=== PATIENT | male | born 1955 | race Caucasian/White ===

== ENCOUNTER → 2017-09-22 09:30 | Outpatient (CLI) | payer MEDICARE, SELFPAY ==
[2017-09-22 11:40] LABS: Cholesterol 152 mg/dL (200); High Density Lipoprotein 84 mg/dL; T4 Free Direct 0.85 ng/dL (0.76-1.46); Triglycerides 51 mg/dL; Very Low Density Lipoprotein 10 mg/dL (5-40)
== END ==
PROVIDERS: Family Provider Family Medicine; PCP Family Medicine; Visit Provider Family Medicine
DX: E01.0 Iodine-deficiency related diffuse (endemic) goiter (principal); Z72.0 Tobacco use
CPT/HCPCS: 36415; 80061; 84439

== ENCOUNTER → 2017-09-28 09:01 | Outpatient (CLI) | payer MEDICARE, SELFPAY ==
[2017-09-28 09:11] LABS: Bacteria 0 SEEN /hpf (None Seen); Mucous, Urine 0 SEEN /hpf (<or=2+); Red Blood Cells-Urine 0 SEEN /hpf (0-5)
[2017-09-28 10:07] LABS: Color, Urine Yellow (Yellow); Glucose, Dipstick Normal (Normal); Ketone-Dipstick 5 mg/dl (Negative); Leukocyte Esterase-Dipstick 500 /ul (Negative); Nitrite-Dipstick Negative (Negative); Occult Blood-Urine Negative /ul (Negative); Protein-Dipstick Negative (Negative); Specific Gravity, Urine 1.005 (1.002-1.030); Urine Bilirubin Dipstick Negative (Negative); Urine Clarity Clear (Clear); Urine Urobilinogen Normal (Normal)
[2017-09-28 10:14] LABS: Squamous Epithelial Cells - UA 0-5 SEEN /hpf (0-5); White Blood Cells 0-5 SEEN /hpf (0-5)
[2017-09-28 10:39] LABS: ALB/GLOB Ratio 0.9 RATIO (0.9-2.4); AST(SGOT) 22 U/L (15-37); Alanine Aminotransfer ALT/SGPT 21 U/L (16-61); Albumin, Serum 3.4 g/dL (3.2-5.0); Alkaline Phosphatase 59 U/L (45-117); Anion Gap 6 (5-15); BUN 6 mg/dL (7-18); Calcium,Total 8.6 mg/dL (8.5-10.1); Chloride 101 mmol/L (98-107); Creatinine, Serum 0.75 mg/dL (0.70-1.30); EST Glomerular Filtration Rate 113 mL/min (>60); Est Glom Filt Rate - Afr Amer 136 mL/min (>60); Globulin 3.7 g/dL (2.2-4.2); Glucose 92 mg/dL (74-106); Protein, Total 7.1 g/dL (6.4-8.2); Sodium Level 136 mmol/L (136-145); Thyroid Stim Hormone (TSH) 1.57 uIU/mL (0.358-3.74)
[2017-09-28 12:25] LABS: Absolute Lymphocyte Count 1.16 X10^3/ul (0.83-4.51); Absolute Neutrophil Count 3.3 X10^3/uL (2.0-7.7); Basophil# 0.02 X10^3/uL; Basophil% 0.4 % (0-1); Eosinophil# 0.05 X10^3/uL; Hematocrit 45.9 % (40-54); Hemoglobin 16.2 g/dl (13.0-16.5); Lymphocyte # 1.16 X10^3/ul (4.0); Lymphocyte % 22.4 % (19-41); Mean Corp Hgb Conc 35.3 g/gl (32-36); Mean Corpuscular Hgb 37.2 pg (27.0-32.0); Mean Corpuscular Volume 105.3 fL (80-94); Mean Platelet Vol. 9.9 fl (6.2-12.0); Monocyte# 0.58 X10^3/uL; Monocyte% 11.2 % (0-10); Neutrophil # 3.33 X10^3/uL (2.7-7.7); Neutrophil % 64.4 % (47-70); Platelet Count 249 K/mm3 (150-450); RBC Distribution Width CV 12.1 % (11.6-14.6); RBC Distribution Width SD 47.2 fl (35.1-43.9); Red Blood Count 4.36 M/mm3 (4.6-6.2); White Blood Count 5.2 K/mm3 (4.4-11.0)
[2017-09-28 12:30] LABS: POSITIVE COUNT NO; POSITIVE DIFFERENTIAL NO; POSITIVE MORPHOLOGY NO
[2017-09-29 10:18] LABS: Vitamin B12 208 pg/mL (211-911)
[2017-10-02 11:38] LABS: Anti-Thyroglobulin AB < 1.0 IU/mL (0.0-0.9); Thyroglobulin, Serum Qt. 26.5 ng/mL (1.4-29.2); Thyroid Peroxidase AB 17 IU/mL (0-34); Vitamin B1, Thiamine 112.2 nmol/L (66.5-200.0)
== END ==
PROVIDERS: Family Provider Family Medicine; PCP Family Medicine; Visit Provider Family Medicine
DX: I10 Essential (primary) hypertension (principal); Z72.0 Tobacco use; E01.0 Iodine-deficiency related diffuse (endemic) goiter; G62.9 Polyneuropathy, unspecified
CPT/HCPCS: 36415; 80053; 81001; 82607; 84425; 84432; 84443; 85025; 86376; 86800

== ENCOUNTER 2017-10-01 13:14 | Inpatient (IN) | payer MEDICARE, SELFPAY ==
[2017-10-01] VITALS (17 sets, daily range): BP systolic 112–174; BP diastolic 65–147; PULSE 75–114; RESP 15–21; TEMP 36.4–36.8; O2SAT 94–99; BMI 24.0; BMI 21.6
--- NOTE | 2017-10-01 13:30 | EKG12_ITS ---
Test Reason : NEURO SYM Blood Pressure : / mmHG Vent. Rate : 107 BPM Atrial Rate : 107 BPM P-R Int : 134 ms QRS Dur : 082 ms QT Int : 338 ms P-R-T Axes : 057 097 245 degrees QTc Int : 451 ms Sinus tachycardia Septal infarct , age undetermined ST & T wave abnormality, consider inferior ischemia ST & T wave abnormality, consider anterolateral ischemia Abnormal ECG Confirmed by VI AHN, BALDEMAR ([id number]), manuscript editor STEVEN MCCLURE ([id number]) on 10/04/2017 10:50:18 AM Referred By: Jesus Trujillo Confirmed By:BALDEMAR LEBRON MD
--- NOTE | 2017-10-01 13:30 | CT_ITS ---
STUDY: CT BRAIN WITHOUT CONTRAST REASON FOR EXAM: Male, 62 years old. Left facial droop and left leg weakness. RADIATION DOSAGE (If Supplied By Facility): CTDIvol = ( 44.99 ) mGy, DLP = ( 829.85 ) mGycm TECHNIQUE: Transaxial CT imaging of the brain was performed without administration of intravenous contrast material. Individualized dose optimization techniques were used for this CT. COMPARISON: 08 June 2015 FINDINGS: Normal soft tissue structures. Normal calvarium. There is mild cerebral atrophy with widening of the extra-axial spaces and ventricular dilatation. Normal white matter tracts of the cerebral hemispheres. There is a left subinsular ribbon hypodensity consistent with old lacunar infarct given appearance. Posterior odalys hypodensity consistent with old lacunar infarct is present similar to prior MRI. Normal cerebellum. There is no intracranial hemorrhage. There are no findings of an acute ischemic infarction. Normal visualized paranasal sinuses. CT/Brain/Head without Contrast IMPRESSION: Findings consistent with left basal ganglia/subinsular ribbon hypodensity consistent with old lacunar infarct with acute on chronic ischemia not completely excluded. No evidence of large territorial ischemia is present. Electronically Signed: Leo Friedman DO at 14:27 EDT , Service support ,
--- NOTE | 2017-10-01 13:40 | RAD_ITS ---
STUDY: X-RAY CHEST REASON FOR EXAM: Male, 62 years old. Shortness of breath. TECHNIQUE: Single AP portable view of the chest. COMPARISON: 12 April 2013 FINDINGS: The lungs are clear and expanded. There is no demonstrated pleural abnormality. Normal size heart. Normal mediastinum and meghna. Normal visualized pulmonary arteries. There is atherosclerotic calcification of the aortic arch with tortuosity. Normal visualized thoracic spine. Normal visualized ribs, clavicles, and shoulders. There is no demonstrated abnormality of the visualized soft tissue structures of the upper abdomen. RAD/Chest 1 View IMPRESSION: No evidence of acute cardiopulmonary process. Electronically Signed: Leo Friedman DO at 14:20 EDT , Service support ,
--- NOTE | 2017-10-01 13:47 | ED.VISSUMM ---
- ER Visit Summary Date of Service: 10/01/17 Chief Complaint: Stroke symptoms History of Present Illness: The patient is a 62 M presenting with stroke symptoms which started on Monday. He complains of slurred speech, left leg weakness and left leg numbness. He has had difficulty ambulating due to his left leg weakness. He drove to his friend's house today and they called EMS. He admits to 3 beers this morning. He states that he did not drink Monday or Monday. He has history of a previous stroke. Denies other complaints. Physical Examination: Vitals are stable. Patient is afebrile. Alert no acute distress. HEENT exam is unremarkable. Neck is supple. Lungs are clear and equal bilaterally. Heart is regular rate and rhythm. Abdomen is soft nontender nondistended. Extremities are unremarkable. Skin is warm and dry. NIH 5: Dysarthria, decreased sensation on left, left leg weakness, facial droop Remainder of exam is unremarkable. Emergency Department Course and Treatment: EKG is sinus rate of 107 with inferior and anterolateral T-wave inversions. The inferior T-wave inversion is new compared to previous. The anterolateral T-wave inversion is old. CBC, chemistries unremarkable. Troponin is negative. Alcohol level 60. Chest x-ray shows no acute process. CT head shows findings consistent with left basal ganglia/subinsular ribbon hypodensity consistent with old lacunar infarct with acute on chronic ischemia not completely excluded. No evidence of large territorial ischemia is present. Discussed with Dr. Lennon. He would like CTA head and neck. Urine tox was ordered. Discussed with the hospitalist for admission. Disposition: Admission Impression: CVA, alcohol intoxication This note was generated with [employer] dictation software. It may contain incorrect words, spelling, and punctuation that were not noted in review of the chart prior to signing ED Disposition - Plan for ED Patient: Chief Complaint: Neuro S/Sx Referrals: Jesus Trujillo MD [Primary Care Provider] -
[2017-10-01 13:51] LABS: Absolute Lymphocyte Count 1.21 X10^3/ul (0.83-4.51); Absolute Neutrophil Count 4.8 X10^3/uL (2.0-7.7); Basophil# 0.03 X10^3/uL; Basophil% 0.4 % (0-1); Eosinophil# 0.05 X10^3/uL; Eosinophils% 0.7 % (0-5); Hematocrit 44.5 % (40-54); Hemoglobin 16.2 g/dl (13.0-16.5); Lymphocyte # 1.21 X10^3/ul (4.0); Lymphocyte % 17.4 % (19-41); Mean Corp Hgb Conc 36.4 g/gl (32-36); Mean Corpuscular Hgb 37.5 pg (27.0-32.0); Mean Platelet Vol. 9.5 fl (6.2-12.0); Monocyte# 0.88 X10^3/uL; Monocyte% 12.6 % (0-10); Neutrophil # 4.76 X10^3/uL (2.7-7.7); Neutrophil % 68.5 % (47-70); POSITIVE COUNT NO; POSITIVE DIFFERENTIAL NO; POSITIVE MORPHOLOGY NO; Platelet Count 249 K/mm3 (150-450); RBC Distribution Width SD 44.6 fl (35.1-43.9); Red Blood Count 4.32 M/mm3 (4.6-6.2)
[2017-10-01 13:55] LABS: International Normalized Ratio 0.9; Prothrombin Time (Protime)PT. 12.3 SECONDS (11.7-14.9)
[2017-10-01 13:56] LABS: Partial Thromboplast Time 28.1 Seconds (24.1-36.2)
[2017-10-01 14:01] LABS: Anion Gap 13 (5-15); BUN 4 mg/dL (7-18); BUN/Creat Ratio 5.6 RATIO (10-20); Calcium,Total 8.9 mg/dL (8.5-10.1); Chloride 96 mmol/L (98-107); Creatinine, Serum 0.71 mg/dL (0.70-1.30); EST Glomerular Filtration Rate 120 mL/min (>60); Est Glom Filt Rate - Afr Amer 145 mL/min (>60); Estimated Creatinine Clearance 125.04 ml/min; Glucose 117 mg/dL (74-106); Potassium 3.7 mmol/L (3.5-5.1); Sodium Level 134 mmol/L (136-145)
--- NOTE | 2017-10-01 15:55 | CT_ITS ---
STUDY: CTA head and neck with IV contrast REASON FOR EXAM: Male, 62 years old. Left-sided facial droop and weakness. Slurred speech RADIATION DOSAGE (If Supplied By Facility): CTDIvol = ( 22.01 ) mGy, DLP = ( 800.89 ) mGycm. Individualized dose optimization techniques were used for this CT.? TECHNIQUE: CTA imaging of the head and neck was performed after intravenous administration of 100 cc of Isovue 370. Maximum intensity projection imaging was performed COMPARISON: None. FINDINGS: Atherosclerotic calcifications at the origin of the great vessels moderate narrowing of the proximal left subclavian artery. The bilateral common carotid arteries demonstrate atherosclerotic soft tissue plaque formation and calcifications with mild narrowing of the left common carotid artery. Atherosclerotic calcifications at the aortic bifurcation with mild narrowing no significant stenosis of the right cervical internal carotid artery. Vascular calcifications of the proximal right cervical internal carotid artery with mild narrowing. Remaining segments are patent. Origin of the vertebral arteries are patent. Mild atelectatic calcifications at the origin of the right vertebral artery. V2 and V3 segments of the vertebral arteries are patent. The V4 segments demonstrate atherosclerotic calcifications of the right vertebral artery with mild narrowing. Thyroid gland appears enlarged with small nodule in the isthmus. No apical pneumothorax. There are likely emphysematous changes in the lung apices. The parotid glands appear symmetric. Mild mucosal thickening of the ethmoid vessels Chronic small vessel disease. Scattered nonenlarged cervical lymph nodes CT/CTA Neck W/WO Contrast IMPRESSION: Atherosclerotic calcifications of the petrous, cavernous and supraclinoid segments of the internal carotid arteries noted. Bilateral middle and anterior cerebral arteries are patent. Atherosclerotic calcifications of the basilar artery. The basilar artery however is patent. The posterior cerebral arteries are patent. IMPRESSION: Mild atelectatic calcifications and soft tissue plaque formation of the common carotid arteries as well as the cervical internal carotid arteries without significant stenosis. Mild atherosclerotic disease of the right vertebral artery and the V4 segment as well as at the origin with mild narrowing. Electronically Signed: Nilson Regan, at 17:34 EDT Tel , Service support ,
--- NOTE | 2017-10-01 16:18 | PCM.HP.STD ---
Problem List (1) Acute CVA (cerebrovascular accident) Status: Acute Comment: Left facial droop, dysarthria, left sided weakness (2) ETOH abuse Status: Chronic (3) Hypertension Status: Chronic Qualifiers: Hypertension type: essential hypertension Qualified Code(s): I10 - Essential (primary) hypertension (4) Patient's noncompliance with other medical treatment and regimen Status: Chronic History of Present Illness Date of Admission: 10/01/17 Chief Complaint: Slurred speech, left-sided weakness The patient is a 62 year old M with past history hypertension, prior old lacunar CVA, EtOH use, smoker, who developed the onset of left sided weakness, slurred speech 24 hours prior to admission. He did not seek medical attention. He had 3 beers to drink this morning. He went to visit his friend who noted the deficits and called 911. ED evaluation: Blood pressure 164/147, improved 122/83 Heart rate 100, improved to 90 Respirations 16 98% room air CBC acceptable, hemoglobin 16.2, macrocytosis noted, coags normal, general chemistries acceptable, creatinine 0.7, BUN 4, random glucose 117, troponin negative, serum alcohol level 60 Chest x-ray reveals no abnormalities Noncontrast head CT reveals mild atrophy, old left lacunar infarct, old posterior odalys lacunar infarct, no bleed, no acute infarction ED course: Aspirin 325 mg p.o. ?1 Patient reports he feels his left lower extremity weakness is spontaneously improving compared to earlier Neurology consultation Dr. Lennon -CTA head and neck recommended The patient is seen and examined and is hemodynamically stable. He will be admitted to PCU. [] Past Medical History Past Medical History (Chronic Problems): Chronic Problems ETOH abuse (Chronic) Patient's noncompliance with other medical treatment and regimen (Chronic) Hypertension (Chronic) Chronic back pain (Chronic) Allergies Penicillins Adverse Reaction (Verified 06/08/15 14:04) Diarrhea Home Medications: Ambulatory Orders Medication Instructions Recorded Aspirin [Aspirin, Baby] 81 mg PO DAILY@0800 tab.chew 06/09/15 Atorvastatin Calcium [Lipitor] 80 mg PO UD #15 tablet 06/09/15 Lisinopril [Zestril] 20 mg PO DAILY #30 tablet 06/09/15 Nicotine [Nicoderm Cq] 21 mg TRANSDERM. DAILY #30 patch 06/09/15 Surgical History: herniorrhaphy, - - Back surgery-lumbar spine fusion, eye surgery secondary to retained metal in the eye Psychiatric History: No pertinent psych hx Smoking Status: Current every day smoker - *Family History Maternal History Items: Stroke Paternal History Items: Heart Disease VTE Information - Inpt Only VTE Present on Admission: No VTE Mechan Device Prophylaxis: SCD's VTE Pharm Prophylaxis ordered?: Yes Patient Problems: Active and Suspected Problems Acute CVA (cerebrovascular accident) (Acute) Left facial droop, dysarthria, left sided weakness Subjective: Patient denies chest pain, nausea vomiting diarrhea, palpitations. Patient feels his left lower extremity weakness is improving Objective: Unkempt gentleman, no acute distress, slurred speech - Physical Exam General: Alert, Oriented x3, Cooperative, - - Dysarthria with left facial droop HEENT: Atraumatic, PERRLA, EOMI Oral: Moist Mucosa Neck: No JVD, Negative Carotid Bruits Lungs: Clear to auscultation Cardiovascular: Regular rate, Regular Rhythm, Normal S1, Normal S2, No murmurs Abdomen: Bowel Sounds Present, Soft, Non Tender, Non-Distended Extremities: No edema Neurological: - - Dysarthria Left facial droop Tongue mild deviation left Weakness noted left upper greater than left lower extremity Left upgoing toe Mild hyperreflexia left knee Psych/Mental Status: Normal Affect, Appropriate Vital Signs Temp Pulse Resp BP Pulse Ox 97.7 F L 90 16 122/83 H 97 10/01/17 13:25 10/01/17 15:00 10/01/17 15:00 10/01/17 15:00 10/01/17 15:00 Oxygen Delivery Method Room Air Weight: 182 lb Body Mass Index (BMI) 24.0 Finger Stick Blood Glucose 129 Laboratory Tests Past 24 Hrs 10/01/17 10/01/17 10/01/17 13:20 13:20 13:20 WBC 7.0 RBC 4.32 L Hgb 16.2 Hct 44.5 MCV 103.0 H MCH 37.5 H MCHC 36.4 H RDW 12.0 RDW Differential 44.6 H Plt Count 249 MPV 9.5 Immature Gran % (Auto) 0.400 Neut % (Auto) 68.5 Lymph % (Auto) 17.4 L [place]he % (Auto) 12.6 H Eos % (Auto) 0.7 Baso % (Auto) 0.4 Absolute Neuts (auto) 4.8 Absolute Lymphs (auto) 1.21 Total Counted Not Reportable PT 12.3 INR 0.9 APTT 28.1 Sodium 134 L Potassium 3.7 Chloride 96 L Carbon Dioxide 25.0 Anion Gap 13 BUN 4 L Creatinine 0.71 Estim Creat Clear Calc 125.04 Est GFR (MDRD) Af Amer 145 Est GFR (MDRD) Non-Af 120 BUN/Creatinine Ratio 5.6 L Glucose 117 H Calcium 8.9 Troponin I < 0.015 Ethyl Alcohol 10/01/17 13:20 WBC RBC Hgb Hct MCV MCH MCHC RDW RDW Differential Plt Count MPV Immature Gran % (Auto) Neut % (Auto) Lymph % (Auto) [place]he % (Auto) Eos % (Auto) Baso % (Auto) Absolute Neuts (auto) Absolute Lymphs (auto) Total Counted PT INR APTT Sodium Potassium Chloride Carbon Dioxide Anion Gap BUN Creatinine Estim Creat Clear Calc Est GFR (MDRD) Af Amer Est GFR (MDRD) Non-Af BUN/Creatinine Ratio Glucose Calcium Troponin I Ethyl Alcohol 60.0 Assessment/Plan All Active Problems Acute CVA (cerebrovascular accident) (Acute) Arm paresthesia, right (Acute) Right leg paresthesias (Acute) 62-year-old gentleman with past medical history of hypertension, tobacco and EtOH abuse, history of old lacunar CVA, hyperlipidemia, hypertension, presents with stroke symptoms, onset greater than 24 hours ago. Patient reports symptoms stable/improving. He is hypertensive on arrival, with EKG revealing sinus tachycardia, poor R-wave progression, and T-wave inversions inferolaterally consistent with hypertensive heart disease/LVH pattern. Prior EKG 06/09/2015 revealed sinus rhythm, with T-wave inversions only in the lateral precordium. He has had no chest pain, dyspnea, orthopnea, PND, or pleuritic pain. Serum EtOH level is 60. 1. Acute CVA Multiple risk factors to include uncontrolled hypertension, hyperlipidemia, tobacco use, age 2. EtOH abuse 3. Uncontrolled hypertension/HTNive heart disease 4. Tobacco dependency 5. 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
[2017-10-01] MEDS: Aspirin 325 MG Tablet PO (17:07)
[2017-10-01] MEDS: 0.9% Normal Saline 1,000 ML 75 ML IV (19:01)
[2017-10-01] MEDS: Thiamine Hydrochloride 100 MG Tablet PO (19:01)
[2017-10-01 21:44] LABS: Magnesium 1.9 mg/dL (1.6-2.6)
[2017-10-01] MEDS: Atorvastatin Calcium 40 MG Tablet PO (22:50)
[2017-10-01] MEDS: Heparin Injection (Vial) 5,000 UNIT/ML VIAL 5000 UNIT SC (22:50)
[2017-10-01 23:01] LABS: Bedside Glucose 118 mg/dL (70-110)
[2017-10-02] VITALS (12 sets, daily range): BP systolic 142–154; BP diastolic 50–94; PULSE 75–110; RESP 15–18; TEMP 36.4–37.2; O2SAT 96–99; BMI 21.6
[2017-10-02] MEDS: 0.9% Normal Saline 1,000 ML 100 ML IV (04:12)
[2017-10-02 05:30] LABS: ALB/GLOB Ratio 0.9 RATIO (0.9-2.4); AST(SGOT) 22 U/L (15-37); Alanine Aminotransfer ALT/SGPT 22 U/L (16-61); Albumin, Serum 3.1 g/dL (3.2-5.0); Alkaline Phosphatase 53 U/L (45-117); Anion Gap 11 (5-15); BUN 6 mg/dL (7-18); BUN/Creat Ratio 7.5 RATIO (10-20); Calcium,Total 8.3 mg/dL (8.5-10.1); Chloride 101 mmol/L (98-107); Cholesterol 142 mg/dL (200); EST Glomerular Filtration Rate 106 mL/min (>60); Est Glom Filt Rate - Afr Amer 128 mL/min (>60); Estimated Creatinine Clearance 103.33 ml/min; Globulin 3.3 g/dL (2.2-4.2); Glucose 90 mg/dL (74-106); High Density Lipoprotein 59 mg/dL; Protein, Total 6.4 g/dL (6.4-8.2); Sodium Level 140 mmol/L (136-145); Triglycerides 48 mg/dL; Very Low Density Lipoprotein 10 mg/dL (5-40)
[2017-10-02] MEDS: Multivitamins,Ther W-Minerals Tablet 1 TABLET PO (07:48)
[2017-10-02] MEDS: Folic Acid 1 MG Tablet PO (07:48)
[2017-10-02] MEDS: Aspirin 81 MG TAB.CHEW PO (07:48)
[2017-10-02] MEDS: Thiamine Hydrochloride 100 MG Tablet PO ×2 (07:48→17:52)
--- NOTE | 2017-10-02 08:52 | PCM.PROGNOTE ---
Patient Problems: Active and Suspected Problems Acute CVA (cerebrovascular accident) (Acute) Left facial droop, dysarthria, left sided weakness Subjective: Chief complaint: Follow-up after admission for slurred speech/left-sided weakness , found to have acute right pontine infarct. Patient seen and examined. No acute events overnight. He mentioned that weakness in the left side is getting better, still having slurred speech. Denies any new symptoms. His vital signs are stable. - Physical Exam General: Alert, Oriented x3, Cooperative, No apparent distress HEENT: Atraumatic, PERRLA, EOMI, Normocephalic Oral: Moist Mucosa, No Gingival or Mucosal Lesions/ Ulcerations Neck: Supple, No JVD, Negative Carotid Bruits, Trachea Midline, Thyroid Normal Size and Texture Lungs: Clear to auscultation, No rhonchi, No wheeze, No rales, Diminished Cardiovascular: Regular rate, Regular Rhythm, Normal S1, Normal S2, PMI Normal Abdomen: Bowel Sounds Present, Soft, Non Tender, Non-Distended, No Hepato-splenomegaly Extremities: No clubbing, No cyanosis, No edema Skin: No rashes, No breakdown Lymphatic: No Cervical, Supraclavicular, or Inguinal Adenopathy Neurological: - - Minimal left facial droop. Positive left upper extremity drift, minimal weakness, minimal weakness on the left upper extremity. Psych/Mental Status: Normal Affect, Appropriate, Alert and oriented to time, place, person, mood and affect Vital Signs Temp Pulse Resp BP Pulse Ox 97.5 F L 75 15 154/92 H 98 10/02/17 06:21 10/02/17 06:59 10/02/17 06:21 10/02/17 06:21 10/02/17 06:21 Oxygen Delivery Method Room Air Weight: 164 lb 0.383 oz Body Mass Index (BMI) 21.6 Intake and Output for Last 24 Hours 09/30/17 10/01/17 10/02/17 23:59 23:59 23:59 Intake Total 596 / 596 656 / 656 Output Total 300 / 300 450 / 450 Balance 296 / 296 206 / 206 Laboratory Tests Past 24 Hrs 10/02/17 10/02/17 04:51 08:35 Sodium 140 Potassium 4.0 Chloride 101 Carbon Dioxide 28.0 Anion Gap 11 BUN 6 L Creatinine 0.80 Estim Creat Clear Calc 103.33 Est GFR (MDRD) Af Amer 128 Est GFR (MDRD) Non-Af 106 BUN/Creatinine Ratio 7.5 L Glucose 90 Calcium 8.3 L Total Bilirubin 0.50 AST 22 ALT 22 Alkaline Phosphatase 53 Total Protein 6.4 Albumin 3.1 L Globulin 3.3 Albumin/Globulin Ratio 0.9 Triglycerides 48 Cholesterol 142 LDL Cholesterol 73 VLDL Cholesterol 10 HDL Cholesterol 59 Urine Opiates Screen Pending Urine Methadone Screen Pending Ur Barbiturates Screen Pending Ur Phencyclidine Scrn Pending Ur Amphetamines Screen Pending U Methamphetamin-MDMA Pending U Benzodiazepines Scrn Pending Urine Cocaine Screen Pending U Cannabinoids Screen Pending Ur Drug Screen Comment POC Glucose 10/01/17 22:49 POC Glucose 118 H Clinical Impression(s) from Imaging Studies Clinical Impression(s) from Imaging Studies Brain CT 10/01/17 13:30 IMPRESSION: Findings consistent with left basal ganglia/subinsular ribbon hypodensity consistent with old lacunar infarct with acute on chronic ischemia not completely excluded. No evidence of large territorial ischemia is present. Electronically Signed: Leo Friedman DO at 14:27 EDT , Service support , Chest X-Ray 10/01/17 13:40 IMPRESSION: No evidence of acute cardiopulmonary process. Electronically Signed: Leo Friedman DO at 14:20 EDT , Service support , Neck CTA 10/01/17 15:55 IMPRESSION: Atherosclerotic calcifications of the petrous, cavernous and supraclinoid segments of the internal carotid arteries noted. Bilateral middle and anterior cerebral arteries are patent. Atherosclerotic calcifications of the basilar artery. The basilar artery however is patent. The posterior cerebral arteries are patent. IMPRESSION: Mild atelectatic calcifications and soft tissue plaque formation of the common carotid arteries as well as the cervical internal carotid arteries without significant stenosis. Mild atherosclerotic disease of the right vertebral artery and the V4 segment as well as at the origin with mild narrowing. Electronically Signed: Nilson Regan, at 17:34 EDT Tel , Service support , Head CTA 10/01/17 16:25 IMPRESSION: Atherosclerotic calcifications of the petrous, cavernous and supraclinoid segments of the internal carotid arteries noted. Bilateral middle and anterior cerebral arteries are patent. Atherosclerotic calcifications of the basilar artery. The basilar artery however is patent. The posterior cerebral arteries are patent. IMPRESSION: Mild atelectatic calcifications and soft tissue plaque formation of the common carotid arteries as well as the cervical internal carotid arteries without significant stenosis. Mild atherosclerotic disease of the right vertebral artery and the V4 segment as well as at the origin with mild narrowing. Electronically Signed: Nilson Shereen, at 17:34 EDT Tel , Service support , Brain MRI 10/02/17 09:00 IMPRESSION: Right pontine acute infarct. Chronic lacunar infarcts. Moderate chronic microvascular ischemic changes. N.B. : The above information has been verbally conveyed by Jose F De Leon MD to JIA BOLDENOB on 10/02/2017 11:20:48 (ET). Electronically Signed: Jose F De Leon MD at 11:22 EDT Tel , Service support , Medical Necessity - Tobacco Use Smoking Status: Current every day smoker Tobacco Use: Cigarettes Assessment/Plan All Active Problems Acute CVA (cerebrovascular accident) (Acute) This is a 62 years old male patient presented to the emergency room because of an left-sided weakness, found to have acute right pontine infarct. #1 acute right pontine infarct: With resultant left-sided facial droop and minimal left-sided hemiparesis. MRI brain revealed right pontine acute infarct. CTA of the head and neck revealed mild calcification and soft tissue plaque of the common carotids as well as cervical internal carotid arteries without significant stenosis. 2D echocardiogram done, awaiting the report. Patient is on aspirin, statins. Blood pressure stable, under control. Neurology recommended Plavix and possible placement to rehab. Plan to change aspirin to Plavix, PT OT evaluation and treatment. #2 hypertension: At this time, blood pressure is stable. He has been on lisinopril at home. Plan to allow permissive hypertension because of acute stroke. #3 hyperlipidemia: Continue statins. #4 alcohol abuse: He is on folic acid, thiamine and multivitamins as well as Ativan as needed, CIWA protocol. #5 DVT prophylaxis: Subcu heparin. This note was generated with [employer] dictation software. It may contain incorrect words, spelling, and punctuation that were not noted in checking the note before signing. Code Visit Inpatient E&M: 93732 Subs Hosp L2
[2017-10-02 08:59] LABS: Amphetamine Urine VISTA NEGATIVE (<1000 ng/mL); Barbiturate Urine VISTA NEGATIVE (< 200 ng/mL); Benzodiazepine Urine VISTA NEGATIVE (< 200 ng/mL); Cocaine Urine VISTA NEGATIVE (< 300 ng/mL); Ecstacy Urine VISTA NEGATIVE (< 500 ng/mL); Methadone Urine VISTA NEGATIVE (< 300 ng/mL); PCP Urine VISTA NEGATIVE (< 25 ng/mL); THC Urine VISTA NEGATIVE (< 50 ng/mL); Vista UDS pH Range 5
--- NOTE | 2017-10-02 09:00 | MRI_ITS ---
STUDY: MRI BRAIN WITHOUT CONTRAST REASON FOR EXAM: Male, 62 years old. cva -- left sided weakness, slurred speech, x 2 days,, hx prev stroke with rt sided weakness. TECHNIQUE: Standardized multiplanar fat and water weighted pulse sequences were obtained. COMPARISON: June 08, 2015 FINDINGS: There is moderate cerebral atrophy with widening of the extra-axial spaces and ventricular dilatation. There are multiple white matter hyperintensities, distributed throughout the deep white matter tracts of the cerebral hemispheres, consistent with moderate chronic white matter ischemic changes. Again noted are the bilateral basal ganglia and left thalamic chronic lacunar infarcts. There is no extra-axial fluid accumulation. Normal flow voids within the major intracranial circulation suggesting patency by spin echo criteria. Normal sella turcica, pituitary gland, infundibular stalk, optic chiasm and hypothalamus. Normal tectal plate and pineal gland. There is 1.2 cm right pontine restricted diffusion with drop in signal on ADC map, consistent with acute infarction. Again noted is a left pontine chronic infarct. Normal cerebellum. Normal basal cisterns. MRI/Brain without Contrast IMPRESSION: Right pontine acute infarct. Chronic lacunar infarcts. Moderate chronic microvascular ischemic changes. N.B. : The above information has been verbally conveyed by Jose F De Leon MD to JIA FAVIOLA on 10/02/2017 11:20:48 (ET). Electronically Signed: Jose F De Leon MD at 11:22 EDT Tel , Service support ,
--- NOTE | 2017-10-02 09:00 | ECHOD_ITS ---
Reason For Study: TIA/STROKE Procedure This was a 2D Doppler, Color Flow transthoracic echocardiogram. The exam was of fair technical quality due to diminished acoustic windows. The study was technically difficult. Exam performed portable in patient room. Left Ventricle Normal LV size. Left ventricular systolic function is normal. The estimated ejection fraction is 55 %. Transmitral doppler flow suggestive of impaired relaxation of left ventricle. No regional wall motion abnormalities noted. Right Ventricle Normal RV size. Normal systolic function. Atria Normal left atrium. Normal right atrium. No doppler evidence for ASD. Mitral Valve There is mild mitral annular calcification. Normal mitral valve. Tricuspid Valve Normal tricuspid valve. Aortic Valve Trisinus/trileaflet aortic valve. Mild focal aortic valve calcification. Pulmonic Valve The pulmonic valve is not well visualized. Great Vessels Normal sized aortic root. Pericardium/Pleural No pericardial effusion. MMode/2D Measurements & Calculations LVIDd: 5.1 cm IVSd: 0.98 cm LA dimension: 2.9 cm LVIDs: 4.0 cm LVPWd: 1.0 cm FS: 21.1 % LAV(MOD-sp4): 29.1 ml LA A4 area: 12.5 cm2 RA A4 area: 10.4 cm2 Time Measurements MV dec time: 0.20 sec Doppler Measurements & Calculations MV E max ike: 51.3 cm/sec Lat Peak E' Ike: 5.2 cm/sec Med Peak E' Ike: 5.4 cm/sec MV A max ike: 93.9 cm/sec E/E' lat: 9.8 E/E' med: 9.5 MV E/A: 0.55 MV V2 max: 90.4 cm/sec MV P1/2t max ike: 63.1 cm/sec Ao V2 max: 141.5 cm/sec MV max P.3 mmHg MV P1/2t: 55.9 msec Ao max P.0 mmHg MV V2 mean: 47.5 cm/sec MV dec slope: 331.0 cm/sec2 Ao V2 mean: 87.4 cm/sec MV mean P.1 mmHg MVA(P1/2t): 3.9 cm2 Ao mean P.6 mmHg MV V2 VTI: 19.1 cm Ao V2 VTI: 22.5 cm AI max ike: 457.3 cm/sec LV V1 max: 115.5 cm/sec PA V2 max: 64.7 cm/sec AI max P.6 mmHg LV V1 max P.3 mmHg AI dec slope: 287.3 cm/sec2 LV V1 mean P.4 mmHg AI P1/2t: 466.2 msec LV V1 mean: 71.1 cm/sec LV V1 VTI: 18.8 cm Interpretation Summary The study was technically difficult. Left ventricular systolic function is normal. The estimated ejection fraction is 55 %. There is mild mitral annular calcification. Mild focal aortic valve calcification. Transmitral doppler flow suggestive of impaired relaxation of left ventricle Ordering Physician: Andreea Urias Referring Physician: Jesus Trujillo Performed By: Armond Hyde RCS
[2017-10-02] MEDS: Heparin Injection (Vial) 5,000 UNIT/ML VIAL 5000 UNIT SC ×2 (09:27→22:47)
[2017-10-02] MEDS: 0.9% NaCl Peripheral Flush Adult/Peds IV (09:28)
--- NOTE | 2017-10-02 10:12 | PCM.CONS.GEN ---
Reason for Consult Date of Consultation: 10/02/17 Reason for Consultation: cva History of Present Illness: The patient is a 62 year old M admitted for left sided discoordination. denies other problems. history of tobacco use. takes asa daily. no snoring. lives alone. disabled due to back issues. 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 He did not seek medical attention. He had 3 beers to drink this morning. He went to visit his friend who noted the deficits and called 911. ED evaluation: Blood pressure 164/147, improved 122/83 Heart rate 100, improved to 90 Respirations 16 98% room air CBC acceptable, hemoglobin 16.2, macrocytosis noted, coags normal, general chemistries acceptable, creatinine 0.7, BUN 4, random glucose 117, troponin negative, serum alcohol level 60 Chest x-ray reveals no abnormalities Noncontrast head CT reveals mild atrophy, old left lacunar infarct, old posterior odalys lacunar infarct, no bleed, no acute infarction ED course: Aspirin 325 mg p.o. ?1 Patient reports he feels his left lower extremity weakness is spontaneously improving compared to earlier Neurology consultation Dr. Lennon -[facility] head and neck recommended The patient is seen and examined and is hemodynamically stable. He will be admitted to PCU. His Past Medical History Past Medical History (Chronic Problems): Chronic Problems ETOH abuse (Chronic) Patient's noncompliance with other medical treatment and regimen (Chronic) Hypertension (Chronic) Chronic back pain (Chronic) Allergies Penicillins Adverse Reaction (Verified 06/08/15 14:04) Diarrhea Home Medications: Ambulatory Orders Medication Instructions Recorded Aspirin [Aspirin, Baby] 81 mg PO DAILY@0800 tab.chew 06/09/15 Atorvastatin Calcium [Lipitor] 80 mg PO UD #15 tablet 06/09/15 Lisinopril [Zestril] 20 mg PO DAILY #30 tablet 06/09/15 Surgical History: herniorrhaphy, - - Back surgery-lumbar spine fusion, eye surgery secondary to retained metal in the eye Psychiatric History: No pertinent psych hx Smoking Status: Current every day smoker - *Family History Maternal History Items: Stroke Paternal History Items: Heart Disease Review of Systems Constitutional: Denies: Chills, Fever, Weight Change HEENT: Denies: Head Aches, Sinus Congestion, Sinus Drainage Cardiovascular: Denies: Chest Pain, Palpitations Respiratory: Denies: Cough, Shortness of breath at rest, Sputum production Gastrointestinal: Denies: Abdominal Pain, Nausea, Vomiting Genitourinary: Denies: Dysuria Musculoskeletal: Denies: Joint Pain, Joint Tenderness Skin: Denies: Rash, Wounds Neurological: Denies: Numbness, Tingling, Focal weakness Psychiatric: Denies: Anxiety, Depression, Homicidal Ideations, Suicidal Ideations Hematologic/ Lymphatic: Denies: Easy Bruising, Easy Bleeding Patient Problems: Active and Suspected Problems Acute CVA (cerebrovascular accident) (Acute) Left facial droop, dysarthria, left sided weakness - Physical Exam General: Alert, Oriented x3, Cooperative Neurological: Cranial nerves II-XII grossly intact, - - left discoord Vital Signs Temp Pulse Resp BP Pulse Ox 36.5 C L 84 16 150/94 H 96 10/02/17 09:30 10/02/17 09:30 10/02/17 09:30 10/02/17 09:30 10/02/17 09:30 Oxygen Delivery Method Room Air Weight: 74.4 kg Body Mass Index (BMI) 21.6 Intake and Output for Last 24 Hours 09/30/17 10/01/17 10/02/17 23:59 23:59 23:59 Intake Total 596 / 596 656 / 656 Output Total 300 / 300 450 / 450 Balance 296 / 296 206 / 206 Laboratory Tests Past 24 Hrs 10/02/17 10/02/17 04:51 08:35 Sodium 140 Potassium 4.0 Chloride 101 Carbon Dioxide 28.0 Anion Gap 11 BUN 6 L Creatinine 0.80 Estim Creat Clear Calc 103.33 Est GFR (MDRD) Af Amer 128 Est GFR (MDRD) Non-Af 106 BUN/Creatinine Ratio 7.5 L Glucose 90 Calcium 8.3 L Total Bilirubin 0.50 AST 22 ALT 22 Alkaline Phosphatase 53 Total Protein 6.4 Albumin 3.1 L Globulin 3.3 Albumin/Globulin Ratio 0.9 Triglycerides 48 Cholesterol 142 LDL Cholesterol 73 VLDL Cholesterol 10 HDL Cholesterol 59 Urine Opiates Screen NEGATIVE Urine Methadone Screen NEGATIVE Ur Barbiturates Screen NEGATIVE Ur Phencyclidine Scrn NEGATIVE Ur Amphetamines Screen NEGATIVE U Methamphetamin-MDMA NEGATIVE U Benzodiazepines Scrn NEGATIVE Urine Cocaine Screen NEGATIVE U Cannabinoids Screen NEGATIVE Ur Drug Screen Comment POC Glucose 10/01/17 22:49 POC Glucose 118 H MRI, MRA and CTA reviewed. There is an acute right pontine infarct. No significant stenosis. Assessment/Plan All Active Problems Acute CVA (cerebrovascular accident) (Acute) Arm paresthesia, right (Acute) Right leg paresthesias (Acute) acute right pontine infarct plavix statin bp control pt/ot/sp consider rehab
--- NOTE | 2017-10-02 10:35 | CASEMGMT ---
Face to Face with patient for initial transition planning/care coordination assessment. RN BLUE introduced self and role at [facility], pt voices understanding and consents to assessment at this time. Pt is sitting up in bed in no distress at this time. Pt is A/O x4 at this time and answers all questions appropriately at this time. Care providers, pharmacy, and demographics verified. See attached link. Pt voices no further concerns/needs at this time. Advised pt to ask for CM if any further questions/concerns/needs arise, voices understanding. Referral to [facility] for possible rehab, voices understanding and awaiting neuro consult notes. PLAN: FAUSTOD Hosea MONSIVAIS CM
[2017-10-02 10:44] LABS: Hemoglobin A1c 4.7 % (4.2-6.3)
--- NOTE | 2017-10-02 12:50 | CASEMGMT ---
Addendum entered by Shama Paige 10/02/17 16:20: Social Work Met with pt in room and pt states he would like to go to [facility]. Phone call to Natalie and confirmed she can take him tomorrow. DORCAS Joseph Original Note: Social Work Spoke with Natalie in [facility] and they are able to accept pt. Met with pt in room and introduced self and role of SW. Presented inpt rehab to pt and explained the program and benefits. Pt states three hours of therapy does not sound like very much a day and pt questioned home with outpt therapy. SW explained that 3 hours of therapy in the inpt rehab is the most therapy the pt will be able to receive and will help him to recover. Explained that outpt therapy would be 30min-1hour twice a week. Pt states he wants to think about. SW informed pt that SW will return later this afternoon for decision. Plan: possible inpt rehab, waiting on pt decision. DORCAS Joseph
[2017-10-02] MEDS: Atorvastatin Calcium 40 MG Tablet PO (22:47)
[2017-10-03 03:00] VITALS: PULSE 69
[2017-10-03 04:27] VITALS: BP 144/75; PULSE 79; RESP 18; TEMP 37; O2SAT 94
[2017-10-03 07:00] VITALS: PULSE 76
[2017-10-03] MEDS: Multivitamins,Ther W-Minerals Tablet 1 TABLET PO (07:58)
[2017-10-03] MEDS: Folic Acid 1 MG Tablet PO (07:58)
[2017-10-03] MEDS: Clopidogrel Bisulfate 75 MG Tablet PO (07:58)
[2017-10-03] MEDS: Thiamine Hydrochloride 100 MG Tablet PO (07:58)
[2017-10-03 10:05] VITALS: BP 165/96; PULSE 87; RESP 16; TEMP 37.1; O2SAT 94
--- NOTE | 2017-10-03 10:16 | DCINST_ITS ---
- Discharge Diagnoses Current Active Problems: Current Active and Chronic Problems Acute CVA (cerebrovascular accident) (Acute) Left facial droop, dysarthria, left sided weakness ETOH abuse (Chronic) You will use the following diet at home:: Cardiac Your food should be the consistency of: Regular Discharge Activity: Return to Normal Activity Weight Bearing Status: Weight bearing as tolerated Call your doctor if you observe: Fever of 101 or Higher, Shortness of breath, Dizziness, Fainting spells, Chest pain, Increased palpitations (irregular heartbeat), Uncontrolled pain Allergies/Adverse Reactions: Allergies Penicillins Adverse Reaction (Verified 06/08/15 14:04) Diarrhea Medications to take at Discharge Atorvastatin Calcium [Lipitor] 80 mg PO UD #15 tablet 06/09/15 Lisinopril [Zestril] 20 mg PO DAILY #30 tablet 06/09/15 Clopidogrel Bisulfate [Plavix] 75 mg PO DAILY #90 tab 10/03/17 Folic Acid 1 mg PO DAILY@0800 #30 tab 10/03/17 Thiamine Hydrochloride [Vitamin B1] 100 mg PO DAILY #30 tab 10/03/17 The following prescriptions were given: Clopidogrel Bisulfate [Plavix] 75 mg PO DAILY #90 tab Folic Acid 1 mg PO DAILY@0800 #30 tab Thiamine Hydrochloride [Vitamin B1] 100 mg PO DAILY #30 tab Primary Care Physician: Jesus Trujillo MD [Primary Care Provider] - Please follow up with your Primary Care Physician in: 2 weeks. Test Results: Test results from this visit will be discussed in further detail at your follow- up appointment, if applicable. Please Follow Up With: Juaquin Ortiz MD When: call his office.
[2017-10-03 12:13] VITALS: BP 139/78; PULSE 86; RESP 16; TEMP 37.1; O2SAT 96
--- NOTE | 2017-10-03 13:21 | PCM.DC.SUM ---
Discharge Date and Diagnosis Date of Admission: 10/01/17 Date of Discharge: 10/03/17 - Primary Discharge Diagnosis acute right pontine infarct with resultant minimal left-sided facial droop and left hemiparesis. - Secondary Discharge Diagnosis Chronic Problems ETOH abuse (Chronic) Patient's noncompliance with other medical treatment and regimen (Chronic) Hypertension (Chronic) Chronic back pain (Chronic) Hospital Course and Treatment Imaging Results: Clinical Impression(s) from Imaging Studies Brain CT 10/01/17 13:30 IMPRESSION: Findings consistent with left basal ganglia/subinsular ribbon hypodensity consistent with old lacunar infarct with acute on chronic ischemia not completely excluded. No evidence of large territorial ischemia is present. Electronically Signed: Leo Friedman DO at 14:27 EDT , Service support , Chest X-Ray 10/01/17 13:40 IMPRESSION: No evidence of acute cardiopulmonary process. Electronically Signed: Leo Friedman DO at 14:20 EDT , Service support , Neck CTA 10/01/17 15:55 IMPRESSION: Atherosclerotic calcifications of the petrous, cavernous and supraclinoid segments of the internal carotid arteries noted. Bilateral middle and anterior cerebral arteries are patent. Atherosclerotic calcifications of the basilar artery. The basilar artery however is patent. The posterior cerebral arteries are patent. IMPRESSION: Mild atelectatic calcifications and soft tissue plaque formation of the common carotid arteries as well as the cervical internal carotid arteries without significant stenosis. Mild atherosclerotic disease of the right vertebral artery and the V4 segment as well as at the origin with mild narrowing. Electronically Signed: Nilson Regan, at 17:34 EDT Tel , Service support , Head CTA 10/01/17 16:25 IMPRESSION: Atherosclerotic calcifications of the petrous, cavernous and supraclinoid segments of the internal carotid arteries noted. Bilateral middle and anterior cerebral arteries are patent. Atherosclerotic calcifications of the basilar artery. The basilar artery however is patent. The posterior cerebral arteries are patent. IMPRESSION: Mild atelectatic calcifications and soft tissue plaque formation of the common carotid arteries as well as the cervical internal carotid arteries without significant stenosis. Mild atherosclerotic disease of the right vertebral artery and the V4 segment as well as at the origin with mild narrowing. Electronically Signed: Nilson Regan, at 17:34 EDT Tel , Service support , Brain MRI 10/02/17 09:00 IMPRESSION: Right pontine acute infarct. Chronic lacunar infarcts. Moderate chronic microvascular ischemic changes. N.B. : The above information has been verbally conveyed by Jose F De Leon MD to JIA SALMERON on 10/02/2017 11:20:48 (ET). Electronically Signed: Jose F De Leon MD at 11:22 EDT Tel , Service support , Dr. Ortiz, neurology. Operations: None Procedures: 2-D Echocardiogram, EKG Summary of Care Provided: Patient seen and examined on the day of discharge and appeared to be stable to be discharged home. He denies any new complaints. Still having weakness in the left side of his body. Denied chest pain or shortness of breath. His vital signs are stable. - Physical Exam General: Alert, Oriented x3, Cooperative, No apparent distress HEENT: Atraumatic, PERRLA, EOMI, Normocephalic Oral: Moist Mucosa, No Gingival or Mucosal Lesions/ Ulcerations Neck: Supple, No JVD, Negative Carotid Bruits, Trachea Midline, Thyroid Normal Size and Texture Lungs: Clear to auscultation, No rhonchi, No wheeze, No rales, Diminished Cardiovascular: Regular rate, Regular Rhythm, Normal S1, Normal S2, PMI Normal Abdomen: Bowel Sounds Present, Soft, Non Tender, Non-Distended, No Hepato-splenomegaly Extremities: No clubbing, No cyanosis, No edema Skin: No rashes, No breakdown Lymphatic: No Cervical, Supraclavicular, or Inguinal Adenopathy Neurological: - - Minimal left facial droop. Positive left upper extremity drift, minimal weakness, minimal weakness on the left upper extremity. Psych/Mental Status: Normal Affect, Appropriate, Alert and oriented to time, place, person, mood and affect Vital Signs stable. Hospital course: The patient is a 62 year old M admitted because of left-sided body weakness and left facial droop and he was found to have acute right pontine infarct. Initial CT scan brain revealed findings consistent with left basal ganglia/subinsular hypodensity consistent with old lacunar infarct and acute ischemia not completely excluded. MRI brain performed and revealed acute right pontine infarct. CTA of the head and neck revealed mild calcification and soft tissue plaque of the common carotids as well as cervical internal carotid arteries without significant stenosis. EKG revealed normal sinus rhythm without evidence of acute ischemic changes or cardiac arrhythmias. 2D echocardiogram revealed ejection fraction 55%, no other significant findings. She is a history of stroke in the past and he has been on aspirin. During this admission, he was treated with Plavix and statins. His blood pressure was in the high range but not significantly high which is permissive hypertension for acute stroke. His routine blood work was unremarkable. His troponin was negative. Lipid profile revealed total cholesterol of 149, LDL of 73 and HDL of 59. Urine drug screen was negative. Blood alcohol level was 60. Patient had a history of alcohol abuse and during this hospital stay, he was treated with thiamine and folic acid supplement as well as Ativan as needed. There was no obvious evidence of acute alcohol withdrawal. Patient discharged to inpatient rehabilitation unit in a stable medical condition, discharged on Plavix and statins, continued on lisinopril, discharged on folic acid and thiamine supplement, recommended follow-up with PCP in 2 weeks and follow-up with neurology according to Dr. Ortiz. Discharge Activity: Return to Normal Activity Weight Bearing Status: Weight bearing as tolerated Call your doctor if you observe: Fever of 101 or Higher, Shortness of breath, Dizziness, Fainting spells, Chest pain, Increased palpitations (irregular heartbeat), Uncontrolled pain Home Medications: Medications to take at Discharge Atorvastatin Calcium [Lipitor] 80 mg PO UD #15 tablet 06/09/15 Lisinopril [Zestril] 20 mg PO DAILY #30 tablet 06/09/15 Clopidogrel Bisulfate [Plavix] 75 mg PO DAILY #90 tab 10/03/17 Folic Acid 1 mg PO DAILY@0800 #30 tab 10/03/17 Thiamine Hydrochloride [Vitamin B1] 100 mg PO DAILY #30 tab 10/03/17 Following Prescrptions Were Given to Patient: Clopidogrel Bisulfate [Plavix] 75 mg PO DAILY #90 tab Folic Acid 1 mg PO DAILY@0800 #30 tab Thiamine Hydrochloride [Vitamin B1] 100 mg PO DAILY #30 tab Primary Care Physician: Jesus Trujillo MD [Primary Care Provider] - Please follow up with your Primary Care Physician in: 2 weeks. Please Follow Up With: Juaquin Ortiz MD When: call his office. Please Follow Up With: Jesus Trujillo MD Disposition: Inpt Rehab Unit/Facility Minutes spent on discharge:: 32 Patient Condition:: Stable Medical Necessity - Tobacco Use Smoking Status: Current every day smoker Tobacco Use: Cigarettes Meaningful Use Info Meaningful Use Diagnoses (Choose all that apply): Ischemic CVA - CVA Therapy Assessed for PT,OT and/or ST?: Yes - Ischemic Stroke Antithrombotic order at d/c?: Yes Dx of Atrial fib/flutter?: No Anticoagulant at discharge?: No Reason anticoagulant not ordered: Treatment not Indicated Statins at discharge?: Yes Primary Dx Acute Ischemic CVA?: Yes IV tPA ordered during stay?: No Reason IV t-PA not ordered: Treatment not Indicated Code Visit Inpatient E&M: 70500 Disch Hosp
--- NOTE | 2017-10-03 13:26 | DS.PCM_ITS ---
Discharge Date and Diagnosis Date of Admission: 10/01/17 Date of Discharge: 10/03/17 - Primary Discharge Diagnosis acute right pontine infarct with resultant minimal left-sided facial droop and left hemiparesis. - Secondary Discharge Diagnosis Chronic Problems ETOH abuse (Chronic) Patient's noncompliance with other medical treatment and regimen (Chronic) Hypertension (Chronic) Chronic back pain (Chronic) Hospital Course and Treatment Imaging Results: Clinical Impression(s) from Imaging Studies Brain CT 10/01/17 13:30 IMPRESSION: Findings consistent with left basal ganglia/subinsular ribbon hypodensity consistent with old lacunar infarct with acute on chronic ischemia not completely excluded. No evidence of large territorial ischemia is present. Electronically Signed: Leo Friedman DO at 14:27 EDT , Service support , Chest X-Ray 10/01/17 13:40 IMPRESSION: No evidence of acute cardiopulmonary process. Electronically Signed: Leo Friedman DO at 14:20 EDT , Service support , Neck CTA 10/01/17 15:55 IMPRESSION: Atherosclerotic calcifications of the petrous, cavernous and supraclinoid segments of the internal carotid arteries noted. Bilateral middle and anterior cerebral arteries are patent. Atherosclerotic calcifications of the basilar artery. The basilar artery however is patent. The posterior cerebral arteries are patent. IMPRESSION: Mild atelectatic calcifications and soft tissue plaque formation of the common carotid arteries as well as the cervical internal carotid arteries without significant stenosis. Mild atherosclerotic disease of the right vertebral artery and the V4 segment as well as at the origin with mild narrowing. Electronically Signed: Nilson Regan, at 17:34 EDT Tel , Service support , Head CTA 10/01/17 16:25 IMPRESSION: Atherosclerotic calcifications of the petrous, cavernous and supraclinoid segments of the internal carotid arteries noted. Bilateral middle and anterior cerebral arteries are patent. Atherosclerotic calcifications of the basilar artery. The basilar artery however is patent. The posterior cerebral arteries are patent. IMPRESSION: Mild atelectatic calcifications and soft tissue plaque formation of the common carotid arteries as well as the cervical internal carotid arteries without significant stenosis. Mild atherosclerotic disease of the right vertebral artery and the V4 segment as well as at the origin with mild narrowing. Electronically Signed: Nilson Regan, at 17:34 EDT Tel , Service support , Brain MRI 10/02/17 09:00 IMPRESSION: Right pontine acute infarct. Chronic lacunar infarcts. Moderate chronic microvascular ischemic changes. N.B. : The above information has been verbally conveyed by Jose F De Leon MD to JIA SALMERON on 10/02/2017 11:20:48 (ET). Electronically Signed: Jose F De Leon MD at 11:22 EDT Tel , Service support , Dr. Ortiz, neurology. Operations: None Procedures: 2-D Echocardiogram, EKG Summary of Care Provided: Patient seen and examined on the day of discharge and appeared to be stable to be discharged home. He denies any new complaints. Still having weakness in the left side of his body. Denied chest pain or shortness of breath. His vital signs are stable. - Physical Exam General: Alert, Oriented x3, Cooperative, No apparent distress HEENT: Atraumatic, PERRLA, EOMI, Normocephalic Oral: Moist Mucosa, No Gingival or Mucosal Lesions/ Ulcerations Neck: Supple, No JVD, Negative Carotid Bruits, Trachea Midline, Thyroid Normal Size and Texture Lungs: Clear to auscultation, No rhonchi, No wheeze, No rales, Diminished Cardiovascular: Regular rate, Regular Rhythm, Normal S1, Normal S2, PMI Normal Abdomen: Bowel Sounds Present, Soft, Non Tender, Non-Distended, No Hepato- splenomegaly Extremities: No clubbing, No cyanosis, No edema Skin: No rashes, No breakdown Lymphatic: No Cervical, Supraclavicular, or Inguinal Adenopathy Neurological: - - Minimal left facial droop. Positive left upper extremity drift, minimal weakness, minimal weakness on the left upper extremity. Psych/Mental Status: Normal Affect, Appropriate, Alert and oriented to time, place, person, mood and affect Vital Signs stable. Hospital course: The patient is a 62 year old M admitted because of left-sided body weakness and left facial droop and he was found to have acute right pontine infarct. Initial CT scan brain revealed findings consistent with left basal ganglia/ subinsular hypodensity consistent with old lacunar infarct and acute ischemia not completely excluded. MRI brain performed and revealed acute right pontine infarct. CTA of the head and neck revealed mild calcification and soft tissue plaque of the common carotids as well as cervical internal carotid arteries without significant stenosis. EKG revealed normal sinus rhythm without evidence of acute ischemic changes or cardiac arrhythmias. 2D echocardiogram revealed ejection fraction 55%, no other significant findings. She is a history of stroke in the past and he has been on aspirin. During this admission , he was treated with Plavix and statins. His blood pressure was in the high range but not significantly high which is permissive hypertension for acute stroke. His routine blood work was unremarkable. His troponin was negative. Lipid profile revealed total cholesterol of 149, LDL of 73 and HDL of 59. Urine drug screen was negative. Blood alcohol level was 60. Patient had a history of alcohol abuse and during this hospital stay, he was treated with thiamine and folic acid supplement as well as Ativan as needed. There was no obvious evidence of acute alcohol withdrawal. Patient discharged to inpatient rehabilitation unit in a stable medical condition, discharged on Plavix and statins, continued on lisinopril, discharged on folic acid and thiamine supplement, recommended follow-up with PCP in 2 weeks and follow-up with neurology according to Dr. Ortiz. Discharge Activity: Return to Normal Activity Weight Bearing Status: Weight bearing as tolerated Call your doctor if you observe: Fever of 101 or Higher, Shortness of breath, Dizziness, Fainting spells, Chest pain, Increased palpitations (irregular heartbeat), Uncontrolled pain Home Medications: Medications to take at Discharge Atorvastatin Calcium [Lipitor] 80 mg PO UD #15 tablet 06/09/15 Lisinopril [Zestril] 20 mg PO DAILY #30 tablet 06/09/15 Clopidogrel Bisulfate [Plavix] 75 mg PO DAILY #90 tab 10/03/17 Folic Acid 1 mg PO DAILY@0800 #30 tab 10/03/17 Thiamine Hydrochloride [Vitamin B1] 100 mg PO DAILY #30 tab 10/03/17 Following Prescrptions Were Given to Patient: Clopidogrel Bisulfate [Plavix] 75 mg PO DAILY #90 tab Folic Acid 1 mg PO DAILY@0800 #30 tab Thiamine Hydrochloride [Vitamin B1] 100 mg PO DAILY #30 tab Primary Care Physician: Jesus Trujillo MD [Primary Care Provider] - Please follow up with your Primary Care Physician in: 2 weeks. Please Follow Up With: Juaquin Ortiz MD When: call his office. Please Follow Up With: Jesus Trujillo MD Disposition: Inpt Rehab Unit/Facility Minutes spent on discharge:: 32 Patient Condition:: Stable Medical Necessity - Tobacco Use Smoking Status: Current every day smoker Tobacco Use: Cigarettes Meaningful Use Info Meaningful Use Diagnoses (Choose all that apply): Ischemic CVA - CVA Therapy Assessed for PT,OT and/or ST?: Yes - Ischemic Stroke Antithrombotic order at d/c?: Yes Dx of Atrial fib/flutter?: No Anticoagulant at discharge?: No Reason anticoagulant not ordered: Treatment not Indicated Statins at discharge?: Yes Primary Dx Acute Ischemic CVA?: Yes IV tPA ordered during stay?: No Reason IV t-PA not ordered: Treatment not Indicated Code Visit Inpatient E&M: 98096 Disch Hosp
== END 2017-10-03 12:46 | DRG 65 ==
LOC: ED 16:51 → PCU 17:02
PROVIDERS: Family Medicine; Admitting Provider Internal Medicine; Emergency Provider Emergency Medicine; Family Provider Family Medicine; PCP Family Medicine; Visit Provider Hospitalist
DX: I63.9 Cerebral infarction, unspecified (principal); G81.94 Hemiplegia, unspecified affecting left nondominant side; R29.810 Facial weakness; Z91.19 Patient's noncompliance with other medical treatment and regimen; R47.1 Dysarthria and anarthria; F17.210 Nicotine dependence, cigarettes, uncomplicated; E78.5 Hyperlipidemia, unspecified; F10.10 Alcohol abuse, uncomplicated; Y90.3 Blood alcohol level of 60-79 mg/100 ml; R29.705 NIHSS score 5; I11.9 Hypertensive heart disease without heart failure
CPT/HCPCS: 36415; 70450; 70496; 70498; 70551; 71045; 80048; 80053; 80061; 80307; 80320; 81001; 82607; 82962; 83036; 83735; 84425; 84432; 84443; 84484; 85025; 85610; 85730; 86376; 86800; 92523; 93005; 93306; 97110; 97162; 97165; 97530; 97802; 99284; J7030; Q9967; A4216; G0480

== ENCOUNTER 2017-10-03 13:15 | Inpatient (IN) | payer MEDICARE, SELFPAY ==
[2017-10-03 13:55] VITALS: BP 146/65; PULSE 83; RESP 17; TEMP 36.5; O2SAT 96; BMI 21.6
--- NOTE | 2017-10-03 16:25 | CHAPLAIN ---
Type of Pastoral Visit _x__ Initial Visit ___ Follow-up Visit ___ On-call Visit ___ General Patient Visit ___ Spiritual Assessment ___ Family Conference ___ Bereavement ___ Rapid Response ___ Code Blue ___ Other (describe below) Pastoral Care Referral From _x__ Patient ___ Family _x__ Nurse ___ Physician ___ Stained Glass Joiner ___ Manager Hiv ___ Other (describe below) Sacrament/Intervention _x__ Active listening ___ Anointing ___ Uatsdin ___ Bereavement ___ Communion ___ Sara exploration ___ ___ Life review _x__ Prayer ___ Reconciliation ___ Sacrament of Sick ___ Supportive presence ___ Wedding ___ Other (describe below) Pastoral Comments mostly this was a get acquainted visit as patient is newly admitted
--- NOTE | 2017-10-03 19:06 | NURSING ---
Aware of being an fall risk and must ask for staff assist and verbalized understanding and demonstrated call schneider use.
[2017-10-03 19:25] VITALS: O2SAT 95
[2017-10-03] MEDS: Atorvastatin Calcium 80 MG Tablet PO (19:56)
[2017-10-03 20:02] VITALS: BP 161/84; PULSE 87; RESP 18; TEMP 36.4; O2SAT 96
[2017-10-03 21:09] VITALS: BMI 21.6
--- NOTE | 2017-10-03 22:11 | NURSING ---
Pt requested room door be completely shut. Nurse explained that the door needs to be left ajar and not completely shut for pt safety. Pt stated he only sleeps in complete darkness. Nurse repeated the importance of being able to hear any pt needs, perform adequate pt rounding, and keep an eye out better with door open. Nurse apologized for any inconvenience but would not be able to comply with pt wishes for closing the door completely.
[2017-10-04] MEDS: Enoxaparin 40 MG/0.4 ML Syringe SC (05:12)
--- NOTE | 2017-10-04 05:15 | NURSING ---
pt adamently refused lab to take blood for labs ordered this a.m. Pt stated that the last time he had labs taken his arm hurt for 2 months. Pt was reminded that the doctor ordered the labs as part of his treatment. Pt refused again and sat up in bed waving his arms angrily refusing the labor relations officer and RN.
[2017-10-04 08:00] VITALS: O2SAT 97
[2017-10-04 08:15] VITALS: BP 168/74; PULSE 109; RESP 17; TEMP 36.6; O2SAT 97
--- NOTE | 2017-10-04 08:16 | PCA ---
Patient advised me that he would remove the PA as soon as I left the room. This was at 0745.
--- NOTE | 2017-10-04 08:30 | PCA ---
Patient disconnected his PA and self transfered himself to the bed by the time I ran back there. Mellisa arrived at the room first.
[2017-10-04] MEDS: Folic Acid 1 MG Tablet PO (09:06)
[2017-10-04] MEDS: Thiamine Hydrochloride 100 MG Tablet PO (09:06)
[2017-10-04] MEDS: Clopidogrel Bisulfate 75 MG Tablet PO (09:06)
[2017-10-04] MEDS: Lisinopril 20 MG Tablet PO (09:06)
[2017-10-04 09:10] VITALS: PULSE 109
--- NOTE | 2017-10-04 09:18 | NURSING ---
Explained the importance of having labs done this morning, pt still refusing to have any labs done. Stated, last time I was stuck it hurt for 3 months
--- NOTE | 2017-10-04 12:16 | PCM.HP.STD ---
History of Present Illness Date of Admission: 10/03/17 Chief Complaint: Debility The patient is a 62 year old handed white male who is admitted to the rehab unit after a stay in the hospital because of a right pontine infarct. He originally started having left sided discoordination symptoms on 10/01/17, came to into the hospital after 24 hours and his pontine stroke was diagnosed by MRI. Workup was otherwise negative. Stroke risk factors included hypertension and tobacco use. He is now admitted to the rehab unit with a goal of zoroastrian of prior level functional independence. He lives alone. Past Medical History Past Medical History (Chronic Problems): Chronic Problems ETOH abuse (Chronic) Patient's noncompliance with other medical treatment and regimen (Chronic) Hypertension (Chronic) Chronic back pain (Chronic) Allergies Penicillins Adverse Reaction (Verified 06/08/15 14:04) Diarrhea Home Medications: Ambulatory Orders Medication Instructions Recorded Atorvastatin Calcium [Lipitor] 80 mg PO QHS 10/03/17 Clopidogrel Bisulfate [Plavix] 75 mg PO DAILY 10/03/17 Folic Acid 1 mg PO DAILY@0800 10/03/17 Lisinopril [Zestril] 20 mg PO DAILY 10/03/17 Thiamine Hydrochloride [Vitamin B1] 100 mg PO DAILY 10/03/17 Surgical History: herniorrhaphy, - - Back surgery-lumbar spine fusion, eye surgery secondary to retained metal in the eye Psychiatric History: No pertinent psych hx Smoking Status: Current every day smoker - *Family History Maternal History Items: Stroke Paternal History Items: Heart Disease Review of Systems Constitutional: Denies: Chills, Fever, Weight Change HEENT: Denies: Head Aches, Sinus Congestion, Sinus Drainage Cardiovascular: Denies: Chest Pain, Palpitations Respiratory: Denies: Cough, Shortness of breath at rest, Sputum production Gastrointestinal: Denies: Abdominal Pain, Nausea, Vomiting Genitourinary: Denies: Dysuria Musculoskeletal: Denies: Joint Pain, Joint Tenderness Skin: Denies: Rash, Wounds Neurological: Denies: Numbness, Tingling, Focal weakness Psychiatric: Denies: Anxiety, Depression, Homicidal Ideations, Suicidal Ideations Hematologic/ Lymphatic: Denies: Easy Bruising, Easy Bleeding VTE Information - Inpt Only VTE Present on Admission: Yes - Physical Exam General: Alert, Oriented x3, Cooperative, No apparent distress Lungs: Clear to auscultation Cardiovascular: Regular rate Abdomen: Bowel Sounds Present Extremities: No Calf Tenderness Neurological: Cranial nerves II-XII grossly intact, - - mild left discoord Vital Signs Temp Pulse Resp BP Pulse Ox 36.6 C 109 H 17 168/74 H 97 10/04/17 08:15 10/04/17 09:10 10/04/17 08:15 10/04/17 08:15 10/04/17 08:15 Oxygen Delivery Method Room Air Weight: 74 kg Body Mass Index (BMI) 21.6 Finger Stick Blood Glucose 129 Intake and Output for Last 24 Hours 10/02/17 10/03/17 10/04/17 23:59 23:59 23:59 Intake Total 240 / 240 Output Total 650 / 650 Balance -650 / -650 240 / 240 Current Medications Generic Name Dose Route Start Last Admin Trade Name Freq PRN Reason Stop Dose Admin Acetaminophen 650 mg 10/03/17 15:15 Tylenol PO Q6H PRN PRN Mild Pain (0-3/10)/Headache Atorvastatin Calcium 80 mg 10/03/17 22:00 10/03/17 19:56 Lipitor PO 80 mg QHS [facility] Administration Bisacodyl 10 mg 10/03/17 15:15 Dulcolax RECTAL .PRN X 1 PRN Constipation Clopidogrel Bisulfate 75 mg 10/04/17 10:00 10/04/17 09:06 Plavix PO 75 mg DAILY [facility] Administration Enoxaparin Sodium 40 mg 10/04/17 06:00 10/04/17 05:12 Lovenox SC 40 mg DAILY@0600 [facility] Administration Folic Acid 1 mg 10/04/17 08:00 10/04/17 09:06 Folic Acid PO 1 mg DAILY@0800 [facility] Administration Lisinopril 20 mg 10/04/17 10:00 10/04/17 09:06 Zestril PO 20 mg DAILY [facility] Administration Magnesium Hydroxide 30 ml 10/03/17 15:15 Milk Of Magnesia PO .PRN X 1 PRN Constipation Senna/Docusate Sodium 2 tablet 10/03/17 22:00 10/04/17 09:06 Senokot-S, Pita-Colace PO Not Given BID [facility] Thiamine HCl 100 mg 10/04/17 08:00 10/04/17 09:06 Vitamin B1 PO 100 mg DAILY@0800 [facility] Administration Assessment/Plan All Active Problems Acute CVA (cerebrovascular accident) (Acute) Debility status post right pontine infarct with left sided discoordination. Goal of rehab is zoroastrian of prior level of functional independence. Plan: Physical therapy for gait and balance Occupational Therapy for ADLs Speech therapy DVT prophylaxis: Lovenox As needed analgesics Bowel protocol Plavix, statin therapy for stroke prevention and follow blood pressure Encourage smoking cessation
--- NOTE | 2017-10-04 12:18 | PCM.RU.PYE ---
Admission Information Status Changes from Prescreening?: No changes Identified Actual Problem List:: Pain, ALteration in Cmfrt, Cognitve Impr/Memory Loss, Alteration in Sleep, Alteration in Nutrition, Mobility Impaired, Self Care Deficit, Ineffect.D/C Plan r/t Psy Potential Problem List:: DVT, Bleeding, Infection, UTI, Aspiration, Falls, Skin Integrity, Depression Risk of Complications DVT: LMWH, JOSE MIGUEL Hose, Sequential Compression Device Bleeding: Monitor Lab Values, Nursing to Teach Precautions for anti-coagulation therapy., Wound, if applicable, to be assessed every shift., Stroke patients assessed for lethargy or change in status. Infection: Clinical Staff to Monitor for S/S of infection:, S/S of infection include fever, redness, warmth, etc. Urinary Tract Infection: Monitor for frequency, burning, discomfort, or incontinence., Nursing will obtain urine sample for urinalysis and C&S when ordered. Aspiration: Clinical staff will monitor for coughing, drooling, congestion., Speech will evaluate swallowing and dsyphasia., Nursing will monitor patient swallowing during meals. Falls: Patient will be evaluated for Fall Precautions, Patient will be placed on Fall Precautions as indicated per protocol. Skin Breakdown: Nursing will assess skin daily using assessment tool., Nursing will place on Skin Breakdown Precautions as indicated. Pain: Clinical staff will assess patient's pain level per protocol., Medications will be given, if needed, and the pain level reassessed., Other methods: Massage, distraction, decrease stimulus, etc. used PRN. Plan of Care Patient requires physician specializing in physical medicine and rehab oversight to provide close medical supervision of rehab issues including: Pain Management, Sleep Problems, Bowel and Bladder, Medical and co-morbidity Management, DVT prophylaxis, Rehabilitation Leadership, Coordination of treatment team Patient needs Physical Therapy: For a minimum of 1 hour, At least 5 out of 7 days Patient needs Physical Therapy to improve:: Mobility, Mobility, Mobility, Strengthening, Transfers, Stretching, ROM, Endurance, Stairs, Gait, Balance Patient needs Occupational Therapy: For a minimum of 1 hour, At least 5 out of 7 days Patient needs Occupational Therapy to improve ADL's incl.: Eating, Grooming, Bathing, Dressing, Toileting, Toilet transfers, Community Reintegration, Higher functioning activities, Household tasks, Adaptive Equipment, Splinting, Other activities as determined Patient requires speech therapy: For a minimum of 1 hour, At least 5 out of 7 days Patient requires speech therapy for: Swallowing, Cognition, Language Skills, Compensatory Strategies Patient requires 24/ Rehabilitation Nursing for: Pain Issues, Identifying and preventing risk factors, Monitoring and reporting current medical conditions, Assisting with ambulation, transfer, and all ADL's, Teaching patients about disease process and medications, Family teaching, Providing safe environment, Bowel and Bladder Issues, Skin integrity, Medication Management Patient needs Instructor Nurse/ Case Management for: Discharge Planning, Arranging Home Equipment or Services, Family Interventions Patient needs Dietary and Nutrition Services for: Adequate Nutrition, Nutritional Supplements, Nutritional Education Goals Patient will remain: free from falls, or injury at time of discharge. Patient will perform bed mobility at: MOD I level of assist. Patient will complete transfers from bed to chair at: MOD I level of assist. Patient will ambulate: 100 feet, with MOD I assist, with LRD Patient will complete upper body dressing at: MOD I level of assist. Patient will complete lower body dressing at: MOD I level of assist. Patient will complete toileting at: MOD I level of assist. Patient will perform bathing at: MOD I level of assist. Patient will complete grooming at: MOD I level of assist. Patient will complete home management skills at: MOD I level of assist. Patient will achieve: 12 stairs, at MOD I assist Patient will have pain level of: of 3 or less Patient's skin will: remain intact, free from infection. Patient will receive: adequate nutrition. Discharge Planning Pt Prognosis for Sig. Practical Improv. w/in Reasonable Time: Good Anticipated D/C Destination: Home with Outpt Therapy Was Preadmission Assessment Accurate?: Yes
--- NOTE | 2017-10-04 12:57 | NURSING ---
Per. Dr. Ortiz ok to cancel Cbc, Bmp d/t pt refusing them.
[2017-10-04 13:38] VITALS: BMI 21.6
--- NOTE | 2017-10-04 14:45 | PCM.PROGNOTE ---
Subjective: Chief complaint: Follow-up after consultation for medical management after admission to rehabilitation unit for acute right pontine infarct with residual minimal left-sided facial droop and left hemiparesis. Patient seen and examined. No acute events overnight. He denies any complaints, still having minimal left-sided body weakness. Denied chest pain or shortness of breath. His blood pressure is in the higher side, other vital signs are stable. - Physical Exam General: Alert, Oriented x3, Cooperative, No apparent distress HEENT: Atraumatic, PERRLA, EOMI, Normocephalic Oral: Moist Mucosa, No Gingival or Mucosal Lesions/ Ulcerations Neck: Supple, No JVD, Negative Carotid Bruits, Trachea Midline, Thyroid Normal Size and Texture Lungs: Clear to auscultation, No rhonchi, No wheeze, No rales, Diminished Cardiovascular: Regular rate, Regular Rhythm, Normal S1, Normal S2, PMI Normal Abdomen: Bowel Sounds Present, Soft, Non Tender, Non-Distended, No Hepato-splenomegaly Extremities: No clubbing, No cyanosis, No edema Skin: No rashes, No breakdown Lymphatic: No Cervical, Supraclavicular, or Inguinal Adenopathy Neurological: - - Minimal left facial droop, left side minimal hemiparesis. Psych/Mental Status: Normal Affect, Appropriate, Alert and oriented to time, place, person, mood and affect Vital Signs Temp Pulse Resp BP Pulse Ox 97.8 F 109 H 17 168/74 H 97 10/04/17 08:15 10/04/17 09:10 10/04/17 08:15 10/04/17 08:15 10/04/17 08:15 Oxygen Delivery Method Room Air Weight: 163 lb 2.273 oz Body Mass Index (BMI) 21.6 Finger Stick Blood Glucose 129 Intake and Output for Last 24 Hours 10/02/17 10/03/17 10/04/17 23:59 23:59 23:59 Intake Total 480 / 480 Output Total 650 / 650 Balance -650 / -650 480 / 480 Medical Necessity - Tobacco Use Smoking Status: Current every day smoker Assessment/Plan All Active Problems Acute CVA (cerebrovascular accident) (Acute) This is a 62 years old male patient admitted to rehabilitation unit after he suffered acute right pontine infarct with residual minimal left-sided facial droop and left hemiparesis and I am seeing this patient for consultation at the rehabilitation unit for medical management. #1 acute right pontine infarct: With resultant left-sided facial droop and minimal left-sided hemiparesis. He is on Plavix, statins. Blood pressure slightly elevated, will allow permissive hypertension. Still having weakness on the left side. MRI brain revealed right pontine acute infarct. CTA of the head and neck revealed mild calcification and soft tissue plaque of the common carotids as well as cervical internal carotid arteries without significant stenosis. 2D echocardiogram done, awaiting the report. Plan to continue PT OT according to rehab team. #2 hypertension: At this time, blood pressure is on the higher side. He is on lisinopril. Plan to monitor for now. #3 hyperlipidemia: Continue statins. #4 alcohol abuse: He is on folic acid and thiamine supplement. No evidence of acute withdrawal. #5 DVT prophylaxis: Subcu Lovenox. This note was generated with [employer] dictation software. It may contain incorrect words, spelling, and punctuation that were not noted in checking the note before signing. Code Visit Inpatient E&M: 65833 Subs Hosp L2
--- NOTE | 2017-10-04 14:49 | PN_ITS ---
Subjective: Chief complaint: Follow-up after consultation for medical management after admission to rehabilitation unit for acute right pontine infarct with residual minimal left-sided facial droop and left hemiparesis. Patient seen and examined. No acute events overnight. He denies any complaints , still having minimal left-sided body weakness. Denied chest pain or shortness of breath. His blood pressure is in the higher side, other vital signs are stable. - Physical Exam General: Alert, Oriented x3, Cooperative, No apparent distress HEENT: Atraumatic, PERRLA, EOMI, Normocephalic Oral: Moist Mucosa, No Gingival or Mucosal Lesions/ Ulcerations Neck: Supple, No JVD, Negative Carotid Bruits, Trachea Midline, Thyroid Normal Size and Texture Lungs: Clear to auscultation, No rhonchi, No wheeze, No rales, Diminished Cardiovascular: Regular rate, Regular Rhythm, Normal S1, Normal S2, PMI Normal Abdomen: Bowel Sounds Present, Soft, Non Tender, Non-Distended, No Hepato- splenomegaly Extremities: No clubbing, No cyanosis, No edema Skin: No rashes, No breakdown Lymphatic: No Cervical, Supraclavicular, or Inguinal Adenopathy Neurological: - - Minimal left facial droop, left side minimal hemiparesis. Psych/Mental Status: Normal Affect, Appropriate, Alert and oriented to time, place, person, mood and affect Vital Signs Temp Pulse Resp BP Pulse Ox 97.8 F 109 H 17 168/74 H 97 10/04/17 08:15 10/04/17 09:10 10/04/17 08:15 10/04/17 08:15 10/04/17 08:15 Oxygen Delivery Method Room Air Weight: 163 lb 2.273 oz Body Mass Index (BMI) 21.6 Finger Stick Blood Glucose 129 Intake and Output for Last 24 Hours 10/02/17 10/03/17 10/04/17 23:59 23:59 23:59 Intake Total 480 / 480 Output Total 650 / 650 Balance -650 / -650 480 / 480 Medical Necessity - Tobacco Use Smoking Status: Current every day smoker Assessment/Plan All Active Problems Acute CVA (cerebrovascular accident) (Acute) This is a 62 years old male patient admitted to rehabilitation unit after he suffered acute right pontine infarct with residual minimal left-sided facial droop and left hemiparesis and I am seeing this patient for consultation at the rehabilitation unit for medical management. #1 acute right pontine infarct: With resultant left-sided facial droop and minimal left-sided hemiparesis. He is on Plavix, statins. Blood pressure slightly elevated, will allow permissive hypertension. Still having weakness on the left side. MRI brain revealed right pontine acute infarct. CTA of the head and neck revealed mild calcification and soft tissue plaque of the common carotids as well as cervical internal carotid arteries without significant stenosis. 2D echocardiogram done, awaiting the report. Plan to continue PT OT according to rehab team. #2 hypertension: At this time, blood pressure is on the higher side. He is on lisinopril. Plan to monitor for now. #3 hyperlipidemia: Continue statins. #4 alcohol abuse: He is on folic acid and thiamine supplement. No evidence of acute withdrawal. #5 DVT prophylaxis: Subcu Lovenox. This note was generated with [employer] dictation software. It may contain incorrect words, spelling, and punctuation that were not noted in checking the note before signing. Code Visit Inpatient E&M: 94454 Subs Hosp L2
--- NOTE | 2017-10-04 16:27 | CHAPLAIN ---
Type of Pastoral Visit ___ Initial Visit _x__ Follow-up Visit ___ On-call Visit ___ General Patient Visit ___ Spiritual Assessment ___ Family Conference ___ Bereavement ___ Rapid Response ___ Code Blue ___ Other (describe below) Pastoral Care Referral From _x__ Patient ___ Family ___ Nurse ___ Physician ___ Inside Sales Director ___ Upsetting Machine Operator ___ Other (describe below) Sacrament/Intervention _x__ Active listening ___ Anointing ___ Mandaeism ___ Bereavement ___ Communion ___ Sara exploration ___ ___ Life review _x__ Prayer ___ Reconciliation ___ Sacrament of Sick ___ Supportive presence ___ Wedding ___ Other (describe below) Pastoral Comments follow up to patient that I met with briefly yesterday; pt mostly talks about missing his cell phone and says that he has notified staff; pt asked about support system and pt only speaks of a friend or two; pt welcomes prayer
[2017-10-04 20:01] VITALS: BP 150/86; PULSE 95; RESP 17; TEMP 36.6; O2SAT 96
[2017-10-04] MEDS: Atorvastatin Calcium 80 MG Tablet PO (20:56)
[2017-10-04] MEDS: Senna/Docusate Sodium 1 Tablet 2 TABLET PO (20:56)
[2017-10-05 05:00] VITALS: BMI 21.6
[2017-10-05] MEDS: Enoxaparin 40 MG/0.4 ML Syringe SC (06:15)
[2017-10-05 07:00] VITALS: O2SAT 91
[2017-10-05 07:07] VITALS: BP 109/76; PULSE 86; RESP 16; TEMP 36.5; O2SAT 95
[2017-10-05] MEDS: Clopidogrel Bisulfate 75 MG Tablet PO (08:48)
[2017-10-05] MEDS: Lisinopril 20 MG Tablet PO (08:48)
[2017-10-05] MEDS: Folic Acid 1 MG Tablet PO (08:48)
[2017-10-05] MEDS: Thiamine Hydrochloride 100 MG Tablet PO (08:48)
--- NOTE | 2017-10-05 10:02 | PCM.PN.NEU ---
Subjective: He is concerned that he is missing his cell phone. Staff is currently searching for his missing cell phone which apparently was with him in the PCU but is no longer with him now. He also would like his stool softener discontinued. No other complaints. Tolerating therapies. - Physical Exam General: Alert, Oriented x3, Cooperative, No apparent distress Neurological: Cranial nerves II-XII grossly intact Psych/Mental Status: Normal Affect Vital Signs Temp Pulse Resp BP Pulse Ox 36.5 C L 86 16 109/76 95 10/05/17 07:07 10/05/17 07:07 10/05/17 07:07 10/05/17 07:07 10/05/17 07:07 Oxygen Delivery Method Room Air Weight: 74 kg Body Mass Index (BMI) 21.6 Finger Stick Blood Glucose 129 Intake and Output for Last 24 Hours 10/03/17 10/04/17 10/05/17 23:59 23:59 23:59 Intake Total 480 / 480 240 / 240 Output Total 650 / 650 200 / 200 Balance -650 / -650 280 / 280 240 / 240 Current Medications Generic Name Dose Route Start Last Admin Trade Name Freq PRN Reason Stop Dose Admin Acetaminophen 650 mg 10/03/17 15:15 Tylenol PO Q6H PRN PRN Mild Pain (0-3/10)/Headache Atorvastatin Calcium 80 mg 10/03/17 22:00 10/04/17 20:56 Lipitor PO 80 mg QHS PAYAM Administration Bisacodyl 10 mg 10/03/17 15:15 Dulcolax RECTAL .PRN X 1 PRN Constipation Clopidogrel Bisulfate 75 mg 10/04/17 10:00 10/05/17 08:48 Plavix PO 75 mg DAILY PAYAM Administration Enoxaparin Sodium 40 mg 10/04/17 06:00 10/05/17 06:15 Lovenox SC 40 mg DAILY@0600 PAYAM Administration Folic Acid 1 mg 10/04/17 08:00 10/05/17 08:48 Folic Acid PO 1 mg DAILY@0800 PAYAM Administration Lisinopril 20 mg 10/04/17 10:00 10/05/17 08:48 Zestril PO 20 mg DAILY PAYAM Administration Magnesium Hydroxide 30 ml 10/03/17 15:15 Milk Of Magnesia PO .PRN X 1 PRN Constipation Senna/Docusate Sodium 2 tablet 10/03/17 22:00 10/05/17 08:49 Senokot-S, Pita-Colace PO Not Given BID [facility] Thiamine HCl 100 mg 10/04/17 08:00 10/05/17 08:48 Vitamin B1 PO 100 mg DAILY@0800 [facility] Administration Medical Necessity - Tobacco Use Smoking Status: Current every day smoker Assessment/Plan All Active Problems Acute CVA (cerebrovascular accident) (Acute) Debility status post right pontine infarct with left sided discoordination. Goal of rehab is jehovah's witness of prior level of functional independence. Plan: Physical therapy for gait and balance Occupational Therapy for ADLs Speech therapy DVT prophylaxis: Lovenox As needed analgesics Bowel protocol: Discontinue his stool softener Plavix, statin therapy for stroke prevention and follow blood pressure Encourage smoking cessation
[2017-10-05 10:06] VITALS: BMI 21.6
--- NOTE | 2017-10-05 13:30 | SP.MBSS_ITS ---
PRIMARY / SECONDARY DIAGNOSIS: dysphagia (R13.12) REFERRING PHYSICIAN: Dr. Ortzi CURRENT DIET: regular textures/thin liquids DENTITION: natural dentition present MENTAL STATUS: WFL for participation in MBS RESPIRATORY STATUS: PREVIOUS MODIFIED BARIUM SWALLOW STUDY: REASON FOR REFERRAL: Further assessment of swallow function under fluoroscopy. MEDICAL HISTORY: Pt is a 62 year old male who was admitted to [facility] on 10/01/2017 d/t acute onset dysarthria and left sided hemiparesis and subsequently admitted to [facility] Inpatient Rehab Unit on 10/03/2017. Patient has had a prior CVA involving the odalys and basal ganglia 10/02/2017 MRI/Brain without Contrast IMPRESSION: Right pontine acute infarct. Chronic lacunar infarcts. Moderate chronic microvascular ischemic changes. PMHx is significant for prior CVA involving the left odalys and basal ganglia, ETOH abuse, hypertension, chronic back pain, noncompliance with other medical treatment and regimen. Pt reports intermittent coughing t/o day, chronic coughing well prior to admission; further reports dysarthria is near baseline associated w/ prior CVA?s. STUDY FINDINGS: Patient participated in a Modified Barium Swallow (MBS) study on 10/05/2017. Dr. Parker was the radiologist present for this evaluation. This study was recorded in the lateral view and images were sent to PACs for storage. The following consistencies were presented to this patient for analysis of oropharyngeal swallow function: thin liquid, pudding, and a regular texture Sharon Doone cookie. Results of the MBS are as follows: PENETRATION / ASPIRATION SCALE (TUTTLE): 1 = does not enter airway 2 = enters airway/above vocal folds/ejected 3 = enters airway/above vocal folds/not ejected 4 = enters airway/contacts vocal folds/ejected 5 = enters airway/contacts vocal folds/not ejected 6 = enters airway/below vocal folds/ejected 7 = enters airway/below vocal folds/not ejected despite effort 8 = enters airway/below vocal folds/no effort PENETRATION / ASPIRATION SCALE (SCORE): Thin liquid - 5 mL tsp: 2 Thin liquid - 5 mL tsp: 4 Thin liquids via cup (single sip): large volume swallow, unable to view d/t patient movement, SUSPECT aspiration although unable to confirm. d/t darkening of vocal folds and anterior tracheal wall post deglutition w/ delayed cough response Thin liquids via cup (single sip): 1 Thin liquids via cup (single sip): 1 Thin liquids via cup (sequential swallows): 1 Pudding via spoon: 1 Regular textured cookie: 1 Thin liquids via straw (single sip): 1 Thin liquids via cup (single sip): 1 Thin liquids via cup (single sip w/ chin tuck): 1 denotes suspected aspiration, could not view IMPRESSION: DIAGNOSIS: mild oropharyngeal dysphagia (R13.12) ORAL PHASE CHARACTERIZED BY: LABIAL SEAL: no labial escape TONGUE CONTROL DURING BOLUS MANIPULATION: cohesive bolus between tongue to palatal seal BOLUS PREPARATION / MASTICATION: slow prolonged chewing/mashing with complete recollection BOLUS TRANSPORT / LINGUAL MOTION: slowed tongue motion ORAL RESIDUE: residue collection on oral structures PHARYNGEAL PHASE CHARACTERIZED BY: INITIATION OF PHARYNGEAL SWALLOW: bolus head in valleculae at first hyoid excursion SOFT PALATE ELEVATION: no bolus between soft palate and pharyngeal wall LARYNGEAL ELEVATION: partial superior movement of thyroid cartilage/partial approximation of arytenoids cartilage to epiglottic petiole ANTERIOR HYOID EXCURSION: partial anterior movement EPIGLOTTIC MOVEMENT: complete epiglottic inversion LARYNGEAL VESTIBULE CLOSURE AT HEIGHT OF SWALLOW: incomplete laryngeal vestibule closure with narrow column of air/contrast in laryngeal vestibule PHARYNGEAL STRIPPING WAVE: pharyngeal stripping wave present / diminished PHARYNGOESOPHAGEAL SEGMENT OPENING: complete distension and complete duration with no obstruction of flow TONGUE BASE RETRACTION: trace column of contrast between tongue base and posterior pharyngeal wall PHARYNGEAL RESIDUE: collection of residue within or on pharyngeal structures ESOPHAGEAL PHASE CHARACTERIZED BY: ESOPHAGEAL BOLUS CLEARANCE IN THE UPRIGHT POSITION: complete clearance; esophageal coating EFFECTS OF TREATMENT STRATEGIES ATTEMPTED: Chin tuck posture = no impact on swallow function Double swallow = effective to clear oral and pharyngeal residue Reduced bolus size = effective Reduced rate of intake = effective RECOMMENDATIONS: Regular textures/thin liquids. COMPENSATORY STRATEGIES RECOMMENDED: Small bites and sips, one sip at a time/slow rate of intake, double swallow and /or use liquid wash as needed to clear oral/pharyngeal residue, remain upright for 30-60 minutes post meal (GERD precaution). INTERPRETATION OF RESULTS: Patient presents with mild oropharyngeal dysphagia (R13.12) Patient?s oral phase is marked by prolonged mastication and reduced lingual control resulting in oral residue post deglutition. Patient was able to effectively clear oral residue retention w/ use of a double swallow. Pharyngeal phase swallow function is marked by reduced tongue base retraction, and diminished/absent pharyngeal stripping wave resulting in mild pharyngeal dysmotility w/ residue collecting in the valleculae (moderate), as well as the aryepiglottic folds, pyriforms sinuses and posterior pharyngeal wall (trace). Reduced laryngeal elevation resulted in incomplete laryngeal vestibule closure w/ penetration of thin liquids via teaspoon during deglutition. Penetration/aspiration of large volume thin liquid bolus via cup is SUSPECTED d/t presence of contrast lining the vocal folds and anterior tracheal wall post deglutition but was not able to be confirmed d/t patient motion during deglutition which precluded view under fluoroscopy. A delayed cough response was appreciated following suspected aspiration event. No penetration/aspiration was evidenced under fluoroscopy for remainder of thin liquid boluses consumed. Esophageal swallow function WFL. NEED FOR SKILLED SPEECH LANGUAGE SERVICES: Patient requires intensive skilled speech-language intervention targeting training and implementation of recommended compensatory strategies to reduce aspiration risk. ADDITIONAL COMMENTS/RECOMMENDATIONS: Results and recommendations were discussed with this patient immediately following MBS completion, with the patient verbalizing understanding and agreement with all recommendations and education provided. IMAGE COUNT: [id number]
--- NOTE | 2017-10-05 13:30 | RAD_ITS ---
STUDY: SWALLOWING STUDY REASON FOR EXAM: Male, 62 years old. Dysphagia. Pontine CVA. TECHNIQUE: The examination was performed with Speech Pathology in attendance. Under fluoroscopic observation, the patient ingested thin barium, thick barium, barium pudding and barium coated cracker. FLUOROSCOPY TIME: 2:18 minutes/seconds RADIOLOGIST INVOLVEMENT: Present during exam. COMPARISON: None available. FINDINGS: The following was observed during swallowing of the various mixtures of barium: Thin Barium: There findings of aspiration not definitively seen below the vocal cords and laryngeal penetration. Thick Barium: There was no finding of aspiration below the vocal cords. Barium Pudding: There was no finding of aspiration or laryngeal penetration. Barium Coated Cracker: There was no finding of aspiration or laryngeal penetration. RAD/Swallowing Function w/Video IMPRESSION: Normal tailored barium swallow study. No evidence of increased risk for aspiration. The swallow study findings were discussed with the patient by the speech pathologist at the conclusion of the examination. Please see speech pathology report for more information and recommendations. The procedure was performed by speech pathology under the direct supervision of Dr. Parker. Electronically Signed: Lex Parker, at 14:30 EDT Tel , Service support ,
[2017-10-05 21:00] VITALS: BP 133/79; PULSE 88; RESP 17; TEMP 36.6; O2SAT 96; BMI 21.6
[2017-10-05] MEDS: Atorvastatin Calcium 80 MG Tablet PO (21:18)
[2017-10-05] MEDS: LORazepam 0.5 MG Tablet PO (21:18)
[2017-10-06] MEDS: Enoxaparin 40 MG/0.4 ML Syringe SC (06:16)
[2017-10-06] MEDS: Thiamine Hydrochloride 100 MG Tablet PO (08:40)
[2017-10-06] MEDS: Lisinopril 20 MG Tablet PO (08:40)
[2017-10-06] MEDS: Folic Acid 1 MG Tablet PO (08:40)
[2017-10-06] MEDS: Clopidogrel Bisulfate 75 MG Tablet PO (08:40)
[2017-10-06 09:00] VITALS: BP 122/76; PULSE 97; RESP 18; TEMP 36.8; O2SAT 95
[2017-10-06 14:46] VITALS: BMI 21.6
[2017-10-06 20:24] VITALS: BP 131/83; PULSE 82; RESP 16; TEMP 36.8; O2SAT 96
[2017-10-06] MEDS: Atorvastatin Calcium 80 MG Tablet PO (21:32)
[2017-10-07] MEDS: Enoxaparin 40 MG/0.4 ML Syringe SC (06:46)
[2017-10-07 07:16] VITALS: BP 123/72; PULSE 81; RESP 16; TEMP 36.8; O2SAT 97
[2017-10-07] MEDS: Clopidogrel Bisulfate 75 MG Tablet PO (08:07)
[2017-10-07] MEDS: Folic Acid 1 MG Tablet PO (08:07)
[2017-10-07] MEDS: Thiamine Hydrochloride 100 MG Tablet PO (08:07)
[2017-10-07] MEDS: Lisinopril 20 MG Tablet PO (08:07)
[2017-10-07 11:14] VITALS: BMI 21.6
[2017-10-07 19:15] VITALS: BP 136/82; PULSE 88; RESP 16; TEMP 36.6; O2SAT 95
[2017-10-07] MEDS: Atorvastatin Calcium 80 MG Tablet PO (20:31)
[2017-10-08] MEDS: Enoxaparin 40 MG/0.4 ML Syringe SC (06:30)
[2017-10-08 07:00] VITALS: BP 141/78; PULSE 51; RESP 18; TEMP 36.6; O2SAT 96
[2017-10-08] MEDS: Thiamine Hydrochloride 100 MG Tablet PO (08:04)
[2017-10-08] MEDS: Folic Acid 1 MG Tablet PO (08:04)
[2017-10-08] MEDS: Clopidogrel Bisulfate 75 MG Tablet PO (08:04)
[2017-10-08] MEDS: Lisinopril 20 MG Tablet PO (08:05)
[2017-10-08 12:17] VITALS: BMI 21.6
[2017-10-08] MEDS: Atorvastatin Calcium 80 MG Tablet PO (19:50)
[2017-10-08 19:54] VITALS: BP 134/79; PULSE 88; RESP 20; TEMP 36.5; O2SAT 98
[2017-10-08 19:56] VITALS: PULSE 88; RESP 20; O2SAT 98
[2017-10-08 20:01] VITALS: BMI 21.6
--- NOTE | 2017-10-09 03:00 | NURSING ---
Reviewed and agree with TRACK MACHINE OPERATOR REPAIRER documentation and FIMs charting.
[2017-10-09] MEDS: Enoxaparin 40 MG/0.4 ML Syringe SC (05:59)
[2017-10-09] MEDS: Thiamine Hydrochloride 100 MG Tablet PO (07:44)
[2017-10-09] MEDS: Clopidogrel Bisulfate 75 MG Tablet PO (07:44)
[2017-10-09] MEDS: Folic Acid 1 MG Tablet PO (07:44)
[2017-10-09] MEDS: Lisinopril 20 MG Tablet PO (07:45)
[2017-10-09 08:30] VITALS: BP 127/70; PULSE 96; RESP 18; TEMP 36.4; O2SAT 94
[2017-10-09 11:19] VITALS: BMI 21.6
--- NOTE | 2017-10-09 12:24 | CASEMGMT ---
Team meeting held. Patient present, no support person present as this time. Patient approved 24 Medicare days. Patient agreeable to this social work specialist contacting patient son in regards to team meeting. Patient plans to discharge to home alone at time of discharge. Patient to continue with further care and treatment on the Inpatient Rehab Unit at this time. Support given. Telephone call to patient son, unable to reach and was unable to leave a voicemail. Will continue to follow. Ashley TOSCANO, DIRECTOR RETAIL BRAND DEVELOPMENT
--- NOTE | 2017-10-09 12:27 | PCM.PROGNOTE ---
Subjective: Chief complaint: Follow-up after consultation for medical management after admission to rehabilitation unit for acute right pontine infarct with residual minimal left-sided facial droop and left hemiparesis. Patient seen and examined. No acute events overnight. He denies any significant complaints. Weakness in the left side is getting better slowly. His vital signs are stable. - Physical Exam General: Alert, Oriented x3, Cooperative, No apparent distress HEENT: Atraumatic, PERRLA, EOMI, Normocephalic Oral: Moist Mucosa, No Gingival or Mucosal Lesions/ Ulcerations Neck: Supple, No JVD, Negative Carotid Bruits, Trachea Midline, Thyroid Normal Size and Texture Lungs: Clear to auscultation, No rhonchi, No wheeze, No rales, Diminished Cardiovascular: Regular rate, Regular Rhythm, Normal S1, Normal S2, PMI Normal Abdomen: Bowel Sounds Present, Soft, Non Tender, Non-Distended, No Hepato-splenomegaly Extremities: No clubbing, No cyanosis, No edema Skin: No rashes, No breakdown Lymphatic: No Cervical, Supraclavicular, or Inguinal Adenopathy Neurological: - - Minimal left-sided facial droop, minimal left-sided hemiparesis. Psych/Mental Status: Normal Affect, Appropriate, Alert and oriented to time, place, person, mood and affect Vital Signs Temp Pulse Resp BP Pulse Ox 97.6 F L 96 18 127/70 H 94 10/09/17 08:30 10/09/17 08:30 10/09/17 08:30 10/09/17 08:30 10/09/17 08:30 Oxygen Delivery Method Room Air Weight: 163 lb 2.273 oz Body Mass Index (BMI) 21.6 Finger Stick Blood Glucose 129 Intake and Output for Last 24 Hours 10/07/17 10/08/17 10/09/17 23:59 23:59 23:59 Intake Total 680 / 680 720 / 720 360 / 360 Balance 680 / 680 720 / 720 360 / 360 Medical Necessity - Tobacco Use Smoking Status: Current every day smoker Assessment/Plan All Active Problems Acute CVA (cerebrovascular accident) (Acute) This is a 62 years old male patient admitted to rehabilitation unit after he suffered acute right pontine infarct with residual minimal left-sided facial droop and left hemiparesis and I am seeing this patient for consultation at the rehabilitation unit for medical management. #1 acute right pontine infarct: With resultant left-sided facial droop and minimal left-sided hemiparesis. Power on the left side is improving. He is on Plavix, statins. Vital signs are stable, blood pressure under control. Plan to continue PT OT according to rehab team. #2 hypertension: Blood pressure under better control. Continue lisinopril. #3 hyperlipidemia: Continue statins. #4 alcohol abuse: He is on folic acid and thiamine supplement. No evidence of acute withdrawal. #5 DVT prophylaxis: Subcu Lovenox. This note was generated with [employer] dictation software. It may contain incorrect words, spelling, and punctuation that were not noted in checking the note before signing. Code Visit Inpatient E&M: 69137 Subs Hosp L2
--- NOTE | 2017-10-09 12:59 | PCM.PN.NEU ---
Subjective: No issues overnight. Staffed in team meeting today. All questions were answered. 62 yr CM with PMH HTN, HLD, H/O stroke, Tobacco and ETOH abuse, recent acute right pontine stroke admitted to [facility] for > 3 hrs therapy daily, with a goal of returning home at or near his prior level of functional independence. With PT-he walked with walker, left knee hyperextends, transfers-standby assist. OT- bathing, Lower body grooming and toileting- contact guard assist. Continues with ST. - Physical Exam General: Alert HEENT: Normocephalic Neck: Supple Lungs: Clear to auscultation Cardiovascular: Normal S1, Normal S2 Abdomen: Bowel Sounds Present Extremities: No cyanosis Skin: No rashes Musculoskeletal: No Tenderness to Palpation of Joints or Extremities Neurological: - - consious, alert, AoAx3, CN-left 7th [facility] facial palsy, pupils BERL, power left sided weakness, no sensory loss, Reflexes + B/L B/S/T/K/A, gait deferred Psych/Mental Status: Normal Affect Vital Signs Temp Pulse Resp BP Pulse Ox 97.6 F L 96 18 127/70 H 94 10/09/17 08:30 10/09/17 08:30 10/09/17 08:30 10/09/17 08:30 10/09/17 08:30 Oxygen Delivery Method Room Air Weight: 74 kg Body Mass Index (BMI) 21.6 Finger Stick Blood Glucose 129 Intake and Output for Last 24 Hours 10/07/17 10/08/17 10/09/17 23:59 23:59 23:59 Intake Total 680 / 680 720 / 720 360 / 360 Balance 680 / 680 720 / 720 360 / 360 Medical Necessity - Tobacco Use Smoking Status: Current every day smoker Assessment/Plan All Active Problems Acute CVA (cerebrovascular accident) (Acute) 62 yr CM with PMH HTN, HLD, H/O stroke, Tobacco and ETOH abuse, recent acute right pontine stroke admitted to [facility] with debility s/p acute right pontine stroke for > 3 hrs therapy daily, with a goal of returning home at or near his prior level of functional independence. Plan -PT for gait stability -OT for ADLs -Analgesics as needed -Bowel protocol -HTN-stable, goal BP < 130/80 mmHg, on Lisinopril -HLD-on Lipitor -Acute right pontine stroke- on Plavix and Lipitor 80 mg PO q hs -Stroke risk factors discussed and stroke education provided -Discussed about quiting tobacco and alcohol. Patient understands the same -ETOH abuse- on Thiamine -GI/DVT prophylaxis -Fall precautions -Follow ups-outpatient with Neurology in 2-3 weeks after discharge and PCP follow up. -Further medical management per hospitalist recommendations.
--- NOTE | 2017-10-09 13:06 | PN.NEURO_ITS ---
Subjective: No issues overnight. Staffed in team meeting today. All questions were answered. 62 yr CM with PMH HTN, HLD, H/O stroke, Tobacco and ETOH abuse, recent acute right pontine stroke admitted to [facility] for > 3 hrs therapy daily, with a goal of returning home at or near his prior level of functional independence. With PT-he walked with walker, left knee hyperextends, transfers- standby assist. OT- bathing, Lower body grooming and toileting- contact guard assist. Continues with ST. - Physical Exam General: Alert HEENT: Normocephalic Neck: Supple Lungs: Clear to auscultation Cardiovascular: Normal S1, Normal S2 Abdomen: Bowel Sounds Present Extremities: No cyanosis Skin: No rashes Musculoskeletal: No Tenderness to Palpation of Joints or Extremities Neurological: - - consious, alert, AoAx3, CN-left 7th [facility] facial palsy, pupils BERL, power left sided weakness, no sensory loss, Reflexes + B/L B/S/T/K/A, gait deferred Psych/Mental Status: Normal Affect Vital Signs Temp Pulse Resp BP Pulse Ox 97.6 F L 96 18 127/70 H 94 10/09/17 08:30 10/09/17 08:30 10/09/17 08:30 10/09/17 08:30 10/09/17 08:30 Oxygen Delivery Method Room Air Weight: 74 kg Body Mass Index (BMI) 21.6 Finger Stick Blood Glucose 129 Intake and Output for Last 24 Hours 10/07/17 10/08/17 10/09/17 23:59 23:59 23:59 Intake Total 680 / 680 720 / 720 360 / 360 Balance 680 / 680 720 / 720 360 / 360 Medical Necessity - Tobacco Use Smoking Status: Current every day smoker Assessment/Plan All Active Problems Acute CVA (cerebrovascular accident) (Acute) 62 yr CM with PMH HTN, HLD, H/O stroke, Tobacco and ETOH abuse, recent acute right pontine stroke admitted to [facility] with debility s/p acute right pontine stroke for > 3 hrs therapy daily, with a goal of returning home at or near his prior level of functional independence. Plan -PT for gait stability -OT for ADLs -Analgesics as needed -Bowel protocol -HTN-stable, goal BP < 130/80 mmHg, on Lisinopril -HLD-on Lipitor -Acute right pontine stroke- on Plavix and Lipitor 80 mg PO q hs -Stroke risk factors discussed and stroke education provided -Discussed about quiting tobacco and alcohol. Patient understands the same -ETOH abuse- on Thiamine -GI/DVT prophylaxis -Fall precautions -Follow ups-outpatient with Neurology in 2-3 weeks after discharge and PCP follow up. -Further medical management per hospitalist recommendations.
[2017-10-09 20:50] VITALS: BP 127/77; PULSE 77; RESP 18; TEMP 36.4; O2SAT 96; BMI 21.6
[2017-10-09] MEDS: LORazepam 0.5 MG Tablet PO (20:55)
[2017-10-09] MEDS: Atorvastatin Calcium 80 MG Tablet PO (20:55)
--- NOTE | 2017-10-10 01:35 | NURSING ---
Reviewed and agree with SWISS MACHINIST documentation and FIMs charting
[2017-10-10] MEDS: Enoxaparin 40 MG/0.4 ML Syringe SC (06:11)
[2017-10-10 07:41] VITALS: BP 121/74; PULSE 79; RESP 18; TEMP 36.3; O2SAT 100
[2017-10-10] MEDS: Lisinopril 20 MG Tablet PO (07:49)
[2017-10-10] MEDS: Folic Acid 1 MG Tablet PO (07:49)
[2017-10-10] MEDS: Thiamine Hydrochloride 100 MG Tablet PO (07:49)
[2017-10-10] MEDS: Clopidogrel Bisulfate 75 MG Tablet PO (07:50)
--- NOTE | 2017-10-10 10:22 | PCM.PN.NEU ---
Subjective: NO issues overnight. Patient care discussed with nursing staff. Denies any diarrhea - Physical Exam General: Alert HEENT: Normocephalic Neck: Supple Lungs: Clear to auscultation Cardiovascular: Normal S1, Normal S2 Abdomen: Bowel Sounds Present Extremities: No cyanosis Skin: No rashes Musculoskeletal: No Tenderness to Palpation of Joints or Extremities Neurological: - - consious, alert, AoAx3, CN-left 7th UMN facial palsy, pupils BERL, power left sided weakness, no sensory loss, Reflexes + B/L B/S/T/K/A, gait deferred Psych/Mental Status: Normal Affect Vital Signs Temp Pulse Resp BP Pulse Ox 97.4 F L 79 18 121/74 H 100 10/10/17 07:41 10/10/17 07:41 10/10/17 07:41 10/10/17 07:41 10/10/17 07:41 Oxygen Delivery Method Room Air Weight: 74 kg Body Mass Index (BMI) 21.6 Finger Stick Blood Glucose 129 Intake and Output for Last 24 Hours 10/08/17 10/09/17 10/10/17 23:59 23:59 23:59 Intake Total 720 / 720 960 / 960 240 / 240 Balance 720 / 720 960 / 960 240 / 240 Medical Necessity - Tobacco Use Smoking Status: Current every day smoker Assessment/Plan All Active Problems Acute CVA (cerebrovascular accident) (Acute) 62 yr CM with PMH HTN, HLD, H/O stroke, Tobacco and ETOH abuse, recent acute right pontine stroke admitted to [facility] with debility s/p acute right pontine stroke for > 3 hrs therapy daily, with a goal of returning home at or near his prior level of functional independence. Plan -PT for gait stability -OT for ADLs -Analgesics as needed -Bowel protocol -HTN-stable, goal BP < 130/80 mmHg, on Lisinopril -HLD-on Lipitor -Acute right pontine stroke- on Plavix and Lipitor 80 mg PO q hs -Stroke risk factors discussed and stroke education provided -Discussed about quitting tobacco and alcohol. Patient understands the same -ETOH abuse- on Thiamine -GI/DVT prophylaxis -Fall precautions -Follow ups-outpatient with Neurology in 2-3 weeks after discharge and PCP follow up. -Further medical management per hospitalist recommendations.
[2017-10-10 13:02] VITALS: BMI 21.6
[2017-10-10 19:11] VITALS: BP 146/72; PULSE 83; RESP 16; TEMP 36.4; O2SAT 97
[2017-10-10] MEDS: Atorvastatin Calcium 80 MG Tablet PO (22:00)
[2017-10-11 05:00] VITALS: BMI 21.6
[2017-10-11] MEDS: Enoxaparin 40 MG/0.4 ML Syringe SC (06:14)
[2017-10-11] MEDS: Loperamide 2 MG Capsule PO (06:14)
[2017-10-11 09:18] VITALS: BP 155/75; PULSE 96; RESP 96; TEMP 36.3; O2SAT 96
[2017-10-11] MEDS: Folic Acid 1 MG Tablet PO (09:27)
[2017-10-11] MEDS: Lisinopril 20 MG Tablet PO (09:27)
[2017-10-11] MEDS: Thiamine Hydrochloride 100 MG Tablet PO (09:27)
[2017-10-11] MEDS: Clopidogrel Bisulfate 75 MG Tablet PO (09:27)
--- NOTE | 2017-10-11 11:22 | PN.NEURO_ITS ---
Subjective: No issues overnight. Patient care discussed with nursing staff. Patient concerned since his phone has not been yet found. - Physical Exam General: Alert HEENT: Normocephalic Neck: Supple Lungs: Clear to auscultation Cardiovascular: Normal S1, Normal S2 Abdomen: Bowel Sounds Present Extremities: No cyanosis Musculoskeletal: No Tenderness to Palpation of Joints or Extremities Neurological: - - consious, alert, AoAx3, CN-left 7th UMN facial palsy, pupils BERL, power left sided weakness, no sensory loss, Reflexes + B/L B/S/T/K/A, gait deferred Psych/Mental Status: Normal Affect Vital Signs Temp Pulse Resp BP Pulse Ox 97.4 F L 96 96 H 155/75 H 96 10/11/17 09:18 10/11/17 09:18 10/11/17 09:18 10/11/17 09:18 10/11/17 09:18 Oxygen Delivery Method Room Air Weight: 75.024 kg Body Mass Index (BMI) 21.6 Finger Stick Blood Glucose 129 Intake and Output for Last 24 Hours 10/09/17 10/10/17 10/11/17 23:59 23:59 23:59 Intake Total 960 / 960 240 / 240 240 / 240 Balance 960 / 960 240 / 240 240 / 240 Medical Necessity - Tobacco Use Smoking Status: Current every day smoker Assessment/Plan All Active Problems Acute CVA (cerebrovascular accident) (Acute) 62 yr CM with PMH HTN, HLD, H/O stroke, Tobacco and ETOH abuse, recent acute right pontine stroke admitted to [facility] with debility s/p acute right pontine stroke for > 3 hrs therapy daily, with a goal of returning home at or near his prior level of functional independence. Plan -PT for gait stability -OT for ADLs -Analgesics as needed -Bowel protocol -HTN-stable, goal BP < 130/80 mmHg, on Lisinopril -HLD-on Lipitor -Acute right pontine stroke- on Plavix and Lipitor 80 mg PO q hs -Stroke risk factors discussed and stroke education provided -Discussed about quitting tobacco and alcohol. Patient understands the same -ETOH abuse- on Thiamine -GI/DVT prophylaxis -Fall precautions -Follow ups-outpatient with Neurology in 2-3 weeks after discharge and PCP follow up. -Further medical management per hospitalist recommendations.
--- NOTE | 2017-10-11 15:51 | CHAPLAIN ---
Type of Pastoral Visit ___ Initial Visit _x__ Follow-up Visit ___ On-call Visit ___ General Patient Visit ___ Spiritual Assessment ___ Family Conference ___ Bereavement ___ Rapid Response ___ Code Blue ___ Other (describe below) Pastoral Care Referral From _x__ Patient ___ Family ___ Nurse ___ Physician ___ Air Pollution Auditor ___ Transmitter Supervisor ___ Other (describe below) Sacrament/Intervention _x__ Active listening ___ Anointing ___ Moravian ___ Bereavement ___ Communion ___ Sara exploration ___ ___ Life review _x__ Prayer ___ Reconciliation ___ Sacrament of Sick ___ Supportive presence ___ Wedding ___ Other (describe below) Pastoral Comments
[2017-10-11 17:00] VITALS: BMI 21.6
[2017-10-11] MEDS: Atorvastatin Calcium 80 MG Tablet PO (17:32)
[2017-10-11 20:57] VITALS: BP 138/70; PULSE 76; RESP 18; TEMP 36.4; O2SAT 97
[2017-10-12] MEDS: Clopidogrel Bisulfate 75 MG Tablet PO (08:16)
[2017-10-12] MEDS: Enoxaparin 40 MG/0.4 ML Syringe SC (08:16)
[2017-10-12] MEDS: Folic Acid 1 MG Tablet PO (08:16)
[2017-10-12] MEDS: Lisinopril 20 MG Tablet PO (08:16)
[2017-10-12] MEDS: Thiamine Hydrochloride 100 MG Tablet PO (08:16)
[2017-10-12 09:20] VITALS: BP 133/72; PULSE 88; RESP 17; TEMP 36.5; O2SAT 95
--- NOTE | 2017-10-12 12:21 | PCM.PN.HOSP ---
Subjective: Patient without any acute events per self process laboratory specialist since last evaluation. Patient tolerating therapies and advancing well. Patient denies fevers, chills, nausea, emesis, abdominal pain, chest pain or dyspnea. Objective: Physical Examination: General: awake, alert, oriented x 3 and cooperative, laying in the therapy section, NAD. Skin: normal color, turgor, no icterus, cyanosis. HEENT: AT/NC, EOMI, PERRLA, MMM. Lungs: CTA bilaterally, moderate effort, mild decrease BL bases, no rales, ronchi or wheezing. Heart: Regular rate and rhythm; no gallop, rub audible. Abdomen: soft, thin habitus, NTTP, ND, normal BS. Extremities: no cyanosis, clubbing, or edema. Neurological: patient awake, alert, oriented x 3; cognitive function intact; pupils equally reactive to light and accomodation; cranial nerves II-XII grossly normal except 7th L facial nerve palsy, moving all 4 extremities, sensation intact, L sided ongoing weakness, 3-4/5, FTN, HTN L debilitated, equiv babinski. Psychiatric: affect appears normal, no acute evidence of depressive or anxiety feelings. Vitals/I&O's: Vital Signs Temp Pulse Resp BP Pulse Ox 97.7 F L 88 17 133/72 H 95 10/12/17 09:20 10/12/17 09:20 10/12/17 09:20 10/12/17 09:20 10/12/17 09:20 Oxygen Delivery Method Room Air Weight: 165 lb 6.4 oz Body Mass Index (BMI) 21.6 Finger Stick Blood Glucose 129 Intake and Output for Last 24 Hours 10/10/17 10/11/17 10/12/17 23:59 23:59 23:59 Intake Total 240 / 240 1120 / 1120 320 / 320 Balance 240 / 240 1120 / 1120 320 / 320 Current Medications Acetaminophen (Tylenol) 650 mg PO Q6H PRN PRN PRN Reason: Mild Pain (0-3/10)/Headache Atorvastatin Calcium (Lipitor) 80 mg PO 1700 [facility] Last Admin: 10/11/17 17:32 Dose: 80 mg Bisacodyl (Dulcolax) 10 mg RECTAL .PRN X 1 PRN PRN Reason: Constipation Clopidogrel Bisulfate (Plavix) 75 mg PO DAILY [facility] Last Admin: 10/12/17 08:16 Dose: 75 mg Enoxaparin Sodium (Lovenox) 40 mg SC DAILY@0600 [facility] Last Admin: 10/12/17 08:16 Dose: 40 mg Folic Acid (Folic Acid) 1 mg PO DAILY@0800 [facility] Last Admin: 10/12/17 08:16 Dose: 1 mg Lisinopril (Zestril) 20 mg PO DAILY [facility] Last Admin: 10/12/17 08:16 Dose: 20 mg Loperamide HCl (Imodium) 2 mg PO Q4H PRN PRN PRN Reason: Diarrhea Last Admin: 10/11/17 06:14 Dose: 2 mg Lorazepam (Ativan) 0.5 mg PO QHS PRN PRN PRN Reason: INSOMNIA Last Admin: 10/09/17 20:55 Dose: 0.5 mg Magnesium Hydroxide (Milk Of Magnesia) 30 ml PO .PRN X 1 PRN PRN Reason: Constipation Thiamine HCl (Vitamin B1) 100 mg PO DAILY@0800 [facility] Last Admin: 10/12/17 08:16 Dose: 100 mg Medical Necessity - Tobacco Use Smoking Status: Current every day smoker Assessment/Plan All Active Problems Acute CVA (cerebrovascular accident) (Acute) The patient is a 62 y/o M w/ PMHx: EtOH Abuse, Tobacco use, HTN, HLD, Chronic back pain who presents to the Acute [facility] Facility on 10/04/17 following acute R pontine infarct w/ L sided discoordination starting on 10/01/17. (1) L sided Discoordination s/p Acute R Pontine Infarction: Recent admission work-up included MRI Brain w/ right acute pontine infarct as well as chronic lacunar infarcts, moderate chronic microvascular ischemic changes, CTA head and neck with mild atelectatic calcifications and soft tissue plaque formation of the common carotid arteries as well as the cervical internal carotid arteries without significant stenosis, mild atherosclerotic disease of the right vertebral artery and the V4 segment as well as the origin with mild narrowing, ECHO w/ normal LV systolic function, EF 55%, mild mitral annular calcification, mild focal MV calcification, transmitral Doppler flow suggestive of impaired relaxation of the left ventricle. Continue PT, OT, BP regimen for goal < 130/80, statin, plavix regimen. (2) Hypertension: Continue home regimen including lisinopril, PRN hydralazine. (3) Hyperlipidemia: Continue home statin regimen. (4) EtOH Abuse: Encourage safe sobriety, maintain on thiamine, folic acid and add multivitamin. Consider request for SW/CM assist for program investigation for discharge planning if needed. (5) Tobacco Abuse: Encouraged cessation, inpatient consultation per RT, NR if desired. (6) DVT Prophylaxis: SCDs, lovenox. Code Visit Inpatient E&M: 14840 Subs Hosp L2
--- NOTE | 2017-10-12 12:54 | PCM.PN.NEU ---
Subjective: No Issues overnight. Patient care discussed with nursing staff. Patient doing therapy. - Physical Exam General: Alert HEENT: Normocephalic Neck: Supple Lungs: Normal air movement Cardiovascular: Normal S1, Normal S2 Abdomen: Bowel Sounds Present Extremities: No cyanosis Skin: No rashes Musculoskeletal: No Tenderness to Palpation of Joints or Extremities Neurological: - - consious, alert, AoAx3, CN-left 7th UMN facial palsy, pupils BERL, power left sided weakness, no sensory loss, Reflexes + B/L B/S/T/K/A, gait deferred Psych/Mental Status: Normal Affect Vital Signs Temp Pulse Resp BP Pulse Ox 97.7 F L 88 17 133/72 H 95 10/12/17 09:20 10/12/17 09:20 10/12/17 09:20 10/12/17 09:20 10/12/17 09:20 Oxygen Delivery Method Room Air Weight: 75.024 kg Body Mass Index (BMI) 21.6 Finger Stick Blood Glucose 129 Intake and Output for Last 24 Hours 10/10/17 10/11/17 10/12/17 23:59 23:59 23:59 Intake Total 240 / 240 1120 / 1120 320 / 320 Balance 240 / 240 1120 / 1120 320 / 320 Medical Necessity - Tobacco Use Smoking Status: Current every day smoker Assessment/Plan All Active Problems Acute CVA (cerebrovascular accident) (Acute) 62 yr CM with PMH HTN, HLD, H/O stroke, Tobacco and ETOH abuse, recent acute right pontine stroke admitted to [facility] with debility s/p acute right pontine stroke for > 3 hrs therapy daily, with a goal of returning home at or near his prior level of functional independence. Plan -PT for gait stability -OT for ADLs -Analgesics as needed -Bowel protocol -HTN-stable, goal BP < 130/80 mmHg, on Lisinopril -HLD-on Lipitor -Acute right pontine stroke- on Plavix and Lipitor 80 mg PO q hs -Stroke risk factors discussed and stroke education provided -Discussed about quitting tobacco and alcohol. Patient understands the same -ETOH abuse- on Thiamine -GI/DVT prophylaxis -Fall precautions -Follow ups-outpatient with Neurology in 2-3 weeks after discharge and PCP follow up. -Further medical management per hospitalist recommendations.
[2017-10-12 14:48] VITALS: BMI 21.6
--- NOTE | 2017-10-12 16:18 | CASEMGMT ---
Addendum entered by Ashley Pereira 10/12/17 16:23: Patient to also have continued speech therapy within the home. Patient is agreeable to this recommendation being added to the home health referral. This social service director adding this to the home health referral. Original Note: Social Work Spoke with patient in room. Patient requesting for discharge date to be set for 10/13/17. Team is recommending for patient to continue with further care and treatment on the Inpatient Rehab Unit. Patient aware of recommendation but choosing to discharge on 10/13/17 to home alone. Patient is agreeable to home health services for physical and occupational therapy as well as usp. Patent requesting for home health services to be set up through [facility] ([facility]). Patient reporting to have all needed durable medical equipment already set up within the home. Patient reporting to have a friend that will be picking up patient tomorrow at 10:00am. Patient reporting to have no further needs. Support given. [facility] This social service director making referral for physical and occupational therapy as well as usp. Order faxed. Proposed discharge date: 10/13/17 PLAN: Discharge to home alone with home health services. Ashley TOSCANO, POLICE CAPTAIN SENIOR
[2017-10-12] MEDS: Atorvastatin Calcium 80 MG Tablet PO (16:25)
[2017-10-12 18:51] VITALS: BP 124/70; PULSE 88; RESP 17; TEMP 36.5; O2SAT 97
[2017-10-13 05:00] VITALS: BMI 21.6
[2017-10-13] MEDS: Enoxaparin 40 MG/0.4 ML Syringe SC (05:56)
[2017-10-13 07:36] VITALS: BP 122/67; PULSE 84; RESP 16; TEMP 36.6; O2SAT 94
[2017-10-13] MEDS: Clopidogrel Bisulfate 75 MG Tablet PO (07:39)
[2017-10-13] MEDS: Lisinopril 20 MG Tablet PO (07:39)
[2017-10-13] MEDS: Folic Acid 1 MG Tablet PO (07:39)
[2017-10-13] MEDS: Thiamine Hydrochloride 100 MG Tablet PO (07:39)
[2017-10-13] MEDS: Multivitamins,Therapeutic Tablet 1 TABLET PO (07:39)
--- NOTE | 2017-10-13 08:31 | NURSING ---
patient not calling for assistance with transfers, alarms sounding. patient getting ready to leave per patient. reinforced to call for assistance with assist with needs.
--- NOTE | 2017-10-13 09:26 | NURSING ---
patient left AMA because he wanted to go home and get a new phone. encouraged to stay and benefits of rehab, ineffective. dr buitrago aware and will sent prescriptions to his chosen pharmacy. appt set up as outpatient with jonah whitehead at neurology and patient will schedule his own pcp appt. patient verbalized understanding. red flag symptoms discussed about stroke and when to seek urgent medical attention.
--- NOTE | 2017-10-13 12:18 | DCINST_ITS ---
- Discharge Diagnoses Current Active Problems: Patient admitted for debility post stroke. Signed out AMA You will use the following diet at home:: Cardiac Your food should be the consistency of: Regular Discharge Activity: May Not Drive, - - Fall precautions Weight Bearing Status: Full weight bearing, - - Fall precuations Call your doctor if you observe: Fever of 101 or Higher, Coldness, Increased Pain, Numbness or Tingling, Change in Color, Inability to urinate, Inability to have a bowel movement, Using more than one pad per hour, Shortness of breath, Dizziness, Fainting spells, Swelling in the ankles, Chest pain, Prolonged hiccoughing, Increased palpitations (irregular heartbeat), Calf discomfort, Uncontrolled pain Allergies/Adverse Reactions: Allergies Penicillins Adverse Reaction (Verified 06/08/15 14:04) Diarrhea Medications to take at Discharge Atorvastatin Calcium [Lipitor] 80 mg PO QHS #30 tab 10/13/17 Clopidogrel Bisulfate [Plavix] 75 mg PO DAILY #30 tab 10/13/17 Folic Acid 1 mg PO DAILY@0800 #30 tab 10/13/17 Lisinopril [Zestril] 20 mg PO DAILY #30 tab 10/13/17 Thiamine Hydrochloride [Vitamin B1] 100 mg PO DAILY #30 tab 10/13/17 The following prescriptions were given: Atorvastatin Calcium [Lipitor] 80 mg PO QHS #30 tab Clopidogrel Bisulfate [Plavix] 75 mg PO DAILY #30 tab Folic Acid 1 mg PO DAILY@0800 #30 tab Lisinopril [Zestril] 20 mg PO DAILY #30 tab Thiamine Hydrochloride [Vitamin B1] 100 mg PO DAILY #30 tab Primary Care Physician: Jesus Trujillo MD [Primary Care Provider] - Test Results: Test results from this visit will be discussed in further detail at your follow- up appointment, if applicable. Please Follow Up With: Pao DANIEL When: in 2-3 weeks Please Follow Up With: dr. trujillo
--- NOTE | 2017-10-13 12:21 | PCM.RU.DC ---
Rehab Discharge Summary DATE OF ADMISSION: 10/03/17 DATE OF DISCHARGE: 10/13/17- signed out AMA - Rehab Diagnosis Debility post stroke Discharge Diet: - - Cardiac diet, regular texture/thin liquid Discharge Activity: May Not Drive, - - Fall precautions Weight Bearing Status: Full weight bearing, - - Fall precuations Call your doctor if you observe: Fever of 101 or Higher, Coldness, Increased Pain, Numbness or Tingling, Change in Color, Inability to urinate, Inability to have a bowel movement, Using more than one pad per hour, Shortness of breath, Dizziness, Fainting spells, Swelling in the ankles, Chest pain, Prolonged hiccoughing, Increased palpitations (irregular heartbeat), Calf discomfort, Uncontrolled pain Home Medications: Medications to take at Discharge Atorvastatin Calcium [Lipitor] 80 mg PO QHS #30 tab 10/13/17 Clopidogrel Bisulfate [Plavix] 75 mg PO DAILY #30 tab 10/13/17 Folic Acid 1 mg PO DAILY@0800 #30 tab 10/13/17 Lisinopril [Zestril] 20 mg PO DAILY #30 tab 10/13/17 Thiamine Hydrochloride [Vitamin B1] 100 mg PO DAILY #30 tab 10/13/17 Following Prescrptions Were Given to Patient: Atorvastatin Calcium [Lipitor] 80 mg PO QHS #30 tab Clopidogrel Bisulfate [Plavix] 75 mg PO DAILY #30 tab Folic Acid 1 mg PO DAILY@0800 #30 tab Lisinopril [Zestril] 20 mg PO DAILY #30 tab Thiamine Hydrochloride [Vitamin B1] 100 mg PO DAILY #30 tab Primary Care Physician: Jesus Trujillo MD [Primary Care Provider] - Please Follow Up With: Pao DANIEL When: in 2-3 weeks Please Follow Up With: dr. trujillo Disposition: Pateint signed out AMA Patient Condition:: Fair Rehab Course 62 yr CM with PMH HTN, HLD, H/O stroke, Tobacco and ETOH abuse, acute right pontine stroke on 10/01/2017 admitted to [facility] on 10/03/17 for > 3 hrs therapy daily, with a goal of returning home at or near his prior level of functional independence. Following his admission to rehab unit he had modified barium swallow study which was reported not to show any aspiration risk. During his inpatient PCU admission his MRI brain reported to show acute right pontine infarct, CTA head/neck was not reported to show any hemodynamically significant stenosis or occlusion, TTE showed EF 55%, normal LA size, Hba1c was 4.7% and LDL was 73. He was tolerating therapies well and per PT/OT and ST he would benefit from further therapy, was not ready to be discharged home from therapy standpoint, but patient was concerned about his phone being lost while being in the PCU and since his phone could not be found, he was adamant on going home, patient does live alone, he is a fall risk, discussed the risks with him, but he would want to sign out AMA. He will need home therapy. Counseled not to drive, not to smoke or drink excess alcohol. He is on thiamine and FA for ETOH abuse. He will need to follow up with his PCP and neurology in 2-3 weeks as outpatient. Meaningful Use Info Meaningful Use Diagnoses (Choose all that apply): Ischemic CVA - CVA Therapy Assessed for PT,OT and/or ST?: Yes - Ischemic Stroke Antithrombotic order at d/c?: Yes Dx of Atrial fib/flutter?: No Anticoagulant at discharge?: No Reason anticoagulant not ordered: Treatment not Indicated Statins at discharge?: Yes Primary Dx Acute Ischemic CVA?: Yes IV tPA ordered during stay?: No Reason IV t-PA not ordered: Treatment not Indicated
== END 2017-10-13 09:32 | disposition home health service (06) | DRG 57 ==
PROVIDERS: Admitting Provider Psychiatry & Neurology Neurology; Family Provider Family Medicine; PCP Family Medicine; Visit Provider Family Medicine
DX: I69.354 Hemiplegia and hemiparesis following cerebral infarction affecting left non-dominant side (principal); I10 Essential (primary) hypertension; Z91.19 Patient's noncompliance with other medical treatment and regimen; F17.200 Nicotine dependence, unspecified, uncomplicated; I69.392 Facial weakness following cerebral infarction; E78.5 Hyperlipidemia, unspecified; F10.10 Alcohol abuse, uncomplicated
CPT/HCPCS: 74230; 92507; 92523; 92526; 92610; 92611; 97110; 97112; 97116; 97162; 97166; 97530; 97535; 97802; 99406

== ENCOUNTER 2017-11-07 09:33 | Inpatient (IN) | payer MEDICARE, SELFPAY ==
[2017-11-07 09:35] VITALS: BP 148/91; PULSE 125; RESP 18; TEMP 36.6; O2SAT 96; BMI 22.4
[2017-11-07] MEDS: morphine 8 MG/ML Syringe IV ×2 (10:09→11:34)
[2017-11-07] MEDS: Ondansetron 4 MG/2 ML Vial IV (10:09)
--- NOTE | 2017-11-07 10:15 | RAD_ITS ---
STUDY: X-RAY - PELVIS AND LEFT HIP REASON FOR EXAM: Male, 62 years old. Left hip pain following a fall. TECHNIQUE: Radiological exam, hip, unilateral, with pelvis when performed; 2 or 3 views. COMPARISON: None. FINDINGS: There is a non-specific bowel gas pattern. There is evidence of prior left inguinal hernia repair. There are atherosclerotic vascular calcifications. Residual barium in sigmoid diverticula. Normal bilateral iliac wings, sacroiliac joints and visualized sacrum. Normal bilateral superior and inferior pubic rami. Normal pubic symphysis. Normal bilateral ischial tuberosities. Prior laminectomy fusion at the L4-L5 level. Comminuted nondisplaced fracture of the intertrochanteric region of the proximal left femur. RAD/HIP, UNI W/ Pelvis 2-3 Views IMPRESSION: Nondisplaced comminuted left intertrochanteric fracture. Electronically Signed: Rakesh Davis MD at 10:41 EDT Tel [phone], Service support ,
--- NOTE | 2017-11-07 10:25 | EKG12_ITS ---
Test Reason : PRE OP Blood Pressure : / mmHG Vent. Rate : 101 BPM Atrial Rate : 101 BPM P-R Int : 124 ms QRS Dur : 090 ms QT Int : 390 ms P-R-T Axes : 058 093 258 degrees QTc Int : 505 ms Sinus tachycardia Rightward axis T wave abnormality, consider inferior ischemia Abnormal ECG Confirmed by THA AHN, NOAH ([id number]), international editorial producer STEVEN MCCLURE ([id number]) on 11/08/2017 1:51:41 PM Referred By: SEMAJ Confirmed By:NOAH ALMAZAN MD
--- NOTE | 2017-11-07 10:29 | NURSING ---
DR LATHAM PAGERoosevelt
--- NOTE | 2017-11-07 10:30 | NURSING ---
DR LATHAM RETURNED CALL
[2017-11-07 10:47] VITALS: BP 115/81; PULSE 101; RESP 18; O2SAT 92
[2017-11-07 10:55] LABS: Hematocrit 41.7 % (40-54); Hemoglobin 14.9 g/dl (13.0-16.5); Mean Corp Hgb Conc 35.7 g/gl (32-36); Mean Corpuscular Hgb 34.8 pg (27.0-32.0); Mean Corpuscular Volume 97.4 fL (80-94); Mean Platelet Vol. 8.8 fl (6.2-12.0); Platelet Count 220 K/mm3 (150-450); RBC Distribution Width CV 12.2 % (11.6-14.6); RBC Distribution Width SD 43.2 fl (35.1-43.9); Red Blood Count 4.28 M/mm3 (4.6-6.2); White Blood Count 9.4 K/mm3 (4.4-11.0)
[2017-11-07 11:02] LABS: Scan Indicated on CBC? Y/N NO
[2017-11-07 11:06] LABS: Prothrombin Time (Protime)PT. 12.9 SECONDS (11.7-14.9)
[2017-11-07 11:14] LABS: Anion Gap 17 (5-15); BUN 6 mg/dL (7-18); BUN/Creat Ratio 8.6 RATIO (10-20); Calcium,Total 8.7 mg/dL (8.5-10.1); Chloride 84 mmol/L (98-107); Creatinine, Serum 0.69 mg/dL (0.70-1.30); EST Glomerular Filtration Rate 123 mL/min (>60); Est Glom Filt Rate - Afr Amer 149 mL/min (>60); Estimated Creatinine Clearance 124.24 ml/min; Glucose 111 mg/dL (74-106); Potassium 3.8 mmol/L (3.5-5.1); Sodium Level 126 mmol/L (136-145)
[2017-11-07 11:17] VITALS: BP 125/76; PULSE 98; RESP 18; O2SAT 94
--- NOTE | 2017-11-07 11:29 | ED.VISSUMM ---
- ER Visit Summary Date of Service: 11/07/17 Chief Complaint: Fall with left hip pain History of Present Illness: The patient is a 62 M status post recent CVA. Today he was outside his home he fell in the grass landing on his left hip. His neighbor came over to help him and he was unable to stand due to pain in his left hip. He denies hitting his head or having other injuries. He is currently on Plavix. Physical Examination: Older male vital signs are stable he is afebrile. He does not look septic or toxic. He is in no distress. H EENT exam atraumatic. Pupils round reactive light. Neck nontender. Lungs clear to auscultation. Heart regular rhythm rate about 110. No murmur. Chest wall nontender. Abdomen soft nontender. Pelvic girdle is intact he does have pain on palpation of his left hip. And has exquisite pain on the left hip with any range of motion. Distal femur, knee, lower leg ankle and foot are nontender. He has weakness in the left leg from his recent stroke. Right upper right lower extremities are unremarkable. Neurologically is awake and alert. He has some mildly slurred speech and left-sided weakness from his recent. Test Results: Initial x-ray of his pelvis and left hip shows a left intertrochanteric hip fracture. A CBC showed a normal white count and hemoglobin. BMP showed hyponatremia with sodium of 126 which she has had before in the past. Anion gap is 17. Normal creatinine. His PT/INR was normal. His EKG was a sinus rhythm a rate of 101 with no acute abnormality. He did have some inverted T waves in V4 and V5. And also some ST flattening in the inferior leads. Emergency Department Course and Treatment: Patient treated with IV morphine and Zofran. Treatment Plan: [] Disposition: I spoke with Dr. Roger Peñaloza of orthopedics and the hospitalist and the patient will be admitted. Impression: Acute fall left hip intertrochanteric fracture Chronic hyponatremia Chronic anemia Anticoagulated on Plavix Status post CVA This note was generated with [employer] software. It may contain incorrect words, spelling, and punctuation that were not noted in review of the chart prior to signing ED Disposition - Plan for ED Patient: Chief Complaint: Fall Referrals: Jesus Trujillo MD [Primary Care Provider] -
--- NOTE | 2017-11-07 11:39 | NURSING ---
MED SURG INTERTROCHANTERIC FX RICHA
[2017-11-07 12:35] VITALS: BP 147/89; PULSE 92; RESP 18; TEMP 36.4; O2SAT 94; BMI 21.1
[2017-11-07] MEDS: Morphine 4 MG/ML Syringe IV ×2 (12:45→15:46)
[2017-11-07] MEDS: 0.9% NaCl Peripheral Flush Adult/Peds IV ×2 (12:45→15:51)
[2017-11-07 12:51] VITALS: BMI 21.1
--- NOTE | 2017-11-07 13:38 | NURSING ---
Addendum entered by Nga Castanon 11/07/17 13:43: home meds locked in wash tub machine operator room. Aspirin, hctz, and lisinopril Original Note: pt reported not taking plavix on discharge from rehab unit. called [facility] pharmacy and verified that the order was placed, but never filled and the pt did not picking supervisor plavix following his DC. aware.
[2017-11-07 15:50] VITALS: BP 134/85; PULSE 85; RESP 16; TEMP 36.8; O2SAT 96
--- NOTE | 2017-11-07 16:11 | PCM.HP.STD ---
Problem List (1) Fracture, intertrochanteric, left femur Status: Acute (2) Acute CVA (cerebrovascular accident) Status: Chronic Comment: Left facial droop, dysarthria, left sided weakness (3) ETOH abuse Status: Chronic (4) Patient's noncompliance with other medical treatment and regimen Status: Chronic (5) Hypertension Status: Chronic Qualifiers: (6) Chronic back pain Status: Chronic History of Present Illness Date of Admission: 11/07/17 Chief Complaint: Fall and left leg pain The patient is a 62 year old M who had a stroke 3 weeks ago and then left AMA from rehab, presents after a mechanical fall at home. He states that he was outside when his leg gave out and he fell. A neighbor came over to help and he was unable to stand on his own, so he laid back down and EMS was called. He denies any CP, SOB, lightheadedness, dizziness or palpitations during the fall. He denies LOC or hitting his head during the fall. In the ER he was found to have a left intertrochanteric fracture. Ortho was called. He is supposed to be on plavix which he doesnt fill. Past Medical History Past Medical History (Chronic Problems): Chronic Problems Acute CVA (cerebrovascular accident) (Chronic) Left facial droop, dysarthria, left sided weakness ETOH abuse (Chronic) Patient's noncompliance with other medical treatment and regimen (Chronic) Hypertension (Chronic) Chronic back pain (Chronic) Allergies atorvastatin [From Lipitor] Adverse Reaction (Verified 11/07/17 09:40) Upset Stomach Penicillins Adverse Reaction (Verified 11/07/17 09:40) Diarrhea Home Medications: Ambulatory Orders Medication Instructions Recorded Aspirin [Aspirin, Baby] 81 mg PO DAILY@0800 11/07/17 Hydrochlorothiazide [Hctz] 25 mg PO DAILY 11/07/17 Lisinopril [Zestril] 5 mg PO DAILY 11/07/17 Surgical History: herniorrhaphy, - - Back surgery-lumbar spine fusion, eye surgery secondary to retained metal in the eye Psychiatric History: No pertinent psych hx Smoking Status: Current every day smoker Tobacco Use: Cigarettes, Chew Alcohol: Heavy - 4 beers daily Drugs: None - *Family History Maternal History Items: Stroke Paternal History Items: Heart Disease Review of Systems Constitutional: Reports: Weakness. Denies: Chills, Fever, Weight Change Eyes: Denies: Blurred vision, Vision Change HEENT: Denies: Head Aches, Sinus Congestion, Sinus Drainage Cardiovascular: Denies: Chest Pain, Palpitations Respiratory: Denies: Cough, Shortness of breath at rest, Sputum production Gastrointestinal: Denies: Abdominal Pain, Nausea, Vomiting Genitourinary: Denies: Dysuria Musculoskeletal: Reports: Leg Pain Skin: Denies: Rash, Wounds Neurological: Denies: Numbness, Tingling, Focal weakness Psychiatric: Denies: Anxiety, Depression Hematologic/ Lymphatic: Denies: Easy Bruising, Easy Bleeding VTE Information - Inpt Only VTE Present on Admission: No Patient Problems: Active and Suspected Problems Fracture, intertrochanteric, left femur (Acute) - Physical Exam General: Alert, Oriented x3, Cooperative, No apparent distress HEENT: Atraumatic, EOMI, Normocephalic Oral: Moist Mucosa Neck: Supple, No JVD Lungs: Clear to auscultation, Normal air movement, No rhonchi, No rales Cardiovascular: Regular rate, Regular Rhythm, Normal S1, Normal S2, No murmurs Abdomen: Soft, Non Tender, Non-Distended, No Hepato-splenomegaly Extremities: No edema, Capillary Refill Less than 3 Seconds Skin: No rashes, No breakdown Musculoskeletal: Tenderness - to left thigh and hip Neurological: Slurred Speech, - - RUE and RLE 5/5 Psych/Mental Status: Normal Affect, Appropriate Vital Signs Temp Pulse Resp BP Pulse Ox 98.3 F 85 16 134/85 H 96 11/07/17 15:50 11/07/17 15:50 11/07/17 15:50 11/07/17 15:50 11/07/17 15:50 Oxygen Delivery Method Room Air Weight: 160 lb 0.889 oz Body Mass Index (BMI) 21.1 Assessment/Plan All Active Problems Fracture, intertrochanteric, left femur (Acute) 1. Left Intertrochanteric femur fracture - C/s to ortho plan for the OR on - Pain control - He is not on plavix because he never filled the prescription - PT/OT after surgery and will need placement at the SNF again 2. CVA/HTN - c/w his home medications - He is supposed to be on plavix which he hasnt filled, will restart after surgery - Will need SNF placement to continue recovery from his stroke and now this fracture 3. Alcohol use - CIWA protocol DVT: Heparin Diet: Cardiac Code Visit Inpatient E&M: 40008 Init Hosp L3
[2017-11-07] MEDS: Acetaminophen 325 MG Tablet 650 MG PO (22:13)
[2017-11-07] MEDS: Heparin Injection (Vial) 5,000 UNIT/ML VIAL 5000 UNIT SC (22:14)
[2017-11-07] MEDS: oxyCODONE 5 MG Tablet PO (22:14)
[2017-11-07 22:19] VITALS: BP 144/89; PULSE 115; RESP 14; TEMP 37.1; O2SAT 95
[2017-11-08 02:16] VITALS: BP 124/74; PULSE 108; RESP 14; RESP 16; TEMP 36.7; O2SAT 93
[2017-11-08] MEDS: oxyCODONE 5 MG Tablet PO ×3 (04:15→22:21)
[2017-11-08] MEDS: Acetaminophen 325 MG Tablet 650 MG PO ×2 (04:15→22:22)
[2017-11-08 10:04] VITALS: BP 159/81; PULSE 101; RESP 18; TEMP 36.9; O2SAT 96
[2017-11-08] MEDS: Lisinopril 5 MG Tablet PO (10:10)
[2017-11-08] MEDS: hydroCHLOROthiazide 25 MG Tablet PO (10:10)
[2017-11-08] MEDS: Heparin Injection (Vial) 5,000 UNIT/ML VIAL 5000 UNIT SC (10:15)
[2017-11-08] MEDS: Morphine 4 MG/ML Syringe IV ×2 (11:02→16:13)
[2017-11-08] MEDS: 0.9% NaCl Peripheral Flush Adult/Peds IV ×2 (11:02→16:13)
--- NOTE | 2017-11-08 12:03 | CASEMGMT ---
Addendum entered by Rebecca Isaac 11/08/17 12:13: Patient said he does not have prescription coverage. SW told him he may be eligible for extra help. SW told him SW will check and give him information if it looks like he may qualify. Rebecca SIMPSON Original Note: SW met with patient. Introduced self and role at [facility]. Patient lives alone in a 1 story home. He was in rehab in September after having a Stroke. He was insistent on leaving the rehab unit and going home. He said he was only using the walker sometimes at home. He was bathing on his own. He agrees he will need to go somewhere for rehab at d/c. He said he would like to go to [facility] in [place]. DORIAN told him SW can check, but SW is pretty sure that is assisted living. SW told him that he would need a [facility] for rehab first then he could possibly look at going to assisted living. DORIAN asked if he would prefer a facility in [place] and he said probably. He did not have a preference. He did not want DORIAN to contact his son regarding which facility. SW told him SW will follow and assist with planning. DORIAN also asked patient about his drinking. He said he is down to 4 beers a day from 5. Plan: SNF Rebecca SIMPSON
[2017-11-08] MEDS: Thiamine Hydrochloride 100 MG Tablet PO (12:39)
--- NOTE | 2017-11-08 13:09 | CASEMGMT ---
SW spoke w/pt, gave pt information about prescription assistance through Medicare. SW also gave pt a list of SNF's in [facility]. Pt would like 1. [facility] or 2. [facility]. SW explained will make referral after pt has had surgery. SW will continue to follow. GUANAKITO Sawyer, WASHROOM ATTENDANT
--- NOTE | 2017-11-08 13:09 | NURSING ---
PT C/O URINARY RETENTION. BLADDER SCAN = 279ML. DR BRITO NOTIFIED - ORDERED TO CONT TO MONITOR.
[2017-11-08 16:05] VITALS: BP 136/77; PULSE 110; RESP 18; TEMP 37.2; O2SAT 96
--- NOTE | 2017-11-08 16:45 | PCM.PN.HOSP ---
Patient Problems: Active and Suspected Problems Fracture, intertrochanteric, left femur (Acute) Subjective: f/u for hip fracture following fall patient seen and examined Vitals/I&O's: Vital Signs Temp Pulse Resp BP Pulse Ox 98.9 F 110 H 18 136/77 H 96 11/08/17 16:05 11/08/17 16:05 11/08/17 16:05 11/08/17 16:05 11/08/17 16:05 Oxygen Delivery Method Room Air Weight: 72.6 kg Body Mass Index (BMI) 21.1 Intake and Output for Last 24 Hours 11/06/17 11/07/17 11/08/17 23:59 23:59 23:59 Intake Total 200 / 200 840 / 840 Output Total 800 / 800 Balance 200 / 200 40 / 40 General: Alert, Oriented x3, No apparent distress Neck: Supple Lungs: - - non labored Abdomen: - - MWR Neurological: Neuro grossly intact Psych/Mental Status: Appropriate Current Medications Acetaminophen (Tylenol) 650 mg PO Q6H PRN PRN PRN Reason: PAIN Last Admin: 11/08/17 04:15 Dose: 650 mg Clonidine (Catapres) 0.1 mg PO BID [facility] Enoxaparin Sodium (Lovenox) 40 mg SC DAILY [facility] Clindamycin Phosphate 600 mg/ (Dextrose) 54 mls @ 162 mls/hr IV X1 ONE Stop: 11/09/17 10:19 Lisinopril (Zestril) 5 mg PO DAILY [facility] Last Admin: 11/08/17 10:10 Dose: 5 mg Magnesium Hydroxide (Milk Of Magnesia) 30 ml PO DAILY PRN PRN PRN Reason: Constipation Morphine Sulfate () 4 mg IV Q3H PRN PRN PRN Reason: SEVERE PAIN (6-10/10) Last Admin: 11/08/17 16:13 Dose: 4 mg Nutritional Formula (Lactose Free) (Ensure Enlive) 120 ml PO 4X/DAY [facility] Last Admin: 11/08/17 15:21 Dose: Not Given Ondansetron HCl (Zofran) 4 mg IV Q8H PRN PRN PRN Reason: NAUSEA Oxycodone HCl (Oxyir) 5 mg PO Q6H PRN PRN PRN Reason: SEVERE PAIN (6-10/10) Last Admin: 11/08/17 10:10 Dose: 5 mg Sodium Chloride () 5 - 30 ml IV UD PRN PRN Reason: SALINE FLUSH Last Admin: 11/08/17 16:13 Dose: 10 ml Medical Necessity - Tobacco Use Smoking Status: Current every day smoker Tobacco Use: Cigarettes, Chew Assessment/Plan All Active Problems Fracture, intertrochanteric, left femur (Acute) 1. Left Intertrochanteric femur fracture - C/s to ortho plan for the OR on - Continue Pain control - PT/OT after surgery and will need placement at the SNF again 2. CVA - c/w his home medications - He is supposed to be on Plavix which he hasn't filled, will restart after surgery - Will need SNF placement to continue recovery from his stroke and now this fracture 3. Alcohol abuse - CIWA protocol 4. HTN. Fair control. Will continue antihypertensives 5. Hyponatremia. May be related to beer potomania/reduced solute intake due to alcoholism. Will gradually correct Code Visit Inpatient E&M: 25185 Subs Hosp L2
--- NOTE | 2017-11-08 16:49 | PN_ITS ---
Patient Problems: Active and Suspected Problems Fracture, intertrochanteric, left femur (Acute) Subjective: f/u for hip fracture following fall patient seen and examined Vitals/I&O's: Vital Signs Temp Pulse Resp BP Pulse Ox 98.9 F 110 H 18 136/77 H 96 11/08/17 16:05 11/08/17 16:05 11/08/17 16:05 11/08/17 16:05 11/08/17 16:05 Oxygen Delivery Method Room Air Weight: 72.6 kg Body Mass Index (BMI) 21.1 Intake and Output for Last 24 Hours 11/06/17 11/07/17 11/08/17 23:59 23:59 23:59 Intake Total 200 / 200 840 / 840 Output Total 800 / 800 Balance 200 / 200 40 / 40 General: Alert, Oriented x3, No apparent distress Neck: Supple Lungs: - - non labored Abdomen: - - MWR Neurological: Neuro grossly intact Psych/Mental Status: Appropriate Current Medications Acetaminophen (Tylenol) 650 mg PO Q6H PRN PRN PRN Reason: PAIN Last Admin: 11/08/17 04:15 Dose: 650 mg Clonidine (Catapres) 0.1 mg PO BID [facility] LICENSE OF [facility] Enoxaparin Sodium (Lovenox) 40 mg SC DAILY [facility] Clindamycin Phosphate 600 mg/ (Dextrose) 54 mls @ 162 mls/hr IV X1 ONE Stop: 11/09/17 10:19 Lisinopril (Zestril) 5 mg PO DAILY [facility] Last Admin: 11/08/17 10:10 Dose: 5 mg Magnesium Hydroxide (Milk Of Magnesia) 30 ml PO DAILY PRN PRN PRN Reason: Constipation Morphine Sulfate () 4 mg IV Q3H PRN PRN PRN Reason: SEVERE PAIN (6-10/10) Last Admin: 11/08/17 16:13 Dose: 4 mg Nutritional Formula (Lactose Free) (Ensure Enlive) 120 ml PO 4X/DAY [facility] Last Admin: 11/08/17 15:21 Dose: Not Given Ondansetron HCl (Zofran) 4 mg IV Q8H PRN PRN PRN Reason: NAUSEA Oxycodone HCl (Oxyir) 5 mg PO Q6H PRN PRN PRN Reason: SEVERE PAIN (6-10/10) Last Admin: 11/08/17 10:10 Dose: 5 mg Sodium Chloride () 5 - 30 ml IV UD PRN PRN Reason: SALINE FLUSH Last Admin: 11/08/17 16:13 Dose: 10 ml Medical Necessity - Tobacco Use Smoking Status: Current every day smoker Tobacco Use: Cigarettes, Chew Assessment/Plan All Active Problems Fracture, intertrochanteric, left femur (Acute) 1. Left Intertrochanteric femur fracture - C/s to ortho plan for the OR on - Continue Pain control - PT/OT after surgery and will need placement at the SNF again 2. CVA - c/w his home medications - He is supposed to be on Plavix which he hasn't filled, will restart after surgery - Will need SNF placement to continue recovery from his stroke and now this fracture 3. Alcohol abuse - CIWA protocol 4. HTN. Fair control. Will continue antihypertensives 5. Hyponatremia. May be related to beer potomania/reduced solute intake due to alcoholism. Will gradually correct Code Visit Inpatient E&M: 26603 Subs Hosp L2
--- NOTE | 2017-11-08 17:03 | CHAPLAIN ---
Type of Pastoral Visit _x__ Initial Visit ___ Follow-up Visit ___ On-call Visit ___ General Patient Visit ___ Spiritual Assessment ___ Family Conference ___ Bereavement ___ Rapid Response ___ Code Blue ___ Other (describe below) Pastoral Care Referral From _x__ Patient ___ Family ___ Nurse ___ Physician ___ Rag Sorter And Cutter ___ Grommet Man ___ Other (describe below) Sacrament/Intervention _x__ Active listening ___ Anointing ___ Jehovah'S Witness ___ Bereavement ___ Communion ___ Sara exploration ___ _x__ Life review _x__ Prayer ___ Reconciliation ___ Sacrament of Sick _x__ Supportive presence ___ Wedding ___ Other (describe below) Pastoral Comments patient remembered this fund manager from his last admission in rehab
[2017-11-08 18:00] VITALS: BP 155/97; PULSE 106; RESP 18; TEMP 36.4; O2SAT 98
[2017-11-08 22:05] VITALS: BP 130/93; PULSE 108; RESP 16; TEMP 37; O2SAT 94
[2017-11-08] MEDS: cloNIDine HCl 0.1 MG Tablet PO (22:22)
--- NOTE | 2017-11-08 23:08 | PCA ---
23:00 Attempted first CHX bath for pt and explained that is part of our prep for surgery. pt agitated and cursing but agreed to let me begin using the CHX wipes. washed pt with wipes except for his back because he refused. I explained to him that I needed to also change his bedding. He refused and began to curse and demand that I stop. RN and chiropractic practice manager notified of patients behavior.
[2017-11-09] VITALS (10 sets, daily range): BP systolic 117–148; BP diastolic 74–94; PULSE 82–116; RESP 12–18; TEMP 36.5–37.2; O2SAT 88–99
[2017-11-09] MEDS: Morphine 4 MG/ML Syringe IV ×2 (04:38→07:45)
[2017-11-09 05:33] LABS: Hematocrit 35.5 % (40-54); Hemoglobin 12.9 g/dl (13.0-16.5); Mean Corp Hgb Conc 36.3 g/gl (32-36); Mean Corpuscular Hgb 35.3 pg (27.0-32.0); Mean Corpuscular Volume 97.3 fL (80-94); Platelet Count 225 K/mm3 (150-450); RBC Distribution Width CV 11.2 % (11.6-14.6); RBC Distribution Width SD 38.8 fl (35.1-43.9); Red Blood Count 3.65 M/mm3 (4.6-6.2); Scan Indicated on CBC? Y/N NO; White Blood Count 8.4 K/mm3 (4.4-11.0)
[2017-11-09 05:35] LABS: Partial Thromboplast Time 28.7 Seconds (24.1-36.2)
[2017-11-09 05:57] LABS: AST(SGOT) 14 U/L (15-37); Alanine Aminotransfer ALT/SGPT 16 U/L (16-61); Albumin, Serum 2.9 g/dL (3.2-5.0); Alkaline Phosphatase 49 U/L (45-117); Bilirubin, Direct 0.19 mg/dL (0.00-0.30); Globulin 3.6 g/dL (2.2-4.2); Protein, Total 6.5 g/dL (6.4-8.2)
--- NOTE | 2017-11-09 08:09 | NURSING ---
report called to Sofía in [place].
--- NOTE | 2017-11-09 09:00 | RAD_ITS ---
STUDY: X-RAY - PELVIS AND LEFT HIP REASON FOR EXAM: Male, 62 years old. ORIF TECHNIQUE: Radiological exam, hip, unilateral, with pelvis when performed; 2 or 3 views. COMPARISON: November 07, 2017 FINDINGS: 4 fluoroscopic spot films demonstrate an intramedullary aditya and compression screw transfixing an intertrochanteric fracture. RAD/Hip Min 2 Views (Portable) IMPRESSION: Please correlate with clinical service. Electronically Signed: Mikey Moreno MD at 23:01 EDT , Service support ,
--- NOTE | 2017-11-09 09:47 | CASEMGMT ---
Per DORIAN Bowman, referral to be sent to [facility]. VM left for Katherine in admissions, referral faxed, confirmation rec'd. 2nd choice is [facility]. Radha Villa LPN Clinical Support
--- NOTE | 2017-11-09 10:18 | PCM.CONS.GEN ---
Reason for Consult Date of Consultation: 11/08/17 Reason for Consultation: Left hip fracture History of Present Illness: The patient is a 62 year old M [with a history of a recent CVA affecting his balance and speech. He slipped and fell at home suffering a comminuted 4 part intertrochanteric proximal femur fracture. Was admiitted bu internal medicine and reports pain about the left hip. Denies N/T/P or pain elsewhere. Has refused blood thinners.] Past Medical History Past Medical History (Chronic Problems): Chronic Problems Acute CVA (cerebrovascular accident) (Chronic) Left facial droop, dysarthria, left sided weakness ETOH abuse (Chronic) Patient's noncompliance with other medical treatment and regimen (Chronic) Hypertension (Chronic) Chronic back pain (Chronic) Allergies atorvastatin [From Lipitor] Adverse Reaction (Verified 11/07/17 09:40) Upset Stomach Penicillins Adverse Reaction (Verified 11/07/17 09:40) Diarrhea Home Medications: Ambulatory Orders Medication Instructions Recorded Aspirin [Aspirin, Baby] 81 mg PO DAILY@0800 11/07/17 Hydrochlorothiazide [Hctz] 25 mg PO DAILY 11/07/17 Lisinopril [Zestril] 5 mg PO DAILY 11/07/17 Surgical History: herniorrhaphy, - - Back surgery-lumbar spine fusion, eye surgery secondary to retained metal in the eye Psychiatric History: No pertinent psych hx Smoking Status: Current every day smoker Tobacco Use: Cigarettes, Chew Alcohol: Heavy - 4 beers daily Drugs: None - *Family History Maternal History Items: Stroke Paternal History Items: Heart Disease Patient Problems: Active and Suspected Problems Fracture, intertrochanteric, left femur (Acute) - Physical Exam General: Alert, Oriented x3, Cooperative Extremities: Tenderness - left hip d/t known fx LLE shortened and externally rotated Neurological: Neuro grossly intact Comment: Radiographs reviewed. 4 part, displaced intertrochanteric fracture noted Vital Signs Temp Pulse Resp BP Pulse Ox 98.4 F 102 H 16 129/85 H 95 11/09/17 07:45 11/09/17 07:45 11/09/17 07:45 11/09/17 07:45 11/09/17 07:45 Oxygen Delivery Method Room Air Weight: 160 lb 0.889 oz Body Mass Index (BMI) 21.1 Intake and Output for Last 24 Hours 11/07/17 11/08/17 11/09/17 23:59 23:59 23:59 Intake Total 200 / 200 1340 / 1340 340 / 340 Output Total 1000 / 1000 925 / 925 Balance 200 / 200 340 / 340 -585 / -585 Laboratory Tests Past 24 Hrs 11/09/17 11/09/17 11/09/17 05:10 05:10 05:10 WBC 8.4 RBC 3.65 L Hgb 12.9 L Hct 35.5 L MCV 97.3 H MCH 35.3 H MCHC 36.3 H RDW 11.2 L RDW Differential 38.8 Plt Count 225 MPV 9.0 APTT 28.7 Total Bilirubin 0.70 Direct Bilirubin 0.19 AST 14 L ALT 16 Alkaline Phosphatase 49 Total Protein 6.5 Albumin 2.9 L Globulin 3.6 Assessment/Plan All Active Problems Fracture, intertrochanteric, left femur (Acute) Recommend ORIF of this diplaced left hip fracture. Potential risks, benefits, complications and alternatives to surgical treatment reviewed with patient. NPO at midnight DVT prophylaxis with coumadin post-op Cleocin pre-op
--- NOTE | 2017-11-09 10:26 | PCM.IMDPSTOP ---
Immediate Post-Op Note Date of Procedure: 11/09/17 Primary Surgeon/Physician: Roger Peñaloza provisioning analyst: Rod Esquivel Pre-Operative Diagnosis: Displaced, 4 part intertrochanteric fracture left hip[ Post-Operative Diagnosis: Same Surgery/Procedure Performed:: ORIF with Gregory short Gamma nail Description of Surgical Findings:: see note Estimated Blood Loss: 100cc Specimen's removed: none Drains: none Type of Anesthesia:: General ASA Class: ASA3 Severe Disease - Admit VTE Documentation VTE Present on Admission: No VTE Mechan Device Prophylaxis: SCD's VTE Pharm Prophylaxis ordered?: Yes
--- NOTE | 2017-11-09 10:29 | OP.PN_ITS ---
Immediate Post-Op Note Date of Procedure: 11/09/17 Primary Surgeon/Physician: Roger Peñaloza care consultant: Rod Esquivel Pre-Operative Diagnosis: Displaced, 4 part intertrochanteric fracture left hip[ Post-Operative Diagnosis: Same Surgery/Procedure Performed:: ORIF with [place] short Gamma nail Description of Surgical Findings:: see note Estimated Blood Loss: 100cc Specimen's removed: none Drains: none Type of Anesthesia:: General ASA Class: ASA3 Severe Disease - Admit VTE Documentation VTE Present on Admission: No VTE Mechan Device Prophylaxis: SCD's VTE Pharm Prophylaxis ordered?: Yes
--- NOTE | 2017-11-09 10:29 | PCM.OP.BLANK ---
Operative Report Date of Procedure: 11/09/17 Primary Surgeon/Physician: Roger Peñaloza cook pressure: Rod Esquivel PA-C cook pressure: Pre-Operative Diagnosis: Displaced, 4 part intertrochanteric fracture left hip Post-Operative Diagnosis: same Surgery/Procedure Performed: ORIF left hip Estimated Blood Loss: 100cc Specimen's Removed: none Type of Anesthesia: general ASA Class: 3 Implants: [place] short gamma nail with 115 degree lag screw and 40 mm distal locking screw Procedure Description: The patient was greeted in the preoperative area. The [ left] lower extremity was marked with surgical marker. Preoperative antibiotics were administered. The patient was then placed in supine position on a fracture table, a padded perineal post was utilized, all bony prominences were well-padded. Patient's leg was then secured in the fracture leg marie and the well leg was placed in the well-leg marie both were well-padded. Closed reduction maneuver was then performed under biplanar fluoroscopic imaging. Once anatomic alignment of the fracture was confirmed the leg was prepped and draped in usual sterile fashion. Surgical timeout was performed and surgery was commenced. Fluoroscopic imaging was used to identify the tip of the greater trochanter. A 3 cm incision was then made 3 cm above the tip of the greater trochanter and a guidepin was then placed at the junction of the anterior one third and posterior two thirds of the greater trochanter. This was then placed intramedullary. an opening reamer was then used and a ball-tipped guidewire was then placed to the superior pole of the patella and measured. Sequential reaming was then commenced over the ball-tipped guidewire to the appropriate diameter and where chatter was identified. Appropriate size [place] short Gamma nail was then placed on the guide handle on the operating table and confirmed to be appropriately placed. This was then inserted into the body over the ball-tipped guidewire to the appropriate depth. A stab incision was then made on lateral aspect of the thigh for placement of the lag screw which was then placed in center-center position confirmed in both AP and lateral. This was then measured. A derotational step drill was then used and a derotation bar was then placed. Lag screw reamer was then used over the guidepin and the lag screw was then placed into subchondral bone with tip to apex distance less than 25 mm on both the AP and lateral. The insertion handle was then removed after the set screw was applied. Attention was then turned to the distal fixation. A 40 mm distal locking screw was then placed after drilling through the guide. This was drilled measured and a screw was placed with excellent purchase. Final imaging was obtained with fluoroscopic imaging AP and lateral. The wounds were then irrigated with copious irrigation and closed in layers with 2-0 Vicryl and surgical damaris. A well-padded nonadherent dressing is applied patient was taken to recovery room in stable condition. My pest controller assistant, Mr. Esquivel, was vital to the completion of this case. He assisted in positioning the patient. Held retraction of soft tissues to optimize visualization during reduction of the fracture and placement of the hardware. Subsequently, he closed the wounds and applied the sterile post operative dressing. Postoperatively patient may be touch down weightbearing.
--- NOTE | 2017-11-09 10:33 | CASEMGMT ---
Rec'd VM from Katherine at [facility], unable to accept patient as there are no beds available. Call placed to Jazmine at [facility]. There are beds available and Jazmine is willing to look at referral. Faxed to [place], [facility] rec'd. Radha Villa LPN Clinical Support
--- NOTE | 2017-11-09 10:37 | OP.PCM_ITS ---
Operative Report Date of Procedure: 11/09/17 Primary Surgeon/Physician: Roger Peñaloza quality consultant: Rod Esquivel PA-C quality consultant: Pre-Operative Diagnosis: Displaced, 4 part intertrochanteric fracture left hip Post-Operative Diagnosis: same Surgery/Procedure Performed: ORIF left hip Estimated Blood Loss: 100cc Specimen's Removed: none Type of Anesthesia: general ASA Class: 3 Implants: Mancelona short gamma nail with 115 degree lag screw and 40 mm distal locking screw Procedure Description: The patient was greeted in the preoperative area. The [ left] lower extremity was marked with surgical marker. Preoperative antibiotics were administered. The patient was then placed in supine position on a fracture table, a padded perineal post was utilized, all bony prominences were well-padded. Patient's leg was then secured in the fracture leg marie and the well leg was placed in the well-leg marie both were well-padded. Closed reduction maneuver was then performed under biplanar fluoroscopic imaging. Once anatomic alignment of the fracture was confirmed the leg was prepped and draped in usual sterile fashion. Surgical timeout was performed and surgery was commenced. Fluoroscopic imaging was used to identify the tip of the greater trochanter. A 3 cm incision was then made 3 cm above the tip of the greater trochanter and a guidepin was then placed at the junction of the anterior one third and posterior two thirds of the greater trochanter. This was then placed intramedullary. an opening reamer was then used and a ball-tipped guidewire was then placed to the superior pole of the patella and measured. Sequential reaming was then commenced over the ball-tipped guidewire to the appropriate diameter and where chatter was identified. Appropriate size Mancelona short Gamma nail was then placed on the guide handle on the operating table and confirmed to be appropriately placed. This was then inserted into the body over the ball-tipped guidewire to the appropriate depth. A stab incision was then made on lateral aspect of the thigh for placement of the lag screw which was then placed in center-center position confirmed in both AP and lateral. This was then measured. A derotational step drill was then used and a derotation bar was then placed. Lag screw reamer was then used over the guidepin and the lag screw was then placed into subchondral bone with tip to apex distance less than 25 mm on both the AP and lateral. The insertion handle was then removed after the set screw was applied. Attention was then turned to the distal fixation. A 40 mm distal locking screw was then placed after drilling through the guide. This was drilled measured and a screw was placed with excellent purchase. Final imaging was obtained with fluoroscopic imaging AP and lateral. The wounds were then irrigated with copious irrigation and closed in layers with 2- 0 Vicryl and surgical damaris. A well-padded nonadherent dressing is applied patient was taken to recovery room in stable condition. My recruitment assistant, Mr. Esquivel, was vital to the completion of this case. He assisted in positioning the patient. Held retraction of soft tissues to optimize visualization during reduction of the fracture and placement of the hardware. Subsequently, he closed the wounds and applied the sterile post operative dressing. Postoperatively patient may be touch down weightbearing.
[2017-11-09] MEDS: Scopolamine 1mg/72hr Patch 1 PATCH TRANSDERM. (11:00)
[2017-11-09 11:14] LABS: Hematocrit 35.5 % (40-54); Hemoglobin 12.4 g/dl (13.0-16.5); Mean Corp Hgb Conc 34.9 g/gl (32-36); Mean Corpuscular Hgb 34.3 pg (27.0-32.0); Mean Corpuscular Volume 98.1 fL (80-94); Platelet Count 224 K/mm3 (150-450); RBC Distribution Width CV 12.1 % (11.6-14.6); RBC Distribution Width SD 43.8 fl (35.1-43.9); Red Blood Count 3.62 M/mm3 (4.6-6.2); White Blood Count 8.3 K/mm3 (4.4-11.0)
[2017-11-09 11:15] LABS: Scan Indicated on CBC? Y/N NO
[2017-11-09 11:33] LABS: Anion Gap 9 (5-15); BUN 8 mg/dL (7-18); BUN/Creat Ratio 9.9 RATIO (10-20); Calcium,Total 8.6 mg/dL (8.5-10.1); Chloride 86 mmol/L (98-107); Creatinine, Serum 0.81 mg/dL (0.70-1.30); EST Glomerular Filtration Rate 103 mL/min (>60); Est Glom Filt Rate - Afr Amer 125 mL/min (>60); Estimated Creatinine Clearance 99.59 ml/min; Glucose 119 mg/dL (74-106); Potassium 3.9 mmol/L (3.5-5.1); Sodium Level 124 mmol/L (136-145); Thyroid Stim Hormone (TSH) 1.66 uIU/mL (0.358-3.74)
[2017-11-09] MEDS: Ketorolac 15 MG/ML Vial IV (15:53)
--- NOTE | 2017-11-09 15:57 | PCM.PN.HOSP ---
Patient Problems: Active and Suspected Problems Fracture, intertrochanteric, left femur (Acute) Subjective: Patient not in room at this time Down for surgery Vitals/I&O's: Vital Signs Temp Pulse Resp BP Pulse Ox 98.9 F 104 H 12 146/81 H 93 11/09/17 13:38 11/09/17 13:38 11/09/17 13:38 11/09/17 13:38 11/09/17 13:38 Oxygen Flow Rate (L/min) 2 Oxygen Delivery Method Room Air Weight: 72.6 kg Body Mass Index (BMI) 21.1 Intake and Output for Last 24 Hours 11/07/17 11/08/17 11/09/17 23:59 23:59 23:59 Intake Total 200 / 200 1340 / 1340 1440 / 1440 Output Total 1000 / 1000 1075 / 1075 Balance 200 / 200 340 / 340 365 / 365 Laboratory Results 11/09/17 05:10: WBC 8.4, RBC 3.65 L, Hgb 12.9 L, Hct 35.5 L, MCV 97.3 H, MCH 35.3 H, MCHC 36.3 H, RDW 11.2 L, RDW Differential 38.8, Plt Count 225, MPV 9.0 11/09/17 05:10: APTT 28.7 11/09/17 05:10: Total Bilirubin 0.70, Direct Bilirubin 0.19, AST 14 L, ALT 16, Alkaline Phosphatase 49, Total Protein 6.5, Albumin 2.9 L, Globulin 3.6 11/09/17 11:00: Sodium 124 L, Potassium 3.9, Chloride 86 L, Carbon Dioxide 29.0, Anion Gap 9, BUN 8, Creatinine 0.81, Estim Creat Clear Calc 99.59, Est GFR (MDRD) Af Amer 125, Est GFR (MDRD) Non-Af 103, BUN/Creatinine Ratio 9.9 L, Glucose 119 H, Calcium 8.6, TSH 1.66 11/09/17 11:00: Vitamin D 25-Hydroxy Pending 11/09/17 11:00: WBC 8.3, RBC 3.62 L, Hgb 12.4 L, Hct 35.5 L, MCV 98.1 H, MCH 34.3 H, MCHC 34.9, RDW 12.1, RDW Differential 43.8, Plt Count 224, MPV 9.0 Current Medications Acetaminophen (Tylenol) 650 mg PO Q6H PRN PRN PRN Reason: PAIN Last Admin: 11/08/17 22:22 Dose: 650 mg Clonidine (Catapres) 0.1 mg PO BID [facility] Last Admin: 11/09/17 07:53 Dose: Not Given Enoxaparin Sodium (Lovenox) 40 mg SC DAILY [facility] Last Admin: 11/09/17 07:35 Dose: Not Given Thiamine HCl 200 mg/ Sodium (Chloride) 52 mls @ 104 mls/hr IV DAILY [facility] Stop: 11/11/17 10:29 Last Admin: 11/09/17 11:44 Dose: 104 mls/hr Clindamycin Phosphate 600 mg/ (Dextrose) 54 mls @ 162 mls/hr IV Q8H [facility] Stop: 11/10/17 09:30 Ketorolac Tromethamine (Toradol) 15 mg IV Q6H PRN PRN PRN Reason: Mild-Mod Pain (1-5/10) Stop: 11/14/17 08:44 Last Admin: 11/09/17 15:53 Dose: 15 mg Lisinopril (Zestril) 5 mg PO DAILY [facility] Last Admin: 11/09/17 07:53 Dose: Not Given Magnesium Hydroxide (Milk Of Magnesia) 30 ml PO DAILY PRN PRN PRN Reason: Constipation Morphine Sulfate () 4 mg IV Q3H PRN PRN PRN Reason: SEVERE PAIN (6-10/10) Last Admin: 11/09/17 07:45 Dose: 4 mg Nutritional Formula (Lactose Free) (Ensure Enlive) 120 ml PO 4X/DAY [facility] Last Admin: 11/09/17 13:49 Dose: Not Given Ondansetron HCl (Zofran) 4 mg IV Q8H PRN PRN PRN Reason: NAUSEA Oxycodone HCl (Oxyir) 5 mg PO Q6H PRN PRN PRN Reason: SEVERE PAIN (6-10/10) Last Admin: 11/08/17 22:21 Dose: 5 mg Sodium Chloride () 5 - 30 ml IV UD PRN PRN Reason: SALINE FLUSH Last Admin: 11/08/17 16:13 Dose: 10 ml Warfarin Sodium (Coumadin (Pbkc)) 2 mg PO DAILY@1700 [facility] Medical Necessity - Tobacco Use Smoking Status: Current every day smoker Tobacco Use: Cigarettes, Chew Assessment/Plan All Active Problems Fracture, intertrochanteric, left femur (Acute) 1. Left Intertrochanteric femur fracture - In OR at this time for ORIF - Continue Pain control - PT/OT after surgery and will need placement at the SNF again 2. CVA - c/w his home medications - He is supposed to be on Plavix which he hasn't filled, will restart after surgery - Will need SNF placement to continue recovery from his stroke and now this fracture 3. Alcohol abuse - CIWA protocol 4. HTN. Fair control. Will continue antihypertensives 5. Hyponatremia. Likely related to beer potomania/reduced solute intake due to alcoholism. Will gradually correct. Still low Code Visit Inpatient E&M: 27294 Subs Hosp L1
--- NOTE | 2017-11-09 16:00 | PN_ITS ---
Patient Problems: Active and Suspected Problems Fracture, intertrochanteric, left femur (Acute) Subjective: Patient not in room at this time Down for surgery Vitals/I&O's: Vital Signs Temp Pulse Resp BP Pulse Ox 98.9 F 104 H 12 146/81 H 93 11/09/17 13:38 11/09/17 13:38 11/09/17 13:38 11/09/17 13:38 11/09/17 13:38 Oxygen Flow Rate (L/min) 2 Oxygen Delivery Method Room Air Weight: 72.6 kg Body Mass Index (BMI) 21.1 Intake and Output for Last 24 Hours 11/07/17 11/08/17 11/09/17 23:59 23:59 23:59 Intake Total 200 / 200 1340 / 1340 1440 / 1440 Output Total 1000 / 1000 1075 / 1075 Balance 200 / 200 340 / 340 365 / 365 Laboratory Results 11/09/17 05:10: WBC 8.4, RBC 3.65 L, Hgb 12.9 L, Hct 35.5 L, MCV 97.3 H, MCH 35.3 H, MCHC 36.3 H, RDW 11.2 L, RDW Differential 38.8, Plt Count 225, MPV 9.0 11/09/17 05:10: APTT 28.7 11/09/17 05:10: Total Bilirubin 0.70, Direct Bilirubin 0.19, AST 14 L, ALT 16, Alkaline Phosphatase 49, Total Protein 6.5, Albumin 2.9 L, Globulin 3.6 11/09/17 11:00: Sodium 124 L, Potassium 3.9, Chloride 86 L, Carbon Dioxide 29.0 , Anion Gap 9, BUN 8, Creatinine 0.81, Estim Creat Clear Calc 99.59, Est GFR ( MDRD) Af Amer 125, Est GFR (MDRD) Non-Af 103, BUN/Creatinine Ratio 9.9 L, Glucose 119 H, Calcium 8.6, TSH 1.66 11/09/17 11:00: Vitamin D 25-Hydroxy Pending 11/09/17 11:00: WBC 8.3, RBC 3.62 L, Hgb 12.4 L, Hct 35.5 L, MCV 98.1 H, MCH 34.3 H, MCHC 34.9, RDW 12.1, RDW Differential 43.8, Plt Count 224, MPV 9.0 Current Medications Acetaminophen (Tylenol) 650 mg PO Q6H PRN PRN PRN Reason: PAIN Last Admin: 11/08/17 22:22 Dose: 650 mg Clonidine (Catapres) 0.1 mg PO BID [facility] Last Admin: 11/09/17 07:53 Dose: Not Given Enoxaparin Sodium (Lovenox) 40 mg SC DAILY [facility] Last Admin: 11/09/17 07:35 Dose: Not Given Thiamine HCl 200 mg/ Sodium (Chloride) 52 mls @ 104 mls/hr IV DAILY [facility] Stop: 11/11/17 10:29 Last Admin: 11/09/17 11:44 Dose: 104 mls/hr Clindamycin Phosphate 600 mg/ (Dextrose) 54 mls @ 162 mls/hr IV Q8H [facility] Stop: 11/10/17 09:30 Ketorolac Tromethamine (Toradol) 15 mg IV Q6H PRN PRN PRN Reason: Mild-Mod Pain (1-5/10) Stop: 11/14/17 08:44 Last Admin: 11/09/17 15:53 Dose: 15 mg Lisinopril (Zestril) 5 mg PO DAILY [facility] Last Admin: 11/09/17 07:53 Dose: Not Given Magnesium Hydroxide (Milk Of Magnesia) 30 ml PO DAILY PRN PRN PRN Reason: Constipation Morphine Sulfate () 4 mg IV Q3H PRN PRN PRN Reason: SEVERE PAIN (6-10/10) Last Admin: 11/09/17 07:45 Dose: 4 mg Nutritional Formula (Lactose Free) (Ensure Enlive) 120 ml PO 4X/DAY [facility] Last Admin: 11/09/17 13:49 Dose: Not Given Ondansetron HCl (Zofran) 4 mg IV Q8H PRN PRN PRN Reason: NAUSEA Oxycodone HCl (Oxyir) 5 mg PO Q6H PRN PRN PRN Reason: SEVERE PAIN (6-10/10) Last Admin: 11/08/17 22:21 Dose: 5 mg Sodium Chloride () 5 - 30 ml IV UD PRN PRN Reason: SALINE FLUSH Last Admin: 11/08/17 16:13 Dose: 10 ml Warfarin Sodium (Coumadin (Pbkc)) 2 mg PO DAILY@1700 [facility] Medical Necessity - Tobacco Use Smoking Status: Current every day smoker Tobacco Use: Cigarettes, Chew Assessment/Plan All Active Problems Fracture, intertrochanteric, left femur (Acute) 1. Left Intertrochanteric femur fracture - In OR at this time for ORIF - Continue Pain control - PT/OT after surgery and will need placement at the SNF again 2. CVA - c/w his home medications - He is supposed to be on Plavix which he hasn't filled, will restart after surgery - Will need SNF placement to continue recovery from his stroke and now this fracture 3. Alcohol abuse - CIWA protocol 4. HTN. Fair control. Will continue antihypertensives 5. Hyponatremia. Likely related to beer potomania/reduced solute intake due to alcoholism. Will gradually correct. Still low Code Visit Inpatient E&M: 77614 Subs Hosp L1
--- NOTE | 2017-11-09 17:22 | EKG12_ITS ---
Test Reason : ARRYTHMIA Blood Pressure : / mmHG Vent. Rate : 117 BPM Atrial Rate : 117 BPM P-R Int : 118 ms QRS Dur : 084 ms QT Int : 326 ms P-R-T Axes : 052 087 267 degrees QTc Int : [address] & T wave abnormality, consider inferior ischemia ST & T wave abnormality, consider anterolateral ischemia Abnormal ECG When compared with ECG of 07-NOV-2017 10:37, T wave inversion more evident in Inferior leads Inverted T waves have replaced nonspecific T wave abnormality in Lateral leads Confirmed by THA AHN, NOAH ([id number]), deputy editor in chief STEVEN MCCLURE ([id number]) on 11/22/2017 9:40:31 AM Referred By: O Confirmed By:NOAH ALMAZAN MD
[2017-11-09] MEDS: cloNIDine HCl 0.1 MG Tablet PO (20:28)
[2017-11-10 01:45] VITALS: BP 138/83; PULSE 115; RESP 16; TEMP 37; O2SAT 96
--- NOTE | 2017-11-10 04:17 | NURSING ---
Patient rating pain 7/10. No change in behavior. Refusing both oxyir and tylenol. Will continue to monitor.
[2017-11-10 05:59] LABS: International Normalized Ratio 0.9; Prothrombin Time (Protime)PT. 12.3 SECONDS (11.7-14.9)
[2017-11-10 06:11] LABS: Anion Gap 9 (5-15); BUN 9 mg/dL (7-18); BUN/Creat Ratio 13.8 RATIO (10-20); Calcium,Total 8.1 mg/dL (8.5-10.1); Chloride 87 mmol/L (98-107); Creatinine, Serum 0.65 mg/dL (0.70-1.30); EST Glomerular Filtration Rate 133 mL/min (>60); Est Glom Filt Rate - Afr Amer 160 mL/min (>60); Glucose 118 mg/dL (74-106); Potassium 4.4 mmol/L (3.5-5.1); Sodium Level 125 mmol/L (136-145)
[2017-11-10 06:27] LABS: Hematocrit 29.4 % (40-54); Hemoglobin 10.5 g/dl (13.0-16.5); Mean Corp Hgb Conc 35.7 g/gl (32-36); Mean Corpuscular Hgb 35.1 pg (27.0-32.0); Mean Corpuscular Volume 98.3 fL (80-94); Mean Platelet Vol. 9.2 fl (6.2-12.0); Platelet Count 223 K/mm3 (150-450); RBC Distribution Width CV 11.1 % (11.6-14.6); RBC Distribution Width SD 38.8 fl (35.1-43.9); Red Blood Count 2.99 M/mm3 (4.6-6.2); White Blood Count 8.9 K/mm3 (4.4-11.0)
[2017-11-10 06:28] LABS: Scan Indicated on CBC? Y/N NO
[2017-11-10 08:28] LABS: Vitamin D,25 Hydroxy 7.9 ng/mL (29.95-100.01)
[2017-11-10 08:45] VITALS: BP 145/96; PULSE 109; RESP 18; TEMP 37.2; O2SAT 97
[2017-11-10] MEDS: Mag Hydrox/Al Hydrox/Simeth 30 ML UDC PO (08:45)
[2017-11-10] MEDS: Lisinopril 5 MG Tablet PO (08:47)
--- NOTE | 2017-11-10 08:53 | PCA ---
Pt allowed this LASTER HAND to adjust legs in bed, however, requested not to move anything else. Informed primary RN, Jovanna.
[2017-11-10] MEDS: Morphine 4 MG/ML Syringe IV ×2 (08:57→12:46)
--- NOTE | 2017-11-10 10:13 | CASEMGMT ---
Addendum entered by Gracie Siddiqi 11/10/17 11:14: Paige from [facility] met w/pt, she states someone will call this SW back to let this SW know if they can take pt. In the interim, Katelynn from office is sending a referral to [facility] as well in the event [facility] cannot take pt. SW will continue to follow. GUANAKITO Sawyer, TATIANA Original Note: SW spoke w/Katelynn in office, [facility] had the following questions: 1. Is pt okay with not smoking at the facility, is he on a patch? 2. Is pt going through withdrawal from alcohol? 3. What rehab did pt leave AMA and why? Also, as per Katelynn, someone will come meet the pt today from [facility] to see if they feel they can take pt. SW spoke w/pt in room. SW explained that [facility] had some questions, pt states that 1. He is okay w/not smoking, has been cutting down. Pt states he smokes 5/day, some days only two. Pt is not on a patch. 3. Pt left rehab AMA pt states because they lost his phone. SW asked RN about alcohol withdrawal, pt is not exhibiting symptoms of alcohol withdrawal. SW explained to pt someone from [facility] is going to come meet him today. Pt states understanding, states he does not really care where he goes, but does not want the [facility]. SW called Jazmine at [facility], let her know the above information. She states Paige from [facility] is on her way here, and they will let this SW know if they can take pt. SW will continue to follow. GUANAKITO Sawyer, TATIANA
--- NOTE | 2017-11-10 10:58 | CASEMGMT ---
Referral faxed to Pompey at [facility]. Fax confirmation rec'd. Radha Villa LPN Clinical Support
--- NOTE | 2017-11-10 12:01 | PCM.PN.ORT ---
Patient Problems: Active and Suspected Problems Fracture, intertrochanteric, left femur (Acute) Subjective: Patient reports left hip pain slightly improved. Denies pain down the leg. No N/T or P. - Physical Exam General: Alert, Oriented x3, Cooperative, No apparent distress Extremities: Tenderness - left hip. No swelling or pain about the thigh or knee. Skin: Incision - stable Neurological: Neuro grossly intact - LLE Vital Signs Temp Pulse Resp BP Pulse Ox 98.9 F 109 H 18 145/96 H 97 11/10/17 08:45 11/10/17 08:45 11/10/17 08:45 11/10/17 08:45 11/10/17 08:45 Oxygen Flow Rate (L/min) 2 Oxygen Delivery Method Room Air Weight: 160 lb 0.889 oz Body Mass Index (BMI) 21.1 Intake and Output for Last 24 Hours 11/08/17 11/09/17 11/10/17 23:59 23:59 23:59 Intake Total 1340 / 1340 1590 / 1590 4433 / 4433 Output Total 1000 / 1000 1225 / 1225 600 / 600 Balance 340 / 340 365 / 365 3833 / 3833 Laboratory Tests Past 24 Hrs 11/09/17 11/10/17 11/10/17 11:00 05:25 05:25 WBC 8.9 RBC 2.99 L Hgb 10.5 L Hct 29.4 L MCV 98.3 H MCH 35.1 H MCHC 35.7 RDW 11.1 L RDW Differential 38.8 Plt Count 223 MPV 9.2 PT INR Sodium 125 L Potassium 4.4 Chloride 87 L Carbon Dioxide 29.0 Anion Gap 9 BUN 9 Creatinine 0.65 L Estim Creat Clear Calc 124.10 Est GFR (MDRD) Af Amer 160 Est GFR (MDRD) Non-Af 133 BUN/Creatinine Ratio 13.8 Glucose 118 H Calcium 8.1 L Vitamin D 25-Hydroxy 7.9 L 11/10/17 05:25 WBC RBC Hgb Hct MCV MCH MCHC RDW RDW Differential Plt Count MPV PT 12.3 INR 0.9 Sodium Potassium Chloride Carbon Dioxide Anion Gap BUN Creatinine Estim Creat Clear Calc Est GFR (MDRD) Af Amer Est GFR (MDRD) Non-Af BUN/Creatinine Ratio Glucose Calcium Vitamin D 25-Hydroxy Medical Necessity - Tobacco Use Smoking Status: Current every day smoker Tobacco Use: Cigarettes, Chew Assessment/Plan All Active Problems Fracture, intertrochanteric, left femur (Acute) s/p ORIF left hip fx OK per ortho to transfer to ECF when bed available and when stable per IM. D/C damaris 10 days post op F/U with ortho 2 weeks after discharge
--- NOTE | 2017-11-10 12:16 | CASEMGMT ---
Addendum entered by Gracie Siddiqi 11/10/17 13:04: SW spoke w/pt in room, explained that [facility] cannot take pt. Pt does not have a preference for the next place but would like to be closer to home. SW explained we did send a referral to [facility], it's here in [place] but about 14 miles from his home. Pt's next choice after [facility] is [facility]. SW called Br[facility] Henri[facility] and Katelynn in the [place] office will fax the referral. DORIAN also called Radha at [facility] to check in on the referral, message left with Adilia on B wing(as this is where the main number is ringing to at present at [facility]). She will give Radha the message to call this SW as she cannot get the phone to transfer properly. SW will continue to follow. GUANAKITO Sawyer, CAREER GUIDANCE TECHNICIAN Original Note: SW spoke w/Chery from [facility], they are not able to accept pt. SW will continue to follow, awaiting call back from [facility] to see if they can take pt. GUANAKITO Sawyer, CAREER GUIDANCE TECHNICIAN
--- NOTE | 2017-11-10 13:07 | CASEMGMT ---
Referral faxed to [facility] per DORIAN Bowman. Fax confirmation rec'd. Radha Villa LPN Clinical Support
--- NOTE | 2017-11-10 13:17 | CASEMGMT ---
Addendum entered by Gracie Siddiqi 11/10/17 14:01: SW spoke w/kade Malloy and w/Eugenia at [facility] regarding pt, they will let this know if they can take pt. Katelynn in [place] faxing referral. GUANAKITO Sawyer, CHICKEN DRESSER Original Note: Addendum entered by Gracie Siddiqi 11/10/17 13:56: [facility] declined pt. SW will ask Katelynn in [place] office to send referrals to [facility] and [facility] next. GUANAKITO Sawyer, CHICKEN DRESSER Original Note: SW spoke w/Radha from [facility], she is going to review the referral and call this SW right back. GUANAKITO Sawyer, CHICKEN DRESSER
[2017-11-10 14:22] VITALS: BP 118/77; PULSE 114; RESP 18; TEMP 36.9; O2SAT 97
--- NOTE | 2017-11-10 15:09 | DCINST_ITS ---
- Discharge Diagnoses Current Active Problems: Current Active and Chronic Problems Fracture, intertrochanteric, left femur (Acute) You will use the following diet at home:: No restrictions, Regular Your food should be the consistency of: Regular Your liquids should be the consistency of: Regular/Thin Discharge Activity: Use Walker Allergies/Adverse Reactions: Allergies atorvastatin [From Lipitor] Adverse Reaction (Verified 11/07/17 09:40) Upset Stomach Penicillins Adverse Reaction (Verified 11/07/17 09:40) Diarrhea Medications to take at Discharge Lisinopril [Zestril] 5 mg PO DAILY 11/07/17 Clonidine HCl [Catapres] 0.1 mg PO BID tablet 11/10/17 Ensure Enlive 120 ml PO 4X/DAY liquid 11/10/17 Magnesium Hydroxide [Milk Of Magnesia] 30 ml PO DAILY PRN PRN udc 11/10/17 Oxycodone HCl/Acetaminophen [Percocet 5/325] 2 tab PO Q8H PRN PRN 7 Days #42 tab 11/10/17 Thiamine HCl [Vitamin B-1] 500 mg PO DAILY #30 tab 11/10/17 Warfarin [Coumadin] 2 mg PO DAILY@1700 tablet 11/10/17 The following prescriptions were given: Oxycodone HCl/Acetaminophen [Percocet 5/325] 2 tab PO Q8H PRN PRN 7 Days #42 tab PRN Reason: Pain Thiamine HCl [Vitamin B-1] 500 mg PO DAILY #30 tab Primary Care Physician: Jesus Trujillo MD [Primary Care Provider] - Test Results: Test results from this visit will be discussed in further detail at your follow- up appointment, if applicable. Proposed Discharge Date: 11/10/17
--- NOTE | 2017-11-10 15:09 | PCM.TXEXTCAR ---
- Diet 11/09/17 13:01 Diet: Regular Diet Is pt able to select menu?: Yes - Wound(s) bilateral arms Wound Type: Surgical Incision Dressing Change: remove damaris in 10 days LT HIP Wound Type: Surgical Incision Dressing Change: aS/ XEROFORM/ MEDIPORE - Therapies Weight Bearing: Weight bearing as tolerated Physical Therapy: Eval and Treat Occupational Therapy: Eval and Treat - Allergies/Procedures Done in Hospital Allergies/Adverse Reactions: Allergies atorvastatin [From Lipitor] Adverse Reaction (Verified 11/07/17 09:40) Upset Stomach Penicillins Adverse Reaction (Verified 11/07/17 09:40) Diarrhea Procedures: - - ORIF for left hip fracture - Type of Care/Length of Stay Estimated LOS: Convalescent Care Less Than 30 days Type of Care Needed: Skilled Rehab Potential: Good Prognosis: Good - Additional Orders/Day of Discharge Day of Discharge: 11/10/17 - Dietary and Speech Recommendations Dietitian Recommendations/Changes: Suggest diet change to cardiac/no added salt. Continiue ensure enlive on medpass. - Follow Up Care Primary Care Physician: Jesus Trujillo MD [Primary Care Provider] - Please Follow Up With: Roger Peñaloza DO When: 2 weeks
--- NOTE | 2017-11-10 15:17 | DS.PCM_ITS ---
Discharge Date and Diagnosis - Problem List Patient Problems: Active and Suspected Problems Fracture, intertrochanteric, left femur (Acute) Date of Admission: 11/07/17 Date of Discharge: 11/10/17 - Primary Discharge Diagnosis Active and Suspected Problems Fracture, intertrochanteric, left femur (Acute) - Secondary Discharge Diagnosis Chronic Problems Acute CVA (cerebrovascular accident) (Chronic) Left facial droop, dysarthria, left sided weakness ETOH abuse (Chronic) Patient's noncompliance with other medical treatment and regimen (Chronic) Hypertension (Chronic) Chronic back pain (Chronic) Hospital Course and Treatment Dr. Peñaloza for orthopedic surgery Operations: None, - - left hip ORIF for intertrochanteric commnunited fracture Procedures: None Summary of Care Provided: The patient is a 62 year old M with recent CVA. Admitted to the hospital on account of left hip comminuted intertrochanteric fracture following a mechanical fall. patient was seen by Dr. Peñaloza for orthopedic surgery and underwent ORIF for the same. Postoperatively patient has done well without any untoward complications and pain is fairly well controlled He was seen and examined today and is doing fairly well. He is stable for discharge to SNF for rehab per medicine and per orthopedics as well [] Discharge Diet: No Restrictions Discharge Activity: Use Walker Weight Bearing Status: Toe touch weight bearing Keep extremity elevated above heart level: Left Leg Call your doctor if your incision/area has: Continuous Slow Oozing, Sudden Increased Bleeding, Increased Pain/ Swelling, Increased Redness, Foul Smelling Discharge, Swelling at the incision site Home Medications: Medications to take at Discharge Lisinopril [Zestril] 5 mg PO DAILY 11/07/17 Clonidine HCl [Catapres] 0.1 mg PO BID tablet 11/10/17 Ensure Enlive 120 ml PO 4X/DAY liquid 11/10/17 Magnesium Hydroxide [Milk Of Magnesia] 30 ml PO DAILY PRN PRN udc 11/10/17 Oxycodone HCl/Acetaminophen [Percocet 5/325] 2 tab PO Q8H PRN PRN 7 Days #42 tab 11/10/17 Thiamine HCl [Vitamin B-1] 500 mg PO DAILY #30 tab 11/10/17 Warfarin [Coumadin] 2 mg PO DAILY@1700 tablet 11/10/17 Following Prescrptions Were Given to Patient: Oxycodone HCl/Acetaminophen [Percocet 5/325] 2 tab PO Q8H PRN PRN 7 Days #42 tab PRN Reason: Pain Thiamine HCl [Vitamin B-1] 500 mg PO DAILY #30 tab Primary Care Physician: Jesus Trujillo MD [Primary Care Provider] - Please Follow Up With: Roger Peñaloza DO When: 2 weeks Disposition: Intermediate facility Minutes spent on discharge:: 30 Patient Condition:: Good Medical Necessity - Tobacco Use Smoking Status: Current every day smoker Tobacco Use: Cigarettes, Chew Meaningful Use Info Meaningful Use Diagnoses (Choose all that apply): None applicable Code Visit Inpatient E&M: 88231 Disch Hosp
--- NOTE | 2017-11-10 15:22 | CHAPLAIN ---
Type of Pastoral Visit ___ Initial Visit _x__ Follow-up Visit ___ On-call Visit ___ General Patient Visit ___ Spiritual Assessment ___ Family Conference ___ Bereavement ___ Rapid Response ___ Code Blue ___ Other (describe below) Pastoral Care Referral From _x__ Patient ___ Family ___ Nurse ___ Physician ___ Operational Communication Chief ___ Chief Radiologic Technologist ___ Other (describe below) Sacrament/Intervention _x__ Active listening ___ Anointing ___ Yazdanism ___ Bereavement ___ Communion ___ Sara exploration ___ ___ Life review ___ Prayer ___ Reconciliation ___ Sacrament of Sick ___ Supportive presence ___ Wedding ___ Other (describe below) Pastoral Comments
--- NOTE | 2017-11-10 15:30 | CASEMGMT ---
Social Work: TC from [facility] at [place] stating that they are able to accept patient today. TC to [facility]. Cot transport scheduled for 6:00pm today. Spoke with Dr. Mcpherson and LOI Nugent both aware of D/C today at 6:00pm. Spoke with patient is also aware of D/C planned for 6:00pm to [place]. Patient agreeable to plan. HENS completed and copy on chart. TC to [facility]. Misa aware that patient will be picked up at 6:00pm. D/C orders and med list faxed to [place]. Narcotic Rx faxed to [facility] pharmacy. PLAN: Patient to be discharged to [facility] for skilled level of care today. GUANAKITO Wilson
[2017-11-10 15:45] VITALS: O2SAT 97
--- NOTE | 2017-11-10 18:09 | NURSING ---
CALLED REPORT TO QIAN TURNER AT THIS TIME. PROVIDED CALL BACK NUMBER FOR ANY QUESTIONS. NOTIFIED OF EVALUATION ADVISOR TIME 1800.
== END 2017-11-10 18:36 | disposition skilled nursing facility (03) | DRG 481 ==
LOC: ED 11:45 → MS2 12:00
PROVIDERS: Anesthesiology; Orthopaedic Surgery; Admitting Provider Family Medicine; Emergency Provider Emergency Medicine; Family Provider Family Medicine; PCP Family Medicine; Visit Provider Internal Medicine
PROC: 0QS706Z Reposition Left Upper Femur with Intramedullary Internal Fixation Device, Open Approach (ICD-10-PCS; CPT 27245; principal; 2017-11-09 08:30)
DX: S72.142A Displaced intertrochanteric fracture of left femur, initial encounter for closed fracture (principal); E87.1 Hypo-osmolality and hyponatremia; I69.354 Hemiplegia and hemiparesis following cerebral infarction affecting left non-dominant side; W18.30XA Fall on same level, unspecified, initial encounter; Y92.017 Garden or yard in single-family (private) house as the place of occurrence of the external cause; M54.9 Dorsalgia, unspecified; G89.29 Other chronic pain; I10 Essential (primary) hypertension; I69.328 Other speech and language deficits following cerebral infarction; F17.210 Nicotine dependence, cigarettes, uncomplicated; F10.10 Alcohol abuse, uncomplicated; Z91.19 Patient's noncompliance with other medical treatment and regimen
CPT/HCPCS: 36415; 73502; 76000; 80048; 80076; 82306; 84443; 85027; 85610; 85730; 86850; 86900; 93005; 97110; 97162; 97166; 97530; 97802; 99284; 99406; C1776; J7120; A4216; J2405; J3490

== ENCOUNTER → 2018-05-11 09:15 | Outpatient (CLI) | payer MEDICARE, SELFPAY ==
[2018-05-11 10:14] LABS: Absolute Lymphocyte Count 1.49 X10^3/ul (0.83-4.51); Absolute Neutrophil Count 4.9 X10^3/uL (2.0-7.7); Basophil# 0.02 X10^3/uL; Basophil% 0.3 % (0-1); Eosinophil# 0.12 X10^3/uL; Eosinophils% 1.6 % (0-5); Hematocrit 42.5 % (40-54); Hemoglobin 13.8 g/dl (13.0-16.5); Lymphocyte # 1.49 X10^3/ul (4.0); Lymphocyte % 20.4 % (19-41); Mean Corp Hgb Conc 32.5 g/gl (32-36); Mean Corpuscular Hgb 31.4 pg (27.0-32.0); Mean Corpuscular Volume 96.8 fL (80-94); Mean Platelet Vol. 9.4 fl (6.2-12.0); Monocyte# 0.71 X10^3/uL; Monocyte% 9.7 % (0-10); Neutrophil # 4.93 X10^3/uL (2.7-7.7); Neutrophil % 67.6 % (47-70); Platelet Count 340 K/mm3 (150-450); RBC Distribution Width SD 49.9 fl (35.1-43.9); Red Blood Count 4.39 M/mm3 (4.6-6.2); White Blood Count 7.3 K/mm3 (4.4-11.0)
[2018-05-11 10:15] LABS: POSITIVE COUNT NO; POSITIVE DIFFERENTIAL NO; POSITIVE MORPHOLOGY NO
[2018-05-11 10:43] LABS: AST(SGOT) 13 U/L (15-37); Alanine Aminotransfer ALT/SGPT 15 U/L (16-61); Albumin, Serum 3.4 g/dL (3.2-5.0); Alkaline Phosphatase 91 U/L (45-117); Anion Gap 6 (5-15); BUN 9 mg/dL (7-18); BUN/Creat Ratio 12.5 RATIO (10-20); Calcium,Total 8.7 mg/dL (8.5-10.1); Chloride 102 mmol/L (98-107); Cholesterol 111 mg/dL (200); Creatinine, Serum 0.72 mg/dL (0.70-1.30); EST Glomerular Filtration Rate 118 mL/min (>60); Est Glom Filt Rate - Afr Amer 143 mL/min (>60); Globulin 3.5 g/dL (2.2-4.2); Glucose 89 mg/dL (74-106); High Density Lipoprotein 49 mg/dL; Potassium 4.3 mmol/L (3.5-5.1); Protein, Total 6.9 g/dL (6.4-8.2); Sodium Level 135 mmol/L (136-145); Triglycerides 57 mg/dL; Very Low Density Lipoprotein 11 mg/dL (5-40)
== END ==
PROVIDERS: Family Provider Family Medicine; PCP Family Medicine; Referring Provider Family Medicine; Visit Provider Family Medicine
DX: I10 Essential (primary) hypertension (principal); Z72.0 Tobacco use; Z86.73 Personal history of transient ischemic attack (TIA), and cerebral infarction without residual deficits
CPT/HCPCS: 36415; 80053; 80061; 85025

== ENCOUNTER 2018-10-28 02:45 | Emergency (ER) | payer MEDICARE, SELFPAY ==
[2018-10-28 02:47] VITALS: BP 209/119; PULSE 113; RESP 20; TEMP 37.1; O2SAT 96; BMI 21.5
--- NOTE | 2018-10-28 02:49 | CT_ITS ---
STUDY: CT BRAIN WITHOUT CONTRAST REASON FOR EXAM: Male, 63 years old. Cephalgia. Hypertension RADIATION DOSAGE (If Supplied By Facility): CTDIvol = ( 44.99 ) mGy, DLP = ( 846.73 ) mGycm TECHNIQUE: Transaxial CT imaging of the brain was performed without administration of intravenous contrast material. Individualized dose optimization techniques were used for this CT. COMPARISON: No relevant priors. FINDINGS: Normal soft tissue structures. Normal calvarium. Normal size ventricles and extra-axial spaces for the patient's age. There are areas of decreased attenuation within the white matter tracts of the supratentorial brain, consistent with microvascular disease changes. Old lacunar infarcts are seen in the basal ganglia bilaterally. Old infarctions in the brainstem. Normal cerebellum. There is no intracranial hemorrhage. There are no findings of an acute ischemic infarction. Normal visualized paranasal sinuses. CT/Brain/Head without Contrast IMPRESSION: Chronic involutional changes of the brain. Old lacunar infarcts are seen in the basal ganglia bilaterally. Old infarctions in the brainstem. Electronically Signed: Andrew Gerardo, at 4:51 EDT Tel , Service support ,
--- NOTE | 2018-10-28 02:49 | EKG12_ITS ---
Test Reason : NECK PAIN Blood Pressure : / mmHG Vent. Rate : 101 BPM Atrial Rate : 101 BPM P-R Int : 140 ms QRS Dur : 080 ms QT Int : 372 ms P-R-T Axes : 071 094 091 degrees QTc Int : 482 ms Sinus tachycardia Possible Left atrial enlargement Rightward axis Septal infarct , age undetermined Abnormal ECG Confirmed by VI AHN, BALDEMAR ([id number]), editor managing director JAISON SOTO ([id number]) on 10/30/2018 11:08:43 AM Referred By: POLO Confirmed By:BALDEMAR LEBRON MD
--- NOTE | 2018-10-28 02:49 | CT_ITS ---
STUDY: CT CERVICAL SPINE WITHOUT CONTRAST REASON FOR EXAM: Male, 63 years old. Head trauma. Neck pain. RADIATION DOSAGE (If Supplied By Facility): CTDIvol = ( 21.56 ) mGy, DLP = ( 434.77 ) mGycm TECHNIQUE: High resolution transaxial imaging was performed without contrast material. Sagittal and coronal images were reconstructed. Individualized dose optimization techniques were used for this CT. COMPARISON: None FINDINGS: Normal craniovertebral junction. There are degenerative changes of the anterior atlantoaxial articulation. Normal odontoid process. Normal cervical lordosis. Normal vertebral bodies and posterior osseous elements. C2-3: Normal endplates. Normal disc height and morphology. Normal central canal and intervertebral neuroforamina. C3-4: Normal endplates. Normal disc height and morphology. Normal central canal and intervertebral neuroforamina. C4-5: Normal endplates. Normal disc height and morphology. Normal central canal and intervertebral neuroforamina. C5-6: Endplate spondylosis. Central and paracentral disc bulge. Degenerative changes of the bilateral facet joints and uncovertebral joints. Moderate narrowing of the central canal and the bilateral intervertebral neural foramina. C6-7: Endplate spondylosis. Central and paracentral disc bulge. Degenerative changes of the bilateral facet joints and uncovertebral joints. Moderate narrowing of the central canal and the bilateral intervertebral neural foramina. C7-T1: Normal endplates. Normal disc height and morphology. Normal central canal and intervertebral neuroforamina. Normal visualized soft tissue structures. CT/Spine Cervical without Contras IMPRESSION: Multilevel degenerative changes, as described above. Electronically Signed: Andrew Gerardo, at 4:58 EDT Tel , Service support ,
--- NOTE | 2018-10-28 02:51 | ED.VIS.GEN ---
History of Present Illness Chief Complaint: Back Informant: Patient Onset: Yesterday Context: Gradual Onset Timing: Intermittent Current Severity: Moderate Maximum Severity: Moderate Narrative: The patient presents to the emergency department with headache and neck pain. He states his symptoms began yesterday. [place] like in the back of his neck. He states now, when he turns his head, he gets sharp pain in his neck that radiates to his head. He denies any trouble speech or swallowing. 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 He states this is not new. He has not had chest pain or shortness of breath. The patient does have a history of alcohol abuse, but denies any recent falls. He does state that he is been compliant with his medications. He states he had pain like this before in the past and he was treated with analgesics and antispasmodics and he got better. He states tonight, he try to sleep and he could not get comfortable. Prior similar symptoms: Yes Recent Illness/Hospitalization: No Past Medical History - Allergies and Home Meds Allergies/Adverse Reactions: Allergies atorvastatin [From Lipitor] Adverse Reaction (Verified 11/07/17 09:40) Upset Stomach Penicillins Adverse Reaction (Verified 11/07/17 09:40) Diarrhea Primary Care Physician: Jesus Trujillo MD [Primary Care Provider] - 2 Days Prior records reviewed: Yes Past Medical History: - - Prior stroke, hypertension, vascular disease Surgical History: herniorrhaphy, - - Back surgery-lumbar spine fusion, eye surgery secondary to retained metal in the eye Smoking Status: Current every day smoker - Family History Maternal Family History: Reports: Stroke Paternal Family History: Reports: Heart Disease Review of Systems General: Denies: Chills, Fever, Sweats Eyes: Denies: Visual changes - bilaterally, Diplopia ENT: Denies: Rhinorrhea, Sore throat Cardiovascular: Denies: Chest pain, Palpitations Respiratory: Denies: Dyspnea, Cough, Dyspnea on exertion Gastrointestinal: Denies: Abdominal pain, Nausea, Vomiting, Diarrhea, Melena, Hematochezia Genitourinary: Denies: Dysuria, Hematuria, Frequency Musculoskeletal: Reports: Neck pain. Denies: Myalgias, Arthralgias, Back pain, Extremity Pain Skin: Denies: Rash, Wounds Neurological: Reports: Headache. Denies: Weakness, Numbness Psych: Denies: Depression Endocrine: Denies: Polyuria Physical Exam Vital Signs/Narrative: Vital Signs Temp Pulse Resp BP Pulse Ox 10/28/18 02:47 98.7 F 113 H 20 H 209/119 H 96 Inital Vital Signs reviewed: Yes General: Well nourished, Well developed, No Acute Distress Head: Normocephalic, Atraumatic Eyes: Perrl, EOMI ENT: Moist mucous membranes, No rhinorrhea, TM's clear Neck: Supple, No lymphadenopathy, No JVD, - - Spasm with range of motion. Negative Kernig's. Negative Brudzinski's. Cardiovascular: Regular rate, Regular rhythm, No murmurs Respiratory: No distress, CTA bilaterally, Chest nontender Abdomen: Soft, Nontender, Nondistended, Normal bowel sounds Back: Nontender, Normal Inspection Extremities: Nontender, No edema Skin: Normal color, No rash Neurological: Alert, Oriented x3, Cranial nerves II-XII grossly intact, Normal Strength, Normal Sensation Psychological: Normal affect, Normal Mood Diagnostic/Tx/Re-eval Clinical Impression(s) from Imaging Studies Brain CT 10/28/18 02:49 IMPRESSION: Chronic involutional changes of the brain. Old lacunar infarcts are seen in the basal ganglia bilaterally. Old infarctions in the brainstem. Electronically Signed: Andrew Gerardo, at 4:51 EDT Tel , Service support , Cervical Spine CT 10/28/18 02:49 IMPRESSION: Multilevel degenerative changes, as described above. Electronically Signed: Andrew Gerardo, at 4:58 EDT Tel , Service support , Abnormal Lab Results 10/28/18 10/28/18 02:50 02:50 WBC 10.8 RBC 4.69 Hgb 15.6 Hct 46.1 MCV 98.3 H MCH 33.3 H MCHC 33.8 RDW Std Deviation 44.9 H RDW Coeff of [place] 12.5 Plt Count 240 MPV 8.9 Immature Gran % (Auto) 0.600 Neut % (Auto) 71.9 H Lymph % (Auto) 16.1 L [place] % (Auto) 10.3 H Eos % (Auto) 0.6 Baso % (Auto) 0.5 Absolute Neuts (auto) 7.8 H Absolute Lymphs (auto) 1.73 Nucleated RBC % 0 Sodium 132 L Potassium 4.1 Chloride 100 Carbon Dioxide 23.0 Anion Gap 9 BUN 7 Creatinine 0.83 Estim Creat Clear Calc 100.73 Est GFR (MDRD) Af Amer 121 Est GFR (MDRD) Non-Af 100 BUN/Creatinine Ratio 8.4 L Glucose 115 H Calcium 8.6 - Rhythm Strip Rhythm Strip: Sinus Rhythm Rate: 90 Ectopy: None - EKG Initial EKG Interpretation: No Acute Injury Pattern, Sinus Tachycardia Prior: Unchanged - Medical Decision Making The patient's pain does seem entirely muscular. He has not had fever. He has no weakness. He does have history of prior stroke and alcohol abuse. Given his neck pain, I did want to rule out occult fracture or other dangerous process. The patient underwent CT imaging of the head and neck. This shows chronic change and evidence of old stroke, but no other acute process. The patient has normal reflexes and strength of the upper extremities. He has normal pulses. I do not feel this represents epidural abscess or discitis. I do not feel that this represents a central cord syndrome or other dangerous process. Patient treated with analgesics. On reevaluation, he was sleeping comfortably. He states that he has had improvement with antispasmodics and anti-inflammatories in the past. I do feel like this is a good treatment for the patient. At this point, as he has pain control and is feeling improved I do feel that he is safe for outpatient therapy. Patient is comfortable with this plan of care. Impression 1. Cervical strain with spasm ED Disposition - Plan for ED Patient: Instructions: RADICULOPATHY, Cervical Prescriptions: cycloBENZAPRine HCl [Flexeril] 10 mg PO TID PRN #20 tab PRN Reason: Muscle Spasm Prescription Printed Naproxen [Naprosyn] 500 mg PO BID #14 tab Prescription Printed Oxycodone HCl/Acetaminophen [Percocet 5/325] 1 tab PO Q6H PRN PRN 2 Days #6 tab PRN Reason: Pain Prescription Printed Referrals: eJsus Trujillo MD [Primary Care Provider] - 2 Days
[2018-10-28] MEDS: Morphine 4 MG/ML Syringe IV (03:02)
[2018-10-28] MEDS: Ondansetron 4 MG/2 ML Vial IV (03:02)
[2018-10-28 03:03] LABS: Absolute Lymphocyte Count 1.73 X10^3/uL (0.83-4.51); Absolute Neutrophil Count 7.8 X10^3/uL (2.0-7.7); Basophil# 0.05 X10^3/uL; Basophil% 0.5 % (0-1); Eosinophil# 0.06 X10^3/uL; Eosinophils% 0.6 % (0-5); Hematocrit 46.1 % (40-54); Hemoglobin 15.6 g/dL (13.0-16.5); Lymphocyte # 1.73 X10^3/ul (4.0); Lymphocyte % 16.1 % (19-41); Mean Corp Hgb Conc 33.8 g/dL (32-36); Mean Corpuscular Hgb 33.3 pg (27.0-32.0); Mean Corpuscular Volume 98.3 fL (80-94); Mean Platelet Vol. 8.9 fl (6.2-12.0); Monocyte# 1.11 X10^3/uL; Monocyte% 10.3 % (0-10); NRBC Flagged by Analyzer 0 % (0-5); Neutrophil # 7.75 X10^3/uL (2.7-7.7); Neutrophil % 71.9 % (47-70); Platelet Count 240 K/mm3 (150-450); RBC Distribution Width CV 12.5 % (11.6-14.6); RBC Distribution Width SD 44.9 fl (35.1-43.9); Red Blood Count 4.69 M/mm3 (4.6-6.2); White Blood Count 10.8 K/mm3 (4.4-11.0)
[2018-10-28 03:07] VITALS: BP 176/84; PULSE 108; RESP 21; O2SAT 98
[2018-10-28 03:17] LABS: Anion Gap 9 (5-15); BUN 7 mg/dL (7-18); BUN/Creat Ratio 8.4 RATIO (10-20); Calcium,Total 8.6 mg/dL (8.5-10.1); Chloride 100 mmol/L (98-107); Creatinine, Serum 0.83 mg/dL (0.70-1.30); EST Glomerular Filtration Rate 100 mL/min (>60); Est Glom Filt Rate - Afr Amer 121 mL/min (>60); Estimated Creatinine Clearance 100.73 ml/min; Glucose 115 mg/dL (74-106); Potassium 4.1 mmol/L (3.5-5.1); Sodium Level 132 mmol/L (136-145)
[2018-10-28] MEDS: Naproxen 500 MG Tablet PO (05:05)
[2018-10-28] MEDS: cycloBENZAPRine HCl 10 MG Tablet PO (05:05)
[2018-10-28] MEDS: oxyCODONE 5 MG Tablet 10 MG PO (05:05)
[2018-10-28 05:12] VITALS: BP 156/88; PULSE 88; RESP 18; O2SAT 96
--- NOTE | 2018-10-28 05:12 | ED.RN ---
PT WAITED IN ROOM UNTIL TAXI CAME.
== END 2018-10-28 05:17 | disposition home or self-care (01) ==
LOC: ED 03:47
PROVIDERS: Emergency Provider Emergency Medicine; Family Provider Family Medicine; PCP Family Medicine
DX: S16.1XXA Strain of muscle, fascia and tendon at neck level, initial encounter (principal); M62.838 Other muscle spasm; X58.XXXA Exposure to other specified factors, initial encounter; Y93.9 Activity, unspecified; Y92.9 Unspecified place or not applicable; I69.322 Dysarthria following cerebral infarction; I10 Essential (primary) hypertension; Z98.1 Arthrodesis status; Z79.02 Long term (current) use of antithrombotics/antiplatelets; Z79.899 Other long term (current) drug therapy; F10.10 Alcohol abuse, uncomplicated; F17.200 Nicotine dependence, unspecified, uncomplicated
CPT/HCPCS: 70450; 72125; 80048; 85025; 93005; 96361; 96374; 96375; 99285; A4216; J2405

== ENCOUNTER → 2018-11-06 08:58 | Outpatient (CLI) | payer MEDICARE, SELFPAY ==
[2018-10-28 02:47] VITALS: BMI 21.5
[2018-11-06 11:06] LABS: Vitamin B12 277 pg/mL (211-911)
[2018-11-06 11:13] LABS: AST(SGOT) 20 U/L (15-37); Alanine Aminotransfer ALT/SGPT 24 U/L (16-61); Albumin, Serum 3.7 g/dL (3.2-5.0); Alkaline Phosphatase 68 U/L (45-117); Anion Gap 8 (5-15); BUN 10 mg/dL (7-18); BUN/Creat Ratio 11.4 RATIO (10-20); Calcium,Total 8.7 mg/dL (8.5-10.1); Chloride 102 mmol/L (98-107); Cholesterol 117 mg/dL (200); Creatinine, Serum 0.88 mg/dL (0.70-1.30); EST Glomerular Filtration Rate 94 mL/min (>60); Est Glom Filt Rate - Afr Amer 114 mL/min (>60); Globulin 3.8 g/dL (2.2-4.2); Glucose 98 mg/dL (74-106); High Density Lipoprotein 61 mg/dL; Potassium 4.2 mmol/L (3.5-5.1); Protein, Total 7.5 g/dL (6.4-8.2); Sodium Level 138 mmol/L (136-145); Triglycerides 52 mg/dL; Very Low Density Lipoprotein 10 mg/dL (5-40)
== END ==
PROVIDERS: Family Provider Family Medicine; PCP Family Medicine; Referring Provider Family Medicine; Visit Provider Family Medicine
DX: I10 Essential (primary) hypertension (principal); E53.8 Deficiency of other specified B group vitamins; Z86.73 Personal history of transient ischemic attack (TIA), and cerebral infarction without residual deficits
CPT/HCPCS: 36415; 80053; 80061; 82607

== ENCOUNTER → 2019-03-22 10:23 | Outpatient (CLI) | payer MEDICARE, SELFPAY ==
[2019-03-22 12:40] LABS: Absolute Lymphocyte Count 1.51 X10^3/uL (0.83-4.51); Basophil# 0.04 X10^3/uL; Basophil% 0.5 % (0-1); Eosinophil# 0.05 X10^3/uL; Eosinophils% 0.6 % (0-5); Hematocrit 44.4 % (40-54); Hemoglobin 14.5 g/dL (13.0-16.5); Lymphocyte # 1.51 X10^3/ul (4.0); Mean Corp Hgb Conc 32.7 g/dL (32-36); Mean Corpuscular Hgb 32.6 pg (27.0-32.0); Mean Corpuscular Volume 99.8 fL (80-94); Mean Platelet Vol. 9.6 fl (6.2-12.0); Monocyte# 0.76 X10^3/uL; Monocyte% 9.1 % (0-10); NRBC Flagged by Analyzer 0 % (0-5); Neutrophil # 5.96 X10^3/uL (2.7-7.7); Neutrophil % 71.1 % (47-70); Platelet Count 257 K/mm3 (150-450); RBC Distribution Width CV 13.3 % (11.6-14.6); RBC Distribution Width SD 49.1 fl (35.1-43.9); Red Blood Count 4.45 M/mm3 (4.6-6.2); White Blood Count 8.4 K/mm3 (4.4-11.0)
[2019-03-22 13:03] LABS: Vitamin B12 269 pg/mL (211-911)
[2019-03-22 13:08] LABS: ALB/GLOB Ratio 1.1 RATIO (0.9-2.4); AST(SGOT) 10 U/L (15-37); Alanine Aminotransfer ALT/SGPT 13 U/L (16-61); Albumin, Serum 3.6 g/dL (3.2-5.0); Alkaline Phosphatase 58 U/L (45-117); Anion Gap 6 (5-15); BUN 8 mg/dL (7-18); BUN/Creat Ratio 9.9 RATIO (10-20); Calcium,Total 8.8 mg/dL (8.5-10.1); Chloride 103 mmol/L (98-107); Cholesterol 128 mg/dL (200); Creatinine, Serum 0.81 mg/dL (0.70-1.30); EST Glomerular Filtration Rate 103 mL/min (>60); Est Glom Filt Rate - Afr Amer 125 mL/min (>60); Globulin 3.2 g/dL (2.2-4.2); Glucose 91 mg/dL (74-106); High Density Lipoprotein 64 mg/dL; Protein, Total 6.8 g/dL (6.4-8.2); Sodium Level 136 mmol/L (136-145); Triglycerides 58 mg/dL; Very Low Density Lipoprotein 12 mg/dL (5-40)
== END ==
PROVIDERS: PCP Family Medicine; Referring Provider Family Medicine; Visit Provider Family Medicine
DX: I10 Essential (primary) hypertension (principal); Z86.73 Personal history of transient ischemic attack (TIA), and cerebral infarction without residual deficits; E53.8 Deficiency of other specified B group vitamins; F10.10 Alcohol abuse, uncomplicated
CPT/HCPCS: 36415; 80053; 80061; 82306; 82607; 82746; 85025

== ENCOUNTER → 2019-09-12 10:33 | Outpatient (CLI) | payer MEDICARE, SELFPAY ==
[2019-09-12 11:16] LABS: Bacteria 0 SEEN /hpf (None Seen); Mucous, Urine 0 SEEN /hpf (<or=2+); Red Blood Cells-Urine 0 SEEN /hpf (0-5); Squamous Epithelial Cells - UA 0 SEEN /hpf (0-5); White Blood Cells 0 SEEN /hpf (0-5)
[2019-09-12 12:37] LABS: Color, Urine Yellow (Yellow); Glucose, Dipstick Normal (Normal); Ketone-Dipstick Negative (Negative); Leukocyte Esterase-Dipstick Negative /ul (Negative); Nitrite-Dipstick Negative (Negative); Occult Blood-Urine Negative /ul (Negative); Protein-Dipstick Negative (Negative); Specific Gravity, Urine 1.005 (1.002-1.030); Urine Bilirubin Dipstick Negative (Negative); Urine Clarity Clear (Clear); Urine Urobilinogen Normal (Normal)
[2019-09-12 13:06] LABS: Absolute Lymphocyte Count 1.58 X10^3/uL (0.83-4.51); Absolute Neutrophil Count 5.1 X10^3/uL (2.0-7.7); Basophil# 0.05 X10^3/uL; Basophil% 0.7 % (0-1); Eosinophil# 0.03 X10^3/uL; Eosinophils% 0.4 % (0-5); Lymphocyte # 1.58 X10^3/ul (4.0); Lymphocyte % 21.3 % (19-41); Mean Corp Hgb Conc 33.3 g/dL (32-36); Mean Corpuscular Volume 101.9 fL (80-94); Mean Platelet Vol. 9.3 fl (6.2-12.0); Monocyte# 0.58 X10^3/uL; Monocyte% 7.8 % (0-10); NRBC Flagged by Analyzer 0 % (0-5); Neutrophil # 5.11 X10^3/uL (2.7-7.7); Platelet Count 266 K/mm3 (150-450); RBC Distribution Width CV 13.8 % (11.6-14.6); RBC Distribution Width SD 51.9 fl (35.1-43.9); Red Blood Count 4.71 M/mm3 (4.6-6.2); White Blood Count 7.4 K/mm3 (4.4-11.0)
[2019-09-12 13:07] LABS: Vitamin B12 251 pg/mL (211-911); Vitamin D,25 Hydroxy 36.4 ng/mL
[2019-09-12 13:25] LABS: ALB/GLOB Ratio 1.1 RATIO (0.9-2.4); AST(SGOT) 14 U/L (15-37); Alanine Aminotransfer ALT/SGPT 18 U/L (16-61); Albumin, Serum 3.9 g/dL (3.2-5.0); Alkaline Phosphatase 54 U/L (45-117); Anion Gap 4 (5-15); BUN 8 mg/dL (7-18); BUN/Creat Ratio 8.7 RATIO (10-20); Calcium,Total 8.9 mg/dL (8.5-10.1); Chloride 106 mmol/L (98-107); Cholesterol 155 mg/dL (200); Creatinine, Serum 0.92 mg/dL (0.70-1.30); EST Glomerular Filtration Rate 89 mL/min (>60); Est Glom Filt Rate - Afr Amer 108 mL/min (>60); Globulin 3.7 g/dL (2.2-4.2); Glucose 109 mg/dL (74-106); High Density Lipoprotein 73 mg/dL; Potassium 4.1 mmol/L (3.5-5.1); Protein, Total 7.6 g/dL (6.4-8.2); Sodium Level 138 mmol/L (136-145); Triglycerides 48 mg/dL; Very Low Density Lipoprotein 10 mg/dL (5-40)
[2019-09-13 10:10] LABS: Hemoglobin A1c 5.2 % (3.8-5.6)
[2019-09-16 11:20] LABS: Vitamin B1, Thiamine 139.4 nmol/L (66.5-200.0)
== END ==
PROVIDERS: PCP Family Medicine; Visit Provider Family Medicine
DX: I10 Essential (primary) hypertension (principal); E55.9 Vitamin D deficiency, unspecified; R73.09 Other abnormal glucose; E53.8 Deficiency of other specified B group vitamins; Z86.73 Personal history of transient ischemic attack (TIA), and cerebral infarction without residual deficits; F10.10 Alcohol abuse, uncomplicated
CPT/HCPCS: 80053; 80061; 81001; 82306; 82607; 82746; 83036; 84425; 85025

== ENCOUNTER → 2020-04-24 09:14 | Outpatient (CLI) | payer MEDICARE, SELFPAY ==
[2020-04-24 10:00] LABS: Absolute Neutrophil Count 5.3 X10^3/uL (2.0-7.7); Basophil# 0.05 X10^3/uL; Basophil% 0.6 % (0-1); Eosinophil# 0.05 X10^3/uL; Eosinophils% 0.6 % (0-5); Hematocrit 47.2 % (40-54); Hemoglobin 15.9 g/dL (13.0-16.5); Lymphocyte % 21.8 % (19-41); Mean Corp Hgb Conc 33.7 g/dL (32-36); Mean Corpuscular Hgb 33.5 pg (27.0-32.0); Mean Corpuscular Volume 99.4 fL (80-94); Mean Platelet Vol. 9.3 fl (6.2-12.0); Monocyte# 0.68 X10^3/uL; Monocyte% 8.7 % (0-10); NRBC Flagged by Analyzer 0 % (0-5); Neutrophil # 5.29 X10^3/uL (2.7-7.7); Neutrophil % 67.8 % (47-70); Platelet Count 270 K/mm3 (150-450); RBC Distribution Width CV 13.1 % (11.6-14.6); RBC Distribution Width SD 47.8 fl (35.1-43.9); Red Blood Count 4.75 M/mm3 (4.6-6.2); White Blood Count 7.8 K/mm3 (4.4-11.0)
[2020-04-24 10:38] LABS: AST(SGOT) 14 U/L (15-37); Alanine Aminotransfer ALT/SGPT 20 U/L (16-61); Albumin, Serum 3.8 g/dL (3.2-5.0); Alkaline Phosphatase 56 U/L (45-117); Anion Gap 8 (5-15); BUN 11 mg/dL (7-18); BUN/Creat Ratio 11.4 RATIO (10-20); Calcium,Total 8.9 mg/dL (8.5-10.1); Chloride 106 mmol/L (98-107); Cholesterol 124 mg/dL (200); Creatinine, Serum 0.96 mg/dL (0.70-1.30); EST Glomerular Filtration Rate 84 mL/min (>60); Est Glom Filt Rate - Afr Amer 101 mL/min (>60); Globulin 3.8 g/dL (2.2-4.2); Glucose 108 mg/dL (74-106); High Density Lipoprotein 74 mg/dL; Potassium 4.3 mmol/L (3.5-5.1); Protein, Total 7.6 g/dL (6.4-8.2); Sodium Level 137 mmol/L (136-145); Thyroid Stim Hormone (TSH) 1.45 uIU/mL (0.358-3.74); Triglycerides 58 mg/dL; Very Low Density Lipoprotein 12 mg/dL (5-40)
[2020-04-24 11:34] LABS: Vitamin B12 241 pg/mL (211-911); Vitamin D,25 Hydroxy 17.6 ng/mL
[2020-04-27 11:58] LABS: Hemoglobin A1c 5.2 % (3.8-5.6)
== END ==
PROVIDERS: PCP Family Medicine; Referring Provider Family Medicine; Visit Provider Family Medicine
DX: R73.09 Other abnormal glucose (principal); I10 Essential (primary) hypertension; Z86.73 Personal history of transient ischemic attack (TIA), and cerebral infarction without residual deficits; D75.89 Other specified diseases of blood and blood-forming organs; E55.9 Vitamin D deficiency, unspecified
CPT/HCPCS: 36415; 80053; 80061; 82306; 82607; 82746; 83036; 84443; 85025

== ENCOUNTER → 2020-11-19 08:43 | Outpatient (CLI) | payer MEDICARE, SELFPAY ==
[2020-11-19 09:55] LABS: Absolute Lymphocyte Count 1.46 X10^3/uL (0.83-4.51); Absolute Neutrophil Count 4.8 X10^3/uL (2.0-7.7); Basophil# 0.04 X10^3/uL; Basophil% 0.6 % (0-1); Eosinophil# 0.03 X10^3/uL; Eosinophils% 0.4 % (0-5); Hematocrit 44.3 % (40-54); Hemoglobin 14.8 g/dL (13.0-16.5); Lymphocyte # 1.46 X10^3/ul (0.83-4.51); Lymphocyte % 20.8 % (19-41); Mean Corp Hgb Conc 33.4 g/dL (32-36); Mean Corpuscular Hgb 33.9 pg (27.0-32.0); Mean Corpuscular Volume 101.6 fL (80-94); Mean Platelet Vol. 9.5 fl (6.2-12.0); Monocyte# 0.63 X10^3/uL; NRBC Flagged by Analyzer 0 % (0-5); Neutrophil # 4.79 X10^3/uL (2.7-7.7); Neutrophil % 68.1 % (47-70); Platelet Count 270 K/mm3 (150-450); RBC Distribution Width CV 13.2 % (11.6-14.6); RBC Distribution Width SD 50.5 fl (35.1-43.9); Red Blood Count 4.36 M/mm3 (4.6-6.2)
[2020-11-19 10:47] LABS: Vitamin B12 236 pg/mL (211-911); Vitamin D,25 Hydroxy 18.2 ng/mL
[2020-11-19 10:57] LABS: ALB/GLOB Ratio 0.9 RATIO (0.9-2.4); AST(SGOT) 23 U/L (15-37); Alanine Aminotransfer ALT/SGPT 34 U/L (16-61); Albumin, Serum 3.4 g/dL (3.2-5.0); Alkaline Phosphatase 50 U/L (45-117); Anion Gap 6 (5-15); BUN 10 mg/dL (7-18); BUN/Creat Ratio 11.5 RATIO (10-20); Calcium,Total 8.7 mg/dL (8.5-10.1); Chloride 107 mmol/L (98-107); Cholesterol 126 mg/dL (200); Creatinine, Serum 0.87 mg/dL (0.70-1.30); EST Glomerular Filtration Rate 94 mL/min (>60); Est Glom Filt Rate - Afr Amer 114 mL/min (>60); Globulin 3.8 g/dL (2.2-4.2); Glucose 112 mg/dL (74-106); High Density Lipoprotein 81 mg/dL; Potassium 4.1 mmol/L (3.5-5.1); Protein, Total 7.2 g/dL (6.4-8.2); Sodium Level 138 mmol/L (136-145); Thyroid Stim Hormone (TSH) 1.49 uIU/mL (0.358-3.74); Triglycerides 42 mg/dL; Very Low Density Lipoprotein 8 mg/dL (5-40)
[2020-11-20 17:25] LABS: Hemoglobin A1c 5.2 % (3.8-5.6)
[2020-11-26 18:03] LABS: Vitamin B1, Thiamine 122.7 nmol/L (66.5-200.0)
== END ==
PROVIDERS: PCP Family Medicine; Referring Provider Family Medicine; Visit Provider Family Medicine
DX: I10 Essential (primary) hypertension (principal); Z72.0 Tobacco use; Z86.73 Personal history of transient ischemic attack (TIA), and cerebral infarction without residual deficits; D75.89 Other specified diseases of blood and blood-forming organs; E55.9 Vitamin D deficiency, unspecified; R73.09 Other abnormal glucose
CPT/HCPCS: 36415; 80053; 80061; 82306; 82607; 82746; 83036; 84425; 84443; 85025

== ENCOUNTER 2022-01-04 14:26 | Inpatient (IN) | payer MEDICARE, SELFPAY ==
[2022-01-04] VITALS (12 sets, daily range): BP systolic 104–116; BP diastolic 66–84; PULSE 104–112; RESP 15–30; TEMP 36.5–37.3; O2SAT 92–99; BMI 22.4; BMI 21.7
--- NOTE | 2022-01-04 14:32 | EKG12_ITS ---
Test Reason : CP Blood Pressure : / mmHG Vent. Rate : 105 BPM Atrial Rate : 105 BPM P-R Int : 138 ms QRS Dur : 082 ms QT Int : 412 ms P-R-T Axes : 072 093 170 degrees QTc Int : 544 ms Sinus tachycardia Possible Left atrial enlargement Rightward axis Low voltage QRS (Limb Leads) Septal infarct , age undetermined ST & T wave abnormality, consider anterolateral ischemia Prolonged QT Abnormal ECG Confirmed by VI AHN, BALDEMAR ([id number]), publication editor YOLANDE JC ([id number]) on 01/05/2022 11:16:47 AM Referred By: EDMAR Confirmed By:BALDEMAR LEBRON MD
--- NOTE | 2022-01-04 14:35 | ED.VIS.CHEST ---
HPI History of Present Illness Chief Complaint: Chest Pain Detail of Chief Complaint: Dull anterior chest discomfort Informant: patient Onset/Context/Timing Onset: Days (2 days ago) Activity at onset: sudden Timing: Continuous Quality: Positive for Dull Location: Right Chest and Left Chest Current Severity: Moderate Maximum Severity: Severe Worsened By: Exertion Relieved By: Nothing Associated Symptoms: Positive for Nausea, Diaphoresis, Dyspnea and Lightheadedness Narrative Narrative: Is a 66-year-old male who presents with bilateral anterior chest discomfort described as a dull sensation rating to his left jaw. When this started 2 days ago he was diaphoretic and became quite short of breath with nausea. He is a smoker. He does have high blood pressure and hypercholesterolemia. He is also had 2 prior strokes. He denies history of coronary disease. He denies history of congestive heart failure. He denies history of PE or DVT. He denies leg pain, swelling discoloration. He denies orthopnea or PND. He does endorse mild dyspnea with exertion. Prior Similar Symptoms: No Recent Illness/Hospitalization: No CVD Risk Factors: Positive for Hypertension, Hypercholesterolemia and Smoking; Negative for Diabetes or Family History 1' </=55 PE Risk Factors: Negative for Recent Travel/Surgery, Recent Immobilization, Prior DVT or PE, Cancer or OCP + Smoking + >/=35 TAD Risk Factors: Positive for Hypertension; Negative for Marfan's Syndrome or Family History [facility] Medical History (Updated 01/04/22 @ 15:[address] Fernando Tidwell MD) Alcohol abuse CVA (cerebral vascular accident) Femur fracture, left Hypokalemia Home Medications clopidogrel 75 mg tablet 75 mg PO DAILY 10/28/18 [History Last Taken Unknown] atorvastatin 40 mg tablet 40 mg PO QHS CHOLESTEROL 01/04/22 [History Last Taken 01/03/22] cholecalciferol (vitamin D3) 100 mcg (4,000 unit) tablet 100 mcg PO DAILY SUPPLEMENT 01/04/22 [History Last Taken 01/04/22] clonidine HCl 0.1 mg tablet 0.1 mg PO BID 01/04/22 [History Last Taken 01/04/22] lisinopril 10 mg tablet 10 mg PO BID 01/04/22 [History Last Taken 01/04/22] Allergy/AdvReac Type Severity Reaction Status Date / Time atorvastatin [From Lipitor] AdvReac Upset Verified 01/04/22 14:32 Stomach Penicillins AdvReac Diarrhea Verified 01/04/22 14:32 Social History (Updated 01/04/22 @ 14:[address] Fernando Tidwell MD) household members: none Smoking Status: Current every day smoker tobacco type: cigarettes and smokeless tobacco substance use type: does not use ROS ROS ED Constitutional Constitutional ED: Denies chills, fever(s), subjective, sweats or weight loss Eyes Eyes: Reports none; Denies blurry vision, change in vision or diplopia ENT ENT ED: Denies ear pain, rhinorrhea or sore throat Cardiovascular Cardiovascular: Reports as per HPI; Denies orthopnea or paroxysmal nocturnal dyspnea Respiratory/Chest Respiratory/Chest: Reports dyspnea and dyspnea on exertion; Denies cough, orthopnea or paroxysmal nocturnal dyspnea Gastrointestinal Gastrointestinal: Reports nausea; Denies abdominal pain, constipation, diarrhea, melena or vomiting Genitourinary Genitourinary ED: Denies dysuria, hematuria or urinary frequency Musculoskeletal Musculoskeletal: Denies arthralgias, back pain, myalgias or neck pain Integumentary Denies abscess, Abrasions or rash Neurologic Neurologic: Reports weakness; Denies headache(s) or paresthesias Endocrine Endocrinology: Denies cold intolerance, heat intolerance or polydipsia Hematologic/Lymphatic Hematologic/Lymphatic: Denies easy bleeding or easy bruising EXAM Physical Exam Const Vital Signs: 01/04/22 14:27 01/04/22 14:30 01/04/22 14:40 Temperature 97.7 F L Temperature Source Temporal Pulse Rate 105 H Respiratory Rate 16 Respiratory Effort Normal Non-Labored Blood Pressure 108/78 Blood Pressure Mean 88 Blood Pressure Source Blood Pressure Position Blood Pressure Location Pulse Ox 95 Oxygen Delivery Method Room Air Room Air 01/04/22 14:56 01/04/22 15:22 Temperature Temperature Source Pulse Rate 105 H 105 H Respiratory Rate 16 Respiratory Effort Blood Pressure 107/78 109/75 Blood Pressure Mean 87 86 Blood Pressure Source Monitor Blood Pressure Position Semi-Fowlers Blood Pressure Location Right Arm Pulse Ox 97 Oxygen Delivery Method Room Air Positive well nourished, well developed and unkempt General Appearance ED: unkempt, well developed and NAD; Negative for pallor HEENT Reports TM's clear and dry mucous membranes HEENT Narrative: Uvula midline. No deviation with protrusion. normocephalic and atraumatic Tympanic Membrane ED: Yes TM's clear Mouth ED: Yes dry mucous membranes Mouth: dry mucous membranes Eyes PERRL and EOMs intact bilaterally General Eye ED: Negative for pale conjunctiva or scleral icterus Neck no lymphadenopathy, supple and no JVD Neck Narrative: Trachea is midline. There is no in-store expiratory stridor. Chest Wall inspection of chest normal and palpation of chest normal Resp normal respiratory effort and clear to auscultation bilaterally Cardio regular rate, regular rhythm, S1 normal heart sound, S2 normal heart sound and no murmurs GI normal to inspection, nondistended, normoactive bowel sounds, soft to palpation, non-tender, non-distended and no masses; Negative for hepatosplenomegaly GI Narrative: There is no pulsatile mass or abdominal bruit. Back/Spine no CVA tenderness General Back: Negative for CVA tenderness Extremity normal to inspection Extremity Narrative: Patient does have stigmata of peripheral arterial disease with thickened toenails and lack of hair toes. Neuro oriented x3, CN's II-XII intact bilaterally and no sensory deficits noted Neuro Narrative: Patient has bilateral Babinski sign noted. He has had more than 1 stroke. Motor Exam: strength 5/5 throughout Psych Psych Narrative: Depressed affect flat mood. Appearance: unkempt Skin no rashes or lesions noted and no wounds General Skin Exam: Negative for jaundice or pallor Heart Score History: Highly Suspicious ECG: Significant ST-Depression Age: >45 - <65 years Risk Factors: >/= 3 Risk Factors or History of CAD Score: 7 MDM MDM MDM Narrative Medical decision making narrative: Patient presents with chest pain that is very suspicious for cardiac ischemia. EKG reveals changes consistent with a lateral subendocardial LA. Since patient is still having pain he was placed on a nitroglycerin drip. He did receive 1 nitro in route with no effect. He also was treated with heparin. After reviewing prior EKG occupational therapist per diem was contacted to discuss case and will then call hospitalist for admission. Lab Data Attestation: I reviewed the patient's lab results. Lab results narrative: White count is elevated. This may be due to myocardial infarction. Labs: Laboratory Results - last 24 hr 01/04/22 01/04/22 01/04/22 14:31 14:31 14:31 WBC 18.3 H RBC 4.29 L Hgb 14.6 Hct 43.4 MCV 101.2 H MCH 34.0 H MCHC 33.6 RDW Std Deviation 50.8 H RDW Coeff of [place] 13.6 Plt Count 263 MPV 9.8 Immature Gran % (Auto) 1.000 H Neut % (Auto) 85.6 H Lymph % (Auto) 5.4 L [place] % (Auto) 7.8 Eos % (Auto) 0.0 Baso % (Auto) 0.2 Absolute Neuts (auto) 15.7 H Absolute Lymphs (auto) 0.98 Nucleated RBC % 0 PT 12.5 INR 1.0 APTT 25.5 Sodium 135 L Potassium 4.9 Chloride 104 Carbon Dioxide 19.0 L Anion Gap 12 BUN 12 Creatinine 1.02 Estim Creat Clear Calc 79.58 Est GFR (MDRD) Af Amer 94 Est GFR (MDRD) Non-Af 78 BUN/Creatinine Ratio 11.8 Glucose 186 H Calcium 9.2 Troponin I High Sens 1036 H* 01/04/22 14:32 WBC RBC Hgb Hct MCV MCH MCHC RDW Std Deviation RDW Coeff of [place] Plt Count MPV Immature Gran % (Auto) Neut % (Auto) Lymph % (Auto) Bell % (Auto) Eos % (Auto) Baso % (Auto) Absolute Neuts (auto) Absolute Lymphs (auto) Nucleated RBC % PT Cancelled INR Cancelled APTT Sodium Potassium Chloride Carbon Dioxide Anion Gap BUN Creatinine Estim Creat Clear Calc Est GFR (MDRD) Af Amer Est GFR (MDRD) Non-Af BUN/Creatinine Ratio Glucose Calcium Troponin I High Sens Radiography Chest X-Ray - ED: 1 View and Read by ED Physician (Single view portable chest x-ray reveals hyperaeration. There is discoid atelectasis left lower base. There is no infiltrate. Cardiac silhouette and size unremarkable. Perihilar region unremarkable. Osseous trucks unremarkable. This was independently viewed and interpreted by me at 1457) Diagnostic Testing: Clinical Impression(s) from Imaging Studies Chest X-Ray 01/04/22 14:45 IMPRESSION: Hyperinflation. Mild increased markings at the left lung base suggests left lingular atelectasis and/or scarring. Electronically Signed: Rakesh Davis MD at 15:02 EST , EKG Initial EKG: Attestation: I personally reviewed and interpreted this EKG as follows: Interpretation: Sinus Tachycardia (Sinus tachycardia ventricular rate of 105. NC interval is 138 ms. QS duration 82 ms. QT duration 412 ms. [place] is to the right. Patient has ST depression in the anterolateral leads with deeply symmetrically inverted T waves which is new from October 28, 2018. EKG is consistent with lateral sub) Critical Care Time Critical Care Time: Yes Critical care time (excluding procedures): 30-74 minutes (33), Including time spent: (History, physical, documentation, review of prior records), Discussing w/Patient &/or Family/Forensic Investigator, Discussing w/Consultants (Dr. Ojeda initially and after he reviewed the EKG and troponin.), Arranging Admission or Transfer (Dr. Vang drop he was made aware the Dr. Ojeda coming to see patient determine if he will go straight to the Teacher Specialist.) and Performing Direct Patient Care at Bedside Discharge Plan Triage Chief Complaint: Chest Pain ED Provider: Fernando Tidwell Dx/Rx/DC Orders Clinical Impression: Non-ST elevation myocardial infarction (NSTEMI), initial care episode, Sinus tachycardia, Hypertension, Hypercholesterolemia Prescriptions: No Action clopidogrel 75 MG tablet 75 mg PO DAILY atorvastatin 40 mg tablet 40 mg PO QHS Label Comments: TAKE 1 TABLET BY MOUTH AT BEDTIME clonidine HCl 0.1 mg tablet 0.1 mg PO BID lisinopril 10 mg tablet 10 mg PO BID cholecalciferol (vitamin D3) 100 mcg (4,000 unit) Tablet 100 mcg PO DAILY Primary Care Provider: Jesus Trujillo Referrals: Jesus Trujillo MD [Primary Care Provider] - Disposition Disposition: Acute Care Hospital [facility]
[2022-01-04 14:38] LABS: Absolute Lymphocyte Count 0.98 X10^3/uL (0.83-4.51); Absolute Neutrophil Count 15.7 X10^3/uL (2.0-7.7); Basophil# 0.04 X10^3/uL; Basophil% 0.2 % (0-1); Hematocrit 43.4 % (40-54); Hemoglobin 14.6 g/dL (13.0-16.5); Lymphocyte # 0.98 X10^3/ul (0.83-4.51); Lymphocyte % 5.4 % (19-41); Mean Corp Hgb Conc 33.6 g/dL (32-36); Mean Corpuscular Volume 101.2 fL (80-94); Mean Platelet Vol. 9.8 fl (6.2-12.0); Monocyte# 1.42 X10^3/uL; Monocyte% 7.8 % (0-10); NRBC Flagged by Analyzer 0 % (0-5); Neutrophil # 15.68 X10^3/uL (2.7-7.7); Neutrophil % 85.6 % (47-70); Platelet Count 263 K/mm3 (150-450); RBC Distribution Width CV 13.6 % (11.6-14.6); RBC Distribution Width SD 50.8 fl (35.1-43.9); Red Blood Count 4.29 M/mm3 (4.6-6.2); White Blood Count 18.3 K/mm3 (4.4-11.0)
--- NOTE | 2022-01-04 14:45 | RAD_ITS ---
STUDY: X-RAY CHEST REASON FOR EXAM: Male, 66 years old. Chest pain TECHNIQUE: Single AP portable view of the chest. COMPARISON: Comparison is made with prior study 10/01/2017. FINDINGS: EKG electrodes are seen. Hyperinflation. Mild increased markings at the left lung base suggestive of atelectasis and/or scarring. There is no demonstrated pleural abnormality. Normal size heart. Normal mediastinum and meghna. Normal visualized pulmonary arteries. There is atherosclerotic calcification of the aortic arch with tortuosity. There are degenerative changes of the visualized thoracic spine. Normal visualized ribs, clavicles, and shoulders. There is no demonstrated abnormality of the visualized soft tissue structures of the upper abdomen. RAD/Chest 1 View (Portable) IMPRESSION: Hyperinflation. Mild increased markings at the left lung base suggests left lingular atelectasis and/or scarring. Electronically Signed: Rakesh Davis MD at 15:02 EST ,
[2022-01-04 14:47] LABS: Prothrombin Time (Protime)PT. 12.5 SECONDS (11.7-14.9)
[2022-01-04 14:48] LABS: Partial Thromboplast Time 25.5 Seconds (24.1-36.2)
[2022-01-04] MEDS: Aspirin 81 MG TAB.CHEW 324 MG PO (14:55)
[2022-01-04 14:56] LABS: Anion Gap 12 (5-15); BUN 12 mg/dL (7-18); BUN/Creat Ratio 11.8 RATIO (10-20); Calcium,Total 9.2 mg/dL (8.5-10.1); Chloride 104 mmol/L (98-107); Creatinine, Serum 1.02 mg/dL (0.70-1.30); EST Glomerular Filtration Rate 78 mL/min (>60); Est Glom Filt Rate - Afr Amer 94 mL/min (>60); Estimated Creatinine Clearance 79.58 ml/min; Glucose 186 mg/dL (74-106); Potassium 4.9 mmol/L (3.5-5.1); Sodium Level 135 mmol/L (136-145); Troponin-I HS (w/2H Reflex) 1036 pg/mL (3.0-78.0)
[2022-01-04] MEDS: Nitroglycerin Infusion 250 ML 3 MG IV (14:56)
[2022-01-04] MEDS: Heparin Injection (Vial) 5,000 UNIT/ML VIAL 5000 UNIT IV (15:01)
[2022-01-04] MEDS: HEPARIN/D5w 25,000 UNITS 25,000 UNITS/250 ML IV.SOLN. 11 UNITS CONT INF (15:04)
[2022-01-04] MEDS: 0.9% Normal Saline 1,000 ML 150 ML IV (15:08)
--- NOTE | 2022-01-04 15:45 | NURSING ---
GOING TO PLATFORM SOFTWARE ENGINEER
--- NOTE | 2022-01-04 15:48 | CON.PCM.CA_ITS ---
Assessment & Plan Assessment/Plan (1) Unstable angina: PLAN: The patient has symptoms compatible with ongoing unstable angina pectoris. He also has objective findings compatible with an acute non-ST segment elevation SC. At the present time he is being evaluated and cared for in the [facility] emergency department. He has been recommended for further evaluation with diagnostic cardiac catheterization. The procedure and risks of been discussed with him. He was agreeable to this approach. (2) Non-ST elevation (NSTEMI) myocardial infarction: PLAN: As noted above the patient has findings compatible with an acute non-ST segment elevation SC. He has been placed on medical management. Based upon his ongoing symptoms and his objective changes he has been recommended for further evaluation with diagnostic cardiac catheterization. The procedure and risks of been discussed with him. He was agreeable to this approach. (3) Hypercholesterolemia: PLAN: The patient has been on lipid-lowering therapy. This will be continued. (4) Hypertension: PLAN: The patient has a history of hypertension. His blood pressure will need to be followed and his medicines adjusted accordingly. (5) CVA (cerebral vascular accident): PLAN: The patient has a history of previous CVAs. He states he has had no recent acute events that he is aware of. He has continued his antiplatelet therapy. Addt'l Comments The patient's case was discussed reviewed with the patient, Dr. Tidwell the [facility] emergency department staff, and Dr. Read of the [facility] staff This note was generated using a voice recognition system and there may be inc orrect words, spelling or punctuation that were not noted when reviewing the office note prior to saving. HPI Consult Data Date of Consult: 01/04/22 HPI Narrative HPI Narrative: BENY AGARWAL, is a 66 year old white male who presents for murmur since he department cardiovascular consultation based upon concerns of unstable angina pectoris/acute coronary syndrome/acute non-ST segment elevation SC superimposed upon a history of hyperlipidemia, hypertension, CVA, alcohol abuse. He states for the last 2 days he has had a relatively constant chest discomfort which he describes as a chest tightness which was radiated up to his neck and jaw well as to his left shoulder area. He states that he has had associated nausea but no emesis. He has also had diaphoresis. He has not complained of any acute respiratory related issues with shortness of breath/dyspnea orthopnea or PND. He has had no ongoing peripheral pitting edema. He denies any loss of consciousness. Based upon his ongoing symptoms he presented to the emergency department for further evaluation and care. He was noted on laboratory studies to have an elevated WBC of 18.3, normal BUN/creatinine/potassium level, and an elevated high-sensitivity troponin I level of 1036. His ECG demonstrated sinus rhythm with a rightward axis, low voltage QRS in the limb leads, possible left atrial enlargement, and T wave abnormality compatible with anterior lateral myocardial ischemia. His chest x- ray upon preliminary inspection did not appear to demonstrate any acute cardiopulmonary disease process. There were no acute changes based upon the official radiology interpretation. It appears he had a transthoracic echocardiogram performed based upon his history of TIA/CVA on 10-02-2017. At that time his left ventricle was normal with an LVEF 55% with mild mitral and calcification and mild focal aortic valve calcification and decreased diastolic compliance. He states ever since his CVA he has been on medical management with clopidogrel/Plavix. He states he continues to take it. He does not take aspirin. In the emergency department he was started on IV nitroglycerin and IV heparin. Despite these agents he continues with ongoing chest discomfort. [facility] Medical History (Updated 01/04/22 @ 15:[address] Koby Ojeda MD) Alcohol abuse CVA (cerebral vascular accident) Femur fracture, left Hypokalemia Home Medications clopidogrel 75 mg tablet 75 mg PO DAILY 10/28/18 [History Last Taken 01/04/22] atorvastatin 40 mg tablet 40 mg PO QHS CHOLESTEROL 01/04/22 [History Last Taken 01/03/22] cholecalciferol (vitamin D3) 100 mcg (4,000 unit) tablet 100 mcg PO DAILY SUPPLEMENT 01/04/22 [History Last Taken 01/04/22] clonidine HCl 0.1 mg tablet 0.1 mg PO BID 01/04/22 [History Last Taken 01/04/22] lisinopril 10 mg tablet 10 mg PO BID 01/04/22 [History Last Taken 01/04/22] Allergy/AdvReac Type Severity Reaction Status Date / Time atorvastatin [From Lipitor] AdvReac Upset Verified 01/04/22 14:32 Stomach Penicillins AdvReac Diarrhea Verified 01/04/22 14:32 Social History (Updated 01/04/22 @ 14:[address] Fernando Tidwell MD) household members: none Smoking Status: Current every day smoker tobacco type: cigarettes and smokeless tobacco substance use type: does not use ROS Constitutional Constitutional: Reports as per HPI Eyes Eyes: Reports as per HPI ENT HEENT: Reports as per HPI Cardiovascular Cardiovascular: Reports chest pain at rest, diaphoresis and nausea Respiratory/Chest Respiratory/Chest: Reports as per HPI Gastrointestinal Gastrointestinal: Reports as per HPI Genitourinary Genitourinary: Reports as per HPI Musculoskeletal Musculoskeletal: Reports as per HPI Integumentary Integumentary: Reports as per HPI Neurologic Neurologic: Reports as per HPI Psychiatric Psychiatric: Reports as per HPI Physical Exam Const alert, oriented x3 and no apparent distress Orientation / Consciousness: awake HEENT normocephalic, head/scalp atraumatic and hearing grossly normal bilaterally Eyes PERRL, EOMs intact bilaterally, conjunctivae normal and no scleral icterus Neck full ROM, supple and no JVD Carotids: normal carotid upstroke Resp normal respiratory effort and clear to auscultation bilaterally Cardio regular rate, regular rhythm, S1 normal heart sound and S2 normal heart sound GI normal to inspection, nondistended, normoactive bowel sounds Extremity no pedal edema Skin no rashes or lesions noted Psych Psych Narrative: Flat affect Risk Stratification Risk Stratification Applicable: Yes Age >/= 65: No >/= 3 CAD Risk Factors (HTN, HLD, DM, family hx of CAD, or current smoker): Yes Aspirin Use in the Past 7 Days: No Severe Angina (>/= episodes in 24 hours): Yes EKG ST Changes >/= 0.5mm: Yes Positive Cardiac Marker: Yes BANG Risk Stratification Score: 4 BANG % Risk: 20% Risk Procedure Criteria Type of Procedure Procedure Type: Elective Elective Risks - COVID COVID Risk Discussion: The surgeon/proceduralist and patient have discussed in detail the risk of ex posure to and/or potential harm posed by the COVID-19 virus with having a surgery/procedure at this time versus the risk of delaying the surgery/procedure. It is not possible to know either the risk of delaying the surgery or procedure or chance of getting an infection with perfect accuracy, but a joint decision was made between the patient and the surgeon/proceduralist to proceed at this time with the scheduled surgery/procedure as indicated on the consent form. Objective Data Vital Signs: Vital Signs Temp Pulse Resp BP Pulse Ox O2 Del Method 97.7 F L 108 H 15 116/84 H 99 Room Air 01/04/22 15:43 01/04/22 15:43 01/04/22 15:43 01/04/22 15:43 01/04/22 15:43 01/04/22 15:43 Oxygen Delivery Method Room Air Weight: 169 lb 8.568 oz Body Mass Index (BMI) 22.4 Lab / Micro Data Result Diagrams: 01/04/22 14:31 01/04/22 14:31 Labs: Laboratory Results - last 24 hr 01/04/22 14:31: WBC 18.3 H, RBC 4.29 L, Hgb 14.6, Hct 43.4, MCV 101.2 H, MCH 34.0 H, MCHC 33.6, RDW Std Deviation 50.8 H, RDW Coeff of [place] 13.6, Plt Count 263, MPV 9.8, Immature Gran % (Auto) 1.000 H, Neut % (Auto) 85.6 H, Lymph % (Auto) 5.4 L, [place] % (Auto) 7.8, Eos % (Auto) 0.0, Baso % (Auto) 0.2, Absolute Neuts (auto) 15.7 H, Absolute Lymphs (auto) 0.98, Nucleated RBC % 0 01/04/22 14:31: PT 12.5, INR 1.0, APTT 25.5 01/04/22 14:31: Sodium 135 L, Potassium 4.9, Chloride 104, Carbon Dioxide 19.0 L , Anion Gap 12, BUN 12, Creatinine 1.02, Estim Creat Clear Calc 79.58, Est GFR (MDRD) Af Amer 94, Est GFR (MDRD) Non-Af 78, BUN/Creatinine Ratio 11.8, Glucose 186 H, Calcium 9.2, Troponin I High Sens 1036 H* 01/04/22 14:32: PT Cancelled, INR Cancelled Cardiology Labs/Tests 01/04/22 14:31: WBC 18.3 H, RBC 4.29 L, Hgb 14.6, Hct 43.4, MCV 101.2 H, MCH 34.0 H, MCHC 33.6, Plt Count 263, MPV 9.8, Immature Gran % (Auto) 1.000 H, Neut % (Auto) 85.6 H, Lymph % (Auto) 5.4 L, [place] % (Auto) 7.8, Eos % (Auto) 0.0, Baso % (Auto) 0.2, Absolute Neuts (auto) 15.7 H, Nucleated RBC % 0 01/04/22 14:31: PT 12.5, INR 1.0, APTT 25.5 01/04/22 14:31: Sodium 135 L, Potassium 4.9, Chloride 104, Carbon Dioxide 19.0 L , Anion Gap 12, BUN 12, Creatinine 1.02, Est GFR (MDRD) Af Amer 94, Est GFR (MDRD) Non-Af 78, BUN/Creatinine Ratio 11.8, Glucose 186 H, Calcium 9.2 01/04/22 14:32: PT Cancelled, INR Cancelled Rhythm: Sinus rhythm EKG: As noted above ECHO: As noted above Radiography Diagnostic Testing: Radiology Impression Chest X-Ray 01/04/22 14:45 IMPRESSION: Hyperinflation. Mild increased markings at the left lung base suggests left lingular atelectasis and/or scarring. Electronically Signed: Rakesh Davis MD at 15:02 EST ,
--- NOTE | 2022-01-04 16:09 | HP.PCM.HOS_ITS ---
[facility] - General General Date of Service: 01/04/22 Chief Complaint: chest pain HPI Narrative BENY AGARWAL, is a 66 M who presents with 2 days of chest pain. Chest pain is across his chest. He has steadily gotten worse and is now short of breath, having diaphoresis and dizziness. His chest pain radiates into his left neck. Patient is never had any cardiac issues nor any prior history of chest pain like this before. He presented to the emergency room because of this. In the emergency room, patient noted to have an EKG with ST depressions in anterior lateral leads. His troponins were elevated greater than 1000. Cardiology was contacted through the emergency room who saw the patient in the emergency room. Plan is for cardiac catheterization. While he was in the emergency room, he was started on heparin drip as well as nitroglycerin. His pain is better but not resolved. [facility] Medical History Alcohol abuse CVA (cerebral vascular accident) Femur fracture, left Hypokalemia Home Medications clopidogrel 75 mg tablet 75 mg PO DAILY 10/28/18 [History Last Taken 01/04/22] atorvastatin 40 mg tablet 40 mg PO QHS CHOLESTEROL 01/04/22 [History Last Taken 01/03/22] cholecalciferol (vitamin D3) 100 mcg (4,000 unit) tablet 100 mcg PO DAILY SUPPLEMENT 01/04/22 [History Last Taken 01/04/22] clonidine HCl 0.1 mg tablet 0.1 mg PO BID 01/04/22 [History Last Taken 01/04/22] lisinopril 10 mg tablet 10 mg PO BID 01/04/22 [History Last Taken 01/04/22] Allergy/AdvReac Type Severity Reaction Status Date / Time atorvastatin [From Lipitor] AdvReac Upset Verified 01/04/22 14:32 Stomach Penicillins AdvReac Diarrhea Verified 01/04/22 14:32 Family History (Updated 01/04/22 @ 16:[address] Taj Read DO) Father CAD (coronary artery disease) Brother CAD (coronary artery disease) Social History household members: none Smoking Status: Current every day smoker tobacco type: cigarettes and smokeless tobacco substance use type: does not use ROS ROS Narrative Denies history of VTE. Denies lower extremity edema. Uses a crutch because of his history of a femur fracture. All review of systems were negative except as mentioned above in the history of present illness and the other review of systems. Vital Signs Vital Signs Vital Signs: 01/04/22 14:27 01/04/22 14:30 01/04/22 14:40 Temperature 36.5 C L Temperature Source Temporal Pulse Rate 105 H Respiratory Rate 16 Respiratory Effort Normal Non-Labored Blood Pressure 108/78 Blood Pressure Mean 88 Blood Pressure Source Blood Pressure Position Blood Pressure Location Pulse Ox 95 Oxygen Delivery Method Room Air Room Air 01/04/22 14:56 01/04/22 15:22 01/04/22 15:43 Temperature 36.5 C L Temperature Source Temporal Pulse Rate 105 H 105 H 108 H Respiratory Rate 16 15 Respiratory Effort Blood Pressure 107/78 109/75 116/84 H Blood Pressure Mean 87 86 94 Blood Pressure Source Monitor Blood Pressure Position Semi-Fowlers Blood Pressure Location Right Arm Pulse Ox 97 99 Oxygen Delivery Method Room Air Room Air 01/04/22 15:52 Temperature Temperature Source Pulse Rate 107 H Respiratory Rate 16 Respiratory Effort Blood Pressure 114/66 Blood Pressure Mean 82 Blood Pressure Source Blood Pressure Position Blood Pressure Location Pulse Ox 97 Oxygen Delivery Method Room Air Weight Weight: 76.9 kg Body Mass Index (BMI) 22.4 Physical Exam Const alert and no apparent distress Constitutional Narrative: Flat affect General Appearance: cooperative HEENT normocephalic Eyes Eyes Narrative: No icterus Neck no lymphadenopathy Neck Narrative: No thyromegaly Resp normal respiratory effort, no retractions, no use of accessory muscles and clear to auscultation bilaterally Cardio regular rate, regular rhythm, S1 normal heart sound and S2 normal heart sound GI normal to inspection, nondistended, normoactive bowel sounds, soft to palpation, non-tender and non-distended Extremity no clubbing, cyanosis or edema Extremity Narrative: Generalized muscle atrophy Neuro moves all extremities Sensorium / Orientation: awake and alert Psych Psych Narrative: Flat affect Results Lab / Micro Data Attestation: I reviewed the patient's lab results. Result Diagrams: 01/04/22 14:31 01/04/22 14:31 Labs: Laboratory Results - last 24 hr 01/04/22 14:31: WBC 18.3 H, RBC 4.29 L, Hgb 14.6, Hct 43.4, MCV 101.2 H, MCH 34.0 H, MCHC 33.6, RDW Std Deviation 50.8 H, RDW Coeff of [place] 13.6, Plt Count 263, MPV 9.8, Immature Gran % (Auto) 1.000 H, Neut % (Auto) 85.6 H, Lymph % (Auto) 5.4 L, [place] % (Auto) 7.8, Eos % (Auto) 0.0, Baso % (Auto) 0.2, Absolute Neuts (auto) 15.7 H, Absolute Lymphs (auto) 0.98, Nucleated RBC % 0 01/04/22 14:31: PT 12.5, INR 1.0, APTT 25.5 01/04/22 14:31: Sodium 135 L, Potassium 4.9, Chloride 104, Carbon Dioxide 19.0 L , Anion Gap 12, BUN 12, Creatinine 1.02, Estim Creat Clear Calc 79.58, Est GFR (MDRD) Af Amer 94, Est GFR (MDRD) Non-Af 78, BUN/Creatinine Ratio 11.8, Glucose 186 H, Calcium 9.2, Troponin I High Sens 1036 H* 01/04/22 14:32: PT Cancelled, INR Cancelled EKG Initial EKG: Attestation: I personally reviewed and interpreted this EKG as follows: Prior EKG tracings: available for review EKG Rhythm Intrepretation: Sinus Rhythm Radiology Impression Chest X-Ray 01/04/22 14:45 IMPRESSION: Hyperinflation. Mild increased markings at the left lung base suggests left lingular atelectasis and/or scarring. Electronically Signed: Rakesh Davis MD at 15:02 EST , Assessment & Plan Assessment/Plan (1) Non-ST elevation (NSTEMI) myocardial infarction: PLAN: Onset 2 days ago Concern is for a type I event given patient's tobacco use, history of stroke as well as family history. Plan: * Patient is on a nitroglycerin drip. We will see if patient proceeds with his cardiac catheterization if that would need to be continued. * On heparin drip and will continue for the time being. * Patient does take chronic clopidogrel * He did receive aspirin in the emergency room. We will continue. Continue atorvastatin which she takes at home despite having a noted allergy to that. PLAN: Plan Chronic conditions * Stroke: Continue with clopidogrel and atorvastatin * Hypertension: Continue with lisinopril. Hold clonidine for now as his blood pressure is the lower end. * Tobacco use: Nicotine patch as needed. VTE prophylaxis: Currently anticoagulated CODE STATUS: Addressed with the patient. Patient wishes to be DNR Comfort Care arrest. He is okay with rescinding that temporarily for cardiac catheterization. Charges/Coding Visit Charges Inpatient E&M: 84372 Init Hosp L3
[2022-01-04 16:34] LABS: Reflex Troponin-HS? (from REC) Y
--- NOTE | 2022-01-04 17:08 | CT_ITS ---
EXAM: CT ANGIOGRAPHY CHEST WITHOUT AND WITH INTRAVENOUS CONTRAST CLINICAL INDICATION: Chest pain; abnormal TI level; abormal ECG; CMP TECHNIQUE: Helically acquired angiography images were obtained of the chest without and with intravenous contrast. This CT exam was performed using one or more of the following dose reduction techniques: automated exposure control, adjustment of the mA and/or kV according to patient size, and/or use of iterative reconstruction technique. This report was created using [employer] report generation technology. MIP reconstructed images were created and reviewed. CONTRAST: IV 100mL [id number] COMPARISON: None. FINDINGS: PULMONARY ARTERIES: Unremarkable. Normal in caliber. No evidence of pulmonary embolism. AORTA: Unremarkable. Normal in caliber. No evidence of dissection. GREAT VESSELS OF AORTIC ARCH: Unremarkable. Normal in caliber. No evidence of dissection. LUNGS AND PLEURAL SPACES: There is minimal atelectasis in the lung bases. There are prominent interstitial opacities in the upper lobes which may represent edema. No mass. No pleural effusion or thickening. No pneumothorax. HEART: Unremarkable. Heart size is normal. No pericardial effusion. No signs of right heart strain, ratio of right ventricle to left ventricle measures less than 1. MEDIASTINUM: Unremarkable. No mediastinal or hilar adenopathy. Esophagus is unremarkable. No hiatal hernia. THYROID: Unremarkable. No thyroid lesions. BONES/JOINTS: Unremarkable. No suspicious lytic or blastic abnormality. CT/CTA Chest W/WO Contrast IMPRESSION: 1. No evidence of pulmonary embolus. 2. Interstitial opacities which may represent edema. There is minimal bibasal atelectasis. Electronically Signed: Roberto Ayala MD at 22:33 EST ,
--- NOTE | 2022-01-04 17:42 | CL.D_ITS ---
Patient Name: BENY AGARWAL Study Date: 01/04/2022 Performing: Koby Ojeda MD Ht: 73 inches 185.42 cm : 1955 Wt: 169.8 lbs 76.9 kg Age: 66 Gender: male BSA: 2.01 PROCEDURE(S) PERFORMED [id number])LHC/COR/LV CLINICAL PROFILE AND INDICATIONS Indications: ACS <= 24 hrs, Worsening Angina Heart Failure: None Stress/Imaging Stress/Image Study Performed: No Angina Classification Anginal Classification w/in 2 Weeks: CCS IV CAD Presentations: Non-STEMI. 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 The risks and benefits of the procedure as well as a full description of our services here and current unavailability of surgical backup were fully explained to the patient and/or their significant other prior to the catheterization. The Timeout was completed, verifying the correct patient and procedure. The patient's procedural site was prepped and draped in the usual fashion. Local anesthetic was given subcutaneously to right groin region with Lidocaine 2%. Using a modified Seldinger technique, arterial access was obtained via the right femoral artery, a 4Fr sheath was inserted Left Coronary Artery selective angiography was performed in multiple views using a 4 Fr. JL5 catheter. Right Coronary Artery selective angiography was then performed in multiple views using a 4 Fr. 3DRC catheter. Left Ventriculography was performed in [place] projection using a 4 Fr. Pigtail catheter. LV to AO pullback pressures were then recorded.The arterial sheath was pulled and manual compression applied until hemostasis is achieved. CORONARY ANGIOGRAPHY DOMINANCE: Right Dominant LEFT HEART ASSESSMENT Left Ventricular Ejection Fraction: by LV Gram 20 % Anterior Akinesis. Apical Hypokinesis. Inferior Mid Akinesis Elevated Left Ventricular End Diastolic Pressure LVEDP: 29 mmHg LEFT MAIN: Mild calcification, Mild luminal irregularities LEFT ANTERIOR DESCENDING ARTERY: PROX LAD: Mild calcification, Mild luminal irregularities CIRCUMFLEX ARTERY: Angiographically normal RAMUS: Angiographically normal RIGHT CORONARY ARTERY: Moderate calcification Mild luminal irregularities less than 30% AORTIC ROOT: Calcified COMPLICATIONS No Complications PROCEDURE MEDICATIONS Versed 1 mg IV Oxygen: 2 L/min via nasal cannula Heparin 25,000u / 250ml D5W @ 0 u/hr discontinued 01/04/2022 16:17:45 Nitro glycerin 25mg / 250ml D5W @ 0 mcg/min discontinued 01/04/2022 16:54:59 IV Bolus: .9 NaCl 500 ml total 01/04/2022 17:01:20 IV Fluids: .9 NaCl increased to WO ml/hr 01/04/2022 16:36:31 SUMMARY OF HEMODYNAMIC DATA Time AIR REST ECG 16:14:41 AO 102/75 (88) SA 16:34:23 LV 115/3, 33 16:46:01 LV 114/0, 29 16:46:09 LV 114/6, 34 16:47:04 LV 118/2, 33 16:47:12 LVp 120/1, 33 16:47:24 AO 107/76 (90) 16:48:34 Signed By Koby Ojeda MD On 01/04/2022 17:41:16 Koby Ojeda MD
--- NOTE | 2022-01-04 17:44 | EKG12_ITS ---
Test Reason : AM EKG Blood Pressure : / mmHG Vent. Rate : 106 BPM Atrial Rate : 106 BPM P-R Int : 138 ms QRS Dur : 086 ms QT Int : 402 ms P-R-T Axes : 078 095 258 degrees QTc Int : 533 ms Sinus tachycardia with occasional Premature ventricular complexes Rightward axis Septal infarct , age undetermined ST & T wave abnormality, consider inferior ischemia ST & T wave abnormality, consider anterolateral ischemia Confirmed by THA AHN, NOAH ([id number]), purchase request editor YOLANDE JC ([id number]) on 01/05/2022 1:21:14 PM Referred By: Confirmed By:NOAH ALMAZAN MD
--- NOTE | 2022-01-04 17:51 | ECHOCS_ITS ---
Reason For Study: s/p VT Procedure This was a 2D Doppler, Color Flow transthoracic echocardiogram. The study was technically difficult. Contrast injection was performed. Exam performed portable in patient room. Left Ventricle Borderline enlarged left ventricle. Severe segmental systolic dysfunction (see wall motion). The estimated ejection fraction is 25 %. Diastolic function is indeterminate. Mid-Anterior : Akinetic. Mid-Lateral : Akinetic. Mid-Posterior: Akinetic. Mid-Inferior: Akinetic. Mid-inferoseptal : Akinetic. Mid-anteroseptal : Akinetic. [place] : Hypokinetic. Right Ventricle Normal RV size. Normal systolic function. Atria Normal left atrium. Normal right atrium. No doppler evidence for ASD. Mitral Valve There is no mitral annular calcification. Normal mitral valve. Mild (1+) mitral valve insufficiency. Tricuspid Valve Normal tricuspid valve. Trivial tricuspid valve insufficiency. Unable to estimate RV systolic pressure/pulmonary artery pressure due to technically difficult study. Aortic Valve Trisinus/trileaflet aortic valve. Mild diffuse aortic valve thickening. Mild focal aortic valve calcification. Trivial aortic valve insufficiency. Pulmonic Valve The pulmonic valve is not well visualized. Great Vessels The aortic root is not well visualized. Pericardium/Pleural No pericardial effusion. Medication Diluted definity 3.5ml given slow IV push to enhance endocardial definition. MMode/2D Measurements & Calculations LVIDd: 5.5 cm IVSd: 0.75 cm LAV(MOD-bp): 26.3 ml LVIDs: 4.1 cm LVPWd: 0.80 cm RVDd: 3.0 cm FS: 25.1 % LAV(MOD-bp) Indexed: 13.3 ml/m2 LAV(MOD-sp2): 34.8 ml LAV(MOD-sp4): 20.1 ml LA dimension(2D): 3.3 cm LA A4 area: 11.2 cm2 RA A4 area: 11.9 cm2 Doppler Measurements & Calculations MV E max ike: 58.2 cm/sec Lat Peak E' Ike: 4.1 cm/sec Med Peak E' Ike: 5.2 cm/sec MV A max ike: 70.4 cm/sec E/E' lat: 14.1 E/E' med: 11.2 MV E/A: 0.83 Ao V2 max: 80.3 cm/sec AI max ike: 285.1 cm/sec LV V1 max: 62.5 cm/sec Ao max P.6 mmHg AI max P.5 mmHg LV V1 max P.6 mmHg Ao V2 mean: 53.6 cm/sec AI dec slope: 181.6 cm/sec2 Ao mean P.3 mmHg AI P1/2t: 459.9 msec Ao V2 VTI: 11.4 cm PA V2 max: 52.9 cm/sec ECHO/Echo Complete W/ Contrast Interpretation Summary The study was technically difficult. Contrast injection was performed. Borderline enlarged left ventricle. The estimated ejection fraction is 25 %. Mild (1+) mitral valve insufficiency. Trivial tricuspid valve insufficiency. Mild diffuse aortic valve thickening. Mild focal aortic valve calcification. Trivial aortic valve insufficiency. Unable to estimate RV systolic pressure/pulmonary artery pressure due to techni jessica difficult study. Diastolic function is indeterminate. Ordering Physician: Moodispaw, Koby Referring Physician: Jesus Trujillo Performed By: Dawna Dao, TWAN, RVT
[2022-01-04] MEDS: 0.9% Normal Saline 1,000 ML 75 ML IV (18:23)
--- NOTE | 2022-01-04 19:50 | NURSING ---
Charting reviewed with Luis Weiner RN
[2022-01-04 20:40] LABS: Magnesium 1.6 mg/dL (1.6-2.6); Phosphorus 3.8 mg/dL (2.5-4.9)
--- NOTE | 2022-01-04 21:22 | NURSING ---
PATIENT OFF FLOOR TO CT SCAN
[2022-01-04] MEDS: Lisinopril 10 MG Tablet PO (22:01)
[2022-01-04] MEDS: Carvedilol 3.125 MG TABLET PO (22:01)
[2022-01-04] MEDS: Atorvastatin Calcium 40 MG Tablet PO (22:01)
[2022-01-05] VITALS (8 sets, daily range): BP systolic 100–123; BP diastolic 58–84; PULSE 91–103; RESP 18–26; TEMP 36.2–37.1; O2SAT 94–97
--- NOTE | 2022-01-05 05:55 | EKG12_ITS ---
Test Reason : CP ADMIT Blood Pressure : / mmHG Vent. Rate : 110 BPM Atrial Rate : 110 BPM P-R Int : 140 ms QRS Dur : 088 ms QT Int : 376 ms P-R-T Axes : 073 089 250 degrees QTc Int : 508 ms Sinus tachycardia Septal infarct (cited on or before 28-OCT-2018) ST & T wave abnormality, consider inferior ischemia ST & T wave abnormality, consider anterolateral ischemia Abnormal ECG Confirmed by THA AHN, NOAH ([id number]), newspaper managing editor YOLANDE JC ([id number]) on 01/05/2022 1:23:41 PM Referred By: Confirmed By:NAOH ALMAZAN MD
[2022-01-05] MEDS: oxyCODONE 5 MG Tablet PO (06:33)
[2022-01-05 06:42] LABS: Absolute Lymphocyte Count 1.42 X10^3/uL (0.83-4.51); Absolute Neutrophil Count 11.1 X10^3/uL (2.0-7.7); Basophil# 0.03 X10^3/uL; Basophil% 0.2 % (0-1); Hematocrit 44.2 % (40-54); Hemoglobin 15.1 g/dL (13.0-16.5); Lymphocyte # 1.42 X10^3/ul (0.83-4.51); Lymphocyte % 10.3 % (19-41); Mean Corp Hgb Conc 34.2 g/dL (32-36); Mean Corpuscular Hgb 33.7 pg (27.0-32.0); Mean Corpuscular Volume 98.7 fL (80-94); Mean Platelet Vol. 9.7 fl (6.2-12.0); Monocyte# 1.22 X10^3/uL; Monocyte% 8.8 % (0-10); NRBC Flagged by Analyzer 0 % (0-5); Neutrophil # 11.07 X10^3/uL (2.7-7.7); Platelet Count 206 K/mm3 (150-450); RBC Distribution Width CV 13.4 % (11.6-14.6); RBC Distribution Width SD 48.8 fl (35.1-43.9); Red Blood Count 4.48 M/mm3 (4.6-6.2); White Blood Count 13.8 K/mm3 (4.4-11.0)
[2022-01-05 06:53] LABS: Prothrombin Time (Protime)PT. 13.1 SECONDS (11.7-14.9)
[2022-01-05 06:54] LABS: Partial Thromboplast Time 29.2 Seconds (24.1-36.2)
[2022-01-05 07:20] LABS: Anion Gap 9 (5-15); BUN 13 mg/dL (7-18); BUN/Creat Ratio 14.3 RATIO (10-20); Calcium,Total 8.6 mg/dL (8.5-10.1); Chloride 106 mmol/L (98-107); Cholesterol 92 mg/dL (200); Creatinine, Serum 0.91 mg/dL (0.70-1.30); EST Glomerular Filtration Rate 89 mL/min (>60); Est Glom Filt Rate - Afr Amer 108 mL/min (>60); Estimated Creatinine Clearance 86.76 ml/min; Glucose 122 mg/dL (74-106); High Density Lipoprotein 68 mg/dL; Potassium 4.3 mmol/L (3.5-5.1); Sodium Level 137 mmol/L (136-145); Triglycerides 62 mg/dL; Very Low Density Lipoprotein 12 mg/dL (5-40)
--- NOTE | 2022-01-05 07:35 | PN.CARD_ITS ---
Subjective Subjective The patient does not appear to be complaining of ongoing chest discomfort at the moment. He does state that he has a dry cough and that sometimes thinks difficult to take a deep breath. Objective Data Vital Signs: Vital Signs Temp Pulse Resp BP Pulse Ox O2 Del Method O2 Flow Rate 98.8 F 98 19 H 123/84 H 95 Room Air 2 01/05/22 03:00 01/05/22 06:40 01/05/22 03:00 01/05/22 03:00 01/05/22 07:33 01/05/22 07:33 01/04/22 21:00 Oxygen Flow Rate (L/min) 2 Oxygen Delivery Method Room Air Weight: 164 lb 14.492 oz Body Mass Index (BMI) 21.7 Intake & Output: Intake and Output for Last 24 Hours 01/03/22 01/04/22 01/05/22 23:59 23:59 23:59 Intake Total 517.98 / 517.98 983.75 / 983.75 Output Total 200 / 200 0 / 0 Balance 317.98 / 317.98 983.75 / 983.75 Lab / Micro Data Result Diagrams: 01/05/22 06:35 01/05/22 06:35 Labs: Laboratory Results - last 24 hr 01/04/22 14:31: WBC 18.3 H, RBC 4.29 L, Hgb 14.6, Hct 43.4, MCV 101.2 H, MCH 3 4.0 H, MCHC 33.6, RDW Std Deviation 50.8 H, RDW Coeff of [place] 13.6, Plt Count 263, MPV 9.8, Immature Gran % (Auto) 1.000 H, Neut % (Auto) 85.6 H, Lymph % (Auto) 5.4 L, Schleicher % (Auto) 7.8, Eos % (Auto) 0.0, Baso % (Auto) 0.2, Absolute Neuts (auto) 15.7 H, Absolute Lymphs (auto) 0.98, Nucleated RBC % 0 01/04/22 14:31: PT 12.5, INR 1.0, APTT 25.5 01/04/22 14:31: Sodium 135 L, Potassium 4.9, Chloride 104, Carbon Dioxide 19.0 L , Anion Gap 12, BUN 12, Creatinine 1.02, Estim Creat Clear Calc 79.58, Est GFR (MDRD) Af Amer 94, Est GFR (MDRD) Non-Af 78, BUN/Creatinine Ratio 11.8, Glucose 186 H, Calcium 9.2, Troponin I High Sens 1036 H* 01/04/22 14:31: Phosphorus 3.8, Magnesium 1.6 01/04/22 14:32: PT Cancelled, INR Cancelled 01/05/22 06:35: WBC 13.8 H, RBC 4.48 L, Hgb 15.1, Hct 44.2, MCV 98.7 H, MCH 33.7 H, MCHC 34.2, RDW Std Deviation 48.8 H, RDW Coeff of [place] 13.4, Plt Count 206, MPV 9.7, Immature Gran % (Auto) 0.700, Neut % (Auto) 80.0 H, Lymph % (Auto) 10.3 L, Schleicher % (Auto) 8.8, Eos % (Auto) 0.0, Baso % (Auto) 0.2, Absolute Neuts (auto) 11.1 H, Absolute Lymphs (auto) 1.42, Nucleated RBC % 0 01/05/22 06:35: Sodium 137, Potassium 4.3, Chloride 106, Carbon Dioxide 22.0, Anion Gap 9, BUN 13, Creatinine 0.91, Estim Creat Clear Calc 86.76, Est GFR (MDRD) Af Amer 108, Est GFR (MDRD) Non-Af 89, BUN/Creatinine Ratio 14.3, Glucose 122 H, Calcium 8.6, Triglycerides 62, Cholesterol 92, LDL Cholesterol 12, VLDL Cholesterol 12, HDL Cholesterol 68, TSH 1.90 01/05/22 06:35: PT 13.1, INR 1.0, APTT 29.2 Cardiology Labs/Tests 01/04/22 14:31: WBC 18.3 H, RBC 4.29 L, Hgb 14.6, Hct 43.4, MCV 101.2 H, MCH 34.0 H, MCHC 33.6, Plt Count 263, MPV 9.8, Immature Gran % (Auto) 1.000 H, Neut % (Auto) 85.6 H, Lymph % (Auto) 5.4 L, Schleicher % (Auto) 7.8, Eos % (Auto) 0.0, Baso % (Auto) 0.2, Absolute Neuts (auto) 15.7 H, Nucleated RBC % 0 01/04/22 14:31: PT 12.5, INR 1.0, APTT 25.5 01/04/22 14:31: Sodium 135 L, Potassium 4.9, Chloride 104, Carbon Dioxide 19.0 L , Anion Gap 12, BUN 12, Creatinine 1.02, Est GFR (MDRD) Af Amer 94, Est GFR (MDRD) Non-Af 78, BUN/Creatinine Ratio 11.8, Glucose 186 H, Calcium 9.2 01/04/22 14:31: Phosphorus 3.8, Magnesium 1.6 01/04/22 14:32: PT Cancelled, INR Cancelled 01/05/22 06:35: WBC 13.8 H, RBC 4.48 L, Hgb 15.1, Hct 44.2, MCV 98.7 H, MCH 33.7 H, MCHC 34.2, Plt Count 206, MPV 9.7, Immature Gran % (Auto) 0.700, Neut % (Auto) 80.0 H, Lymph % (Auto) 10.3 L, Schleicher % (Auto) 8.8, Eos % (Auto) 0.0, Baso % (Auto) 0.2, Absolute Neuts (auto) 11.1 H, Nucleated RBC % 0 01/05/22 06:35: Sodium 137, Potassium 4.3, Chloride 106, Carbon Dioxide 22.0, Anion Gap 9, BUN 13, Creatinine 0.91, Est GFR (MDRD) Af Amer 108, Est GFR (MDRD) Non-Af 89, BUN/Creatinine Ratio 14.3, Glucose 122 H, Calcium 8.6, Triglycerides 62, Cholesterol 92, LDL Cholesterol 12, VLDL Cholesterol 12, HDL Cholesterol 68 01/05/22 06:35: PT 13.1, INR 1.0, APTT 29.2 Rhythm: Sinus rhythm EKG: Sinus rhythm; rightward axis; anteroseptal [place] indeterminate age cannot be excluded; T wave abnormality compatible myocardial ischemia: [id number] ECHO: Pending Cardiac Cath: CONCLUSIONS Elevated Left Ventricular End Diastolic Pressure Segmented LV systolic dysfunction- Severe LVEF: by LV gram 20 % [place] Multivessel CAD (non obstructive) Comment: Left Ventricle: regional wall motion abnormalities: potentially c/w Takotsobu Syndrome RECOMMENDATIONS Risk factor modification Medical therapy DESCRIPTION OF? PROCEDURE The patient arrived to the procedure lab. The risks and benefits of the procedure as well as a full description of our services here and current unavailability of surgical backup were fully explained to the patient and/or their significant other prior to the catheterization. The Timeout was completed, verifying the correct patient and procedure. The patient's procedural site was prepped and draped in the usual fashion. Local anesthetic was given subcutaneously to right groin region with Lidocaine 2%. Using a modified Seldinger technique, arterial access was obtained via the right femoral artery, a 4Fr sheath was inserted? Left Coronary Artery selective angiography was performed in multiple views using a 4 Fr. JL5 catheter. Right Coronary Artery selective angiography was then performed in multiple views using a 4 Fr. 3DRC catheter. Left Ventriculography was performed in [place] projection using a 4 Fr. Pigtail catheter. LV to AO pullback pressures were then recorded.The arterial sheath was pulled and manual compression applied until hemostasis is achieved. CORONARY ANGIOGRAPHY DOMINANCE:? Right Dominant LEFT HEART ASSESSMENT Left Ventricular Ejection Fraction: by LV Gram 20 % Anterior Akinesis. Apical Hypokinesis. Inferior Mid Akinesis Elevated Left Ventricular End Diastolic Pressure LVEDP: 29 mmHg LEFT MAIN: Mild calcification, Mild luminal irregularities LEFT ANTERIOR DESCENDING ARTERY: PROX LAD: Mild calcification, Mild luminal irregularities CIRCUMFLEX ARTERY: Angiographically normal RAMUS: Angiographically normal RIGHT CORONARY ARTERY: Moderate calcification Mild luminal irregularities less than 30% AORTIC ROOT: Calcified Radiography Diagnostic Testing: Radiology Impression Chest X-Ray 01/04/22 14:45 IMPRESSION: Hyperinflation. Mild increased markings at the left lung base suggests left lingular atelectasis and/or scarring. Electronically Signed: Rakesh Davis MD at 15:02 EST , Chest CTA 01/04/22 17:08 IMPRESSION: 1. No evidence of pulmonary embolus. 2. Interstitial opacities which may represent edema. There is minimal bibasal atelectasis. Electronically Signed: Roberto Ayala MD at 22:33 EST , Physical Exam Const alert, oriented x3 and no apparent distress Orientation / Consciousness: awake HEENT normocephalic, head/scalp atraumatic and hearing grossly normal bilaterally Eyes PERRL, EOMs intact bilaterally, conjunctivae normal and no scleral icterus Neck full ROM, supple and no JVD Carotids: normal carotid upstroke Resp normal respiratory effort and clear to auscultation bilaterally Cardio regular rate, regular rhythm, S1 normal heart sound and S2 normal heart sound GI normal to inspection, nondistended, normoactive bowel sounds Extremity no pedal edema Extremity Narrative: Right inguinal area: Femoral artery: Pulses 2+/4+: No bruit: No hematoma Skin no rashes or lesions noted Psych Psych Narrative: Flat affect Assessment & Plan Assessment/Plan (1) Unstable angina: PLAN: The patient presented with symptoms concerning for unstable angina pectoris. He is undergone evaluation in the cardiac catheterization laboratory. He was not found to have angiographically significant CAD. He was found to have left ventricular regional wall motion abnormalities and diminished LV systolic function appearing compatible with underlying Takotsubo syndrome. He also underwent evaluation based upon his symptoms and other objective findings with a chest CT for any great vessel disease or thromboembolic disease. According to the radiology this appeared to be negative. At the moment he will continue medical management. (2) Non-ST elevation (NSTEMI) myocardial infarction: PLAN: As noted above the patient has findings compatible with an acute non-ST segment elevation [place]. At the present time this may be related to his findings that appear compatible with a Takotsubo syndrome. Thus he will continue medical management. (3) Cardiomyopathy: PLAN: The patient's left ventriculogram demonstrated findings compatible with an underlying cardiomyopathy with diminished LVEF. Based upon the regional wall motion abnormalities, there was concern this could be compatible with a Takotsubo syndrome. The patient denies any ongoing symptoms of an underlying myopericarditis. He denies any recent infectious disease related events, such as viral events, t hat could lead to a viral cardiomyopathy. At the moment noting that he does not require coronary revascularization therapy he will continue medical therapy. An echocardiogram has also been requested to further evaluate his cardiac anatomy and physiology and assist with ongoing care. (4) Hypercholesterolemia: PLAN: The patient has been on lipid-lowering therapy. This will be continued. (5) Hypertension: PLAN: The patient has a history of hypertension. His blood pressure will need to be followed and his medicines adjusted accordingly. (6) CVA (cerebral vascular accident): PLAN: The patient has a history of previous CVAs. He states he has had no recent acute events that he is aware of. He has continued his antiplatelet therapy. Addt'l Comments This note was generated using a voice recognition system and there may be incorrect words, spelling or punctuation that were not noted when reviewing the office note prior to saving. Procedure Criteria Type of Procedure Procedure Type: Elective Elective Risks - COVID COVID Risk Discussion: The surgeon/proceduralist and patient have discussed in detail the risk of exposure to and/or potential harm posed by the COVID-19 virus with having a surgery/procedure at this time versus the risk of delaying the surgery/procedure. It is not possible to know either the risk of delaying the surgery or procedure or chance of getting an infection with perfect accuracy, but a joint decision was made between the patient and the surgeon/proceduralist to proceed at this time with the scheduled surgery/procedure as indicated on the consent form.
[2022-01-05] MEDS: Carvedilol 6.25 MG Tablet PO ×2 (08:52→15:56)
[2022-01-05] MEDS: Multivitamins,Therapeutic Tablet 1 TABLET PO (08:54)
[2022-01-05] MEDS: Clopidogrel Bisulfate 75 MG Tablet PO (08:54)
[2022-01-05] MEDS: Cholecalciferol (VIT D3) 25 MCG TABLET (1,000 UNITS) 100 MCG PO (08:54)
[2022-01-05] MEDS: Folic Acid 1 MG Tablet PO (08:55)
[2022-01-05] MEDS: Thiamine Hydrochloride 100 MG Tablet PO (08:55)
[2022-01-05] MEDS: Aspirin E.C. 81 MG Tablet PO (08:55)
[2022-01-05] MEDS: Lisinopril 10 MG Tablet PO (08:56)
[2022-01-05] MEDS: FLU VACC QS2022-23(6MOS UP)/PF 60 MCG/0.5 ML SYRINGE IM (10:53)
[2022-01-05 11:11] LABS: Bedside Glucose 142 mg/dL (74-106)
--- NOTE | 2022-01-05 11:15 | CASEMGMT ---
RN CM Face to Face with patient for initial transition planning/care coordination assessment. RN CM introduced self and role at [facility]. Patient lying in bed, alert and oriented. Patient willing to participate in assessment and is able to answer all questions appropriately. Care providers, pharmacy, and demographics verified. Patient wishes to discharge home, denies need for home health at this time. Patient states he has no further needs or concerns at this time. CM to follow for discharge planning needs that may arise. PCP: Cassandra Specialists: none Preferred Pharmacy: [facility]; [facility] Retail at discharge. Insurance: [employer] [facility] Prescription Benefit: yes Living Will/HPOA: yes, Silvio Cooper LNOK: brother Living Arrangements: Patient lives alone in a 2 story home with bed and bath on first floor. Patient states he is independent at home. Transportation: self, brother DME/HHC: Patient has shower chair, raised toilet, crutches, grab bars, and walker at home. Patient has previously been to [place]. Disposition Plan: Patient to discharge home with family support and follow-up plans in place. Mellisa RODRÍGUEZ, RN, CM
[2022-01-05 11:21] LABS: Bedside Glucose 123 mg/dL (74-106)
--- NOTE | 2022-01-05 15:40 | DCINST_ITS ---
Discharge Instructions Diet Discharge Diet: No restrictions Activity Discharge Activity: Return to Normal Activity (you may have to pace yourself due to your heart disease) and - Weight Bearing Status: Full weight bearing Follow Up Care Test Results: Test results from this visit will be discussed in further detail at your follow- up appointment, if applicable. Discharge Plan Admission Admit Date/Time: 01/04/22 16:00 Primary Reason for Your Visit: cardiomyopathy Attending Provider: Silvio Cruz Primary Care Provider: Jesus Trujillo Consulting Providers: Koby Ojeda ; Taj Read Discharge Orders/Prescriptions Prescriptions: New carvedilol 6.25 mg Tablet 6.25 mg PO BIDCM Qty: 60 0RF aspirin 81 mg Tablet,Delayed Release (Dr/Ec) 81 mg PO BREAKFAST Qty: 0 0RF Continued clopidogrel 75 MG tablet 75 mg PO DAILY atorvastatin 40 mg tablet 40 mg PO QHS Label Comments: TAKE 1 TABLET BY MOUTH AT BEDTIME lisinopril 10 mg tablet 10 mg PO BID cholecalciferol (vitamin D3) 100 mcg (4,000 unit) Tablet 100 mcg PO DAILY Discontinued clonidine HCl 0.1 mg tablet 0.1 mg PO BID Referrals / Follow Up: Jesus Trujillo MD [Primary Care Provider] - Within 1 Month Koby Ojeda MD [Med Staff - Active Staff] - See Referral Note (01/28/22 at 1100 am) Disposition Disposition (needs filled in before D/C Order can be placed): Home, Self Care
--- NOTE | 2022-01-05 15:48 | PCM.DC.SUM ---
Providers Date of Admission: 01/04/22 Date of Discharge: 01/05/22 Primary Care Physician: Dr. Jesus Trujillo MD Consultations 01/04/22 17:44 Consult: Cardiology Routine Consulting Provider: Koby Ojeda Reason for Consult: Chest Pain EMERGENT Consult: No MD Notified: Yes Date Notified: 01/04/22 Time Notified: 16:04 Method of Notification: Verbal Reason For Visit: NSTEMI Diagnosis Discharge Diagnosis (1) Unstable angina: Status: Acute Code(s): I20.0 - Unstable angina (2) Non-ST elevation (NSTEMI) myocardial infarction: Status: Acute Code(s): I21.4 - Non-ST elevation (NSTEMI) myocardial infarction (3) Cardiomyopathy: Status: Acute Code(s): I42.9 - Cardiomyopathy, unspecified (4) Hypercholesterolemia: Status: Acute Code(s): E78.00 - Pure hypercholesterolemia, unspecified (5) Hypertension: Status: Chronic Code(s): I10 - Essential (primary) hypertension (6) CVA (cerebral vascular accident): Status: Acute Code(s): I63.9 - Cerebral infarction, unspecified Plan 1. Takotsubo's cardiomyopathy #2 type II non-ST elevation [place] #3 cerebrovascular disease #4 essential hypertension Medications at Discharge Home Medications clopidogrel 75 mg tablet 75 mg PO DAILY 10/28/18 atorvastatin 40 mg tablet 40 mg PO QHS CHOLESTEROL 01/04/22 cholecalciferol (vitamin D3) 100 mcg (4,000 unit) tablet 100 mcg PO DAILY SUPPLEMENT 01/04/22 lisinopril 10 mg tablet 10 mg PO BID 01/04/22 aspirin 81 mg tablet,delayed release 81 mg PO BREAKFAST #0 tabs 01/05/22 carvedilol 6.25 mg tablet 6.25 mg PO BIDCM #60 tabs 01/05/22 Hospital Course Operations None Procedures 2-D Echocardiogram and Cardiac catheterization Summary of Care Provided Minutes Spent on Discharge: 31 Hospital Course: 8 hoursThis 66-year-old white male was seen in the emergency room at [facility] with complaints of 48-hour episode of chest pain, he also complained of severe shortness of breath and fatigue. EKG in the emergency room showed ST depressions in anterior lateral leads, troponins were obtained and were elevated greater than the thousand, cardiology was contacted and the patient was started on a heparin drip and the patient was taken for cardiac catheterization. Cardiac catheterization showed a severely reduced ejection fraction but no significant coronary artery disease. Echocardiogram showed an ejection fraction of 25% and it was felt that the patient probably had a Takotsubo's cardiomyopathy. Patient's cardiac medications were adjusted. On 01/05/2022, patient was seen and examined: On examination he appeared in good health and spirits. Vital signs as documented. Skin warm and dry and without overt rashes. Neck without JVD, neck was supple, trachea midline, thyroid was normal. Lungs clear bilaterally, normal air movement was noted. Heart exam notable for regular rhythm, normal sounds and absence of murmurs, rubs or gallops. Abdomen unremarkable and without evidence of organomegaly, masses, or abdominal aortic enlargement. Bowel sounds are present, abdomen is not distended. Extremities nonedematous, no cyanosis was noted, no clubbing was noted. Neuro: Cranial nerves II through XII are grossly intact, no focal motor deficits were noted, sensation to light touch and pinprick intact, motor exam 5/5 throughout. Psych: Patient is alert and oriented x3, he does not appear anxious or depressed, he does not appear agitated. Patient appears stable for discharge home on 01/05/2022. Weight / BMI Weight Weight: 74.8 kg Body Mass Index (BMI) 21.7 ABG / Lab / Microbiology Data Result Diagrams: 01/05/22 06:35 01/05/22 06:35 Laboratory: Laboratory Results - last 24 hr 01/04/22 14:31: Phosphorus 3.8, Magnesium 1.6 01/05/22 06:22: POC Glucose 142 H 01/05/22 06:35: WBC 13.8 H, RBC 4.48 L, Hgb 15.1, Hct 44.2, MCV 98.7 H, MCH 33.7 H, MCHC 34.2, RDW Std Deviation 48.8 H, RDW Coeff of [place] 13.4, Plt Count 206, MPV 9.7, Immature Gran % (Auto) 0.700, Neut % (Auto) 80.0 H, Lymph % (Auto) 10.3 L, [place] % (Auto) 8.8, Eos % (Auto) 0.0, Baso % (Auto) 0.2, Absolute Neuts (auto) 11.1 H, Absolute Lymphs (auto) 1.42, Nucleated RBC % 0 01/05/22 06:35: Sodium 137, Potassium 4.3, Chloride 106, Carbon Dioxide 22.0, Anion Gap 9, BUN 13, Creatinine 0.91, Estim Creat Clear Calc 86.76, Est GFR (MDRD) Af Amer 108, Est GFR (MDRD) Non-Af 89, BUN/Creatinine Ratio 14.3, Glucose 122 H, Calcium 8.6, Triglycerides 62, Cholesterol 92, LDL Cholesterol 12, VLDL Cholesterol 12, HDL Cholesterol 68, TSH 1.90 01/05/22 06:35: PT 13.1, INR 1.0, APTT 29.2 01/05/22 10:56: POC Glucose 123 H Radiography Diagnostic Testing: Radiology Impression Chest CTA 01/04/22 17:08 IMPRESSION: 1. No evidence of pulmonary embolus. 2. Interstitial opacities which may represent edema. There is minimal bibasal atelectasis. Electronically Signed: Roberto Ayala MD at 22:33 EST , Echocardiogram 01/04/22 17:51 Interpretation Summary The study was technically difficult. Contrast injection was performed. Borderline enlarged left ventricle. The estimated ejection fraction is 25 %. Mild (1+) mitral valve insufficiency. Trivial tricuspid valve insufficiency. Mild diffuse aortic valve thickening. Mild focal aortic valve calcification. Trivial aortic valve insufficiency. Unable to estimate RV systolic pressure/pulmonary artery pressure due to technically difficult study. Diastolic function is indeterminate. Ordering Physician: Koby Ojeda Referring Physician: Jesus Trujillo Performed By: Dawna Dao, RDCS, RVT D/C Instructions Discharge Diet: No restrictions Weight Bearing Status: Full weight bearing Meaningful Use Info Meaningful Use Diagnoses (Choose all that apply): AMI AMI/Post PCI/Angioplasty Aspirin given w/in 24hrs of arrival?: Yes ASA at discharge?: Yes Antiplatelet Therapy at Discharge:: Yes Statins at discharge?: Yes Bladimir/ARB at discharge?: Yes Beta Winnie at discharge?: Yes Done w/ Acute [place] measure.: Yes Documented LVEF (%): 25 Discharge Plan Admission Admit Date/Time: 01/04/22 16:00 Primary Reason for Your Visit: cardiomyopathy Attending Provider: Silvio Cruz Primary Care Provider: Jesus Trujillo Consulting Providers: Koby Ojeda ; Taj Read Discharge Orders/Prescriptions Prescriptions: New carvedilol 6.25 mg Tablet 6.25 mg PO BIDCM Qty: 60 0RF aspirin 81 mg Tablet,Delayed Release (Dr/Ec) 81 mg PO BREAKFAST Qty: 0 0RF Continued clopidogrel 75 MG tablet 75 mg PO DAILY atorvastatin 40 mg tablet 40 mg PO QHS Label Comments: TAKE 1 TABLET BY MOUTH AT BEDTIME lisinopril 10 mg tablet 10 mg PO BID cholecalciferol (vitamin D3) 100 mcg (4,000 unit) Tablet 100 mcg PO DAILY Discontinued clonidine HCl 0.1 mg tablet 0.1 mg PO BID Referrals / Follow Up: Jesus Trujillo MD [Primary Care Provider] - Within 1 Month Koby Ojeda MD [Med Staff - Active Staff] - See Referral Note (01/28/22 at 1100 am) Disposition Disposition (needs filled in before D/C Order can be placed): Home, Self Care Charges/Coding Visit Charges Inpatient E&M: 92454 Disch Hosp
== END 2022-01-05 16:58 | disposition home or self-care (01) | DRG 287 ==
LOC: ED 15:25 → PCU 16:28
PROVIDERS: Family Medicine; Internal Medicine Cardiovascular Disease; Emergency Provider Emergency Medicine; PCP Family Medicine; Visit Provider Internal Medicine
DX: I51.81 Takotsubo syndrome (principal); I42.9 Cardiomyopathy, unspecified; I25.110 Atherosclerotic heart disease of native coronary artery with unstable angina pectoris; F17.220 Nicotine dependence, chewing tobacco, uncomplicated; F17.210 Nicotine dependence, cigarettes, uncomplicated; I10 Essential (primary) hypertension; E78.00 Pure hypercholesterolemia, unspecified; Z23 Encounter for immunization; Z79.02 Long term (current) use of antithrombotics/antiplatelets; Z86.73 Personal history of transient ischemic attack (TIA), and cerebral infarction without residual deficits
CPT/HCPCS: 36415; 71045; 71275; 80048; 80061; 82962; 83735; 84100; 84443; 84484; 85025; 85610; 85730; 93005; 93306; 93458; 99152; 99153; 99285; G0008; J7030; Q9957; Q9967; 90686; A4216; C1769; C1894; C8929

== ENCOUNTER → 2022-02-08 | Outpatient (CLI) | payer MEDICARE, SELFPAY ==
--- NOTE | 2022-02-08 13:53 | ECHOL_ITS ---
Reason For Study: CMP Procedure This was a limited 2D transthoracic echocardiogram. The study was technically difficult. Limited views were obtained. Exam performed in department. Left Ventricle Normal LV size. Segmental dysfunction with preserved ejection fraction (see wall motion). The estimated ejection fraction is 65 %. Unable to assess diastolic dysfunction. Anterior [place] : Mildly hypokinetic. Inferior [place] : Mildly hypokinetic. Lateral [place] : Mildly hypokinetic. Septal [place] : Mildly hypokinetic. Right Ventricle Normal RV size. Normal systolic function. Atria Normal left atrium. Normal right atrium. Mitral Valve There is no mitral annular calcification. Normal mitral valve. Tricuspid Valve Normal tricuspid valve. Aortic Valve Trisinus/trileaflet aortic valve. Mild diffuse aortic valve thickening. Mild focal aortic valve calcification. Pulmonic Valve The pulmonic valve is not well visualized. Great Vessels Normal sized aortic root. Pericardium/Pleural No pericardial effusion. MMode/2D Measurements & Calculations LVIDd: 4.5 cm IVSd: 0.96 cm Ao root diam: 3.8 cm LVIDs: 2.9 cm LVPWd: 0.95 cm FS: 35.5 % LVAd ap4: 20.4 cm2 LVAd ap2: 21.3 cm2 SV(MOD-sp4): 31.6 ml LVLd ap4: 7.6 cm LVLd ap2: 8.2 cm EDV(MOD-sp4): 45.8 ml EDV(MOD-sp2): 47.6 ml EDV(sp4-el): 46.9 ml EDV(sp2-el): 47.3 ml LVAs ap4: 10.7 cm2 LVAs ap2: 10.9 cm2 LVLs ap4: 7.4 cm LVLs ap2: 7.4 cm ESV(MOD-sp4): 14.2 ml ESV(MOD-sp2): 15.0 ml ESV(sp4-el): 13.2 ml ESV(sp2-el): 13.6 ml EF(MOD-sp4): 69.0 % EF(MOD-sp2): 68.5 % EF(sp4-el): 71.9 % SV(MOD-sp2): 32.6 ml SV(sp4-el): 33.7 ml LA dimension(2D): 2.5 cm ECHO/Echo, Limited Study Interpretation Summary The study was technically difficult. Limited views were obtained. Segmental dysfunction with preserved ejection fraction (see wall motion). The estimated ejection fraction is 65 %. Mild diffuse aortic valve thickening. Mild focal aortic valve calcification. Unable to assess diastolic dysfunction. Ordering Physician: Koby Ojeda Referring Physician: Jesus Trujillo Performed By: Kaye Guy RDCS
== END | disposition home or self-care (01) ==
LOC: CVS 13:52
PROVIDERS: PCP Family Medicine; Visit Provider Internal Medicine Cardiovascular Disease
DX: I21.4 Non-ST elevation (NSTEMI) myocardial infarction (principal)
CPT/HCPCS: 93308

== ENCOUNTER 2022-05-11 14:57 | Outpatient (CLI) | payer MEDICARE, SELFPAY ==
[2022-05-11 17:48] LABS: Absolute Lymphocyte Count 1.92 X10^3/uL (0.83-4.51); Absolute Neutrophil Count 5.6 X10^3/uL (2.0-7.7); Basophil# 0.05 X10^3/uL; Basophil% 0.6 % (0-1); Eosinophil# 0.08 X10^3/uL; Hematocrit 45.7 % (40-54); Hemoglobin 14.9 g/dL (13.0-16.5); Lymphocyte # 1.92 X10^3/ul (0.83-4.51); Lymphocyte % 23.2 % (19-41); Mean Corp Hgb Conc 32.6 g/dL (32-36); Mean Corpuscular Hgb 33.3 pg (27.0-32.0); Mean Platelet Vol. 10.1 fl (6.2-12.0); Monocyte# 0.57 X10^3/uL; Monocyte% 6.9 % (0-10); NRBC Flagged by Analyzer 0 % (0-5); Neutrophil % 67.6 % (47-70); Platelet Count 249 K/mm3 (150-450); RBC Distribution Width CV 12.9 % (11.6-14.6); RBC Distribution Width SD 48.8 fl (35.1-43.9); Red Blood Count 4.48 M/mm3 (4.6-6.2); White Blood Count 8.3 K/mm3 (4.4-11.0)
[2022-05-11 18:59] LABS: ALB/GLOB Ratio 1.1 RATIO (0.9-2.4); AST(SGOT) 13 U/L (15-37); Alanine Aminotransfer ALT/SGPT 21 U/L (16-61); Albumin, Serum 3.6 g/dL (3.2-5.0); Alkaline Phosphatase 51 U/L (45-117); Anion Gap 7 (5-15); BUN 6 mg/dL (7-18); BUN/Creat Ratio 5.9 RATIO (10-20); Calcium,Total 9.4 mg/dL (8.5-10.1); Chloride 106 mmol/L (98-107); Cholesterol 94 mg/dL (200); Creatinine, Serum 1.01 mg/dL (0.70-1.30); EST Glomerular Filtration Rate 79 mL/min (>60); Est Glom Filt Rate - Afr Amer 95 mL/min (>60); Globulin 3.3 g/dL (2.2-4.2); Glucose 111 mg/dL (74-106); High Density Lipoprotein 50 mg/dL; Potassium 4.4 mmol/L (3.5-5.1); Protein, Total 6.9 g/dL (6.4-8.2); Sodium Level 139 mmol/L (136-145); Thyroid Stim Hormone (TSH) 1.14 uIU/mL (0.358-3.74); Triglycerides 57 mg/dL; Very Low Density Lipoprotein 11 mg/dL (5-40)
[2022-05-11 19:15] LABS: Vitamin B12 209 pg/mL (211-911)
[2022-05-13 17:44] LABS: Hemoglobin A1c 5.4 % (3.8-5.6)
== END 2022-05-11 23:59 | disposition home or self-care (01) ==
LOC: MFPLAB 15:00
PROVIDERS: PCP Family Medicine; Referring Provider Family Medicine; Visit Provider Family Medicine
DX: I10 Essential (primary) hypertension (principal); D75.89 Other specified diseases of blood and blood-forming organs; R73.09 Other abnormal glucose
CPT/HCPCS: 36415; 80053; 80061; 82607; 82746; 83036; 84443; 85025

== ENCOUNTER → 2022-05-20 | Outpatient (CLI) | payer MEDICARE, SELFPAY ==
--- NOTE | 2022-05-20 14:02 | ART_ITS ---
Reason For Study: Claudication Procedure A bilateral lower extremity continuous wave Doppler with analog waveform analysis,segmental pressures,and ankle brachial indexes without exercise. Left Segmental Pressures Left brachial= 134mmHg. Left thigh = 82mmHg. Left calf = 66mmHg. Left posterior tibial artery = 59mmHg. Left dorsalis pedis artery = 64mmHg. Left digit = 47 mmHg. The left posterior tibial artery waveforms are monophasic. The left dorsalis pedis waveforms are monophasic. Right Segmental Pressures Right brachial= 125mmHg. Right thigh = 120mmHg. Right calf = 124mmHg. Right posterior tibial artery = 79mmHg. Right dorsalis pedis artery = 80mmHg. Right digit = 45 mmHg. The right posterior tibial artery waveforms are biphasic. The right dorsalis pedis waveforms are biphasic. Indices The right ankle brachial index by the posterior tibial artery is 0.59. The right ankle brachial index by the dorsalis pedis is 0.60. The right digital-brachial index is 0.34. The left ankle brachial index by the posterior tibial artery is 0.44. The left ankle brachial index by the dorsalis pedis is 0.48. The left digital-brachial index is 0.35. VL/Lower Ext Art Exam w/ Exercise Interpretation Summary Biphasic Doppler waveforms are noted at ankle level on the right. Monophasic Do ppler waveforms are noted at ankle level on the left. Pulse-volume recordings appear diminished at ankle and digital level on the right, and at all levels on the left. The resting right ankle-brac hial index is moderately diminished. The resting left ankle-brachial index is severely dimini shed. Digital- brachial indices are moderately to severely diminished bilaterally. There is evidence of flgbhtxd-bn-lrbhia arterial occlusive disease in the lower extremities bilaterally. On the right, the arterial occlusive disease appears to be infra-p opliteal in nature. On the left, there is evidence of arterial inflow disease at the ilio-femoral l evel. Ordering Physician: Jesus Trujillo Referring Physician: Jesus Trujillo Performed By: Mau Cota RVT
== END | disposition home or self-care (01) ==
LOC: CVS 13:59
PROVIDERS: PCP Family Medicine; Referring Provider Family Medicine; Visit Provider Family Medicine
DX: I73.9 Peripheral vascular disease, unspecified (principal)
CPT/HCPCS: 93924

== ENCOUNTER → 2022-06-28 | Outpatient (CLI) | payer MEDICARE, SELFPAY ==
--- NOTE | 2022-06-28 10:10 | RAD_ITS ---
INDICATION: ACUTE BRONCHITIS EXAMINATION/TECHNIQUE: X-RAY - XR Chest 2 Views COMPARISON: 01/04/2022 FINDINGS: LINES/DEVICES: None. LUNGS: Bilateral hyperinflation with peribronchial cuffing. No focal consolidation or pleural effusion. MEDIASTINUM AND CARDIOVASCULAR STRUCTURES: Cardiac silhouette not enlarged. Central airways and mediastinal contour are unremarkable. RAD/Chest PA and Lateral IMPRESSION: Findings compatible with acute bronchitis. No finding of consolidation or pleural effusion. Electronically Signed: Koby Oscar MD at 17:54 EDT ,
== END | disposition home or self-care (01) ==
PROVIDERS: PCP Family Medicine; Referring Provider Family Medicine; Visit Provider Family Medicine
DX: J20.9 Acute bronchitis, unspecified (principal)
CPT/HCPCS: 71046

== ENCOUNTER → 2022-08-10 | Outpatient (CLI) | payer MEDICARE, SELFPAY ==
[2022-08-10 11:59] LABS: Hemoglobin A1c 5.5 % (3.8-5.6)
[2022-08-10 12:15] LABS: Creatinine, Serum 0.95 mg/dL (0.70-1.30); EST Glomerular Filtration Rate 84 mL/min (>60); Est Glom Filt Rate - Afr Amer 102 mL/min (>60)
== END | disposition home or self-care (01) ==
LOC: LAB 11:04
PROVIDERS: PCP Family Medicine; Referring Provider Physician Assistant; Visit Provider Physician Assistant
DX: R73.09 Other abnormal glucose (principal); I73.9 Peripheral vascular disease, unspecified; I10 Essential (primary) hypertension
CPT/HCPCS: 36415; 82565; 83036

== ENCOUNTER → 2022-08-16 | Outpatient (CLI) | payer MEDICARE, SELFPAY ==
--- NOTE | 2022-08-16 13:47 | CT_ITS ---
INDICATION: atherosclerosis with claudication EXAMINATION: CTA OF THE ABDOMEN AND PELVIS WITH IV CONTRAST CTA Abdominal Aorta and Bilateral Iliofemoral LE Runoff W/ Contrast Injection (and W/O Contrast Image TECHNIQUE: Helically acquired images were obtained of the abdomen and pelvis following IV contrast. A dose lowering technique was used using automated exposure control, adjustment of mA and/or kV according to the patient''s size and the use of iterative reconstruction technique Postcontrast imaging, planar and 3-dimensional reconstructions obtained. IV Contrast dosage and agent: 100 mL Isovue-370 Oral contrast: None. Radiation Dose (provided by facility) CTDIvol (6.98 ) mGy, DLP ( 1036.40) mGy-cm COMPARISON: : No relevant prior comparison study available FINDINGS: CTA ANGIOGRAM: ABDOMINAL AORTA: Diffuse scattered aortic calcifications without aneurysmal dilatation. VISCERAL VESSELS: Ostial calcifications noted at the origin the celiac and SMA without stenosis or occlusion. Ostial calcifications at the origin of the JANETT without stenosis or occlusion. RENAL ARTERIES: Ostial calcifications are present bilaterally without stenosis or occlusion. ILIAC VESSELS: 1. Extensive bilateral iliac calcifications. 2. The RIGHT common, external and internal iliac arteries are contrast opacification and patent. 3. Coarse calcification involving the LEFT iliac vascular tree which appears to be occluded in the distal common iliac, no significant contrast noted within the LEFT hypogastric or LEFT external iliac. 4. There is collateral reconstitution of the LEFT common femoral artery. RIGHT LOWER EXTREMITY: 1. Diffuse vascular calcifications involving the common iliac, and scattered calcifications in the SFA without stenosis or occlusion. The DFA is widely patent. 2. Moderate calcification involving the RIGHT popliteal artery with moderate (50-69%) stenosis. No occlusion. 3. The tibial peroneal trunk is widely patent. 4. Moderate calcifications involving the proximal LEFT TELECOMMUNICATION TOWER TECHNICIAN, the peroneal artery is widely patent. ALETHA shows scattered calcification without occlusion. Distal TELECOMMUNICATION TOWER TECHNICIAN with visible to level of plantar arch. LEFT LOWER EXTREMITY: 1. Occlusion of the external iliac artery, however collateral reconstitution of the LEFT common femoral. 2. Scattered calcifications LEFT common femoral artery with mild narrowing noted. DFA is widely patent. 3. Scattered calcifications in the LEFT SFA without stenosis or occlusion. 4. Scattered calcification at the LEFT popliteal with only mild (less than 50%) narrowing. 5. Scattered calcifications present within the LEFT TELECOMMUNICATION TOWER TECHNICIAN and peroneal arteries without evidence of high-grade stenosis or occlusion. 6. TELECOMMUNICATION TOWER TECHNICIAN is visible to level plantar arch. ALETHA is patent to the level of the DTPA. CT ABDOMEN AND PELVIS: LOWER THORAX: Lungs are clear. HEPATOBILIARY: Liver: The liver is homogeneous and shows no evidence of focal lesion. Gallbladder: The gallbladder is unremarkable. Pancreas: Pancreas is normal size configuration and density. No mass is noted. Spleen: The spleen is homogeneous and normal in size. . BOWEL: Stomach: The stomach is normal in size configuration, no evidence of focal masses, abnormal calcifications. No hiatal hernia noted. Bowel: Small and large have normal configuration, no masses or bowel obstruction noted. Appendix: Not adequately visualized.: GENITOURINARY: Adrenals: Both adrenal glands are normal in size, no masses or abnormal enhancement noted.. Kidneys: Kidneys appear symmetric in size. No calcifications are seen in the collecting system. There is no hydronephrosis or surrounding fluid. Bladder: Normal Pelvic organs: The visualized pelvic organs are normal in size and configuration. No masses or adenopathy noted. RETROPERITONEUM: Extensive vascular calcifications as detailed. No retroperitoneal masses fluid collections. PERITONEAL CAVITY: No ascites noted ANTERIOR ABDOMINAL WALL: Normal, no hernia identified. BONES AND SOFT TISSUES: Diffuse lumbar spondylosis, marginal osteophytes formation at L2, and L3-4. No acute bony changes noted. Pedicle screw posterior fixation at L4-5. Postoperative changes of ORIF of the LEFT proximal femur. OTHER: None CT/CTA Abd w/Runoff W/WO Contrast IMPRESSION: 1. Extensive diffuse vascular desiccation throughout the abdominal aorta without aneurysmal dilatation. 2. Occlusion of the LEFT distal common iliac at, as well as LEFT external and internal iliac arteries. Collateral reconstitution of the LEFT common femoral artery. 3. Scattered diffuse calcifications throughout the RIGHT lower extremity vascular tree particularly at the level of the popliteal artery with a 50-69% stenosis. Remaining RIGHT lower extremity vascular tree shows multifocal calcification without loki occlusion. 4. Occlusion of the LEFT iliac vessels with collateral reconstitution of the LEFT common femoral artery. Scattered calcifications throughout the remaining LEFT lower extremity vascular tree without rank occlusion. 5. No masses bowel obstruction abscess free fluid or free air. No evidence of obstructive uropathy. 6. Lumbar spondylosis and postoperative changes involving L4 and L5. Additional postoperative changes of ORIF of the LEFT proximal femur. Electronically Signed: Nathanael Fay MD at 19:10 EDT ,
== END | disposition home or self-care (01) ==
LOC: CT 13:46
PROVIDERS: PCP Family Medicine; Referring Provider Physician Assistant; Visit Provider Physician Assistant
DX: I70.219 Atherosclerosis of native arteries of extremities with intermittent claudication, unspecified extremity (principal); I74.5 Embolism and thrombosis of iliac artery; M47.816 Spondylosis without myelopathy or radiculopathy, lumbar region
CPT/HCPCS: 75635; Q9967

== ENCOUNTER → 2022-10-19 | Outpatient (CLI) | payer MEDICARE, SELFPAY ==
[2022-10-19 15:15] LABS: Absolute Lymphocyte Count 2.09 X10^3/uL (0.83-4.51); Absolute Neutrophil Count 4.9 X10^3/uL (2.0-7.7); Basophil# 0.06 X10^3/uL; Basophil% 0.8 % (0-1); Eosinophil# 0.13 X10^3/uL; Eosinophils% 1.6 % (0-5); Hematocrit 47.9 % (40-54); Hemoglobin 15.6 g/dL (13.0-16.5); Lymphocyte # 2.09 X10^3/ul (0.83-4.51); Lymphocyte % 26.4 % (19-41); Mean Corp Hgb Conc 32.6 g/dL (32-36); Mean Corpuscular Hgb 33.4 pg (27.0-32.0); Mean Corpuscular Volume 102.6 fL (80-94); Mean Platelet Vol. 10.1 fl (6.2-12.0); Monocyte# 0.69 X10^3/uL; Monocyte% 8.7 % (0-10); NRBC Flagged by Analyzer 0 % (0-5); Neutrophil # 4.86 X10^3/uL (2.7-7.7); Neutrophil % 61.5 % (47-70); Platelet Count 249 K/mm3 (150-450); RBC Distribution Width CV 12.8 % (11.6-14.6); RBC Distribution Width SD 48.8 fl (35.1-43.9); Red Blood Count 4.67 M/mm3 (4.6-6.2); White Blood Count 7.9 K/mm3 (4.4-11.0)
[2022-10-19 16:10] LABS: ALB/GLOB Ratio 1.2 RATIO (0.9-2.4); AST(SGOT) 20 U/L (15-37); Alanine Aminotransfer ALT/SGPT 32 U/L (16-61); Albumin, Serum 3.9 g/dL (3.2-5.0); Alkaline Phosphatase 53 U/L (45-117); Anion Gap 7 (5-15); BUN 12 mg/dL (7-18); BUN/Creat Ratio 12.8 RATIO (10-20); Calcium,Total 9.2 mg/dL (8.5-10.1); Chloride 104 mmol/L (98-107); Cholesterol 104 mg/dL (200); Creatinine, Serum 0.94 mg/dL (0.70-1.30); EST Glomerular Filtration Rate 86 mL/min (>60); Est Glom Filt Rate - Afr Amer 104 mL/min (>60); Globulin 3.3 g/dL (2.2-4.2); Glucose 109 mg/dL (74-106); High Density Lipoprotein 61 mg/dL; Potassium 4.5 mmol/L (3.5-5.1); Protein, Total 7.2 g/dL (6.4-8.2); Sodium Level 136 mmol/L (136-145); Triglycerides 52 mg/dL; Very Low Density Lipoprotein 10 mg/dL (5-40)
== END | disposition home or self-care (01) ==
PROVIDERS: PCP Family Medicine; Visit Provider Family Medicine
DX: I25.10 Atherosclerotic heart disease of native coronary artery without angina pectoris (principal); E78.00 Pure hypercholesterolemia, unspecified; E55.9 Vitamin D deficiency, unspecified; Z72.0 Tobacco use
CPT/HCPCS: 36415; 80053; 80061; 82306; 85025

== ENCOUNTER 2022-11-14 05:09 | Inpatient (IN) | payer MEDICARE, SELFPAY ==
--- NOTE | 2022-09-29 12:05 | EKG12_ITS ---
Test Reason : PREOP Blood Pressure : / mmHG Vent. Rate : 078 BPM Atrial Rate : 078 BPM P-R Int : 136 ms QRS Dur : 088 ms QT Int : 408 ms P-R-T Axes : 067 085 092 degrees QTc Int : 465 ms Normal sinus rhythm Septal infarct , age undetermined Abnormal ECG Confirmed by BENOIT AHN, FIDELIA ([id number]), managing editor YOLANDE JC ([id number]) on 09/30/2022 1:33:01 PM Referred By: Taj Woods Confirmed By:LESLY LABOY MD
[2022-11-11 11:03] LABS: Hematocrit 44.1 % (40-54); Hemoglobin 14.6 g/dL (13.0-16.5); Mean Corp Hgb Conc 33.1 g/dL (32-36); Mean Corpuscular Hgb 34.1 pg (27.0-32.0); Mean Platelet Vol. 9.5 fl (6.2-12.0); Platelet Count 255 K/mm3 (150-450); RBC Distribution Width CV 12.9 % (11.6-14.6); RBC Distribution Width SD 48.9 fl (35.1-43.9); Red Blood Count 4.28 M/mm3 (4.6-6.2)
[2022-11-11 11:35] LABS: Anion Gap 3 (5-15); BUN 15 mg/dL (7-18); Calcium,Total 9.2 mg/dL (8.5-10.1); Chloride 111 mmol/L (98-107); Creatinine, Serum 1.15 mg/dL (0.70-1.30); EST Glomerular Filtration Rate 68 mL/min (>60); Est Glom Filt Rate - Afr Amer 82 mL/min (>60); Estimated Creatinine Clearance 62.86 ml/min; Glucose 104 mg/dL (74-106); Sodium Level 141 mmol/L (136-145)
[2022-11-14] VITALS (18 sets, daily range): BP systolic 97–142; BP diastolic 58–85; PULSE 70–99; RESP 14–21; TEMP 36.3–37.3; O2SAT 93–100; BMI 20.5; BMI 20.6
--- NOTE | 2022-11-14 | PLAQ_PTH ---
PATIENT: BENY AGARWAL LOC: ICU U#:[id number] AGE/SX: 67/M ROOM: [place] [address] RE11/14/[address]: Dr. Taj Woods MD : [id number] BED: 1 DIS: 11/16/2022 SPEC #: [id number] RECD: 11/14/22 14:05 STATUS: PREM REMellissa #: [id number] LISA: 11/14/22 00:[address]: Taj Woods DEPT: SURGICAL PATHOLOGY RECD BY: Pk Leung ENTERED: 11/15/22 08:17 SP TYPE: PLAQUE OTHR DR: Dr. Jesus Trujillo MD Tissues: A - PLAQUE B - PLAQUE Procedures: Decalcification bone/plaque Surgery Specimen Level III HEADER OPERATION: Femoral artery crossover right to left fem-fem bypass PRE-OP DIAGNOSIS: Claudication of both lower extremities TISSUE SUBMITTED: A - Right femoral plaque, B - Left femoral plaque MICROSCOPIC DIAGNOSIS A. Right femoral artery plaque, endarterectomy: Fragments of calcified atheromatous plaque with focal ossification consistent with severe stenosis. B. Left femoral artery plaque, endarterectomy: Fragments of calcified atheromatous plaque with focal ossification consistent with severe stenosis. AM:stefano 11/17/2022 GROSS DESCRIPTION A - Received in fixative is one container labeled with the patient's name and designated right femoral plaque. The specimen consists of a previously opened tubular piece of hendricks, indurated tissue measuring 2.5 cm in length and 0.7 cm in diameter. The specimen cuts with gritty sensation. Also present in the container are multiple fragments of hendricks, indurated tissue measuring in aggregate 2.0 x 0.7 x 0.3 cm. The entire specimen is submitted in one cassette after decalcification. B - Received in fixative is one container labeled with the patient's name and designated left femoral plaque. The specimen consists of a previously opened tubular piece of hendricks, indurated tissue measuring 2.5 cm in length and 0.7 cm in diameter. The specimen cuts with gritty sensation. Also present in the container is a detached piece of hendricks, indurated tissue measuring in aggregate 2.5 x 1.2 x 0.3 cm. Drapery Maker tissue is submitted in one cassette after decalcification. / SJ:stefano 11/15/2022 TC:5 CPT: 46995 x2, 27110 x2
[2022-11-14] MEDS: Lactated Ringers 1,000 ML 15 ML IV (06:10)
[2022-11-14] MEDS: Vancomycin IV 1,000 MG/200 ML BAG 200 MG IV (06:11)
--- NOTE | 2022-11-14 06:30 | RAD_ITS ---
STUDY: ILIAC STENT RIGHT REASON FOR EXAM: Male, 67 years old. RT TO LT FEM-FEM BYPASS, RT ILIAC STENT -- -- 4 RUNS, 379.5 SEC, 92.42 MGY FLUOROSCOPY TIME (if supplied): ( 379.5 seconds ) minutes/seconds. 92.42 mGy TECHNIQUE: Intraoperative imaging provided for right iliac stenting and right to left femoral-femoral bypass surgery. COMPARISON: None. RAD/Fluoroscopy 1 Hr or Less IMPRESSION: Intraoperative imaging provided for right iliac stenting and right femoral to left femoral-femoral bypass grafting. Electronically Signed: Rakesh Davis MD at 13:20 EDT ,
--- NOTE | 2022-11-14 07:28 | HP.PCM_ITS ---
HPI - General General Date of Admission: 11/14/22 HPI Narrative BENY AGARWAL, is a 67 M who presents with long standing bilateral lower extremity claudication refractory to medical/exercise tx. He has a right iliac stenosis, left iliac occlusion as well as infra-inguinal disease. [facility] [place] Medical History Alcohol abuse Alcohol use Ambulates with cane Anxiety Arthritis Back pain Cardiology follow-up encounter COPD (chronic obstructive pulmonary disease) CVA (cerebral vascular accident) CVA (cerebral vascular accident) Essential hypertension Femur fracture, left High cholesterol History of echocardiogram History of fracture of femur History of heart attack History of left heart catheterization (LHC) (~01/04/22) History of pain when walking Hoarseness Hypertension Hypokalemia Leg cramps Shortness of breath on exertion Smoker Home Medications clopidogrel 75 mg tablet 75 mg PO DAILY HEART 10/28/18 [History Last Taken 11/14/22 03:30] atorvastatin 40 mg tablet 40 mg PO QHS CHOLESTEROL 01/04/22 [History Last Taken 11/13/22] cholecalciferol (vitamin D3) 100 mcg (4,000 unit) tablet 100 mcg PO DAILY SUPPLEMENT 01/04/22 [History Last Taken 11/13/22] lisinopril 10 mg tablet 10 mg PO BID BLOOD PRESSURE 01/04/22 [History Last Taken 11/14/22 03:30] aspirin 81 mg tablet,delayed release 81 mg PO BREAKFAST HEART #0 tabs 01/05/22 [Rx Last Taken 11/14/22 03:30] carvedilol 6.25 mg tablet 6.25 mg PO BIDCM BLOOD PRESSURE #180 tabs 02/11/22 [Rx Last Taken 11/14/22 03:30] albuterol 90 mcg/actuation aerosol inhaler 90 mcg inhalation .Q4HR PRN BREATHING 09/22/22 [History Last Taken 10/24/22] vitamin B complex (B Complex-Vitamin B12 tablet) 1 tab PO DAILY SUPPLEMENT 09/22/22 [History Last Taken 11/13/22] Allergy/AdvReac Type Severity Reaction Status Date / Time Penicillins AdvReac Diarrhea Verified 11/14/22 05:47 Family History Father CAD (coronary artery disease) Brother CAD (coronary artery disease) Surgical History History of back surgery History of cardiac catheterization History of eye surgery Hx of hernia repair Social History household members: none Smoking Status: Current every day smoker tobacco type: cigarettes and smokeless tobacco Tobacco: How many years used: 45 alcohol intake: current substance use type: does not use caffeine: Yes Type: coffee Number of servings: 4 Vital Signs Vital Signs Vital Signs: 11/14/22 05:46 11/14/22 05:55 11/14/22 05:55 Temperature 99.1 F Temperature Source Temporal Pulse Rate 81 80 Respiratory Rate 18 Respiratory Pattern Normal Blood Pressure 136/69 H 115/85 H Blood Pressure Mean 91 Blood Pressure Source Monitor Blood Pressure Position Semi-Fowlers Blood Pressure Location Left Arm Pulse Ox 100 Oxygen Delivery Method Room Air Weight Weight: 155 lb 12.8 oz Body Mass Index (BMI) 20.5 Physical Exam Const alert, oriented x3, no apparent distress and healthy appearing General Appearance: cooperative; Negative for combative or lethargic Orientation / Consciousness: awake Exam Limitations: no limitations HEENT Head and Scalp: normocephalic and atraumatic Eyes EOMs intact bilaterally General Eye: normal appearance of both eyes Neck full ROM, no lymphadenopathy and thyroid normal General: trachea midline; Negative for lymphadenopathy or tenderness Thyroid: thyroid normal Lymph Lymphatic: Negative for no lymphadenopathy noted Resp normal respiratory effort and no use of accessory muscles Effort and Inspection: Negative for labored, stridor or audible wheezes Cardio regular rate and regular rhythm Peripheral Pulses: brachial pulses present and radial pulses present; Negative for femoral pulses present, posterior tibial pulses present or dorsalis pedis pulses present Back/Spine Cervical Spine: cervical ROM normal Extremity full ROM, normal capillary refill and no clubbing, cyanosis or edema Skin no rashes or lesions noted and no wounds Neuro oriented x3, CN's II-XII intact bilaterally, no focal motor deficits and no sensory deficits noted Psych thought process normal, cooperative, affect normal, speech normal and activity/motor behavior normal Results Lab / Micro Data 11/11/22 10:30 11/11/22 10:30 Assessment & Plan Assessment/Plan (1) Claudication of both lower extremities: PLAN: -right iliac stent, fem-fem, sartorius flaps
[2022-11-14] MEDS: Heparin Injection (Vial) 5,000 UNIT/ML VIAL 5000 UNIT (07:30)
[2022-11-14] MEDS: Heparin 10,000 UNITS/10 ML Vial 10000 UNITS ×2 (08:00→09:35)
[2022-11-14] MEDS: Dextrose 5%-Lactated Ringers 1,000 ML 15 ML IV (09:35)
--- NOTE | 2022-11-14 13:34 | OP.PCM_ITS ---
Report of Operation Date of Procedure: 11/14/22 Pre-Operative Diagnosis: atherosclerosis with claudication bilateral lower extr mities Post-Operative Diagnosis: same Surgery/Procedure Performed:: right external iliac stent right to left femoral-femoral bypass bilateral sartorius flaps Surgeon: Taj Woods Estimated Blood Loss (mL): 200 Description of Procedure: HPI: Patient is a 67-year-old male with limiting claudication of the bilateral extremities which is refractory to medical and exercise therapy. He previously had a CT angiography aorta runoff which revealed a totally occluded left iliac system, a high-grade stenosis of the proximal external iliac on the right and high-grade stenosis of the common femoral on the right. He had highly calcified lesions in the iliac vessels so shockwave balloon lithotripsy was planned to prepped the vessel prior to stenting. Given the compromised inflow cadaver conduit will be used to help with improved patency. Description of procedure: Upon obtaining form consent and verification correct patient procedure site patient taken the operating was placed under general anesthesia. He was then positioned prepped and draped in usual sterile fashion a time was performed. A vertical incision was made over the right common femoral artery due to prior hernia incision in close proximity making an oblique incision unfavorable. Bovie electrocautery was then used to dissect down through subcutaneous tissue and self-retaining tractors put in position. Further dissection carried down to the femoral sheath was then incised vertically and self-retaining retractors were deepened in the wound. Sharp dissection used to dissect proximally up to the inguinal ligament and each of the medial and lateral vessel branches isolated and a right angle used to place a vessel loop. The distal external iliac artery was then dissected free and a right angle used to place a vessel loop. We then dissected distally onto the femoral bifurcation dissecting free the SFA and profunda circumferentially and a right angle used to place Vesseloops around each individually. Next oblique incision made over the left common femoral artery above electrocautery dissected through subcutaneous tissue. Self-retaining retractor then put in position further dissection carried down femoral sheath. The femoral sheath was then incised vertically self-retaining retractor moved deeper in the wound. Sharp dissection then used to dissect free the common femoral artery up to the angle ligament where a aberrant profunda branch originating from. A right angle was placed vessel loop proximal to the profunda branch as well as around the profunda branch separately. Dissection carried distally to the distal common femoral artery/SFA beyond the area of palpable plaque and a right angle used to place a vessel loop. A Marlys tunneler was then used to tunnel between the 2 femoral incisions. The patient was then heparinized allowed to circulate for 3 minutes. The right common femoral artery was then accessed in retrograde fashion with a microneedle wire which was then exchanged for micropuncture sheath. Through this a Glidewire was advanced into the abdominal aorta the micropuncture sheath exchanged for an 8 [place]an sheath. Through the 8 [place] sheath hand-injection iliofemoral angiogram was performed revealing location of the internal iliac origin and the high-grade calcified stenosis. A 7 x 60 shockwave balloon was then advanced over the wire centered over the lesion and inflated to 4 henry. It was then engaged for a total of 300 cycles, the life extent of the emitters, after which the balloon was then deflated withdrawn. Repeat angiography confirmed satisfactory lesion response with no extravasation or dissection. An 8 x 6 Cook Zilver PTX self-expanding stent was then advanced in position of the pretreated segment and deployed. This was then postdilated with a 7 mm balloon inflated to nominal. Completion angiography confirmed sati sfactory stent positioning and expansion with no extravasation or dissection and brisk contrast transit. There is improved palpable femoral pulse. The cadaver femoral-popliteal artery had been thawed per property assessment monitor instructions and then brought on the field and flushed. The right common femoral artery was then occluded with Vesseloops longitudinal arteriotomy created created with 11 blade extended Mclain scissors. There is significant amount of calcified plaque requiring endarterectomy adding approximately 30 minutes the procedure. Given the length of the endarterectomy a portion of the cadaver was used to fashion a patch for the distal aspect of the arteriotomy. This is secured in position using 5-0 Prolene. Next the cadaver vein was beveled to match the remaining arteriotomy and anastomosis performed using a 5-0 Prolene in a running fashion. After completing the suture line the vessels were back flushed into the graft and satisfactory stasis noted. The graft was then clamped with an atraumatic clamp and marked to maintain orientation. It was secured to the tunneler and pulled through to the left femoral incision. Next left common femoral/SFA were occluded with Vesseloops in longitudinal arteriotomy created 11 extended Mclain scissors. There is significant amount of plaque at the proximal extent of the arteriotomy which involved the origin of the aberrant profunda so that the arteriotomy was extended and an endarterectomy performed. This added an additional 30 minutes to the procedure, so the total endarterectomy time of 1 hour justifies a modifier 22. Next the graft was cut the length and beveled to match the arteriotomy and anastomosis were performed using a 5-0 Prolene in a running fashion. Prior to completing suture and the graft was flushed and the vessels back flushed. After completing suture line clamps removed and satisfactory stasis was noted. There is about pulse in the bypass graft as well as the outflow vessels. The donor SFA profunda and the recipient SFA profunda had palpable pulses with appropriate signals throughout. The patient was then reversed with protamine and attention turned to sartorius flaps. Given the patient's ongoing smoking status and extensive dissection for the endarterectomies sartorius flaps were felt to be indicated to help prevent deep wound infection. We first dissected laterally over the right sartorius up to the ASIS and incised the fascia. These insertion of the profunda was then taken down with Bovie and the muscle transposed medially covering the common femoral artery and the bypass graft. This was secured in position with a 2-0 Vicryl. Next we turned attention to the left sartorius flap at which point we dissected laterally and incised the fascia inferior to the ASIS. This was then dissected free up to its insertion and detached and then transposed over the femoral vessels in the bypass graft. This was secured in position with a 2-0 Vicryl. The incision were then closed with 3-0 Vicryl, 4 Monocryl, Dermabond and Prevena. Patient was then awakened from anesthesia and taken to recovery dissipate admission to the intensive care unit. Grafts/Implants Used: cadaver fem-pop artery; belindalver ptx 8 x 60
[2022-11-14] MEDS: Carvedilol 6.25 MG Tablet PO (17:31)
[2022-11-14] MEDS: Atorvastatin Calcium 40 MG Tablet PO (19:57)
[2022-11-15] VITALS (24 sets, daily range): BP systolic 102–152; BP diastolic 65–91; PULSE 96–113; RESP 14–25; TEMP 36.3–37; O2SAT 94–99; BMI 20.7
[2022-11-15 04:34] LABS: Absolute Lymphocyte Count 1.34 X10^3/uL (0.83-4.51); Absolute Neutrophil Count 7.8 X10^3/uL (2.0-7.7); Basophil# 0.03 X10^3/uL; Basophil% 0.3 % (0-1); Hematocrit 38.7 % (40-54); Hemoglobin 12.9 g/dL (13.0-16.5); Lymphocyte # 1.34 X10^3/ul (0.83-4.51); Lymphocyte % 13.2 % (19-41); Mean Corp Hgb Conc 33.3 g/dL (32-36); Mean Corpuscular Hgb 33.8 pg (27.0-32.0); Mean Corpuscular Volume 101.3 fL (80-94); Monocyte# 0.95 X10^3/uL; Monocyte% 9.4 % (0-10); NRBC Flagged by Analyzer 0 % (0-5); Neutrophil # 7.77 X10^3/uL (2.7-7.7); Neutrophil % 76.6 % (47-70); Platelet Count 198 K/mm3 (150-450); RBC Distribution Width CV 13.1 % (11.6-14.6); RBC Distribution Width SD 48.5 fl (35.1-43.9); Red Blood Count 3.82 M/mm3 (4.6-6.2); White Blood Count 10.1 K/mm3 (4.4-11.0)
[2022-11-15 04:56] LABS: Anion Gap 2 (5-15); BUN 9 mg/dL (7-18); BUN/Creat Ratio 9.4 RATIO (10-20); Calcium,Total 8.1 mg/dL (8.5-10.1); Chloride 106 mmol/L (98-107); Creatinine, Serum 0.96 mg/dL (0.70-1.30); EST Glomerular Filtration Rate 83 mL/min (>60); Est Glom Filt Rate - Afr Amer 101 mL/min (>60); Estimated Creatinine Clearance 77.04 ml/min; Glucose 131 mg/dL (74-106); Magnesium 1.6 mg/dL (1.6-2.6); Phosphorus 3.6 mg/dL (2.5-4.9); Potassium 4.9 mmol/L (3.5-5.1); Sodium Level 137 mmol/L (136-145)
[2022-11-15] MEDS: oxyCODONE 5 MG Tablet PO ×2 (08:33→16:17)
[2022-11-15] MEDS: Aspirin E.C. 81 MG Tablet PO (08:34)
[2022-11-15] MEDS: Carvedilol 6.25 MG Tablet PO ×2 (08:34→16:17)
--- NOTE | 2022-11-15 09:43 | CASEMGMT ---
Addendum entered by Sherine Hess 11/15/22 16:40: Still waiting response from Dr Trujillo's office if he is willing to follow for HHC without an appt or if he needs to see him 1st. Per Ginna, if he is agreeable to follow w/out an appt @ his office 1st, they can see him 11/17. If not, they will have to wait for SOC until pt sees Dr Trujillo and he agrees to follow HH orders. Addendum entered by Sherine Hess 11/15/22 14:56: Per Ginna @ [facility], Dr Trujillo typically requires for pt to be seen in his office before he will follow for HHC. Call to Lexi @ Dr Trujillo's office to inquire if appt needed. She states she will check with Dr Trujillo and call this RN CM back w/response. Addendum entered by Sherine Hess 11/15/22 12:47: RN CM to room. Pt's top 3 preferences for HHC are the followin. [facility] HHC 2. [facility] 3. [place] Order placed for HHC: SN and PT/OT. Call placed to Ginna @ [facility]. VM left re: referral. VM stated anticipate pt will be ready for discharge today or tomorrow. Addendum entered by Sherine Hess 11/15/22 11:29: 10:55: List of HHC agencies prepared by Katherine information systems planner, provided to pt to review. Pt made aware to choose top 3 preferences. Original Note: RN?CM?ELDER COUNSELOR?CM?to room to meet with patient for initial transition planning/care coordination?assessment.?RN?CM?introduced self and role at [facility].? Pt voices understanding and consents to?assessment?at this time.? Pt resting in bed in no distress at this time.? Pt is A/O at this time and answers all questions appropriately.?? Care providers, pharmacy, and demographics verified/updated at this time. PCP: Dr Trujillo Specialists: Dr Hamilton, [facility]/cardiology Preferred Pharmacy: [facility] Insurance: [facility] Prescription Benefit:?Yes Living Will/HPOA:?Pt does not currently have LW/HCPOA and would like to complete. Will notify Rebecca ALARCON. Pt states would like his brother, Silvio, to be HCPOA. LNOK: 2 adult sons: Romario and Jonah. Brother: Silvio Living Arrangements: Lives alone in 2-story home w/2 steps to enter. FFSU. States does okay w/the steps. Indep w/ADL's and IADL's and manages his own medications. Transportation:?Pt does not drive. Friend, Todd, takes him to [employer] sometimes and to grocery store. Brother also provides some transportation and will take him home @ discharge. DME: ?States has the following DME:?crutches, 1/2 crutches, walker, shower chair, grab bars. Does not have medical alert button. States has thought about getting one in the past but does not want one yet and does not want any information on one either. Pt states no need for further DME at this time.? HHC/SNF: Hx of going to [place] and has had HHC in the past. Pt states wishes to discharge home and would like HHC. Pt to be provided w/list of HHC agencies to review. Pt wishes to return home and states has no concerns with going home at time of discharge.? CM?to follow for any further discharge planning/needs.? Pt voices no further concerns/needs at this time.? Advised pt to ask for?CM?if any further questions/concerns/needs arise.? Voices understanding. PLAN:??Home w/HHC. Jordon JACOBSONN?RN?CM
[2022-11-15] MEDS: Clopidogrel Bisulfate 75 MG Tablet PO (10:31)
[2022-11-15] MEDS: Vitamin B Comp W-C Capsule 1 CAP PO (10:31)
[2022-11-15] MEDS: Lisinopril 10 MG Tablet PO ×2 (10:31→18:57)
[2022-11-15] MEDS: Cholecalciferol (VIT D3) 25 MCG TABLET (1,000 UNITS) 100 MCG PO (10:31)
[2022-11-15] MEDS: Enoxaparin 40 MG/0.4 ML Syringe SC (10:32)
--- NOTE | 2022-11-15 10:44 | CASEMGMT ---
Discharge Planning A list of home healthcare providers including quality and resource use data and consistent with the patient?s preferred geographic region, medical needs, and insurance network was created in [employer]. This list was provided to the RN BLUE. Katherine Dominguez, Discharge Planning Asst.
[2022-11-15] MEDS: hydrALAZINE 20 MG/ML Vial 10 MG IV (11:21)
--- NOTE | 2022-11-15 17:26 | PCM.PN.SRG ---
Subjective Subjective Patient is doing well today. Throughout the course of the day, has progressed to full diet and tolerated well. Martin catheter was removed this morning and he has been urinating without difficulty since. He reports expected pain at the groin incision sites but pain is well-controlled. He reports his legs and feet already feel better, warmer. He has not ambulated yet to know if his claudication symptoms have improved. He has been hemodynamically stable. He has been scoring 0 on CIWA. Objective Data Objective Data A&Ox3, NAD RRR Nonlabored respirations Palpable DP/PT pulses bilaterally, good color and warmth Bilateral groin incision sites with vacuum dressings C/D/I and maintaining good seal. No significant swelling, ecchymosis, erythema, drainage. Vital Signs: Vital Signs Temp Pulse Resp BP Pulse Ox O2 Del Method O2 Flow Rate 98.1 F 99 16 140/91 H 99 Room Air 2 11/15/22 15:48 11/15/22 17:00 11/15/22 17:00 11/15/22 17:00 11/15/22 17:00 11/15/22 17:00 11/15/22 07:00 Oxygen Flow Rate (L/min) 2 Oxygen Delivery Method Room Air Weight: 156 lb 8.451 oz Body Mass Index (BMI) 20.7 Intake & Output: Intake and Output for Last 24 Hours 11/13/22 11/14/22 11/15/22 23:59 23:59 23:59 Intake Total 4113.25 / 4293.25 980 / 980 Output Total 1360 / 1775 2415 / 2415 Balance 2753.25 / 2518.25 -1435 / -1435 Lab / Micro Data 11/15/22 04:24 11/15/22 04:24 Labs: Laboratory Results - last 24 hr 11/15/22 04:24: WBC 10.1, RBC 3.82 L, Hgb 12.9 L, Hct 38.7 L, MCV 101.3 H, MCH 33.8 H, MCHC 33.3, RDW Std Deviation 48.5 H, RDW Coeff of [place] 13.1, Plt Count 198, MPV 10.0, Immature Gran % (Auto) 0.500, Neut % (Auto) 76.6 H, Lymph % (Auto) 13.2 L, [place] % (Auto) 9.4, Eos % (Auto) 0.0, Baso % (Auto) 0.3, Absolute Neuts (auto) 7.8 H, Absolute Lymphs (auto) 1.34, Nucleated RBC % 0, Sodium 137, Potassium 4.9, Chloride 106, Carbon Dioxide 29.0, Anion Gap 2 L, BUN 9, Creatinine 0.96, Estim Creat Clear Calc 77.04, Est GFR (MDRD) Af Amer 101, Est GFR (MDRD) Non-Af 83, BUN/Creatinine Ratio 9.4 L, Glucose 131 H, Calcium 8.1 L, Phosphorus 3.6, Magnesium 1.6 Assessment & Plan Assessment/Plan (1) Claudication of both lower extremities: (2) PAD (peripheral artery disease): PLAN: Plan Goal is to ambulate with nursing/therapy this afternoon and tomorrow morning. He does live alone and has 2 stairs to get in and out of his house so discharge will be pending his safety and comfort with ambulation. Incision sites with satisfactory appearance. Vacuum dressings will remain in place for 1 week as long as maintaining steal. Continue ASA and Plavix.
[2022-11-15] MEDS: Atorvastatin Calcium 40 MG Tablet PO (18:58)
[2022-11-16] VITALS (15 sets, daily range): BP systolic 95–130; BP diastolic 61–87; PULSE 88–111; RESP 13–25; TEMP 36.6–37.7; O2SAT 94–98
[2022-11-16] MEDS: oxyCODONE 5 MG Tablet PO (05:20)
[2022-11-16] MEDS: Aspirin E.C. 81 MG Tablet PO (09:00)
[2022-11-16] MEDS: Carvedilol 6.25 MG Tablet PO (09:00)
[2022-11-16] MEDS: Clopidogrel Bisulfate 75 MG Tablet PO (09:43)
[2022-11-16] MEDS: Cholecalciferol (VIT D3) 25 MCG TABLET (1,000 UNITS) 100 MCG PO (09:43)
[2022-11-16] MEDS: Lisinopril 10 MG Tablet PO (09:44)
[2022-11-16] MEDS: Enoxaparin 40 MG/0.4 ML Syringe SC (09:46)
[2022-11-16] MEDS: 0.9% Saline Lock 10 ML Syringe IV (09:46)
--- NOTE | 2022-11-16 14:30 | CASEMGMT ---
LOI MCARTHUR updated by [facility] that they are able to accept the patient with planned start of care for tomorrow. LOI MCARTHUR updated nursing and discharge Plan.
--- NOTE | 2022-11-16 15:18 | DS.PCM_ITS ---
Providers Date of Admission: 11/14/22 Primary Care Physician: Dr. Jesus Trujillo MD Reason For Visit: Femoral - Femoral Artery Crossover rt to lft Fem-f Diagnosis Discharge Diagnosis (1) Claudication of both lower extremities: Status: Chronic Code(s): I73.9 - Peripheral vascular disease, unspecified (2) PAD (peripheral artery disease): Status: Acute Code(s): I73.9 - Peripheral vascular disease, unspecified Medications at Discharge Home Medications clopidogrel 75 mg tablet 75 mg PO DAILY HEART 10/28/18 atorvastatin 40 mg tablet 40 mg PO QHS CHOLESTEROL 01/04/22 cholecalciferol (vitamin D3) 100 mcg (4,000 unit) tablet 100 mcg PO DAILY SUPPLEMENT 01/04/22 lisinopril 10 mg tablet 10 mg PO BID BLOOD PRESSURE 01/04/22 aspirin 81 mg tablet,delayed release 81 mg PO BREAKFAST HEART #0 tabs 01/05/22 carvedilol 6.25 mg tablet 6.25 mg PO BIDCM BLOOD PRESSURE #180 tabs 02/11/22 albuterol 90 mcg/actuation aerosol inhaler 90 mcg inhalation .Q4HR PRN BREATHING 09/22/22 vitamin B complex (B Complex-Vitamin B12 tablet) 1 tab PO DAILY SUPPLEMENT 09/22/22 benzonatate 100 mg capsule 100 mg PO TID PRN PRN COUGH 14 days #42 caps 11/16/22 oxycodone 5 mg tablet 5 mg PO Q8H PRN PRN Pain Score 4-10 5 days #15 tabs 11/16/22 Hospital Course Summary of Care Provided Hospital Course: Patient underwent right to left femoral-femoral bypass with bilateral sartorius flaps and right external iliac stent on 11/14/2022. Postoperatively, he was routinely admitted to the ICU for close hemodynamic monitoring. He has remained hemodynamically stable throughout his admission. He is tolerating normal diet, his pain is well controlled with PO regimen, he is voiding without difficulty. He has significantly improved claudication and lower extremity pain since the surgery. He has worked with PT and done well with ambulation. [facility] has been arranged for him to continue to receive PT after discharge. He does live alone, has family nearby. He is ambulating safely today and does feel that he is ready to discharge home. He is medically stable for discharge. He has outpatient follow-up with our office in 3 weeks and understands that he is to call or present sooner with any problems. Physical Exam Const oriented x3 and no apparent distress Resp normal respiratory effort, no retractions and no use of accessory muscles Effort and Inspection: able to speak in complete sentences Cardio regular rate and regular rhythm Extremity Extremity Narrative: Bilateral groin incision sites with vacuum dressings in place, C/D/I, maintaining seal. No significant erythema, swelling, bruising. No drainage. DP/PT doppler signals stable bilaterally Weight / BMI Weight Weight: 151 lb 8 oz Body Mass Index (BMI) 20.0 ABG / Lab / Microbiology Data 11/15/22 04:24 11/15/22 04:24 D/C Instructions Discharge Diet: No restrictions May shower in (days): 1 Weight Bearing Status: Weight bearing as tolerated Lifting Restricted to (Lbs): 20 Lifting Restrictions: Do not lift greater than 20 pounds for 3 weeks. Call your doctor if your incision/area has: Sudden Increased Bleeding, Increased Pain/ Swelling and Foul Smelling Discharge Call your doctor if you observe: Fever of 101 or Higher and Uncontrolled pain Additional Dressing/Incision Instructions: Both groin incision sites have vacuum dressings covering them. As we discussed, these would ideally remain in place for 1 week (until Tuesday 11/21). You may remove them sooner as needed such as if they begin alarming and you cannot get it to stop. Remove them as demonstrated, please contact the office if you have any questions or difficulties. The incision sites are both covered with surgical glue which will remain in place even after the vacuum dressings have been removed. The surgical glue will continue to protect the incision sites. The glue will peel/flake off on its own over the next few weeks. Do not pick at it. Additional Instructions: You may shower. Soap and water may run over the incision sites. Pat to dry. Do not submerge the incision sites in water such as to take a bath, go swimming, etc. Do not lift greater than 20 pounds for 3 weeks. Otherwise you may proceed with activity/walking as tolerated. You have been prescribed oxycodone 5mg by mouth as needed every 8 hours for pain. You may take this in addition to tylenol. Only take the oxycodone as prescribed and do not combine it with other prescription pain medications. Continue to take your Aspirin and Plavix as prescribed. Home Health Care has been coordinated and will come to your home to provide physical therapy. Your follow-up appointment is scheduled for 12/07/2022. Please call the office if you have any questions/concerns or need to be seen sooner. Meaningful Use Info Meaningful Use Diagnoses (Choose all that apply): None applicable Discharge Plan Admission Admit Date/Time: 11/14/22 05:09 Attending Provider: Taj Woods Primary Care Provider: Jesus Trujillo Discharge Orders/Prescriptions Prescriptions: New benzonatate 100 mg Capsule 100 mg PO TID PRN PRN (Reason: COUGH) 14 Days Qty: 42 0RF oxycodone 5 mg Tablet 5 mg PO Q8H PRN PRN (Reason: Pain Score 4-10) 5 Days Qty: 15 0RF Continued clopidogrel 75 MG tablet 75 mg PO DAILY atorvastatin 40 mg tablet 40 mg PO QHS Patient Comments: TAKE 1 TABLET BY MOUTH AT BEDTIME lisinopril 10 mg tablet 10 mg PO BID cholecalciferol (vitamin D3) 100 mcg (4,000 unit) Tablet 100 mcg PO DAILY aspirin 81 mg Tablet,Delayed Release (Dr/Ec) 81 mg PO BREAKFAST Qty: 0 0RF vitamin B complex [B Complex-Vitamin B12] Tablet 1 tab PO DAILY albuterol 90 mcg/actuation aerosol 90 mcg inhalation .Q4HR PRN (Reason: BREATHING) carvedilol 6.25 mg tablet 6.25 mg PO BIDCM Qty: 180 4RF Referrals / Follow Up: Jesus Trujillo MD [Primary Care Provider] - Disposition Disposition (needs filled in before D/C Order can be placed): Home Health Service
--- NOTE | 2022-11-16 15:35 | CASEMGMT ---
Social Work SW met with pt to discuss advance directives. Pt states he does not feel up to completing advance directives at this time. SW provided pt with Advance Directive Rack Card and explained the process of completing them as an outpatient. Pt accepting of information. DORCAS Joseph
== END 2022-11-16 16:52 | disposition home health service (06) | DRG 253 ==
LOC: ACINP 05:10 → ICU 14:56
PROVIDERS: Admitting Provider Surgery Trauma Surgery; PCP Family Medicine; Referring Provider Surgery Trauma Surgery; Visit Provider Surgery Trauma Surgery
PROC: 047H34Z Dilation of Right External Iliac Artery with Drug-eluting Intraluminal Device, Percutaneous Approach (ICD-10-PCS; principal; 2022-11-14 07:00)
DX: I70.213 Atherosclerosis of native arteries of extremities with intermittent claudication, bilateral legs (principal); I70.92 Chronic total occlusion of artery of the extremities; E78.00 Pure hypercholesterolemia, unspecified; J44.9 Chronic obstructive pulmonary disease, unspecified; I10 Essential (primary) hypertension; F17.210 Nicotine dependence, cigarettes, uncomplicated; Z79.82 Long term (current) use of aspirin; Z79.02 Long term (current) use of antithrombotics/antiplatelets
CPT/HCPCS: 36415; 76000; 80048; 83735; 84100; 85025; 85027; 86850; 86900; 86901; 86920; 86922; 88304; 88311; 93005; 97162; 97166; 97530; 97535; 97802; A4648; C1874; C1894; J7040; J7120; A4216; C1769; J2405

== ENCOUNTER → 2023-01-10 | Outpatient (CLI) | payer MEDICARE, SELFPAY ==
--- NOTE | 2023-01-10 12:49 | ADU_ITS ---
Reason For Study: S/P Rt to Lt fem-fem bypass, right external iliac stent Right Velocities Left Velocities Ext. Iliac Artery, dist = 253.9 cm./sec. Common Femoral Artery, mid = 140.3 cm./sec. POST MANAGER, prox to bypass, 212.4 cm/sec. Supf. Femoral Artery, prox = 53.7 cm./sec. POST MANAGER, distal to bypass, 68.6 cm/sec. SFA mid, prox to stenosis, 77.9 cm/sec. Supf Femoral Artery, prox = 63.7 cm./sec. SFA mid, at stenosis, 215.4 cm/sec. Supf Femoral Artery, mid = 58.8 cm./sec. SFA mid/dist, dist to stenosis, 69.9 cm/sec. Supf Femoral Artery, dist. = 46.5 cm./sec. Supf. Femoral Artery, dist = 39.6 cm./sec. Profunda Femoral Artery = 124.9 cm./sec. Profunda Femoral Artery = 49.3 cm./sec. Popliteal Artery, mid = 103 cm./sec. Popliteal Artery, mid = 50 cm./sec. Post. Tibial Artery, prox = 58.4 cm./sec. Post. Tibial Artery, prox = 44.3 cm./sec. Post. Tibial Artery, mid = 52.2 cm./sec. Post Tibial Artery, mid = 48.1 cm./sec. Post. Tibial Artery, dist = 24.3 cm./sec. Post Tibial Artery, dist. = 38.6 cm./sec. Peroneal Artery, prox = 58.4 cm./sec. Peroneal Artery, prox = 32 cm./sec. Peroneal Artery, mid = 39.2 cm./sec. Peroneal Art, mid-distal, No Flow. Peroneal Artery,dist = 28.7 cm./sec. Ant.Tibial Artery, prox = 34.8 cm./sec. Ant. Tibial Artery, prox = 42.7 cm./sec. Ant Tibial Artery, mid = 49.7 cm./sec. Ant. Tibial Artery, mid = 41.8 cm./sec. Ant. Tibial Artery, distal = 19.1 cm./sec. Ant. Tibial Artery, dist = 42.7 cm./sec. Rt to Lt Fem-Fem Bypass Prox anastomosis, 200.1 cm/sec. Prox graft, 83.2 cm/sec. Mid graft, 65 cm/sec. Dist graft, 60 cm/sec. Distal anastomosis, 85.7 cm/sec. Mobile structure noted at Prox anastomosis site. Procedure Exam performed in department. Preliminary report given to Jessica AWAD. VL/US Art Duplex Bilat Lower Ext Interpretation Summary Patent right to left femoral-femoral bypass with normal velocities and no evide nce of stenosis. Mobile plaque/flap at heel of proximal anastomosis, non flow limiting. Right lower extremity arteries patent with normal velocities and waveforms thro ughout except posterior tibial artery Left SFA with stenosis, left peroneal artery occlusion. Ordering Physician: Sujatha Casey Referring Physician: Jesus Trujillo Performed By: Mellsia Gray RVT
--- NOTE | 2023-01-10 12:49 | ART_ITS ---
Reason For Study: S/P Rt to Lt fem-fem bypass, right external iliac stent Procedure A bilateral lower extremity continuous wave Doppler with analog waveform analysis and ankle brachial indexes. Left Segmental Pressures Left brachial= 109mmHg. Left posterior tibial artery = 117mmHg. Left dorsalis pedis artery = 117mmHg. The left dorsalis pedis waveforms are triphasic. The left posterior tibial artery waveforms are triphasic. Right Segmental Pressures Right brachial= 121mmHg. Right posterior tibial artery = 115mmHg. Right dorsalis pedis artery = 125mmHg. The right dorsalis pedis waveforms are triphasic. The right posterior tibial artery waveforms are biphasic. Indices The right ankle brachial index by the dorsalis pedis is 1.03. The right ankle brachial index by the posterior tibial artery is 0.95. The left ankle brachial index by the dorsalis pedis is 0.97. The left ankle brachial index by the posterior tibial artery is 0.97. VL/Ankle Brachial Index Interpretation Summary Right LYLE 1.03, normal. Doppler/PVR waveforms of the right leg normal at rest. Left LYLE 0.97, mild arterial insufficiency. Doppler/PVR waveforms of the left l eg normal at rest. Ordering Physician: Sujatha Casey Referring Physician: Jesus Trujillo Performed By: Mellisa Gray RVT
== END | disposition home or self-care (01) ==
PROVIDERS: PCP Family Medicine; Referring Provider Physician Assistant; Visit Provider Physician Assistant
DX: I73.9 Peripheral vascular disease, unspecified (principal); Z48.812 Encounter for surgical aftercare following surgery on the circulatory system
CPT/HCPCS: 93922; 93925

== ENCOUNTER 2023-02-26 12:16 | Emergency (ER) | payer MEDICARE, SELFPAY ==
[2023-02-26 12:17] VITALS: BP 150/91; PULSE 91; RESP 20; TEMP 35.8; O2SAT 98
[2023-02-26 12:28] VITALS: BP 135/93; PULSE 95; RESP 19; O2SAT 100
--- NOTE | 2023-02-26 12:55 | RAD_ITS ---
STUDY: X-RAY CHEST REASON FOR EXAM: Male, 67 years old. sob, cough TECHNIQUE: PA and lateral views of the chest. COMPARISON: 06/28/2022 FINDINGS: There is hyperinflation of the lungs consistent with chronic obstructive lung disease (COPD). There is no demonstrated pleural abnormality. Normal size heart. Normal mediastinum and meghna. Normal visualized pulmonary arteries. Normal visualized aortic arch and descending thoracic aorta. Normal visualized thoracic spine. Normal visualized ribs, clavicles, and shoulders. There is no demonstrated abnormality of the visualized soft tissue structures of the upper abdomen. RAD/Chest PA and Lateral IMPRESSION: COPD related findings with no evidence of focal airspace disease. Electronically Signed: Leo Friedman DO at 13:20 EST ,
--- NOTE | 2023-02-26 12:55 | EX.ED.DYSGE1 ---
HPI History of Present Illness Chief Complaint: Shortness of Breath Informant: patient Onset/Context/Timing Onset: Month(s) Narrative Narrative: Patient presents with cough and shortness of breath for the last 9 months. He states he seen his primary care physician. He is not getting any better and decided he was tired of the cough today so he presents to the emergency room. He has an appointment to see his doctor in 2 days. Patient has not had a fever. He is wheezing more than normal. He states he does not take any medicine at home for his breathing. He states that his insurance is going to change tomorrow with the new year and he hopes that with his new insurance he will be able to get different medication for his breathing. PFSH PFSH Medical History Alcohol abuse Alcohol use Ambulates with cane Anxiety Arthritis Back pain Cardiology follow-up encounter COPD (chronic obstructive pulmonary disease) CVA (cerebral vascular accident) CVA (cerebral vascular accident) Essential hypertension Femur fracture, left High cholesterol History of echocardiogram History of fracture of femur History of heart attack History of left heart catheterization (LHC) (~01/04/22) History of pain when walking Hoarseness Hypertension Hypokalemia Leg cramps Shortness of breath on exertion Smoker Home Medications clopidogrel 75 mg tablet 75 mg PO DAILY HEART 10/28/18 [History Last Taken 11/14/22 03:30] atorvastatin 40 mg tablet 40 mg PO QHS CHOLESTEROL 01/04/22 [History Last Taken 11/13/22] cholecalciferol (vitamin D3) 100 mcg (4,000 unit) tablet 100 mcg PO DAILY SUPPLEMENT 01/04/22 [History Last Taken 11/13/22] lisinopril 10 mg tablet 10 mg PO BID BLOOD PRESSURE 01/04/22 [History Last Taken 11/14/22 03:30] aspirin 81 mg tablet,delayed release 81 mg PO BREAKFAST HEART #0 tabs 01/05/22 [Rx Last Taken 11/14/22 03:30] carvedilol 6.25 mg tablet 6.25 mg PO BIDCM BLOOD PRESSURE #180 tabs 02/11/22 [Rx Last Taken 11/14/22 03:30] vitamin B complex (B Complex-Vitamin B12 tablet) 1 tab PO DAILY SUPPLEMENT 09/22/22 [History Last Taken 11/13/22] benzonatate 100 mg capsule 100 mg PO TID PRN PRN COUGH 14 days #42 caps 11/16/22 [Rx Last Taken Unknown] doxycycline monohydrate 100 mg capsule 100 mg PO BID #20 CAPSULES 02/26/23 [Rx Last Taken Unknown] prednisone 20 mg tablet 40 mg (2 x 20 mg) PO DAILY #8 tabs 02/26/23 [Rx Last Taken Unknown] Allergy/AdvReac Type Severity Reaction Status Date / Time Penicillins AdvReac Diarrhea Verified 02/26/23 12:17 Family History Father CAD (coronary artery disease) Brother CAD (coronary artery disease) Surgical History History of back surgery History of cardiac catheterization History of eye surgery Hx of hernia repair Social History household members: none Smoking Status: Current every day smoker tobacco type: cigarettes and smokeless tobacco Tobacco: How many years used: 45 alcohol intake: current substance use type: does not use caffeine: Yes Type: coffee Number of servings: 4 ROS ROS ED Constitutional Constitutional ED: Denies chills or fever(s) Eyes Eyes: Denies discharge from eye(s) ENT ENT ED: Denies discharge from eye(s), rhinorrhea or sore throat Cardiovascular Cardiovascular: Denies chest pain or palpitations Respiratory/Chest Respiratory/Chest: Reports cough and dyspnea Gastrointestinal Gastrointestinal: Denies abdominal pain, nausea or vomiting Genitourinary Genitourinary ED: Denies dysuria Musculoskeletal Musculoskeletal: Denies back pain or extremity pain Integumentary Denies Abrasions or rash Neurologic Neurologic: Denies headache(s) or weakness Psychiatric Psychiatric: Denies anxiety or depression Allergic/Immunologic Allergic/Immunologic ED: Denies lip swelling or urticaria EXAM Physical Exam Const Vital Signs: 02/26/23 12:17 02/26/23 12:28 02/26/23 12:28 Temperature 96.5 F L Temperature Source Temporal Pulse Rate 91 95 Respiratory Rate 20 H 19 H Respiratory Effort Normal Non-Labored Respiratory Depth Normal Respiratory Pattern Normal Blood Pressure 150/91 H 135/93 H Blood Pressure Mean 110 107 Pulse Ox 98 100 Oxygen Delivery Method Room Air Room Air Room Air Positive well nourished and well developed General Appearance ED: well developed HEENT Reports moist mucous membranes Eyes EOMs intact bilaterally Chest Wall inspection of chest normal and palpation of chest normal Resp Resp Narrative: Expiratory wheezes bilaterally. Cardio regular rate and regular rhythm GI non-tender Palpation: soft Neuro oriented x3 Psych mental status grossly normal Skin no rashes or lesions noted MDM MDM MDM Narrative Medical decision making narrative: Patient given prednisone and aerosol treatments. Two-view chest x-ray obtained to evaluate for infiltrate. Radiography Chest X-Ray - ED: 2 View, Read by ED Physician and Chronic Changes (COPD with hyperinflation. No focal infiltrate.) Diagnostic Testing: Clinical Impression(s) from Imaging Studies Chest X-Ray 02/26/23 12:55 IMPRESSION: COPD related findings with no evidence of focal airspace disease. Electronically Signed: Leo Friedman DO at 13:20 EST , Treatment and Re-Evaluation :: On repeat evaluation patient's lung sounds are improved. Chest x-ray per my interpretation reveals no evidence of focal infiltrate. Radiology interpretation reviewed and agrees. Patient be given albuterol inhaler here. He will be given doxycycline and prednisone. He has an appointment to see his PCP in 2 days. Discharge Plan Triage Chief Complaint: Shortness of Breath ED Provider: Maryam Song Dx/Rx/DC Orders Clinical Impression: COPD exacerbation Instructions: ED COPD Flare Prescriptions: New doxycycline monohydrate 100 mg capsule 100 mg PO BID Qty: 20 0RF prednisone 20 mg tablet 40 mg PO DAILY Qty: 8 0RF No Action clopidogrel 75 MG tablet 75 mg PO DAILY atorvastatin 40 mg tablet 40 mg PO QHS Patient Comments: TAKE 1 TABLET BY MOUTH AT BEDTIME lisinopril 10 mg tablet 10 mg PO BID cholecalciferol (vitamin D3) 100 mcg (4,000 unit) Tablet 100 mcg PO DAILY aspirin 81 mg Tablet,Delayed Release (Dr/Ec) 81 mg PO BREAKFAST Qty: 0 0RF vitamin B complex [B Complex-Vitamin B12] Tablet 1 tab PO DAILY benzonatate 100 mg Capsule 100 mg PO TID PRN PRN (Reason: COUGH) 14 Days Qty: 42 0RF carvedilol 6.25 mg tablet 6.25 mg PO BIDCM Qty: 180 4RF Primary Care Provider: Jesus Trujillo Referrals: Jesus Trujillo MD [Primary Care Provider] - Keep Nely appointment Disposition Disposition: Home, Self Care
--- OUTSIDE RECORDS SUMMARY | 2023-02-26 13:02 | XMS RPT_ITS | CCD ---
Author Name Unknown Address [address] [place] [address] [address] [place] [address] Organization [facility] Care Team Providers Care Dry Cleaning Teacher Name Role Phone MCCLURE, ECTOR D Unavailable Unavailable MCCLURE, SCOT D Unavailable Unavailable NO REFERRING Unavailable Unavailable CHANTELLE CRUZ Unavailable Unavailable KAMI SCOT [place] Unavailable Unavailable Brent James Primary Care Provider Unavailanalia e Allergies Allergy Classification Reported Allergen(s) Allergy Type Date of Onset Reaction(s) Facility (1 source) Penicillins; Translations: [PENICILLINS] Propensity to adverse reactions (disorder) [facility] Repository Medications Completed/Discontinued Medications Medication Drug Class(es) Dates Sig (Normalized) Sig (Original) acetaminophen 325 mg / oxyCODONE hydrochloride 5 mg oral tablet (1 source) Opioid Agonist Start: 06-02-2008 oxycodone hcl/acetaminophen( PERCOCET 5 MG-325 MG TAB) Take one(1) tablet every four(4) to six(6) hours as needed for pain. 0 06/02/2008 Active Results Test Name Value Interpretation Reference Range Facil ity Encounters Encounter Date Encounter Type Care Provider Facility Start: 06-04-2008 End: 06-07-2008 Evaluation and management of inpatient ECTOR MCCLURE Facility:[facility] Start: 06-04-2008 End: 06-04-2008 Patient encounter procedure Ector Mcclure Work Phone: [facility] Start: 06-04-2008 Results Only Ector Mcclure Work Phone: [facility] Procedures Date Procedure Procedure Detail Performing Clinician Start: 06-04-2008 CONVERTED SURGICAL PATHOLOGY Ector Mcclure Work Phone: Plan of Treatment Date Care Activity Detail Author Start: 10-29-2019 Influenza vaccination INFLUENZA (#1) [facility] Start: 2012 PROSTATE CANCER SCRE ENING DISCUSSION PROSTATE CANCER SCREENING DISCUSSION [facility] Start: 06-17-2007 SHINGRIX VACCINE (1 of 2) BARRON GRIX VACCINE (1 of 2) [facility] Start: 06-17-2007 Tuberculosis screening COLOREC MAYRA CANCER SCREENING,SEE MODIFIER [facility] Start: 2002 DIABET[facility] Start: 1992 LIPID SCREEN LIPID SCREEN [facility] Start: 1976 Urine microalbumin profile DTAP,TDAP ,TD (1 - Tdap) [facility] Start: 06-17-1975 HEPATITIS C SCREENING HEPATITIS C SC REENING [facility] Start: 06-17-1975 HIV SCREENING HIV SCREENING [facility] Payers Date Payer Category Payer Unknown [employer] PPO [id number] 2008-Present PPO [id number] 2008 Self-pay SELF PAY WC SELF PAY [id number] 2008-2015 [id number] 2008 Unknown [facility] [id number] 2008-Present [facility] [id number] Unknown [id number] Social History Date Type Detail Facility Start: 06-02-2008 Tobacco smoking stat [facility] Current every day smoker [facility] History of tobacco use Cigarette Smoker C [facility] Start: 06-02-2008 Cigarettes smoked cu rrent (pack per day) - Reported [facility] Start: 06-02-2008 Alcohol intake Current drinke r of alcohol (finding) [facility] Sex Assigned At Not on file [facility] Summary Purpose Family History No Family History Records Found Advance Directives No Advanced Directives Records Found Additional Source Comments (unrecognized sect ion and content) No Status Records Found INFORMATION SOURCE (unrecogn ized section and content) Source Comments (unrecognize d section and content) In the event this informatio n is protected by the Federal Confidentiality of Alcohol and Drug Abuse Patient Records regulations: The Federal rules restrict any use of the information to criminally investigate or prosecute any alcohol or drug abuse patient.[facility] FOR RECORDS PERTAINING TO PATIENTS WHO ARE OR HAVE BEEN ENROLLED IN A CHEMICAL DEPENDENCY/SUBSTANCEABUSE PROGRAM, SOME INFORMATION MAY BE OMITTED. This clinical summary was aggregated from multiple sources. Caution should be exercised in using it in the provision of clinical care. This summary normalizes information from multiple sources, and as a consequence, information in this document may materially change the coding, format and clinical context of patient data. In addition, data may be omitted in some cases. CLINICAL DECISIONS SHOULD BE BASED ON THE PRIMARY CLINICAL RECORDS. [facility] Travel Notes [facility]. provides no warranty or guarantee of the accuracy or completeness of information in this document.
[2023-02-26] MEDS: predniSONE 20 MG Tablet 40 MG PO (13:05)
[2023-02-26] MEDS: Ipratropium/Albuterol Sulfate 3 ML AMPUL.NEB INHALATION (13:19)
[2023-02-26] MEDS: Albuterol 2.5 MG/3 ML VIAL.NEB. INHALATION ×2 (13:19→13:29)
[2023-02-26 13:22] VITALS: PULSE 88; RESP 18
[2023-02-26] MEDS: Albuterol Sulfate 8 gm Inhaler (60 puffs) 4 PUFF INHALATION (13:58)
[2023-02-26] MEDS: Doxycycline 100 MG CAPSULE PO (13:59)
== END 2023-02-26 14:19 | disposition home or self-care (01) ==
PROVIDERS: Emergency Provider Emergency Medicine; PCP Family Medicine; Visit Provider Emergency Medicine
DX: J44.1 Chronic obstructive pulmonary disease with (acute) exacerbation (principal); F17.210 Nicotine dependence, cigarettes, uncomplicated; Z86.73 Personal history of transient ischemic attack (TIA), and cerebral infarction without residual deficits; E78.00 Pure hypercholesterolemia, unspecified; I10 Essential (primary) hypertension; Z79.02 Long term (current) use of antithrombotics/antiplatelets; Z79.899 Other long term (current) drug therapy; Z79.82 Long term (current) use of aspirin; F17.290 Nicotine dependence, other tobacco product, uncomplicated
CPT/HCPCS: 71046; 94640; 99283

== ENCOUNTER → 2023-04-13 | Outpatient (CLI) | payer MEDICARE, SELFPAY ==
[2023-04-13 17:42] LABS: Absolute Lymphocyte Count 1.87 X10^3/uL (0.83-4.51); Basophil# 0.09 X10^3/uL; Basophil% 1.2 % (0-1); Eosinophil# 0.09 X10^3/uL; Eosinophils% 1.2 % (0-5); Hematocrit 45.4 % (40-54); Hemoglobin 14.5 g/dL (13.0-16.5); Lymphocyte # 1.87 X10^3/ul (0.83-4.51); Lymphocyte % 24.2 % (19-41); Mean Corp Hgb Conc 31.9 g/dL (32-36); Mean Corpuscular Hgb 32.4 pg (27.0-32.0); Mean Corpuscular Volume 101.3 fL (80-94); Mean Platelet Vol. 9.8 fl (6.2-12.0); Monocyte# 0.59 X10^3/uL; Monocyte% 7.6 % (0-10); NRBC Flagged by Analyzer 0 % (0-5); Neutrophil # 5.02 X10^3/uL (2.7-7.7); Platelet Count 310 K/mm3 (150-450); RBC Distribution Width CV 13.5 % (11.6-14.6); RBC Distribution Width SD 50.9 fl (35.1-43.9); Red Blood Count 4.48 M/mm3 (4.6-6.2); White Blood Count 7.7 K/mm3 (4.4-11.0)
[2023-04-13 17:54] LABS: Vitamin B12 536 pg/mL (211-911)
[2023-04-13 18:15] LABS: ALB/GLOB Ratio 1.1 RATIO (0.9-2.4); AST(SGOT) 14 U/L (15-37); Alanine Aminotransfer ALT/SGPT 26 U/L (16-61); Albumin, Serum 3.7 g/dL (3.2-5.0); Alkaline Phosphatase 62 U/L (45-117); Anion Gap 4 (5-15); BUN 13 mg/dL (7-18); BUN/Creat Ratio 12.9 RATIO (10-20); Calcium,Total 8.9 mg/dL (8.5-10.1); Chloride 107 mmol/L (98-107); Cholesterol 108 mg/dL (200); Creatinine, Serum 1.01 mg/dL (0.70-1.30); EST Glomerular Filtration Rate 79 mL/min (>60); Est Glom Filt Rate - Afr Amer 95 mL/min (>60); Globulin 3.4 g/dL (2.2-4.2); Glucose 83 mg/dL (74-106); High Density Lipoprotein 53 mg/dL; PSA,Total - Annual Screen 1.27 ng/mL (0.00-4.00); Potassium 4.3 mmol/L (3.5-5.1); Protein, Total 7.1 g/dL (6.4-8.2); Sodium Level 137 mmol/L (136-145); Thyroid Stim Hormone (TSH) 1.12 uIU/mL (0.358-3.74); Triglycerides 51 mg/dL; Very Low Density Lipoprotein 10 mg/dL (5-40)
--- OUTSIDE RECORDS SUMMARY | 2023-04-13 20:07 | XMS RPT_ITS | CCD ---
Author Name Unknown Address [address] [place] [address] [address] [place] [address] Organization [facility] Care Team Providers Care Science Consultant Name Role Phone MCCLURE, ECTOR D Unavailable Unavailable MCCLURE, SCOT D Unavailable Unavailable NO REFERRING Unavailable Unavailable CHANTELLE CRUZ Unavailable Unavailable KAMI SCOT D Unavailable Unavailable Brent James Primary Care Provider Unavailanalia e Allergies Allergy Classification Reported Allergen(s) Allergy Type Date of Onset Reaction(s) Facility (1 source) Penicillins; Translations: [PENICILLINS] Propensity to adverse reactions (disorder) [facility] Repository Medications Completed/Discontinued Medications Medication Drug [...] Evaluation and management of inpatient ECTOR MCCLURE Facility:[facility] Start: 06-04-2008 End: 06-04-2008 Patient encounter procedure Ector Mcclure Work Phone: [facility] Start: 06-04-2008 Results Only Ector Mcclure Work Phone: [facility] Procedures Date Procedure Procedure Detail Performing [...] System Start: 2002 DIABETES SCREEN DIABETES SCREEN [facility] Start: 1992 LIPID SCREEN LIPID SCREEN [facility] Start: 1976 Urine microalbumin profile DTAP,TDAP ,TD (1 - Tdap) [facility] Start: 06-17-1975 HEPATITIS C SCREENING HEPATITIS C SC REENING [facility] Start: 06-17-1975 HIV SCREENING HIV SCREENING [facility] Payers Date Payer Category Payer Unknown [employer] CARD PPO [id number] 2008-Present PPO [id number] 2008 Self-pay SELF PAY WC SELF PAY [id number] 2008-2015 [id number] 2008 Unknown [facility] [id number] 2008-Present [facility] [id number] Unknown [id number] Social History Date Type Detail Facility Start: 06-02-2008 [facility] History of tobacco use Cigarette Smoker C [facility] Start: 06-02-2008 Cigarettes smoked cu rrent (pack per day) - Reported [facility] Start: 06-02-2008 Alcohol intake Current drinke r of alcohol (finding) [facility] Sex Assigned At Not on file [facility] Summary Purpose Family History No Family History [...] BE BASED ON THE PRIMARY CLINICAL RECORDS. [email or web address] [facility]. provides no warranty or guarantee of the accuracy or completeness of information in this document.
== END | disposition home or self-care (01) ==
LOC: MFPLAB 14:11
PROVIDERS: PCP Family Medicine; Visit Provider Family Medicine
DX: I10 Essential (primary) hypertension (principal); E55.9 Vitamin D deficiency, unspecified; Z12.5 Encounter for screening for malignant neoplasm of prostate; E53.8 Deficiency of other specified B group vitamins
CPT/HCPCS: 36415; 80053; 80061; 82306; 82607; 82746; 84153; 84443; 85025; G0103

== ENCOUNTER → 2023-10-17 | Outpatient (CLI) | payer MEDICARE, SELFPAY ==
[2023-10-17 17:32] LABS: Absolute Lymphocyte Count 1.93 X10^3/uL (0.83-4.51); Absolute Neutrophil Count 4.5 X10^3/uL (2.0-7.7); Basophil# 0.08 X10^3/uL; Eosinophil# 0.19 X10^3/uL; Eosinophils% 2.5 % (0-5); Hematocrit 47.3 % (40-54); Hemoglobin 15.4 g/dL (13.0-16.5); Lymphocyte # 1.93 X10^3/ul (0.83-4.51); Lymphocyte % 25.2 % (19-41); Mean Corp Hgb Conc 32.6 g/dL (32-36); Mean Corpuscular Hgb 32.4 pg (27.0-32.0); Mean Corpuscular Volume 99.4 fL (80-94); Mean Platelet Vol. 9.6 fl (6.2-12.0); Monocyte# 0.86 X10^3/uL; Monocyte% 11.2 % (0-10); NRBC Flagged by Analyzer 0 % (0-5); Neutrophil % 58.7 % (47-70); Platelet Count 325 K/mm3 (150-450); RBC Distribution Width CV 12.6 % (11.6-14.6); RBC Distribution Width SD 46.5 fl (35.1-43.9); Red Blood Count 4.76 M/mm3 (4.6-6.2); White Blood Count 7.7 K/mm3 (4.4-11.0)
[2023-10-17 18:26] LABS: ALB/GLOB Ratio 0.8 RATIO (0.9-2.4); AST(SGOT) 19 U/L (15-37); Alanine Aminotransfer ALT/SGPT 27 U/L (16-61); Albumin, Serum 3.6 g/dL (3.2-5.0); Alkaline Phosphatase 108 U/L (45-117); Anion Gap 5 (5-15); BUN 9 mg/dL (7-18); BUN/Creat Ratio 11.3 RATIO (10-20); Calcium,Total 10.1 mg/dL (8.5-10.1); Chloride 103 mmol/L (98-107); Cholesterol 121 mg/dL (200); EST Glomerular Filtration Rate 103 mL/min (>60); Est Glom Filt Rate - Afr Amer 125 mL/min (>60); Globulin 4.3 g/dL (2.2-4.2); Glucose 95 mg/dL (74-106); High Density Lipoprotein 66 mg/dL; Potassium 4.8 mmol/L (3.5-5.1); Protein, Total 7.9 g/dL (6.4-8.2); Sodium Level 135 mmol/L (136-145); Triglycerides 48 mg/dL; Very Low Density Lipoprotein 10 mg/dL (5-40); Vitamin B12 938 pg/mL (211-911); Vitamin D,25 Hydroxy 57.9 ng/mL
== END | disposition home or self-care (01) ==
LOC: MFPLAB 15:26
PROVIDERS: PCP Family Medicine; Visit Provider Family Medicine
DX: I10 Essential (primary) hypertension (principal); J44.9 Chronic obstructive pulmonary disease, unspecified; E53.8 Deficiency of other specified B group vitamins; E55.9 Vitamin D deficiency, unspecified
CPT/HCPCS: 36415; 80053; 80061; 82306; 82607; 82746; 83735; 85025

== ENCOUNTER → 2023-11-02 | Outpatient (CLI) | payer MEDICARE, SELFPAY ==
--- NOTE | 2023-11-02 13:51 | ADU_ITS ---
Reason For Study: S/P Rt to Lt fem-fem bypass, Rt EIA stent Right Velocities Left Velocities Ext. Iliac Artery, dist = 218 cm./sec. Common Femoral Artery, mid = 190.4 cm./sec. RN TELEPHONE TRIAGE, prox to bypass, 214.2 cm/sec. Supf. Femoral Artery, prox = 52.7 cm./sec. RN TELEPHONE TRIAGE, distal to bypass, 128.6 cm/sec. SFA mid, prox to stenosis, 60 cm/sec. Supf Femoral Artery, prox = 74.8 cm./sec. SFA mid, at stenosis, 263.8 cm/sec. Supf Femoral Artery, mid = 56.4 cm./sec. SFA mid/dist, dist to stenosis, 87.9 cm/sec. Supf Femoral Artery, dist. = 48.3 cm./sec. Supf. Femoral Artery, dist = 33.6 cm./sec. Profunda Femoral Artery = 106.7 cm./sec. Profunda Femoral Artery = 148.4 cm./sec. Popliteal Artery, prox. = 40.5 cm./sec. Popliteal Artery, mid = 43.1 cm./sec. Popliteal Artery, mid = 114.9 cm./sec. Post. Tibial Artery, prox = 34.6 cm./sec. Popliteal Artery, dist = 113.6 cm./sec. Post Tibial Artery, mid = 42.1 cm./sec. Post. Tibial Artery, prox = 37.3 cm./sec. Post Tibial Artery, dist. = 35.5 cm./sec. Post. Tibial Artery, mid = 50.4 cm./sec. Peroneal Artery, prox = 43.1 cm./sec. Post. Tibial Artery, dist = 19.7 cm./sec. Peroneal Artery, mid = 35.5 cm./sec. Peroneal Artery, prox = 40.5 cm./sec. Peroneal Artery,dist. = 30.8 cm./sec. Peroneal Artery, mid = 33.9 cm./sec. Ant.Tibial Artery, prox = 31.7 cm./sec. Peroneal Artery,dist = 43.5 cm./sec. Ant Tibial Artery, mid = 38.1 cm./sec. Ant. Tibial Artery, prox = 45.3 cm./sec. Ant. Tibial Artery, distal = 35.3 cm./sec. Ant. Tibial Artery, mid = 57.5 cm./sec. Ant. Tibial Artery, dist = 41.8 cm./sec. Rt to Lt Fem-Fem Bypass Prox anastomosis, 238.9 cm/sec. Prox graft, 119 cm/sec. Mid graft, 60.1 cm/sec. Dist graft, 43.7 cm/sec. Distal anastomosis, 292 cm/sec. Procedure Exam performed in department. VL/US Art Duplex Bilat Lower Ext Interpretation Summary Patent right to left femoral-femoral bypass with elevated velocity in the dista l graft. Left SFA with stenosis, no significant change Ordering Physician: Sujatha Casey Referring Physician: Jesus Trujillo Performed By: Mellisa rGay RVT
--- NOTE | 2023-11-02 13:51 | ART_ITS ---
Reason For Study: S/P Rt to Lt fem-fem bypass, Rt EIA stent Procedure A bilateral lower extremity continuous wave Doppler with analog waveform analysis and ankle brachial indexes. Left Segmental Pressures Left brachial= 119mmHg. Left posterior tibial artery = 105mmHg. Left dorsalis pedis artery = 104mmHg. The left dorsalis pedis waveforms are biphasic. The left posterior tibial artery waveforms are triphasic. Right Segmental Pressures Right brachial= 118mmHg. Right posterior tibial artery = 94mmHg. Right dorsalis pedis artery = 115mmHg. The right dorsalis pedis waveforms are triphasic. The right posterior tibial artery waveforms are biphasic. Indices The right ankle brachial index by the dorsalis pedis is 0.97. The right ankle brachial index by the posterior tibial artery is 0.79. The left ankle brachial index by the dorsalis pedis is 0.87. The left ankle brachial index by the posterior tibial artery is 0.88. VL/Ankle Brachial Index Interpretation Summary Right LYLE 0.97, mild arterial insufficiency. Doppler/PVR waveforms of the right ankle normal at rest. Left LYLE 0.88, moderate arterial insufficiency. Doppler/PVR waveforms of the le ft ankle normal at rest. Ordering Physician: Sujatha Casey Referring Physician: Jesus Trujillo Performed By: Mellisa Gray RVT
== END | disposition home or self-care (01) ==
PROVIDERS: PCP Family Medicine; Referring Provider Physician Assistant; Visit Provider Physician Assistant
DX: I73.9 Peripheral vascular disease, unspecified (principal); Z48.812 Encounter for surgical aftercare following surgery on the circulatory system
CPT/HCPCS: 93922; 93925

== ENCOUNTER → 2023-11-20 | Outpatient (CLI) | payer MEDICARE, SELFPAY ==
--- NOTE | 2023-11-20 13:47 | CT_ITS ---
STUDY: CTA OF THE ABDOMINAL AORTA AND BILATERAL LOWER EXTREMITIES REASON FOR EXAM: Male, 68 years old. 1 year s/p fem-fem bypass, elevated velocities by duplex RADIATION DOSAGE (If Supplied By Facility): CTDIvol = ( 7.15 ) mGy, DLP = ( 1125.35 ) mGycm TECHNIQUE: Axial CT angiography multi-detector data acquisition was obtained from the to the following intravenous administration of IV 100mL Isovue-370. Axial images and MIP images were reconstructed from the axial data set. Post-processing of the angiographic images was performed, with multiplanar reformation and 3D reconstruction. Individualized dose optimization techniques were used for this CT. TECHNICAL QUALITY: Good COMPARISON: Comparison is made with prior study dated August 16, 2022. Descriptors of Narrowing: None (0%) Mild (< 50%) Moderate (50-70%) Severe (70-90%) Subtotal/Total Occlusion (90-100%) Non-Evaluable (technically non-diagnostic FINDINGS: Mild increased markings at the lung bases more prominent on the right side suggestive scarring. Coronary artery calcification. Abdominal aorta: Atherosclerotic calcification of the abdominal aorta and the major visceral branches. Celiac and superior mesenteric arteries: Ostial calcification at the origin of the celiac and superior mesenteric artery without significant stenosis. Inferior mesenteric artery: Ostial calcification. Right renal artery(arteries): Ostial calcification. Left renal artery(arteries): Ostial calcification. Right common iliac artery: Extensive calcific plaque. Right external iliac artery: Extensive calcific plaque. Right internal iliac artery: No demonstrated narrowing. Left common iliac artery: Scattered calcific plaques with focal stenosis. Left external iliac artery: Extensive calcific plaques. Left internal iliac artery: No demonstrated narrowing. The femoral femoral bypass graft is widely patent. RIGHT LOWER EXTREMITY Right common femoral artery: No demonstrated narrowing. Right profundus femoris: No demonstrated narrowing. Right superficial femoral: No demonstrated narrowing. Right popliteal artery: No demonstrated narrowing. Right tibioperoneal trunk: No demonstrated narrowing. Right anterior tibial artery: No demonstrated narrowing. Right posterior tibial artery: No demonstrated narrowing. Right peroneal artery: No demonstrated narrowing. LEFT LOWER EXTREMITY Left common femoral artery: Atherosclerotic plaque formation unchanged. Left profundus femoris: No demonstrated narrowing. Left superficial femoral: No demonstrated narrowing. Left popliteal artery: No demonstrated narrowing. Left tibioperoneal trunk: No demonstrated narrowing. Left anterior tibial artery: Calcific plaques at its origin. Left posterior tibial artery: Calcific plaques throughout its course although it is patent. Left peroneal artery: Patent with evidence of scattered plaques. CT/CTA Abd w/Runoff W/WO Contrast IMPRESSION: Patency of the femoral-femoral bypass graft. Electronically Signed: Rakesh Davis MD at 14:21 EDT ,
[2023-11-20 14:23] LABS: CREATININE FINGERSTICK < 1.0 mg/dL (0.70-1.30); EGFR FINGERSTICK > 60.0000 mL/min (>60)
== END | disposition home or self-care (01) ==
LOC: CT 13:46
PROVIDERS: PCP Family Medicine; Referring Provider Physician Assistant; Visit Provider Physician Assistant
DX: Z48.812 Encounter for surgical aftercare following surgery on the circulatory system (principal); I73.9 Peripheral vascular disease, unspecified; I25.10 Atherosclerotic heart disease of native coronary artery without angina pectoris; Z95.1 Presence of aortocoronary bypass graft; I70.0 Atherosclerosis of aorta
CPT/HCPCS: 75635; Q9967; A4216

== ENCOUNTER → 2023-11-21 | Outpatient (CLI) | payer MEDICARE, SELFPAY ==
--- NOTE | 2023-11-21 10:55 | RAD_ITS ---
EXAM: XR CHEST, 2 VIEWS CLINICAL INDICATION: copd exacerbation TECHNIQUE: Frontal and lateral views of the chest. COMPARISON: February 26 2023. CTA chest January 04, 2022. FINDINGS: LUNGS AND PLEURAL SPACES: The lungs remain hyperinflated. Small calcified granuloma again noted in the right lateral lung. Prominent retrosternal clear space again noted. Mild multifocal aortic peripheral calcification and similar contour. No pneumothorax. No effusion. HEART: Unremarkable. Cardiac silhouette not enlarged. MEDIASTINUM: Central airways and mediastinal contour are unremarkable. BONES/JOINTS: Unremarkable. No acute fracture. SOFT TISSUES: Unremarkable. RAD/Chest PA and Lateral IMPRESSION: 1. Stable findings consistent with COPD. 2. No convincing infiltrates or effusions. Electronically Signed: Karon Quintero MD at 2:11 EDT ,
== END | disposition home or self-care (01) ==
LOC: MTRAD 10:55
PROVIDERS: PCP Family Medicine; Referring Provider Family Medicine; Visit Provider Family Medicine
DX: J44.1 Chronic obstructive pulmonary disease with (acute) exacerbation (principal)
CPT/HCPCS: 71046

== ENCOUNTER 2023-12-21 06:45 | Day surgery (SDC) | payer MEDICARE, SELFPAY ==
[2023-12-20 11:05] VITALS: BMI 21.3
--- OUTSIDE RECORDS SUMMARY | 2023-12-21 06:49 | XMS RPT_ITS | CCD ---
Author Organization [facility] Care Team Providers Care Transportation Engineering Technician Name Role Phone ECTOR MCCLURE Unavailable Unavailable ECTOR MCCLURE Unavailable Unavailable NO REFERRING Unavailable Unavailable CHANTELLE CRUZ Unavailable Unavailable ECTOR MCCLURE Unavailable Unavailable Brent James Primary Care Provider Unavailabl e Allergies Allergy Classification Reported Allergen(s) Allergy Type Date of Onset Reaction(s) Facility (1 source) Penicillins; Translations: [PENICILLINS] Propensity to adverse reactions (disorder) [facility] Repository Medications Completed/Discontinued Medications Medication Drug Class(es) Dates Sig (Normalized) Sig (Original) acetaminophen 325 mg / oxyCODONE hydrochloride 5 mg oral tablet (1 source) Opioid Agonist Start: 06-02-2008 oxycodone hcl/acetaminophen(PE RCOCET 5 MG-325 MG TAB) Take one(1) tablet every four(4) to six(6) hours as needed for pain. 0 06/02/2008 Active Comment on above: Take one(1) tablet e very four(4) to six(6) hours as needed for pain. cyclobenzaprine hydrochloride 10 mg oral tablet (1 source) Muscle Relaxant Start: 06-02-2008 cyclobenzaprine hcl(FLEXERIL 10 MG TAB) Take one(1) tablet every eight(8) to twelve(12) hours as needed for pain or spasms. 0 06/02/2008 Active Comment on above: Take one(1) tablet e very eight(8) to twelve(12) hours as needed for pain or spasms. metoprolol tartrate 50 mg oral tablet (1 source) beta-Adrenergic Winnie Start: 06-02-2008 metoprolol tartrate(LOPRESSOR 50 MG TAB) Take one(1) tablet twice daily. 0 06/02/2008 Active Comment on above: Take one(1) tablet t wice daily. naproxen 500 mg oral tablet (1 source) Nonsteroidal Anti-inflammatory Drug Start: 06-02-2008 NAPROXEN 500 MG TAB Take one(1) tablet twice daily as needed for pain, with food. 0 06/02/2008 Active Comment on above: Take one(1) tablet t wice daily as needed for pain, with food. Results Test Name Value Interpretation Reference Range Elroy Layton 06-06-2008 CONVERTED CLINICAL HISTORY OPERATIVE PROCEDURE: Microdecompression vincenzo L2-S1, fusion L4-5 local graft, instrumentation CLINICAL INFORMATION: Spinal stenosis, spondylolisthesis [facility] CONVERTED ELECTRONIC SIGNATURE JASS HARRELL M.D., PATHOLOGIST (Electronic signature on file) Final Signed Out: 06/06/2008 11:53 [facility] CONVERTED FINAL DIAGNOSIS FINAL DIAGNOSIS: BONE AND SOFT TISSUE, LUMBAR SPINE AT L2-S1, EXCISION - FIBROCARTILAGE WITH DEGENERATIVE CHANGES AND FRAGMENTS OF UNREMARKABLE BONE, LIGAMENT, AND SKELETAL MUSCLE. SPECIMEN: DISC [facility] CONVERTED GROSS DESCRIPTION GROSS DESCRIPTION: Bone, ligament, soft tissue L2-S1 The specimen is received in a container labeled bone, ligament, soft tissue L2-S1. Received are portions of red-hendricks soft tissue and fragments of hendricks-red bone measuring 8 x 8 x 6 cm in aggregate. A sales representative printing paper sample is submitted in a single cassette following decal. PSB/SMS/lrs MICROSCOPIC DESCRIPTION: Slides reviewed. EDS/gpl [facility] CONVERTED ORDERING PROVIDER Ordering Provider: ECTOR MCCLURE [facility] Encounters Encounter Date Encounter Type Care Provider Facility Start: 06-04-2008 End: 06-07-2008 Evaluation and management of inpatient ECTOR MCCLURE Facility:[facility] Start: 06-04-2008 End: 06-04-2008 Patient encounter procedure Ector Mcclure Work Phone: [facility] Start: 06-04-2008 Results Only Ector Mcclure Work Phone: [facility] Procedures Date Procedure Procedure Detail Performing Clinician Start: 06-04-2008 CONVERTED SURGICAL PATHOLOGY Ector Mcclure Work Phone: Plan of Treatment Date Care Activity Detail Author Start: 10-29-2019 Influenza vaccination INFLUENZA (#1) [facility] Start: 2012 PROSTATE CANCER SCRE ENING DISCUSSION PROSTATE CANCER SCREENING DISCUSSION [facility] Start: 06-17-2007 SHINGRIX VACCINE (1 of 2) BARRON GRIX VACCINE (1 of 2) [facility] Start: 06-17-2007 Tuberculosis screening COLOREC MAYRA CANCER SCREENING,SEE MODIFIER [facility] Start: 2002 DIABETES SCREEN DIABETES SCREEN [facility] Start: 1992 LIPID SCREEN LIPID SCREEN [facility] Start: 1976 Urine microalbumin profile DTAP,TDAP ,TD (1 - Tdap) [facility] Start: 06-17-1975 HEPATITIS C SCREENING HEPATITIS C SC REENING [facility] Start: 06-17-1975 HIV SCREENING HIV SCREENING [facility] Payers Date Payer Category Payer Unknown [employer] PPO [id number] 2008-Present PPO [id number] 2008 Self-pay SELF PAY WC SELF PAY [id number] 2008-2015 [id number] 2008 Unknown [facility] [id number] 2008-[place] [facility] [id number] Unknown [id number] Social History Date Type Detail Facility Start: 06-02-2008 [facility] day sm[facility] History of tobacco use Cigarette Smoker C [facility] Start: 06-02-2008 Cigarettes smoked cu rrent (pack per day) - Reported [facility] Start: 06-02-2008 Alcohol intake Current drinke r of alcohol (finding) [facility] Sex Assigned At Not on file [facility] Summary Purpose Family History No Family History Records Found Advance Directives No Advanced Directives Records Found Additional Source Comments (unrecognized sect ion and content) No Status Records Found INFORMATION SOURCE (unrecogn ized section and content) DATE CREATED AUTHOR 08/23/2017 [facility] Source Comments (unrecognize d section and content) In the event this informatio n is protected by the Federal Confidentiality of Alcohol and Drug Abuse Patient Records regulations: The Federal rules restrict any use of the information to criminally investigate or prosecute any alcohol or drug abuse patient.[facility] FOR RECORDS PERTAINING TO PATIENTS WHO ARE [...] BE BASED ON THE PRIMARY CLINICAL RECORDS. [facility]. provides no warranty or guarantee of the accuracy or completeness of information in this document.
[2023-12-21 07:07] LABS: Hematocrit 48.6 % (40-54); Hemoglobin 15.6 g/dL (13.0-16.5); Mean Corp Hgb Conc 32.1 g/dL (32-36); Mean Corpuscular Hgb 32.1 pg (27.0-32.0); Mean Platelet Vol. 9.1 fl (6.2-12.0); Platelet Count 257 K/mm3 (150-450); RBC Distribution Width CV 13.3 % (11.6-14.6); RBC Distribution Width SD 49.1 fl (35.1-43.9); Red Blood Count 4.86 M/mm3 (4.6-6.2); White Blood Count 9.1 K/mm3 (4.4-11.0)
--- NOTE | 2023-12-21 07:58 | HP.PCM_ITS ---
HPI - General HPI Narrative BENY AGARWAL, is a 68 M who presents with history of prior right iliac stent and right to left fem-fem for claudication. Serial duplex revealed increased velocities in the distal bypass graft and a CTA showed >50% stenosis of the cadaver graft just prior to the anastomosis. He presents for angiogram with possible intervention. [facility] Medical History Anxiety COPD (chronic obstructive pulmonary disease) Shortness of breath on exertion Leg cramps History of pain when walking History of heart attack History of fracture of femur Alcohol use Ambulates with cane Arthritis High cholesterol Back pain Smoker Hoarseness Cardiology follow-up encounter History of echocardiogram Essential hypertension History of left heart catheterization (LHC) (~01/04/22) CVA (cerebral vascular accident) Hypokalemia Femur fracture, left Alcohol abuse CVA (cerebral vascular accident) Hypertension Home Medications ?Medication ?Instructions ?Recorded ?Last Taken ?Type clopidogrel 75 mg tablet 75 mg PO DAILY HEART 10/28/18 12/21/23 History atorvastatin 40 mg tablet 40 mg PO QHS CHOLESTEROL 01/04/22 11/13/22 History cholecalciferol (vitamin D3) 100 100 mcg PO DAILY SUPPLEMENT 01/04/22 11/13/22 History mcg (4,000 unit) tablet lisinopril 10 mg tablet 10 mg PO BID BLOOD PRESSURE 01/04/22 12/21/23 History aspirin 81 mg tablet,delayed 81 mg PO BREAKFAST HEART #0 tabs 01/05/22 12/21/23 Rx release carvedilol 6.25 mg tablet 6.25 mg PO BIDCM BLOOD PRESSURE 02/11/22 12/21/23 Rx #180 tabs vitamin B complex (B 1 tab PO DAILY SUPPLEMENT 09/22/22 11/13/22 History Complex-Vitamin B12 tablet) benzonatate 100 mg capsule 100 mg PO TID PRN PRN COUGH 14 11/16/22 Unknown Rx days #42 caps Allergy/AdvReac Type Severity Reaction Status Date / Time Penicillins AdvReac Diarrhea Verified 11/22/23 14:32 Family History Father CAD (coronary artery disease) Brother CAD (coronary artery disease) Surgical History Hx of hernia repair History of back surgery History of cardiac catheterization History of eye surgery Social History household members: none Smoking Status: Current every day smoker tobacco type: cigarettes and smokeless tobacco Tobacco: How many years used: 45 alcohol intake: current substance use type: does not use caffeine: Yes Type: coffee Number of servings: 4 ROS Constitutional Constitutional: Denies chills, fever(s), frequent falls, lethargy or weakness Eyes Eyes: Denies blind spots, change in vision or loss of vision ENT HEENT: Denies bleeding gums, hoarseness or sore throat Cardiovascular Cardiovascular: Denies abdominal pain, bluish discoloration of hand/feet, chest pain with activity, claudication, cold extremities, cyanosis, dyspnea on exertion, erythema on extremities, irregular heart rhythm, leg edema, leg ulcers, numbness in extremities or weakness in extremities Respiratory/Chest Respiratory/Chest: Denies cough, excessive phlegm production, shortness of breath at rest, shortness of breath with exertion or wheezing Gastrointestinal Gastrointestinal: Denies anorexia, change in stool character, constipation, diarrhea, melena or rectal bleeding Genitourinary Genitourinary: Denies dysuria or hematuria Musculoskeletal Musculoskeletal: Denies abnormal gait Integumentary Integumentary: Reports other Details: ; Denies erythema, non-healing lesions or wounds Neurologic Neurologic: Denies abnormal speech, focal weakness, headache(s), loss of vision, numbness, paresthesias or sensory deficit Hematologic/Lymphatic Hematologic/Lymphatic: Denies easy bleeding, easy bruising or lymphadenopathy Vital Signs Vital Signs Vital Signs: Weight Weight: 162 lb Body Mass Index (BMI) 21.3 Physical Exam Const alert, oriented x3, no apparent distress and healthy appearing General Appearance: cooperative; Negative for combative or lethargic Orientation / Consciousness: awake Exam Limitations: no limitations HEENT Head and Scalp: normocephalic and atraumatic Eyes EOMs intact bilaterally General Eye: normal appearance of both eyes Neck full ROM, no lymphadenopathy and thyroid normal General: trachea midline; Negative for tenderness Thyroid: thyroid normal Resp normal respiratory effort and no use of accessory muscles Effort and Inspection: Negative for labored, stridor or audible wheezes Cardio regular rate and regular rhythm Peripheral Pulses: femoral pulses present Back/Spine Cervical Spine: cervical ROM normal Extremity full ROM, normal capillary refill and no clubbing, cyanosis or edema Skin no rashes or lesions noted and no wounds Neuro oriented x3, CN's II-XII intact bilaterally, no focal motor deficits and no sensory deficits noted Psych thought process normal, cooperative, affect normal, speech normal and activity/motor behavior normal Results Lab / Micro Data 12/21/23 06:51 12/21/23 06:51 Labs: Laboratory Results - last 24 hr 12/21/23 06:51: WBC 9.1, RBC 4.86, Hgb 15.6, Hct 48.6, MCV 100.0 H, MCH 32.1 H, MCHC 32.1, RDW Std Deviation 49.1 H, RDW Coeff of Rica 13.3, Plt Count 257, MPV 9.1 Assessment & Plan Assessment/Plan (1) PAD (peripheral artery disease): PLAN: -angiogram, possible intervention
[2023-12-21 08:14] LABS: Anion Gap 4 (5-15); BUN 13 mg/dL (7-18); BUN/Creat Ratio 13.4 RATIO (10-20); Calcium,Total 9.8 mg/dL (8.5-10.1); Chloride 106 mmol/L (98-107); Creatinine, Serum 0.97 mg/dL (0.70-1.30); EST Glomerular Filtration Rate 82 mL/min (>60); Est Glom Filt Rate - Afr Amer 99 mL/min (>60); Estimated Creatinine Clearance 77.86 ml/min; Glucose 118 mg/dL (74-106); Potassium 4.6 mmol/L (3.5-5.1); Sodium Level 139 mmol/L (136-145)
--- NOTE | 2023-12-21 19:50 | PCM.OPRPT ---
Operative Report (Standard) Operative Information Surgery/Procedure Performed: Left lower extremity angiogram IVUS left SFA, common femoral artery, Fem-fem bypass Angioplasty distal segment of bypass Surgeon: Taj Woods Date of Procedure: 12/21/23 Procedure Start Time: 08:00 Procedure Stop Time: 10:00 Pre-Operative Diagnosis: Stenosis of prior bypass graft Atherosclerosis with claudication Post-Operative Diagnosis: same Select all DRAINS/GRAFTS/IMPLANTS that apply: None Type of Anesthesia: Local and Sedation,Conscious Estimated Blood Loss: 5 Specimen collected: No Description of surgery: HPI: Patient has history of prior right to left fem-fem cadaver bypass for claudication. Recent duplex revealed stenosis of the distal graft. He presents to angiogram with possible intervention. Description of procedure: Upon obtaining informed consent and verification of correct patient procedure and site he was taken to the clinical genetics laboratory chief where he was positioned, prepped and draped in the usual fashion. Time out was performed and sedation administered with versed and fentanyl. Skin overlying the proximal bypass was anesthetized with 1% lidocaine and the vessel accessed under ultrasound guidance with a micropuncture needle and wire. This was then exchanged for a micropuncture sheath through which a hand injection angiogram was performed which confirmed satisfactory position with no extravasation or dissection. Through the micropuncture sheath a command 14 wire was advanced and navigated into the left superficial femoral artery. The micropuncture sheath was then exchanged for a 5 Fr Halo sheath. An IVUS catheter was then advanced and a recorded pullback performed of the SFA, common femoral artery, and the bypass graft. This revealed tapering size of the distal graft but with distinct stenosis just prior to the anastomosis of 70%. The patient was heparinized and allowed to circulate for 3 minutes. A 6mm x 20 Parrish Angiosculpt balloon was then advanced and centered on the lesion. It was inflated to nominal for 3 minutes, deflated and repositioned and then again inflated to nominal. This was then deflated and withdrawn and subtraction angiography performed that revealed satisfactory vessel response with no extravasation or dissection. There was no continued focal stenosis though the vessel taper remained. A [employer] [place] paxlitaxel coated balloon 6 x 40 was then advanced centering on the lesion and inflated to nominal for 3 minutes then deflated and withdrawn. IVUS probe was then re-advanced and recorded pull back performed confirming no residual stenosis and smooth taper of vessel diameter. Wires and catheters were then withdrawn and minx closure device deployed followed by 5 minutes of manual pressure with satisfactory hemostasis. The patient was then taken to the recovery area for bedrest prior to discharge home. Surgical Findings: 70% stenosis of distal bypass graft, no residual stenosis after intervention Waste/Materials Exchange Specialist fur cutting machine operator: No Complications Complications: No
== END 2023-12-21 12:50 | disposition home or self-care (01) ==
PROVIDERS: Physician Assistant; PCP Family Medicine; Referring Provider Surgery Trauma Surgery; Visit Provider Surgery Trauma Surgery
DX: T82.858A Stenosis of other vascular prosthetic devices, implants and grafts, initial encounter (principal); J44.9 Chronic obstructive pulmonary disease, unspecified; I73.9 Peripheral vascular disease, unspecified; I10 Essential (primary) hypertension; F17.210 Nicotine dependence, cigarettes, uncomplicated; E78.00 Pure hypercholesterolemia, unspecified; F17.220 Nicotine dependence, chewing tobacco, uncomplicated; Z79.02 Long term (current) use of antithrombotics/antiplatelets; Z95.820 Peripheral vascular angioplasty status with implants and grafts; Z79.899 Other long term (current) drug therapy; Z79.82 Long term (current) use of aspirin; Y71.8 Miscellaneous cardiovascular devices associated with adverse incidents, not elsewhere classified
CPT/HCPCS: 36200; 36245; 36415; 37220; 37246; 37252; 37253; 75625; 75710; 76937; 80048; 85027; 99152; 99153; C1725; C1753; C1760; C1894; C2623; Q9967; C1769

== ENCOUNTER → 2024-01-31 | Outpatient (CLI) | payer MEDICARE, SELFPAY ==
[2024-01-31 10:41] LABS: Absolute Lymphocyte Count 1.83 X10^3/uL (0.83-4.51); Basophil# 0.13 X10^3/uL; Basophil% 1.3 % (0-1); Eosinophil# 0.17 X10^3/uL; Eosinophils% 1.7 % (0-5); Hematocrit 45.8 % (40-54); Lymphocyte # 1.83 X10^3/ul (0.83-4.51); Lymphocyte % 17.8 % (19-41); Mean Corp Hgb Conc 32.8 g/dL (32-36); Mean Corpuscular Hgb 32.8 pg (27.0-32.0); Mean Platelet Vol. 9.7 fl (6.2-12.0); Monocyte% 8.8 % (0-10); NRBC Flagged by Analyzer 0 % (0-5); Neutrophil % 68.1 % (47-70); Platelet Count 327 K/mm3 (150-450); RBC Distribution Width CV 13.7 % (11.6-14.6); RBC Distribution Width SD 50.4 fl (35.1-43.9); Red Blood Count 4.58 M/mm3 (4.6-6.2); White Blood Count 10.3 K/mm3 (4.4-11.0)
[2024-01-31 11:06] LABS: AST(SGOT) 34 U/L (15-37); Alanine Aminotransfer ALT/SGPT 42 U/L (16-61); Albumin, Serum 3.7 g/dL (3.2-5.0); Alkaline Phosphatase 75 U/L (45-117); Anion Gap 6 (5-15); BUN 12 mg/dL (7-18); BUN/Creat Ratio 13.5 RATIO (10-20); Calcium,Total 9.3 mg/dL (8.5-10.1); Chloride 106 mmol/L (98-107); Cholesterol 149 mg/dL (200); Creatinine, Serum 0.89 mg/dL (0.70-1.30); EST Glomerular Filtration Rate 91 mL/min (>60); Est Glom Filt Rate - Afr Amer 110 mL/min (>60); Globulin 3.7 g/dL (2.2-4.2); Glucose 112 mg/dL (74-106); High Density Lipoprotein 58 mg/dL; Magnesium 2.1 mg/dL (1.6-2.6); Potassium 3.9 mmol/L (3.5-5.1); Protein, Total 7.4 g/dL (6.4-8.2); Sodium Level 138 mmol/L (136-145); Triglycerides 58 mg/dL; Very Low Density Lipoprotein 12 mg/dL (5-40)
[2024-01-31 12:50] LABS: Vitamin B12 > 2000 pg/mL (211-911); Vitamin D,25 Hydroxy 52.3 ng/mL
[2024-02-01 12:33] LABS: Hemoglobin A1c 5.8 % (3.8-5.6)
== END | disposition home or self-care (01) ==
LOC: MFPLAB 08:21
PROVIDERS: PCP Family Medicine; Referring Provider Family Medicine; Visit Provider Family Medicine
DX: I10 Essential (primary) hypertension (principal); R73.09 Other abnormal glucose; E55.9 Vitamin D deficiency, unspecified; D75.89 Other specified diseases of blood and blood-forming organs
CPT/HCPCS: 36415; 80053; 80061; 82306; 82607; 82746; 83036; 83735; 85025

== ENCOUNTER → 2024-02-20 | Outpatient (CLI) | payer MEDICARE, SELFPAY ==
--- NOTE | 2024-02-20 14:47 | US_ITS ---
INDICATION: right submandibular LA EXAMINATION: Ultrasound US Head/Neck Soft Tissue TECHNIQUE: Jimenez scale and color doppler imaging was performed of the neck. COMPARISON: FINDINGS: There is a 1.2 x 0.9 x 0.6 cm subcutaneous nodule in the right submandibular area with a slightly echogenic center, likely a lymph node . US/Head/Neck Soft Tissue IMPRESSION: Probable right submandibular node is noted. Electronically Signed: Uli Asher DO at 16:14 EST ,
--- NOTE | 2024-02-20 14:47 | CT_ITS ---
EXAM: CT CHEST WITHOUT INTRAVENOUS CONTRAST CLINICAL INDICATION: smoker TECHNIQUE: Helically acquired images were obtained of the chest without intravenous contrast. This CT exam was performed using one or more of the following dose reduction techniques: automated exposure control, adjustment of the mA and/or kV according to patient size, and/or use of iterative reconstruction technique. RADIATION DOSE: CTDIvol = 3.02 mGy, DLP = 112.87 mGy-cm COMPARISON: CTA chest from 01/04/2022 FINDINGS: LUNGS AND PLEURAL SPACES: There are a few stable, benign subpleural nodules in the right middle and right lower lobes measuring 4 mm. Mild centrilobular emphysematous changes in the upper lobes. Benign calcified granuloma in the right upper lobe. No pneumothorax. HEART: Coronary artery calcifications. Heart size is normal. No pericardial effusion. MEDIASTINUM: Unremarkable. No mediastinal or hilar adenopathy. Esophagus is unremarkable. No hiatal hernia. THYROID: Unremarkable. No thyroid lesions. BONES/JOINTS: Degenerative changes of the spine. No suspicious lytic or blastic abnormality. VASCULATURE: Severe atherosclerotic calcifications of the thoracic aorta without dilation. CT/Low Dose CT Lung Screening IMPRESSION: 1. There are a few stable, benign subpleural nodules in the right middle and right lower lobes measuring 4 mm, unchanged compared with the December [address] Screening Reporting And Data System (Lung-RADS) score: 2S - Benign Appearance or Behavior. Additional clinically significant or potentially clinically significant findings are described. Recommend continued annual screening with a low-dose CT (LDCT) in 12 months. 2. Coronary artery calcifications. Electronically Signed: Farhan Guaman MD at 7:44 EST ,
== END | disposition home or self-care (01) ==
LOC: CT 14:46
PROVIDERS: PCP Family Medicine; Referring Provider Family Medicine; Visit Provider Family Medicine
DX: Z12.2 Encounter for screening for malignant neoplasm of respiratory organs (principal); F17.218 Nicotine dependence, cigarettes, with other nicotine-induced disorders; R59.1 Generalized enlarged lymph nodes
CPT/HCPCS: 71271; 76536

== ENCOUNTER → 2024-05-03 | Outpatient (CLI) | payer MEDICARE, SELFPAY ==
[2024-05-03 15:42] LABS: Absolute Lymphocyte Count 1.85 X10^3/uL (0.83-4.51); Absolute Neutrophil Count 6.2 X10^3/uL (2.0-7.7); Basophil# 0.07 X10^3/uL; Basophil% 0.8 % (0-1); Eosinophil# 0.16 X10^3/uL; Eosinophils% 1.8 % (0-5); Hematocrit 45.2 % (40-54); Hemoglobin 14.8 g/dL (13.0-16.5); Lymphocyte # 1.85 X10^3/ul (0.83-4.51); Lymphocyte % 20.5 % (19-41); Mean Corp Hgb Conc 32.7 g/dL (32-36); Mean Corpuscular Hgb 32.5 pg (27.0-32.0); Mean Corpuscular Volume 99.3 fL (80-94); Mean Platelet Vol. 9.8 fl (6.2-12.0); Monocyte# 0.77 X10^3/uL; Monocyte% 8.5 % (0-10); NRBC Flagged by Analyzer 0 % (0-5); Neutrophil # 6.15 X10^3/uL (2.7-7.7); Platelet Count 264 K/mm3 (150-450); RBC Distribution Width CV 12.6 % (11.6-14.6); RBC Distribution Width SD 46.4 fl (35.1-43.9); Red Blood Count 4.55 M/mm3 (4.6-6.2)
[2024-05-03 16:30] LABS: ALB/GLOB Ratio 1.5 RATIO (0.9-2.4); AST(SGOT) 26 U/L (<=37); Alanine Aminotransfer ALT/SGPT 22 U/L (<=46); Albumin, Serum 4.2 g/dL (3.4-4.8); Alkaline Phosphatase 84 U/L (40-129); Anion Gap 15 (5-15); BUN 11 mg/dL (4-19); BUN/Creat Ratio 13.9 RATIO (10-20); Calcium,Total 9.5 mg/dL (7.6-11.0); Carbon Dioxide 22.5 mmol/L (21.0-32.0); Chloride 100 mmol/L (98-108); Creatinine, Serum 0.82 mg/dL (0.70-1.20); EST Glomerular Filtration Rate 97 (>60); Globulin 2.8 g/dL (2.2-4.2); Glucose 97 mg/dL (70-99); Sodium Level 137 mmol/L (133-145); Total Bilirubin 0.51 mg/dL (0.00-1.30)
[2024-05-03 18:07] LABS: Cholesterol 108 mg/dL (<=200); High Density Lipoprotein 53 mg/dL; Low Density Lipoprotein Calc. 46 mg/dL; Triglycerides 42 mg/dL; Very Low Density Lipoprotein 8 mg/dL (5-40); Vitamin B12 > 4000 pg/mL (180-914); Vitamin D,25 Hydroxy 46.5 ng/mL (30-100); cholesterol:hdl ratio screen 2.03
== END | disposition home or self-care (01) ==
LOC: MFPLAB 11:10
PROVIDERS: PCP Family Medicine; Referring Provider Family Medicine; Visit Provider Family Medicine
DX: I10 Essential (primary) hypertension (principal); J44.9 Chronic obstructive pulmonary disease, unspecified; E55.9 Vitamin D deficiency, unspecified
CPT/HCPCS: 36415; 80053; 80061; 82306; 82607; 82746; 83735; 85025

== ENCOUNTER → 2024-08-20 | Outpatient (CLI) | payer MEDICARE, SELFPAY ==
[2024-08-20 16:12] LABS: PSA,Total - Annual Screen 0.38 ng/mL (0.02-4.00)
--- OUTSIDE RECORDS SUMMARY | 2024-08-20 22:05 | XMS RPT_ITS | CCD ---
Author Organization [facility] Care Team Providers Care Commercial Collections Specialist Name Role Phone MCCLURE, SCOT D Unavailable Unavailable MCCLURE, SCOT D Unavailable Unavailable NO REFERRING Unavailable Unavailable CHANTELLE CRUZ Unavailable Unavailable MCCLURE, SCOT D Unavailable Unavailable Brent James Primary Care Provider UnavailDr. Jesus Gonzalez Primary Care Provider [phone] Dr. Fernando Tidwell Emergency Provider Dr. Koby Ojeda Attending Provider Dr. Jass Read Attending Provider Dr. Jass Read Admit Provider Dr. Jass Read Other Provider Dr. Koby Ojeda Other Provider Dr. Silvio Cruz Attending Provider Dr. Silvio Cruz Other Provider Dr. Jesus Trujillo Referring Provider Dr. Jesus Trujillo Primary Care Provider Dr. Jesus Trujillo Referring Provider Dr. Koby Ojeda Attending Provider Roof AIRLINE MANAGERIAL SUPERVISOR, AIRLINE MANAGERIAL SUPERVISOR-C Jesus Velasquez Attending Provider Dr. Jesus Trujillo Primary Care Provider Dr. Jesus Trujillo Referring Provider BARON Moreno Attending Provider Dr. Jesus Trujillo Primary Care Provider Dr. Jesus Trujillo Referring Provider BARON Moreno Attending Provider Dr. Jass Woods Attending Provider [phone] John Banda Attending Provider [phone] Dr. Jass Woods Referring Provider [phone] BARON Casey Attending Provider [phone] Dr. Jass Woods Admit Provider Dr. Jass Woods Other Provider Dr. Jesus Trujillo Primary Care Provider Dr. John Banda Attending Provider [phone] Dr. Jass Woods Referring Provider [phone] Dr. Jass Woods Admit Provider Dr. Jass Woods Attending Provider [phone] Dr. Jass Woods Other Provider BARON Casey Attending Provider [phone] Jesus Trujillo Referring Provider Dr. Jesus Trujillo Primary Care Provider Dr. Jass Woods Referring Provider [phone] BARON Casey Referring Provider [phone] Dr. Jesus Trujillo Primary Care Provider Dr. Jass Woods Attending Provider [phone] Dr. Jesus Trujillo Referring Provider BARON Casey Attending Provider [phone] Jesus Trujillo MD Primary Care Provider Dr. Jesus Trujillo MD Attending Provider Dr. Jesus Trujillo MD Referring Provider Jesus Trujillo Attending Unavailable Jesus Trujillo Primary Care Unavailable Sujatha Casey Referring Unavailable Sujatha Casey Attending Unavailable Jesus Trujillo Primary Care Unavailable Casey, Sujatha Referring Unavailable Casey, Sujatha Attending Unavailable Schinner, Jesus E Primary Care Unavailable Schinner, Jesus E Attending Unavailable Schinner, Jesus E Referring Unavailable Schinner, Jesus E Primary Care Unavailable Casey, Sujatha Consulting Unavailable [place], Jass Attending Unavailable Peggy, Jass Referring Unavailable Schinner, Jesus E Primary Care Unavailable Schinner, Jesus E Attending Unavailable Schinner, Jesus E Referring Unavailable Schinner, Jesus E Primary Care Unavailable Casey, Sujatha Attending Unavailable Schinner, Jesus E Referring Unavailable Schinner, Jesus E Primary Care Unavailable Casey, Sujatha Consulting Unavailable [place], Jass Attending Unavailable [place], Jass Referring Unavailable Schinner, Jesus E Primary Care Unavailable [place], Jass Consulting Unavailable Schinner, Jesus E Referring Unavailable Schinner, Jesus E Primary Care Unavailable Mercy Wong Attending Unavailable Schinner, Jesus E Primary Care Unavailable Aniceto Pozo Attending Unavailable Casey, Sujatha Attending Unavailable Schinner, Jesus E Referring Unavailable Schinner, Jesus E Primary Care Unavailable Schinner, Jesus E Attending Unavailable Schinner, Jesus E Referring Unavailable Schinner, Jesus E Primary Care Unavailable Schinner, Jesus E Primary Care Unavailable Schinner, Jesus E Referring Unavailable Schinner, Jesus E Attending Unavailable Casey, Sujatha Referring Unavailable [place], Jass Attending Unavailable Schinner, Jesus E Primary Care Unavailable Jesus Dao NP Attending Unavailable Schinner, Jesus E Referring Unavailable Schinner, Jesus E Primary Care Unavailable Unavailable Primary Care Provider UnavailOREN Segura Attending Unavailable Allergies Allergy Classification Reported Allergen(s) Allergy Type Date of Onset Reaction(s) Facility (13 sources) Penicillins; Translations: [PENICILLINS] Propensity to adverse reactions (disorder) 2 Diarrhea [facility] Repository (2 sources) atorvastatin Drug Allergy 2 Upset Stomach [facility] Medications Current Medications Medication Drug Class(es) Dates Sig (Normalized) Sig (Original) aspirin 81 mg delayed release oral tablet (20 sources) Platelet Aggregation Inhibitor, Nonsteroidal Anti-inflammatory Drug Start: 01-05-2022 take 1 tablet by mouth at breakfast Aspirin 81 mg Tablet,Delayed Release (Dr/Ec) Active 81 mg PO WITH BREAKFAST 0 January 05, 2022 1:00am Start: 11-07-2017 End: 11-10-2017 take 1 tablet by mouth once daily Aspirin 81 MG Tab.Chew Discontinued 81 mg PO DAILY@799November 07, 2017 12:00am November 10, 2017 3:02pm Start: 06-09-2015 End: 10-03-2017 take 1 tablet by mouth once daily Aspirin 81 MG Tab.Chew Discontinued 81 mg PO DAILY@0800 June 09, 2015 12:00am October 03, 2017 10:13am take 1 tablet by luciano th once daily Aspirin 81 mg tab Take 81 mg by mouth once daily. Active atorvastatin 40 mg oral tablet (20 sources) HMG-CoA Reductase Inhibitor Start: 01-04-2022 take 1 tablet by mouth at bedtime Atorvastatin 40 mg tablet Active 40 mg PO AT BEDTIME January 04, 2022 1:00am Start: 10-03-2017 End: 10-13-2017 take 1 tablet by mouth at bedtime Atorvastatin 80 MG tablet Discontinued 80 mg PO AT BEDTIME October 03, 2017 12:00am October 13, 2017 12:15pm Start: 06-09-2015 End: 06-09-2015 take 1 tablet by mouth at bedtime Atorvastatin 40 MG tablet Discontinued 40 mg PO AT BEDTIME June 09, 2015 12:00am June 09, 2015 4:43pm benzonatate 100 mg oral capsule (5 sources) Non-narcotic Antitussive Start: 11-16-2022 take 1 capsule by mouth three times daily as needed for cough Benzonatate 100 mg Capsule Active 100 mg PO 3 TIMES DAILY NEEDED as needed for COUGH 42 14 November 16, 2022 12:00am cholecalciferol 0.1 mg oral tablet (11 sources) Vitamin D Start: 01-04-2022 take 1 tablet by mouth once daily Cholecalciferol (Vitamin D3) 100 mcg (4,000 unit) Tablet Active 100 ug PO DAILY January 04, 2022 1:00am clopidogrel 75 mg oral tablet (20 sources) P2Y12 Platelet Inhibitor Start: 10-28-2018 take 1 tablet by mouth once daily Clopidogrel 75 MG tablet Active 75 mg PO DAILY October 28, 2018 12:00am Start: 10-03-2017 End: 10-13-2017 take 1 tablet by mouth once daily Clopidogrel 75 MG tablet Discontinued 75 mg PO DAILY October 03, 2017 2:01pm October 13, 2017 12:15pm cyclobenzaprine hydrochloride 10 mg oral tablet (2 sources) Muscle Relaxant Start: 06-02-2008 cyclobenzaprine hcl(FLEXERIL 10 MG TAB) Take one(1) tablet every eight(8) to twelve(12) hours as needed for pain or spasms. 0 06/02/2008 Active Comment on above: Take one(1) tablet e very eight(8) to twelve(12) hours as needed for pain or spasms. lisinopril 10 mg oral tablet (20 sources) Angiotensin Converting Enzyme Inhibitor Start: 01-04-2022 take 1 tablet by mouth twice daily Lisinopril 10 mg tablet Active 10 mg PO TWICE A DAY January 04, 2022 1:00am Start: 06-09-2015 End: 11-07-2017 take 1 tablet by mouth once daily Lisinopril 20 MG tablet Discontinued 20 mg PO DAILY October 13, 2017 12:15pm November 07, 2017 9:44am metoprolol tartrate 50 mg oral tablet (2 sources) beta-Adrenergic Winnie Start: 06-02-2008 metopr olol tartrate(LOPRESSOR 50 MG TAB) Take one(1) tablet twice daily. 0 06/02/2008 Active Comment on above: Take one(1) tablet t wice daily. naproxen 500 mg oral tablet (2 sources) Nonsteroidal Anti-inflammatory Drug Start: 06-02-2008 NAPROXEN 500 MG T AB Take one(1) tablet twice daily as needed for pain, with food. 0 06/02/2008 Active Comment on above: Take one(1) tablet t wice daily as needed for pain, with food. Vitamin B Complex (B Complex-Vitamin B12) tablet (6 sources) Start: 09-22-2022 Vitamin B Comp fabian (B Complex-Vitamin B12) tablet Active 1 {tbl} PO DAILY September 22, 2022 12:00am Start: 09-22-2022 take 1 tablet by luciano th once daily Vitamin B Complex (B Complex-Vitamin B12) tablet Active 1 TABLET PO DAILY September 21, 2022 11:00pm Start: 09-22-2022 take 1 tablet by luciano th once daily Vitamin B Complex (B Complex-Vitamin B12) tablet Active 1 TABLET PO DAILY September 22, 2022 12:00am Completed/Discontinued Medications Medication Drug Class(es) Dates Sig (Normalized) Sig (Original) acetaminophen 325 mg / oxyCODONE hydrochloride 5 mg oral tablet (13 sources) Opioid Agonist Start: 10-28-2018 End: 10-30-2018 Oxycodone-Acetamino phen 1 TABLET tablet Discontinued 1 {tbl} PO EVERY 6 HOURS NEEDED as needed for Pain 6 2 October 28, 2018 October 29, 2018 12:00am October 30, 2018 12:07am Start: 10-28-2018 End: 10-30-2018 take 1 tablet by mouth every six hours as needed Oxycodone-Acetaminophen Discontinued 1 TABLET PO EVERY 6 HOURS NEEDED 6 2 October 28, 2018 October 29, 2018 11:07pm Start: 06-02-2008 oxycodone hcl/ acetaminophen(PERCOCET 5 MG-325 MG TAB) Take one(1) tablet every four(4) to six(6) hours as needed for pain. 0 06/02/2008 Active Comment on above: Take one(1) tablet e very four(4) to six(6) hours as needed for pain. [id number] 200 actuat albuterol 0.09 mg/actuat metered dose inhaler (10 sources) beta2-Adrenergic Agonist Start: 12-07-2022 End: 02-26-2023 Albuterol Sulfate 90 mcg/actuation HFA aerosol inhaler Discontinued INHALATION December 07, 2022 12:00am February 26, 2023 1:32pm Start: 12-07-2022 End: 02-26-2023 Albuterol Sulfate Discontinu ed INHALATION December 06, 2022 11:00pm February 26, 2023 12:32pm Start: 09-22-2022 End: 12-07-2022 take 90 ug by inhalation every four hours Albuterol Discontinued 90 MCG INHALATION .Q4HR September 21, 2022 11:00pm December 07, 2022 12:55pm Start: 09-22-2022 take 90 ug by inhala tion every four hours Albuterol Active 90 MCG INHALATION .Q4HR September 22, 2022 12:00am ALBUTEROL INHALA TION Inhale as instructed as needed. Active Albuterol 90 mcg/actuation aerosol (1 source) Start: 09-22-2022 End: 12-07-2022 take 90 ug by inhalation every four hours as needed Albuterol 90 mcg/actuation aerosol Discontinued 90 ug INHALATION .Q4HR as needed for BREATHING September 22, 2022 12:00am December 07, 2022 1:55pm carvedilol 6.25 mg oral tablet (20 sources) alpha-Adrenergic Winnie, beta-Adrenergic Winnie Start: 01-05-2022 End: 02-11-2022 take 1 tablet by mouth twice daily at mealtime Carvedilol 6.25 mg tablet Discontinued 6.25 mg PO TWICE DAILY WITH MEALS January 28, 2022 4:23pm February 11, 2022 11:15am cilostazol 50 mg oral tablet (9 sources) Phosphodiesterase 3 Inhibitor Start: 05-31-2022 End: 08-10-2022 take 1 tablet by mouth twice daily Cilostazol 50 mg tablet Discontinued 50 mg PO TWICE A DAY May 31, 2022 12:00am August 10, 2022 10:54am cloNIDine hydrochloride 0.1 mg oral tablet (11 sources) Central alpha-2 Adrenergic Agonist Start: 01-04-2022 End: 01-05-2022 take 1 tablet by mouth twice daily Clonidine Hcl 0.1 mg tablet Discontinued 0.1 mg PO TWICE A DAY January 04, 2022 1:00am January 05, 2022 4:42pm doxycycline monohydrate 100 mg oral capsule (3 sources) Tetracycline-class Drug Start: 02-26-2023 End: 12-20-2023 take 1 capsule by mouth twice daily Doxycycline Monohydrate 100 mg capsule Discontinued 100 mg PO TWICE A DAY February 26, 2023 1:00am December 20, 2023 11:02am folic acid 1 mg oral tablet (20 sources) Start: 10-03-2017 End: 10-13-2017 take 1 tablet by mouth once daily Folic Acid 1 MG tablet Discontinued 1 mg PO DAILY@0800 October 03, 2017 2:01pm October 13, 2017 12:15pm hydroCHLOROthiazide 25 mg oral tablet (11 sources) Thiazide Diuretic Start: 11-07-2017 End: 11-10-2017 take 1 tablet by mouth once daily Hydrochlorothiazide 25 MG tablet Discontinued 25 mg PO DAILY November 07, 2017 12:00am November 10, 2017 3:03pm oxyCODONE hydrochloride 5 mg oral tablet (9 sources) Opioid Agonist Start: 11-16-2022 End: 11-23-2022 take 1 tablet by mouth every eight hours as needed for pain Oxycodone 5 mg tablet Discontinued 5 mg PO Q8H as needed for pain 15 5 November 18, 2022 November 22, 2022 12:00am November 23, 2022 12:04am predniSONE 20 mg oral tablet (3 sources) Start: 02-26-2023 End: 12-20-2023 take 2 tablets by mouth once daily Prednisone 20 mg tablet Discontinued 40 mg PO DAILY February 26, 2023 1:00am December 20, 2023 11:02am Start: 02-26-2023 take 40 mg by mouth once daily Prednisone Active 40 MG PO DAILY February 26, 2023 12:00am thiamine 100 mg oral tablet (20 sources) Start: 10-03-2017 End: 10-13-2017 take 1 tablet by mouth once daily Thiamine Hcl (Vitamin B1) 100 MG tablet Discontinued 100 mg PO DAILY October 03, 2017 2:01pm October 13, 2017 12:15pm Problems Active Problems Problem Classification Problem Date Documented Date Episodic/Chronic Acute cerebrovascular disease (20 sources) Cerebrovascular accident; Translations: [Cerebral infarction, unspecified] 11-10-2017 Chronic Comment on above: Left facial droop, d ysarthria, left sided weakness Acute myocardial infarction (20 sources) Myocardial infarction; Translations: [Non-ST elevation (NSTEMI) myocardial infarction] Chronic Alcohol-related disorders (20 sources) Alcohol abuse; Translations: [Alcohol abuse, uncomplicated] 11-10-2017 Chronic Cardiac dysrhythmias (12 sources) Sinus tachycardia; Translations: [Tachycardia, unspecified] Episodic Chronic obstructive pulmonary disease and bronchiectasis (4 sources) Acute exacerbation of chronic obstructive airways disease; Translations: [Chronic obstructive pulmonary disease with (acute) exacerbation] Onset: 4 02-26-2023 Chronic Coronary atherosclerosis and other heart disease (20 sources) Coronary atherosclerosis; Translations: [Atherosclerotic heart disease of [place] coronary artery without angina pectoris] Chronic Disorders of lipid metabolism (18 sources) Hypercholesterolemia; Translations: [Pure hypercholesterolemia, unspecified] Chronic Essential hypertension (20 sources) Essential hypertension; Translations: [Essential (primary) hypertension] Onset: Chronic Comment on above: CONTROLLED ON MED Fluid and electrolyte disorders (11 sources) Hyponatremia; Translations: [Hypo-osmolality and hyponatremia] 11-10-2017 Episodic Fracture of neck of femur (hip) (11 sources) Intertrochanteric fracture; Translations: [Displaced intertrochanteric fracture of left femur, initial encounter for closed fracture] 10-28-2018 Episodic Malaise and fatigue (11 sources) Asthenia; Translations: [Weakness] 11-10-2017 Episodic Other aftercare (4 sources) Surgical follow-up; Translations: [Encounter for surgical aftercare following surgery on the circulatory system] 12-07-2022 Episodic Other connective tissue disease (2 sources) History of lumbar fusion; Translations: [Arthrodesis status] Onset: 5 07-04-2024 Episodic Other connective tissue disease (3 sources) Other symptoms and signs involving the musculoskeletal system; Translations: [Other musculoskeletal symptoms referable to limbs] Onset: 5 07-04-2024 Episodic Other connective tissue disease (1 source) Arthrodesis status; Translations: [History of fusion of lumbar spine] Onset: 5 Episodic Other nervous system disorders (5 sources) Postoperative pain ; Translations: [Other acute postprocedural pain] 11-16-2022 Episodic Other screening for suspected conditions (not mental disorders or infectious disease) (1 source) Encounter for screening for malignant neoplasm of respiratory organs; Translations: [Encounter for screening for malignant neoplasm of respiratory organs] Onset: 5 Episodic Pita-; endo-; and myocarditis; cardiomyopathy (except that caused by tuberculosis or sexually transmitted disease) (18 sources) Cardiomyopathy; Translations: [Cardiomyopathy, unspecified] Chronic Peripheral and visceral atherosclerosis (20 sources) Peripheral vascular disease, unspecified; Translations: [Peripheral arterial disease] Onset: 4 05-26-2022 Chronic Comment on above: CTA- images reviewed , left common iliac occlusion, bilateral common femoral atherosclerosis, right external iliac calcified stenosis >50% s/p Right to left fe moral-femoral bypass, right external iliac artery stent, bilateral sartorius flaps on 11/15/2022ngioplasty distal segment bypass just prior to anastomosis 12/21/2023 Residual codes; unclassified (11 sources) Noncompliance with treatment; Translations: [Noncompliance of patient with other medical treatment and regimen] 11-10-2017 Episodic Residual codes; unclassified (2 sources) Family history of stroke; Translations: [Family history of stroke] Onset: 5 07-04-2024 Episodic Residual codes; unclassified (1 source) Family history of stroke; Translations: [Family history of stroke] Onset: 5 Episodic Spondylosis; intervertebral disc disorders; other back problems (5 sources) Cervical spondylosis; Translations: [Other spondylosis with myelopathy, cervical region] Onset: 5 07-04-2024 Chronic Spondylosis; intervertebral disc disorders; other back problems (16 sources) Chronic back pain ; Translations: [Dorsalgia, unspecified] Onset: 5 11-10-2017 Episodic Unclassified (1 source) Low back pain, unspecified; Translations: [Low back pain, unspecified] Onset: 5 Past or Other Problems Problem Classification Problem Date Documented Date Episodic/Chronic Other aftercare (5 sources) Encounter for surgical aftercare following surgery on the circulatory system; Translations: [Aftercare following surgery of the circulatory system, NEC] Onset: 12-18-2023 12-07-2022 Episodic Residual codes; unclassified (11 sources) History of cardiac catheterization; Translations: [Other specified postprocedural states] Onset: 12-28-2021 01-18-2022 Episodic Comment on above: LEFT MAIN: Mild calc ification, Mild luminal irregularities; LEFT ANTERIOR DESCENDING ARTERY: PROX LAD: Mild calcification, Mild luminal irregularities; CIRCUMFLEX ARTERY: Angiographically normal; RAMUS: Angiographically normal; RIGHT CORONARY ARTERY: Moderate calcification Mild luminal irregularities less than 30%; AORTIC ROOT:Calcified per cardiac cath 01/04/22 Unclassified (2 sources) History of lumbar fusion 07-04-2024 Unclassified (2 sources) Leg weakness, bilateral 07-04-2024 Results Test Name Value Interpretation Reference Range Facility CNOVon 07-04-2024 CNOV Office Visit ([facility] ) REGGIE COOPER ([id number]) 1955 M Date Time Provider Department 07/04/24 1:40 PM OREN FUENTES [facility] During your visit today, we recorded the following information about you: Pulse Blood pressure Weight Height 85/minute 148/85 74.4 kg 1.854 m Oren Fuentes PA-C 07/04/2024 2:34 PM Signed rOen Fuentes [facility] [address] [address] 07/04/2024 ASSESSMENT AND PLAN: Assessment : Encounter Diagnosis ICD-10-CM 1. History of fusion of lumbar spine Z98.1 XR LUMBAR MOTION 4V AP/LAT/ FLEX/EXT CONSULT TO PHYSICAL THERAPY L4-5 at [facility], Dr. Ector Mcclure 2008 2. Leg weakness, bilateral R29.898 XR LUMBAR MOTION 4V AP/LAT/ FLEX/EXT CONSULT TO PHYSICAL THERAPY 3. Mechanical low back pain M54.59 XR LUMBAR MOTION 4V AP/LAT/ FLEX/EXT CONSULT TO PHYSICAL THERAPY 4. Cervical spondylosis with myelopathy M47.12 CONSULT TO PHYSICAL THERAPY XR CERV OTHER 4V AP/LAT/FLX/EXT 5. Family history of stroke Z82.3 Discussion: Mr. Cooper is a 69-year-old man here for evaluation of very gradually worsening low back pain over a number of years. He describes difficulties walking and balance problems and finger dexterity problems as well. His main complaint is actually low back pain and leg weakness. 2009 lumbar surgery at [facility] (Ector Mcclure, DO) patient describes as L4-5 instrumented fusion Surgery helped a great deal at that time Patient is a smoker (ongoing) Takes meds that other people have given him. Cannot stand for long--has weakness in BLE Has only LBP without LE pain, N/T Fell and broke his femur about 8 years ago and has been using a custom crutch in the RIGHT hand Patient has a PCP but has not listed that in his [facility] chart yet. He was encouraged to do so. EXAM Highlights: Struggles to get out of his wheelchair and uses both arms to help him elevate. He uses primarily his LEFT leg to stand up and seems to favor the RIGHT leg when he is standing although he describes the main weakness in his LEFT leg and uses the custom cane in his RIGHT arm. He declines ambulation and lumbar motion due to lack of safety, slipping, balance problems He has central lumbosacral pain that is fairly generalized without specific point tenderness. Lower extremity reflexes are hyperreflexic and he has some pathologic reflexes as noted below suggesting myelopathy He has negative voluntary seated SLRs bilaterally. 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 IMAGING: There is no imaging visible in [facility] to review regarding his spine SUMMARY/PLAN: Patient wants to start out with full evaluation of the lumbar spine, but I think he could possibly have cervical myelopathy so I will do evaluation of that concurrently. He will start with x-rays and PT and when he is finished with those, we will probably order MRI studies of both cervical and lumbar spine. The lumbar spine MRI scan will need contrast enhancement due to prior surgery. Plan : DIAGNOSTIC TESTING: -X-ray views will be obtained to better evaluate bony structures. -Dynamic plain radiographs of the Cervical and Lumbar spine are ordered. REFERAL FOR SERVICES: -Physical therapy will be instituted. ACTIVITY RECOMMENDATIONS: -The patient advised to avoid prolonged sitting. TOBACCO RECOMMENDATIONS: -Tobacco cessation discussed and encouraged. FOLLOW-UP: -The patient is instructed to follow up after studies are complete. -The patient is instructed to return after six weeks of therapy. This document has been created with the use of voice recognition technology. It may contain inaccuracies: (e.g. misspellings, inaccurate syntax or word sense) that have escaped review. Time spent: 45 minutes today with this patient visit. This includes [id number] time, review of chart records regarding conservative care history, spine-pertinent imaging, and communication/care coordination with referring provider, problem-specific history-taking and counseling/education regarding treatment options. cc: No referring provider defined for this encounter. Phone: N/A Fax: Results of consultation to be transmitted via electronic medical record for those providers who practice within [facility] or with access to [employer] via [facility] [employer], or via letter. ##################### ##################### ##################### ######### CHIEF COMPLAINT: Patient is here for the lower back pain. Has this pain for years and getting worse. Level of the pain is at 7/10. Cannot stand for too long. Has weakness in his legs. HPI: see Discussion above History of bowel or bladder dysfunction (not IBS or constipation): No History of previous spinal surgery: Yes, per (more content not included)... Normal [facility] Cerv Spine 4 or 5 Viewson Cerv Spine 4 or 5 Views [facility] [address] [place] [address] Cerv Spine 4 or 5 Views MR#: [id number] Acct: [id number] Name: REGGIE COOPER Rep #: [id number] : 1955 M 68 From: Lex Amato PCP: Dr. Jesus Trujillo MD Status: DEP AMB Study: Cerv Spine 4 or 5 Views Date of Exam: 05/30/24 Exam# [id number] Ordering Dr: Mercy Wong PROCEDURE: CERV SPINE 4 OR 5 VIEWS 05/30/2024 REASON FOR EXAM: CHRONIC PAIN TECHNIQUE: 4 views of the cervical spine. COMPARISON: None FINDINGS: See impression RAD/Cerv Spine 4 or 5 Views IMPRESSION: Vertebral body heights are within normal limits. No significant malalignment. [id number] multilevel disc space narrowing, greatest from C4 through C7. Multilevel uncovertebral arthrosis, greatest from C5 through C7. Agic-mo-jwocttnp multilevel facet arthropathy, greatest at the upper cervical spine. Heavy bilateral carotid artery calcifications. Reading Location: [facility] CC: BARON Jones; Dr. Jesus Trujillo MD Machine Stone Polisher: Signed Normal [facility] [facility] L/S Spine Min 4 Viewson L/S Spine Min 4 Views [facility] Imaging Services [address] [place] [address] L/S Spine Min 4 Views MR#: [id number] Acct: [id number] Name: REGGIE COOPER Rep #: [id number] : 1955 M 68 From: Silvio Tan MD PCP: Dr. Jesus Trujillo MD Status: DEP AMB Study: L/S Spine Min 4 Views Date of Exam: 05/30/24 Exam# [id number] Ordering Dr: Bre Bah AIRLINE MANAGERIAL SUPERVISOR-C EXAM: XR Lumbosacral Spine Flexion/Extension Only, 2 or 3 Views CLINICAL INDICATION: LOW BACK PAIN, CHRONIC TECHNIQUE: Lateral flexion/extension views of the lumbar spine and sacrum. COMPARISON: No relevant prior studies available. FINDINGS: VERTEBRAE: Status post posterior fusion of L4-5. Intact hardware. Multilevel endplate degenerative change and disc disease of L1-2 S1. Mild superior endplate compression deformity of L2 vertebral body, likely chronic. Normal sagittal alignment. No acute fracture or significant dynamic instability. SACRUM/COCCYX: Unremarkable as visualized. No acute fracture. DISC SPACES: See above. SOFT TISSUES: Unremarkable. VASCULATURE: Scattered calcified atherosclerotic disease of aorta. RAD/L/S Spine Min 4 Views IMPRESSION: Postoperative changes as above. Reading Location: [facility] CC: AIRLINE MANAGERIAL SUPERVISORMaury Bah; BARON Jones; Dr. Jesus Trujillo MD Machine Stone Polisher: Signed Normal [facility] Orthopedic Visit Reporton Orthopedic Visit Report [facility] [address] [place] [address] [address] [place] [address] OFFICE VISIT Date of Service: 05/30/24 MR#: [id number] Acct: [id number] Name: REGGIE COOPER Rep #: [id number] : 1955 Provider: BARON Jones Age/Sex: 68/M Location: [facility] Status: Signed Intake Vital Signs 12/21/23 07:22 05/30/24 14:22 Height 6 ft 1 in 6 ft 1 in Weight: 164 lb BMI 21.6 Intake Visit Reasons: LUMBAR SPINE Chief Complaint: Lumbar spine pain Accompanied by: Friend Is patient in pain?: No Allergies Penicillins Adverse Reaction (Verified 05/30/24 14:27) Diarrhea Medications ???Medication ???Instructions ???Recorded ???Confirmed ???Type clopidogrel 75 mg tablet 75 mg PO DAILY HEART 10/28/1805/21 History atorvastatin 40 mg tablet 40 mg PO QHS CHOLESTEROL 01/04/22 05/30/24 History cholecalciferol (vitamin D3) 100 100 mcg PO DAILY SUPPLEMENT 05/30/24 History mcg (4,000 unit) tablet lisinopril 10 mg tablet 10 mg PO BID BLOOD PRESSURE 05/30/24 History aspirin 81 mg tablet,delayed 81 mg PO BREAKFAST HEART #0 tabs 1 03/07/21 05/30/24 Rx release carvedilol 6.25 mg tablet 6.25 mg PO BIDCM BLOOD PRESSURE 05/30/24 Rx #180 tabs vitamin B complex (B 1 tab PO DAILY SUPPLEMENT 09/22/22 05/30/24 History Complex-Vitamin B12 tablet) benzonatate 100 mg capsule 100 mg PO TID PRN PRN COUGH 14 05/30/24 Rx days #42 caps cyclobenzaprine 10 mg tablet 10 mg PO BID PRN muscle spasm #60 05/30/24 05/30/24 Rx tabs Have you fallen in the past year?: Yes PFSH Medical History Anxiety COPD (chronic obstructive pulmonary disease) Shortness of breath on exertion Leg cramps History of pain when walking History of heart attack History of fracture of femur Alcohol use Ambulates with cane Arthritis High cholesterol Back pain Smoker Hoarseness Cardiology follow-up encounter History of echocardiogram Essential hypertension History of left heart catheterization (LHC) ( 01/04/22) CVA (cerebral vascular accident) Hypokalemia Femur fracture, left Alcohol abuse CVA (cerebral vascular accident) Hypertension Surgical History Hx of hernia repair History of back surgery History of cardiac catheterization History of eye surgery Family History Father CAD (coronary artery disease) Brother CAD (coronary artery disease) Social History household members: none Smoking Status: Heavy Smoker (>10/day) Tobacco: How many years used: 45 alcohol intake: current substance use type: does not use caffeine: Yes Type: coffee Number of servings: 4 HPI LUMBAR SPINE Details: This documentation accurately reflects the service provided and the decisions made by me, BARON Jones 05/30/24 1422. Part of today???s visit was documented by Mary Fields MA, acting as scribe. REGGIE COOPER is a 68 year old M here today for lumbar spine pain. Says that his pain has been worsening over the last 10 years. The patient had a prior L4-5 fusion back in 2008 done at the [facility]. Says that he only had about 1 year of relief after this fusion surgery before his pain returned. He states the pain is so bad, it can drop him. The pain is in the center of the lower back. Denies any pain going down the legs. He states it hurts a lot worse when walking. The pain is so bad that he has to shuffle his feet. Says that he can only walk a couple feet at a time before he needs to sit down due to the pain. This walking distance has been decreasing over the last 10 years. The patient did have to come in in a wheelchair today. The patient says he has not seen pain management but says that a year or 2 after his fusion surgery he did get an injection. Denies any recent injections. Patient stated that he took two Percocet yesterday and he felt better. Says that he feels like his balance has been worsening however he is unsure if this is related to the prior stroke or related to his back pain. Patient also mentions that he has had dexterity issues where he will drop things out of his hands just on a occasional basis but once again thinks this is related to the prior stroke. Takes Clopidogrel after a past stroke. Ortho Exam General General: Yes no acute distress Neurologic: Yes alert and Yes oriented x3 Spine SPINE TESTING CERVICAL THORACIC LUMBAR Musculoskeletal Strength 0=absent - 5=normal Details: Neurological exam of the lower extremities shows 5x5 power. Normal sensations across all dermatomes. No h (more content not included)... Normal [facility] Absolute neutrophil countOrd ered By: Jesus Trujillo on 05-03-2024 Neutrophils (Bld) [#/Vol] 6.2 10*3/uL 2.0-7.7 [facility] Anion gap in Serum or Plasma Ordered By: Jesus Trujillo on 05-03-2024 Anion gap [Moles/Vol] 15 mmol/L 5- [facility] BUN/creatinine ratioOrdered By: Jesus Trujillo on 05-03-2024 Urea nitrogen/Creatinine [Mass ratio] 13.9 mg/mg 10- [facility] Basophil percentageOrdered B y: Jesus Trujillo on 05-03-2024 Basophils/100 WBC (Bld) 0.8 % 0-1 [facility] Bilirubin, totalOrdered By: Jesus Trujillo on 05-03-2024 Bilirubin [Mass/Vol] 0.51 mg/dL 0.00-1.30 [facility] CBC W/Diff, Automatedon Absolute Lymph 1.85 X10 3/uL Normal 0.83-4.51 [facility] Comment on above: Order Comment: Order Date: 05/03/24Order Info: [id number] - CBCD Performed By: #### L 501.5200, L500.4100, L500.4050, L100.0100 ####[facility] [address] [place], [address] Absolute Neut 6.2 X10 3/uL Normal 2.0-7.7 [facility] Comment on above: Order Comment: Order Date: 05/03/24Order Info: [id number] - CBCD Performed By: #### L 501.5200, L500.4100, L500.4050, L100.0100 ####[facility] [address] [place], [address] Basophils/100 WBC (Bld) 0.8 % Normal 0-1 [facility] Comment on above: Order Comment: Order Date: 05/03/24Order Info: [id number] - CBCD Performed By: #### L 501.5200, L500.4100, L500.4050, L100.0100 ####[facility] [address] [place], [address] Eosinophils/100 WBC (Bld) 1.8 % Normal 0-5 [facility] Comment on above: Order Comment: Order Date: 05/03/24Order Info: [id number] - CBCD Performed By: #### L 501.5200, L500.4100, L500.4050, L100.0100 ####[facility] [address] [place], [address] Erythrocyte distribution width (RBC) [Ratio] 12.6 % Normal 11.6-14.6 [facility] Comment on above: Order Comment: Order Date: 05/03/24Order Info: [id number] - CBCD Performed By: #### L 501.5200, L500.4100, L500.4050, L100.0100 ####[facility] [address] [place], [address] Hematocrit (Bld) [Volume fraction] 45.2 % Normal 40-54 [facility] Comment on above: Order Comment: Order Date: 05/03/24Order Info: [id number] - CBCD Performed By: #### L 501.5200, L500.4100, L500.4050, L100.0100 ####[facility] [address] [place], [address] Hemoglobin (Bld) [Mass/Vol] 14.8 g/dL Normal 13.0-16.5 [facility] Comment on above: Order Comment: Order Date: 05/03/24Order Info: [id number] - CBCD Performed By: #### L 501.5200, L500.4100, L500.4050, L100.0100 ####[facility] [address] [place], [address] IG% 0.400 Normal 0.0-0.9 [facility] Comment on above: Order Comment: Order Date: 05/03/24Order Info: [id number] - CBCD Result Comment: IG% - Immature Granulocytes (promyelocytes, myelocytes and metamyelocytes) > 1% indicates that a LEFT SHIFT is Present. Performed By: #### L 501.5200, L500.4100, L500.4050, L100.0100 ####[facility] [address] [place], [address] Lymphocytes/100 WBC (Bld) 20.5 % Normal 19-41 [facility] Comment on above: Order Comment: Order Date: 05/03/24Order Info: [id number] - CBCD Performed By: #### L 501.5200, L500.4100, L500.4050, L100.0100 ####[facility] [address] [place], [address] MCH (RBC) [Entitic mass] 32.5 pg High 27.0-32.0 [facility] Comment on above: Order Comment: Order Date: 05/03/24Order Info: [id number] - CBCD Performed By: #### L 501.5200, L500.4100, L500.4050, L100.0100 ####[facility] [address] [place], [address] MCHC (RBC) [Mass/Vol] 32.7 g/dL Normal 32-36 [facility] Comment on above: Order Comment: Order Date: 05/03/24Order Info: [id number] - CBCD Performed By: #### L 501.5200, L500.4100, L500.4050, L100.0100 ####[facility] [address] [place], [address] MCV (RBC) [Entitic vol] 99.3 fL High 80-94 [facility] Comment on above: Order Comment: Order Date: 05/03/24Order Info: [id number] - CBCD Performed By: #### L 501.5200, L500.4100, L500.4050, L100.0100 ####[facility] [address] [place], [address] Monocytes/100 WBC (Bld) 8.5 % Normal 0-10 [facility] Comment on above: Order Comment: Order Date: 05/03/24Order Info: [id number] - CBCD Performed By: #### L 501.5200, L500.4100, L500.4050, L100.0100 ####[facility] [address] [place], [address] Neutrophils/100 WBC (Bld) 68.0 % Normal 47-70 [facility] Comment on above: Order Comment: Order Date: 05/03/24Order Info: [id number] - CBCD Performed By: #### L 501.5200, L500.4100, L500.4050, L100.0100 ####[facility] [address] [place], [address] Nucleated RBC (Bld) [#/Vol] 0 10*3/uL Normal 0-5 [facility] Comment on above: Order Comment: Order Date: 05/03/24Order Info: [id number] - CBCD Performed By: #### L 501.5200, L500.4100, L500.4050, L100.0100 ####[facility] [address] [place], [address] Platelet mean volume (Bld) [Entitic vol] 9.8 fL Normal 6.2-12.0 [facility] Comment on above: Order Comment: Order Date: 05/03/24Order Info: [id number] - CBCD Performed By: #### L 501.5200, L500.4100, L500.4050, L100.0100 ####[facility] [address] [place], [address] Platelets (Bld) [#/Vol] 264 10*3/uL Normal 150-450 [facility] Comment on above: Order Comment: Order Date: 05/03/24Order Info: [id number] - CBCD Performed By: #### L 501.5200, L500.4100, L500.4050, L100.0100 ####[facility] [address] [place], [address] RBC (Bld) [#/Vol] 4.55 10*6/uL Low 4.6-6.2 [facility] Comment on above: Order Comment: Order Date: 05/03/24Order Info: [id number] - CBCD Performed By: #### L 501.5200, L500.4100, L500.4050, L100.0100 ####[facility] [address] [place], [address] RDW SD 46.4 fl High 35.1-43.9 [facility] Comment on above: Order Comment: Order Date: 05/03/24Order Info: [id number] - CBCD Performed By: #### L 501.5200, L500.4100, L500.4050, L100.0100 ####[facility] [address] [place], [address] WBC (Bld) [#/Vol] 9.0 10*3/uL Normal 4.4-11.0 [facility] Comment on above: Order Comment: Order Date: 05/03/24Order Info: [id number] - CBCD Performed By: #### L 501.5200, L500.4100, L500.4050, L100.0100 ####[facility] [address] [place], [address] Calculated very low density lipoprotein (VLDL) cholesterol measurementOrdered By: Jesus Trujillo on 05-03-2024 VLDL Cholesterol 8 mg/dL 5-40 [facility] Carbon dioxide, total [Moles /volume] in Central venous bloodOrdered By: Jesus Trujillo on 05-03-2024 CO2 [Moles/Vol] 22.5 mmol/L 21.0-32.0 [facility] Chloride assayOrdered By: Marnie Trujillo on 05-03-2024 Chloride [Moles/Vol] 100 mmol/L 98-108 [facility] Cobalamin (Vitamin B12) [Mas s/Vol]Ordered By: Jesus Trujillo on 05-03-2024 Vitamin B12 Level > 4000 pg/mL High 180-914 [facility] Comprehensive Metabolic Prof ilon 05-03-2024 Albumin [Mass/Vol] 4.2 g/dL Normal 3.4-4.8 [facility] Comment on above: Order Comment: Order Date: 05/03/24Order Info: [id number] - CMPOrder Info: [id number] - LIPIDOrder Info: [id number] - MG Performed By: #### L 501.5200, L500.4100, L500.4050, L100.0100 ####[facility] [address] [facility] [place], [place], [id number] Albumin/Globulin [Mass ratio] 1.5 {ratio} Normal 0.9-2.4 [facility] Comment on above: Order Comment: Order Date: 05/03/24Order Info: [id number] - CMPOrder Info: [id number] - LIPIDOrder Info: [id number] - MG Performed By: #### L 501.5200, L500.4100, L500.4050, L100.0100 ####[facility] [address] [facility] [place], [place], [id number] ALK PHOS 84 U/L Normal 40-129 [facility] Comment on above: Order Comment: Order Date: 05/03/24Order Info: [id number] - CMPOrder Info: [id number] - LIPIDOrder Info: [id number] - MG Performed By: #### L 501.5200, L500.4100, L500.4050, L100.0100 ####[facility] [address] [place], [address] ALT [Catalytic activity/Vol] 22 U/L Normal <=46 [facility] Comment on above: Order Comment: Order Date: 05/03/24Order Info: [id number] - CMPOrder Info: [id number] - LIPIDOrder Info: [id number] - MG Performed By: #### L 501.5200, L500.4100, L500.4050, L100.0100 ####[facility] [address] [place], [address] AST [Catalytic activity/Vol] 26 U/L Normal <=37 [facility] Comment on above: Order Comment: Order Date: 05/03/24Order Info: [id number] - CMPOrder Info: [id number] - LIPIDOrder Info: [id number] - MG Performed By: #### L 501.5200, L500.4100, L500.4050, L100.0100 ####[facility] [address] [place], [place], [address] Bilirubin [Mass/Vol] 0.51 mg/dL Normal 0.00-1.30 [facility] Comment on above: Order Comment: Order Date: 05/03/24Order Info: [id number] - CMPOrder Info: [id number] - LIPIDOrder Info: [id number] - MG Performed By: #### L 501.5200, L500.4100, L500.4050, L100.0100 ####[facility] [address] [place], [address] BUN/CRE 13.9 RATIO Normal 10-20 [facility] Comment on above: Order Comment: Order Date: 05/03/24Order Info: [id number] - CMPOrder Info: [id number] - LIPIDOrder Info: [id number] - MG Performed By: #### L 501.5200, L500.4100, L500.4050, L100.0100 ####[facility] [address] [place], [address] Calcium [Mass/Vol] 9.5 mg/dL Normal 7.6-11.0 [facility] Comment on above: Order Comment: Order Date: 05/03/24Order Info: [id number] - CMPOrder Info: [id number] - LIPIDOrder Info: [id number] - MG Performed By: #### L 501.5200, L500.4100, L500.4050, L100.0100 ####[facility] [address] [place], [address] Chloride [Moles/Vol] 100 mmol/L Normal 98-108 [facility] Comment on above: Order Comment: Order Date: 05/03/24Order Info: [id number] - CMPOrder Info: [id number] - LIPIDOrder Info: [id number] - MG Performed By: #### L 501.5200, L500.4100, L500.4050, L100.0100 ####[facility] [address] [place], [address] CO2 [Moles/Vol] 22.5 mmol/L Normal 21.0-32.0 [facility] Comment on above: Order Comment: Order Date: 05/03/24Order Info: [id number] - CMPOrder Info: [id number] - LIPIDOrder Info: [id number] - MG Performed By: #### L 501.5200, L500.4100, L500.4050, L100.0100 ####[facility] [address] [place], [address] Creatinine [Mass/Vol] 0.82 mg/dL Normal 0.70-1.20 [facility] Comment on above: Order Comment: Order Date: 05/03/24Order Info: [id number] - CMPOrder Info: [id number] - LIPIDOrder Info: [id number] - MG Performed By: #### L 501.5200, L500.4100, L500.4050, L100.0100 ####[facility] [address] [place], [address] GAP 15 Normal 5-15 [facility] Comment on above: Order Comment: Order Date: 05/03/24Order Info: [id number] - CMPOrder Info: [id number] - LIPIDOrder Info: [id number] - MG Performed By: #### L 501.5200, L500.4100, L500.4050, L100.0100 ####[facility] [address] [place], [address] GFR/1.73 sq M.predicted among non-blacks MDRD (S/P/Bld) [Vol rate/Area] 97 mL/min/{1.73_m2} Normal >60 [facility] Comment on above: Order Comment: Order Date: 05/03/24Order Info: [id number] - CMPOrder Info: [id number] - LIPIDOrder Info: [id number] - MG Result Comment: mL/m in/1.73m2 CKD-EPI Creatinine Equation (2020) Performed By: #### L 501.5200, L500.4100, L500.4050, L100.0100 ####[facility] [address] [place], [address] Globulin (S) [Mass/Vol] 2.8 g/dL Normal 2.2-4.2 [facility] Comment on above: Order Comment: Order Date: 05/03/24Order Info: [id number] - CMPOrder Info: [id number] - LIPIDOrder Info: [id number] - MG Performed By: #### L 501.5200, L500.4100, L500.4050, L100.0100 ####[facility] [address] [place], [address] Glucose [Mass/Vol] 97 mg/dL Normal 70-99 [facility] Comment on above: Order Comment: Order Date: 05/03/24Order Info: [id number] - CMPOrder Info: [id number] - LIPIDOrder Info: [id number] - MG Performed By: #### L 501.5200, L500.4100, L500.4050, L100.0100 ####[facility] [address] [place], [address] Potassium [Moles/Vol] 4.0 mmol/L Normal 3.3-5.1 [facility] Comment on above: Order Comment: Order Date: 05/03/24Order Info: [id number] - CMPOrder Info: [id number] - LIPIDOrder Info: [id number] - MG Performed By: #### L 501.5200, L500.4100, L500.4050, L100.0100 ####[facility] [address] [place], [address] Sodium [Moles/Vol] 137 mmol/L Normal 133-145 [facility] Comment on above: Order Comment: Order Date: 05/03/24Order Info: [id number] - CMPOrder Info: [id number] - LIPIDOrder Info: [id number] - MG Performed By: #### L 501.5200, L500.4100, L500.4050, L100.0100 ####[facility] [address] [place], [address] T PROT 7.0 g/dL Normal 5.9-8.4 [facility] Comment on above: Order Comment: Order Date: 05/03/24Order Info: [id number] - CMPOrder Info: [id number] - LIPIDOrder Info: [id number] - MG Performed By: #### L 501.5200, L500.4100, L500.4050, L100.0100 ####[facility] [address] [place], [address] Urea nitrogen [Mass/Vol] 11 mg/dL Normal 4-19 [facility] Comment on above: Order Comment: Order Date: 05/03/24Order Info: [id number] - CMPOrder Info: [id number] - LIPIDOrder Info: [id number] - MG Performed By: #### L 501.5200, L500.4100, L500.4050, L100.0100 ####[facility] [address] [place], [place], [address] Eosinophil percentageOrdered By: Jesus Trujillo on 05-03-2024 Eosinophils/100 WBC (Bld) 1.8 % 0-5 [facility] Erythrocyte distribution wid th ratioOrdered By: Jesus Trujillo on 05-03-2024 Erythrocyte distribution width (RBC) [Ratio] 12.6 % 11.6-14.6 [facility] Erythrocyte distribution wid th standard deviationOrdered By: Jesus Trujillo on 05-03-2024 Erythrocyte distribution width (RBC) [Entitic vol] 46.4 fL High 35.1-43.9 [facility] FOLATES,SERUM (FOLIC ACID)on 05-03-2024 FOLATES,SERUM 10.30 ng/mL Normal 4.60-34.80 [facility] Comment on above: Order Comment: N Result Comment: Hemo lysis, Results will be affected, Requires Recollection. Performed By: #### L 503.0106, L506.0200, L506.1001 ####[facility] [address] [place], [place], [id number] Folate [Mass/Vol]Ordered By: Jesus Trujillo on 05-03-2024 Serum Folate 10.30 ng/mL 4.60-34.80 [facility] Comment on above: Hemolysis, Results w ill be affected, Requires Recollection. GFR/1.73 sq M.predicted francia g non-blacks MDRD (S/P/Bld) [Vol rate/Area]Ordered By: Jesus Trujillo on 05-03-2024 Estimated GFR (MDRD) Non-Af Amer 97 >60 [facility] Comment on above: mL/min/1.73m2 CKD-EP I Creatinine Equation (2020) Hematocrit Auto (Bld) [Volum e fraction]Ordered By: Jesus Trujillo on 05-03-2024 Hematocrit (Bld) [Volume fraction] 45.2 % 40-54 [facility] Hemoglobin measurementOrdere d By: Jesus Trujillo on 05-03-2024 Hemoglobin (Bld) [Mass/Vol] 14.8 g/dL 13.0-16.5 [facility] Immature granulocytes/100 WB C Auto (Bld)Ordered By: Jesus Trujillo on 05-03-2024 Immature granulocytes/100 WBC (Bld) 0.400 % 0.0-0.9 [facility] Comment on above: IG% - Immature Granu locytes (promyelocytes, myelocytes and metamyelocytes) > 1% indicates that a LEFT SHIFT is Present. L503.0106on 05-03-2024 Cobalamin (Vitamin B12) [Mass/Vol] pg/mL High 180-914 [facility] Comment on above: Order Comment: Order Date: 05/03/24Order Info: [id number] - CMPOrder Info: [id number] - LIPIDOrder Info: [id number] - MG Performed By: #### L 503.0106, L506.0200, L506.1001 ####[facility] [address] [place], [place], [address] L506.1001on 05-03-2024 Vitamin D 25-OH 46.5 ng/mL Normal 30-100 [facility] Comment on above: Order Comment: Order Date: 05/03/24Order Info: [id number] - CMPOrder Info: [id number] - LIPIDOrder Info: [id number] - MG Result Comment: Ashly min D Status Deficiency: <20 ng/mL (50nmol/L) Insufficiency: 20-30 ng/mL (50-75 nmol/L) Sufficiency: 30-100 ng/mL (75-250 nmol/L) Toxicity: >100 ng/mL (>250 nmol/L) Performed By: #### L 503.0106, L506.0200, L506.1001 ####[facility] [address] [place], [place], [address] LDL calc ser/plasOrdered By: Jesus Trujillo on 05-03-2024 LDL Cholesterol, Calculated 46 mg/dL [facility] Comment on above: Sjgwnpdbvj=624-617 m g/dL & Higher Xmfm=990 mg/dL or greater Laboratory - Chemistry and C hemistry - challengeOrdered By: Jesus Trujillo on 05-03-2024 AST [Catalytic activity/Vol] 26 U/L <38 [facility] Lipid Profileon 05-03-2024 CHOL:HDL 2.03 Normal [facility] Comment on above: Order Comment: Order Date: 05/03/24Order Info: [id number] - CMPOrder Info: [id number] - LIPIDOrder Info: [id number] - MG Performed By: #### L 501.5200, L500.4100, L500.4050, L100.0100 ####[facility] [address] [place], [address] Cholesterol [Mass/Vol] 108 mg/dL Normal <=200 [facility] Comment on above: Order Comment: Order Date: 05/03/24Order Info: [id number] - CMPOrder Info: [id number] - LIPIDOrder Info: [id number] - MG Result Comment: Chol esterol level, Desirable <200 mg/dL Borderline high cholesterol 200-239 mg/dL High cholesterol >=240 mg/dL Recommendations of the NCEP Adult Treatment Panel for the following risk-cutoff thresholds for the [place] population. Performed By: #### L 501.5200, L500.4100, L500.4050, L100.0100 ####[facility] [address] [place], [address] Cholesterol in HDL [Mass/Vol] 53 mg/dL Normal [facility] Comment on above: Order Comment: Order Date: 05/03/24Order Info: [id number] - CMPOrder Info: [id number] - LIPIDOrder Info: [id number] - MG Result Comment: Gertrude onal Cholesterol Education Program (NCEP) guidelines: <40 mg/dL: Low HDL-cholesterol (major risk factor for CHD) >= 60 mg/dL: High HDL-cholesterol (negative risk factor for CHD) HDL-cholesterol is affected by a number of factors, e.g. smoking, exercise, hormones, sex and age. Performed By: #### L 501.5200, L500.4100, L500.4050, L100.0100 ####[facility] [address] [place], [address] Cholesterol in LDL [Mass/Vol] 46 mg/dL Normal [facility] Comment on above: Order Comment: Order Date: 05/03/24Order Info: [id number] - CMPOrder Info: [id number] - LIPIDOrder Info: [id number] - MG Result Comment: Bord jjyvoj=630-618 mg/dL Higher Vieg=178 mg/dL or greater Performed By: #### L 501.5200, L500.4100, L500.4050, L100.0100 ####[facility] [address] [place], [address] Cholesterol in VLDL [Mass/Vol] 8 mg/dL Normal 5-40 [facility] Comment on above: Order Comment: Order Date: 05/03/24Order Info: [id number] - CMPOrder Info: [id number] - LIPIDOrder Info: [id number] - MG Performed By: #### L 501.5200, L500.4100, L500.4050, L100.0100 ####[facility] [address] [place], [address] Triglyceride [Mass/Vol] 42 mg/dL Normal [facility] Comment on above: Order Comment: Order Date: 05/03/24Order Info: [id number] - CMPOrder Info: [id number] - LIPIDOrder Info: [id number] - MG Result Comment: The drugs N-Acetylcysteine and Metamizole may falsely depress this assay. Normal range: <150 mg/dL Borderline High: 150-199 mg/dL High: 200-499 mg/dL Very High: >500 mg/dL Performed By: #### L 501.5200, L500.4100, L500.4050, L100.0100 ####[facility] [address] [place], [address] Lymphocytes Auto (Unsp spec) [#/Vol]Ordered By: Jesus Trujillo on 05-03-2024 Lymphocytes (Bld) [#/Vol] 1.85 10*3/uL 0.83-4.51 [facility] Lymphocytes/100 WBC Auto (Un sp spec)Ordered By: Jesus Trujillo on 05-03-2024 Lymphocytes/100 WBC (Bld) 20.5 % 19-41 [facility] MCV (mean corpuscular volume ) determinationOrdered By: Jesus Trujillo on 05-03-2024 MCV (RBC) [Entitic vol] 99.3 fL High 80-94 [facility] Magnesiumon 05-03-2024 Magnesium [Mass/Vol] 2.0 mg/dL Normal 1.5-2.2 [facility] Comment on above: Order Comment: Order Date: 05/03/24Order Info: [id number] - CMPOrder Info: [id number] - LIPIDOrder Info: [id number] - MG Performed By: #### L 501.5200, L500.4100, L500.4050, L100.0100 ####[facility] [address] [place], [address] Magnesium (Unsp spec) [Mass/ Vol]Ordered By: Jesus Trujillo on 05-03-2024 Magnesium [Mass/Vol] 2.0 mg/dL 1.5-2.2 [facility] Mean corpuscular hemoglobin (MCH) determinationOrdered By: Jesus Trujillo on 05-03-2024 MCH (RBC) [Entitic mass] 32.5 pg High 27.0-32.0 [facility] Mean corpuscular hemoglobin concentration (MCHC) determinationOrdered By: Jesus Trujillo on 05-03-2024 MCHC (RBC) [Mass/Vol] 32.7 g/dL 32-36 [facility] Mean platelet volume determi nationOrdered By: Jesus Trujillo on 05-03-2024 Platelet mean volume (Bld) [Entitic vol] 9.8 fL 6.2-12.0 [facility] Monocyte percentageOrdered B y: Jesus Trujillo on 05-03-2024 Monocytes/100 WBC (Bld) 8.5 % 0-10 [facility] Neutrophil percentageOrdered By: Jesus Trujillo on 05-03-2024 Neutrophils/100 WBC (Bld) 68.0 % 47-70 [facility] Nucleated red blood cell per centageOrdered By: Jesus Trujillo on 05-03-2024 Nucleated RBC/100 WBC (Bld) [Ratio] 0 % 0-5 [facility] Platelet countOrdered By: Marnie Trujillo on 05-03-2024 Platelets (Bld) [#/Vol] 264 10*3/uL 150-450 [facility] Potassium (Unsp spec) [Mass/ Vol]Ordered By: Jesus Trujillo on 05-03-2024 Potassium [Moles/Vol] 4.0 mmol/L 3.3-5.1 [facility] RBC Auto (Bld) [#/Vol]Ordere d By: Jesus Trujillo on 05-03-2024 RBC (Bld) [#/Vol] 4.55 10*6/uL Low 4.6-6.2 [facility] Screening total cholesterol/ high density lipoprotein (HDL) cholesterol ratioOrdered By: Jesus Trujillo on 05-03-2024 Cholesterol.total/Choles terol in HDL [Mass ratio] 2.03 {ratio} [facility] Serum creatinine measurement (mass/volume)Ordered By: Jesus Trujillo on 05-03-2024 Creatinine [Mass/Vol] 0.82 mg/dL 0.70-1.20 [facility] Serum globulin measurementOr dered By: Jesus Trujillo on 05-03-2024 Globulin (S) [Mass/Vol] 2.8 g/dL 2.2-4.2 [facility] Serum glucose measurement (m ass/volume)Ordered By: Jesus Trujillo on 05-03-2024 Glucose [Mass/Vol] 97 mg/dL 70-99 [facility] Serum or plasma alanine serrato otransferase (ALT) measurementOrdered By: Jesus Trujillo on 05-03-2024 ALT [Catalytic activity/Vol] 22 U/L <47 [facility] Serum or plasma albumin ambreen urement (mass/volume)Ordered By: Jesus Trujillo on 05-03-2024 Albumin [Mass/Vol] 4.2 g/dL 3.4-4.8 [facility] Serum or plasma albumin/glob ulin mass ratioOrdered By: Jesus Trujillo on 05-03-2024 Albumin/Globulin [Mass ratio] 1.5 {ratio} 0.9-2.4 [facility] Serum or plasma alkaline ector sphatase measurementOrdered By: Jesus Trujillo on 05-03-2024 ALP [Catalytic activity/Vol] 84 U/L 40-129 [facility] Serum or plasma calcium ambreen urement (mass/volume)Ordered By: Jesus Trujillo on 05-03-2024 Calcium [Mass/Vol] 9.5 mg/dL 7.6-11.0 [facility] Serum or plasma cholesterol in HDL measurement (mass/volume)Ordered By: Jesus Trujillo on 05-03-2024 Cholesterol in HDL [Mass/Vol] 53 mg/dL >40 [facility] Comment on above: National Cholesterol Education Program (NCEP) guidelines:<40 mg/dL: Low HDL-cholesterol (major risk factor for CHD)>= 60 mg/dL: High HDL-cholesterol (negative risk factor for CHD)HDL-cholesterol is affected by a number of factors, e.g. smoking, exercise, hormones, sex and age. Serum or plasma cholesterol measurement (mass/volume)Ordered By: Jesus Trujillo on 05-03-2024 Cholesterol [Mass/Vol] 108 mg/dL <201 [facility] Comment on above: Cholesterol level, D esirable <200 mg/dLBorderline high cholesterol 200-239 mg/dLHigh cholesterol >=240 mg/dLRecommendations of the NCEP Adult Treatment Panel for the following risk-cutoff thresholds for the [place] population. Serum or plasma urea nitroge n measurement (mass/volume)Ordered By: Jesus Trujillo on 05-03-2024 Urea nitrogen [Mass/Vol] 11 mg/dL 4-19 [facility] Sodium levelOrdered By: Jesus Trujillo on 05-03-2024 Sodium [Moles/Vol] 137 mmol/L 133-145 [facility] Total proteinOrdered By: Adrien Trujillo on 05-03-2024 Protein [Mass/Vol] 7.0 g/dL 5.9-8.4 [facility] Triglycerides measurementOrd ered By: Jesus Trujillo on 05-03-2024 Triglyceride [Mass/Vol] 42 mg/dL <199 [facility] Comment on above: The drugs N-Acetylcy steine and Metamizole may falsely depress this assay. Normal range: <150 mg/dLBorderline High: 150-199 mg/dLHigh: 200-499 mg/dLVery High: >500 mg/dL Vitamin D, 25-hydroxyOrdered By: Jesus Trujillo on 05-03-2024 Vitamin D 25-Hydroxy 46.5 ng/mL 30-100 [facility] Comment on above: Vitamin D StatusDefi ciency: <20 ng/mL (50nmol/L)Insufficiency: 20-30 ng/mL (50-75 nmol/L)Sufficiency: 30-100 ng/mL (75-250 nmol/L)Toxicity: >100 ng/mL (>250 nmol/L) White blood cell (WBC) count Ordered By: Jesus Trujillo on 05-03-2024 WBC (Bld) [#/Vol] 9.0 10*3/uL 4.4-11.0 [facility] Head/Neck Soft Tissueon 12-2 Head/Neck Soft Tissue [facility] Imaging Services [address] [place], [place] [address] Head/Neck Soft Tissue MR#: [id number] Acct: [id number] Name: REGGIE COOPER Rep #: [id number] : 1955 M 68 From: Uli Asher DO PCP: Dr. Jesus Trujillo MD Status: [facility] Study: Head/Neck Soft Tissue Date of Exam: 02/20/24 Exam# [id number] Ordering Dr: Jesus Trujillo MD [id number] INDICATION: right submandibular LA EXAMINATION: Ultrasound US Head/Neck Soft Tissue TECHNIQUE: Jimenez scale and color doppler imaging was performed of the neck. COMPARISON: __ FINDINGS: There is a 1.2 x 0.9 x 0.6 cm subcutaneous nodule in the right submandibular area with a slightly echogenic center, likely a lymph node . US/Head/Neck Soft Tissue IMPRESSION: Probable right submandibular node is noted. Electronically Signed: Uli Asher DO at 16:14 EST Reading Location ID and State: [facility] / [place] Tel [phone], Service support , CC: Dr. 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 Jesus Trujillo MD Status: [facility] Study: Low Dose CT Lung Screening Date of Exam: 02/19 Exam# [id number] Ordering Dr: Jesus Trujillo MD [id number] EXAM: CT CHEST WITHOUT INTRAVENOUS CONTRAST CLINICAL INDICATION: smoker TECHNIQUE: Helically acquired images were obtained of the chest without intravenous contrast. This CT exam was performed using one or more of the following dose reduction techniques: automated exposure control, adjustment of the mA and/or kV according to patient size, and/or use of iterative reconstruction technique. RADIATION DOSE: CTDIvol = 3.02 mGy, DLP = 112.87 mGy-cm COMPARISON: CTA chest from 01/04/2022 FINDINGS: LUNGS AND PLEURAL SPACES: There are a few stable, benign subpleural nodules in the right middle and right lower lobes measuring 4 mm. Mild centrilobular emphysematous changes in the upper lobes. Benign calcified granuloma in the right upper lobe. No pneumothorax. HEART: Coronary artery calcifications. Heart size is normal. No pericardial effusion. MEDIASTINUM: Unremarkable. No mediastinal or hilar adenopathy. Esophagus is unremarkable. No hiatal hernia. THYROID: Unremarkable. No thyroid lesions. BONES/JOINTS: Degenerative changes of the spine. No suspicious lytic or blastic abnormality. VASCULATURE: Severe atherosclerotic calcifications of the thoracic aorta without dilation. CT/Low Dose CT Lung Screening IMPRESSION: 1. There are a few stable, benign subpleural nodules in the right middle and right lower lobes measuring 4 mm, unchanged compared with the December [address] Screening Reporting And Data System (Lung-RADS) score: 2S - Benign Appearance or Behavior. Additional clinically significant or potentially clinically significant findings are described. Recommend continued annual screening with a low-dose CT (LDCT) in 12 months. 2. Coronary artery calcifications. Electronically Signed: Farhan Guaman MD at 7:44 EST , CC: Dr. 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 Performed By: #### L 501.9985 ####[facility] [address] [place], [place], [address] 21-AZ-Naymdtd DOrdered By: Flcao Trujillo on 01-31-2024 Vitamin D 25-Hydroxy 52.3 ng/mL [facility] Comment on above: Vitamin D 25(OH) Sta tus Range Deficiency <20 ng/mL (50nmol/L) Insufficiency 20 - 30 ng/mL (50 - 75 nmol/L) Sufficiency 30 - 100 ng/mL (75 - 250 nmol/L) Toxicity >100 ng/mL (>250 nmol/L) Absolute neutrophil countOrd ered By: Jesus Trujillo on 01-31-2024 Neutrophils (Bld) [#/Vol] 7.0 10*3/uL 2.0-7.7 [facility] Albumin to globulin ratioOrd ered By: Jesus Cassandra on 01-31-2024 Albumin/Globulin [Mass ratio] 1.0 {ratio} 0.9-2.4 [facility] Basophil percentageOrdered B y: Jesus Trujillo on 01-31-2024 Basophils/100 WBC (Bld) 1.3 % High 0-1 [facility] Bilirubin, totalOrdered By: Jesus Trujillo on 01-31-2024 Bilirubin [Mass/Vol] 0.40 mg/dL 0.20-1.00 [facility] Comment on above: For patients on eltr ombopag therapy, use of Dimension [place] TBIL is not recommended. Blood urea nitrogen (BUN)/cr eatinine ratioOrdered By: Jesus Trujillo on 01-31-2024 Urea nitrogen/Creatinine [Mass ratio] 13.5 mg/mg 10-20 [facility] CBC W/Diff, Automatedon Absolute Lymph 1.83 X10 3/uL Normal 0.83-4.51 [facility] Comment on above: Order Comment: Order Date: 01/31/24Order Info: [id number] - CBCD Performed By: #### L 503.0105, L100.0100, L506.1000, L500.4100, L501.5200, L506.0250 ####[facility] [address] [place], [place], [phone] Absolute Neut 7.0 X10 3/uL Normal 2.0-7.7 [facility] Comment on above: Order Comment: Order Date: 01/31/24Order Info: [id number] - CBCD Performed By: #### L 503.0105, L100.0100, L506.1000, L500.4100, L501.5200, L506.0250 ####[facility] [address] [place], [place], [address] Basophils/100 WBC (Bld) 1.3 % High 0-1 [facility] Comment on above: Order Comment: Order Date: 01/31/24Order Info: [id number] - CBCD Performed By: #### L 503.0105, L100.0100, L506.1000, L500.4100, L501.5200, L506.0250 ####[facility] [address] [place], [address] Eosinophils/100 WBC (Bld) 1.7 % Normal 0-5 [facility] Comment on above: Order Comment: Order Date: 01/31/24Order Info: [id number] - CBCD Performed By: #### L 503.0105, L100.0100, L506.1000, L500.4100, L501.5200, L506.0250 ####[facility] [address] [place], [address] Erythrocyte distribution width (RBC) [Ratio] 13.7 % Normal 11.6-14.6 [facility] Comment on above: Order Comment: Order Date: 01/31/24Order Info: [id number] - CBCD Performed By: #### L 503.0105, L100.0100, L506.1000, L500.4100, L501.5200, L506.0250 ####[facility] [address] [place], [address] Hematocrit (Bld) [Volume fraction] 45.8 % Normal 40-54 [facility] Comment on above: Order Comment: Order Date: 01/31/24Order Info: [id number] - CBCD Performed By: #### L 503.0105, L100.0100, L506.1000, L500.4100, L501.5200, L506.0250 ####[facility] [address] [place], [address] Hemoglobin (Bld) [Mass/Vol] 15.0 g/dL Normal 13.0-16.5 [facility] Comment on above: Order Comment: Order Date: 01/31/24Order Info: [id number] - CBCD Performed By: #### L 503.0105, L100.0100, L506.1000, L500.4100, L501.5200, L506.0250 ####[facility] [address] [place], [address] IG% 2.300 High 0.0-0.9 [facility] Comment on above: Order Comment: Order Date: 01/31/24Order Info: [id number]- - CBCD Result Comment: IG% - Immature Granulocytes (promyelocytes, myelocytes and metamyelocytes) > 1% indicates that a LEFT SHIFT is Present. Performed By: #### L 503.0105, L100.0100, L506.1000, L500.4100, L501.5200, L506.0250 ####[facility] [address] [place], [address] Lymphocytes/100 WBC (Bld) 17.8 % Low 19-41 [facility] Comment on above: Order Comment: Order Date: 01/31/24Order Info: [id number] - CBCD Performed By: #### L 503.0105, L100.0100, L506.1000, L500.4100, L501.5200, L506.0250 ####[facility] [address] [place], [address] MCH (RBC) [Entitic mass] 32.8 pg High 27.0-32.0 [facility] Comment on above: Order Comment: Order Date: 01/31/24Order Info: [id number] - CBCD Performed By: #### L 503.0105, L100.0100, L506.1000, L500.4100, L501.5200, L506.0250 ####[facility] [address] [place], [address] MCHC (RBC) [Mass/Vol] 32.8 g/dL Normal 32-36 [facility] Comment on above: Order Comment: Order Date: 01/31/24Order Info: [id number] - CBCD Performed By: #### L 503.0105, L100.0100, L506.1000, L500.4100, L501.5200, L506.0250 ####[facility] [address] [place], [address] MCV (RBC) [Entitic vol] 100.0 fL High 80-94 [facility] Comment on above: Order Comment: Order Date: 01/31/24Order Info: [id number] - CBCD Performed By: #### L 503.0105, L100.0100, L506.1000, L500.4100, L501.5200, L506.0250 ####[facility] [address] [facility] [place], [address] Monocytes/100 WBC (Bld) 8.8 % Normal 0-10 [facility] Comment on above: Order Comment: Order Date: 01/31/24Order Info: 018- - CBCD Performed By: #### L 503.0105, L100.0100, L506.1000, L500.4100, L501.5200, L506.0250 ####[facility] [address] [facility] [place], [address] Neutrophils/100 WBC (Bld) 68.1 % Normal 47-70 [facility] Comment on above: Order Comment: Order Date: 01/31/24Order Info: [id number] - CBCD Performed By: #### L 503.0105, L100.0100, L506.1000, L500.4100, L501.5200, L506.0250 ####[facility] [address] [facility] [place], [address] Nucleated RBC (Bld) [#/Vol] 0 10*3/uL Normal 0-5 [facility] Comment on above: Order Comment: Order Date: 01/31/24Order Info: [id number] - CBCD Performed By: #### L 503.0105, L100.0100, L506.1000, L500.4100, L501.5200, L506.0250 ####[facility] [address] [place], [address] Platelet mean volume (Bld) [Entitic vol] 9.7 fL Normal 6.2-12.0 [facility] Comment on above: Order Comment: Order Date: 01/31/24Order Info: [id number] - CBCD Performed By: #### L 503.0105, L100.0100, L506.1000, L500.4100, L501.5200, L506.0250 ####[facility] [address] [place], [address] Platelets (Bld) [#/Vol] 327 10*3/uL Normal 150-450 [facility] Comment on above: Order Comment: Order Date: 01/31/24Order Info: [id number] - CBCD Performed By: #### L 503.0105, L100.0100, L506.1000, L500.4100, L501.5200, L506.0250 ####[facility] [address] [facility] [place], [address] RBC (Bld) [#/Vol] 4.58 10*6/uL Low 4.6-6.2 [facility] Comment on above: Order Comment: Order Date: 01/31/24Order Info: [id number] - CBCD Performed By: #### L 503.0105, L100.0100, L506.1000, L500.4100, L501.5200, L506.0250 ####[facility] [address] [facility] [place], [address] RDW SD 50.4 fl High 35.1-43.9 [facility] Comment on above: Order Comment: Order Date: 01/31/24Order Info: [id number] - CBCD Performed By: #### L 503.0105, L100.0100, L506.1000, L500.4100, L501.5200, L506.0250 ####[facility] [address] [place], [address] WBC (Bld) [#/Vol] 10.3 10*3/uL Normal 4.4-11.0 [facility] Comment on above: Order Comment: Order Date: 01/31/24Order Info: [id number] - CBCD Performed By: #### L 503.0105, L100.0100, L506.1000, L500.4100, L501.5200, L506.0250 ####[facility] [address] [place], [address] Carbon dioxide measurementOr dered By: Jesus Trujillo on 01-31-2024 CO2 [Moles/Vol] 26.0 mmol/L 21.0-32.0 [facility] Chloride measurementOrdered By: Jesus Trujillo on 01-31-2024 Chloride [Moles/Vol] 106 mmol/L 98-107 [facility] Comprehensive Metabolic Prof ilon 01-31-2024 Albumin [Mass/Vol] 3.7 g/dL Normal 3.2-5.0 [facility] Comment on above: Order Comment: Order Date: 01/31/24Order Info: [id number] - CMPOrder Info: [id number] - LIPIDOrder Info: [id number] - MGOrder Info: [id number] - fOLATESN Performed By: #### L 500.4050 ####[facility] [address] [place], [address] Albumin/Globulin [Mass ratio] 1.0 {ratio} Normal 0.9-2.4 [facility] Comment on above: Order Comment: Order Date: 01/31/24Order Info: [id number] - CMPOrder Info: [id number] - LIPIDOrder Info: [id number] - MGOrder Info: [id number] - fOLATESN Performed By: #### L 500.4050 ####[facility] [address] [place], [address] ALK P 75 U/L Normal 45-117 [facility] Comment on above: Order Comment: Order Date: 01/31/24Order Info: [id number] - CMPOrder Info: [id number] - LIPIDOrder Info: [id number] - MGOrder Info: [id number] - fOLATESN Performed By: #### L 500.4050 ####[facility] [address] [place], [address] ALT [Catalytic activity/Vol] 42 U/L Normal 16-61 [facility] Comment on above: Order Comment: Order Date: 01/31/24Order Info: [id number] - CMPOrder Info: [id number] - LIPIDOrder Info: [id number] - MGOrder Info: [id number] - fOLATESN Performed By: #### L 500.4050 ####[facility] [address] [place], [address] AST [Catalytic activity/Vol] 34 U/L Normal 15-37 [facility] Comment on above: Order Comment: Order Date: 01/31/24Order Info: [id number] - CMPOrder Info: [id number] - LIPIDOrder Info: [id number] - MGOrder Info: [id number] - fOLATESN Performed By: #### L 500.4050 ####[facility] [address] [place], [address] Bilirubin [Mass/Vol] 0.40 mg/dL Normal 0.20-1.00 [facility] Comment on above: Order Comment: Order Date: 01/31/24Order Info: [id number] - CMPOrder Info: [id number] - LIPIDOrder Info: [id number] - MGOrder Info: [id number] - fOLATESN Result Comment: For patients on eltrombopag therapy, use of Dimension [place] TBIL is not recommended. Performed By: #### L 500.4050 ####[facility] [address] [place], [address] BUN/CRE 13.5 RATIO Normal 10-20 [facility] Comment on above: Order Comment: Order Date: 01/31/24Order Info: [id number] - CMPOrder Info: [id number] - LIPIDOrder Info: [id number] - MGOrder Info: [id number] - fOLATESN Performed By: #### L 500.4050 ####[facility] [address] [place], [address] CA,Total 9.3 mg/dL Normal 8.5-10.1 [facility] Comment on above: Order Comment: Order Date: 01/31/24Order Info: [id number] - CMPOrder Info: [id number] - LIPIDOrder Info: [id number] - MGOrder Info: [id number] - fOLATESN Performed By: #### L 500.4050 ####[facility] [address] [place], [place], [id number]) Chloride [Moles/Vol] 106 mmol/L Normal 98-107 [facility] Comment on above: Order Comment: Order Date: 01/31/24Order Info: [id number] - CMPOrder Info: [id number] - LIPIDOrder Info: [id number] - MGOrder Info: [id number] - fOLATESN Performed By: #### L 500.4050 ####[facility] [address] [place], [address] CO2 [Moles/Vol] 26.0 mmol/L Normal 21.0-32.0 [facility] Comment on above: Order Comment: Order Date: 01/31/24Order Info: [id number] - CMPOrder Info: [id number] - LIPIDOrder Info: [id number] - MGOrder Info: [id number] - fOLATESN Performed By: #### L 500.4050 ####[facility] [address] [place], [address] Creatinine [Mass/Vol] 0.89 mg/dL Normal 0.70-1.30 [facility] Comment on above: Order Comment: Order Date: 01/31/24Order Info: [id number] - CMPOrder Info: [id number] - LIPIDOrder Info: [id number] - MGOrder Info: [id number] - fOLATESN Result Comment: The validity of the calculated GFR GFRAA in patients over 70 years has not been determined. Clinical correlation is essential. Performed By: #### L 500.4050 ####[facility] [address] [place], [address] EST GFR - AA 110 mL/min Normal >60 [facility] Comment on above: Order Comment: Order Date: 01/31/24Order Info: [id number] - CMPOrder Info: [id number] - LIPIDOrder Info: [id number] - MGOrder Info: [id number] - fOLATESN Result Comment: Afri can Iraqi GFR Calc Performed By: #### L 500.4050 ####[facility] [address] [place], [place], [address] GAP 6 Normal 5-15 [facility] Comment on above: Order Comment: Order Date: 01/31/24Order Info: [id number] - CMPOrder Info: [id number] - LIPIDOrder Info: [id number] - MGOrder Info: [id number] - fOLATESN Performed By: #### L 500.4050 ####[facility] [address] [place], [address] GFR/1.73 sq M.predicted among non-blacks MDRD (S/P/Bld) [Vol rate/Area] 91 mL/min/{1.73_m2} Normal >60 [facility] Comment on above: Order Comment: Order Date: 01/31/24Order Info: [id number] - CMPOrder Info: [id number] - LIPIDOrder Info: [id number] - MGOrder Info: [id number] - fOLATESN Result Comment: Non- GFR Calc Performed By: #### L 500.4050 ####[facility] [address] [place], [place], [address] Globulin (S) [Mass/Vol] 3.7 g/dL Normal 2.2-4.2 [facility] Comment on above: Order Comment: Order Date: 01/31/24Order Info: [id number] - CMPOrder Info: [id number] - LIPIDOrder Info: [id number] - MGOrder Info: [id number] - fOLATESN Performed By: #### L 500.4050 ####[facility] [address] [place], [address] Glucose [Mass/Vol] 112 mg/dL High 74-106 [facility] Comment on above: Order Comment: Order Date: 01/31/24Order Info: [id number] - CMPOrder Info: [id number] - LIPIDOrder Info: [id number] - MGOrder Info: [id number] - fOLATESN Result Comment: Fast ing Glucose result from 100 to 125 mg/dL suggests IMPAIRED HOMEOSTASIS per A.D.A. criteria. Performed By: #### L 500.4050 ####[facility] [address] [place], [place], [address] Potassium [Moles/Vol] 3.9 mmol/L Normal 3.5-5.1 [facility] Comment on above: Order Comment: Order Date: 01/31/24Order Info: [id number] - CMPOrder Info: [id number] - LIPIDOrder Info: [id number] - MGOrder Info: [id number] - fOLATESN Performed By: #### L 500.4050 ####[facility] [address] [place], [address] Sodium [Moles/Vol] 138 mmol/L Normal 136-145 [facility] Comment on above: Order Comment: Order Date: 01/31/24Order Info: [id number] - CMPOrder Info: [id number] - LIPIDOrder Info: [id number] - MGOrder Info: [id number] - fOLATESN Performed By: #### L 500.4050 ####[facility] [address] [place], [address] T PROT 7.4 g/dL Normal 6.4-8.2 [facility] Comment on above: Order Comment: Order Date: 01/31/24Order Info: [id number] - CMPOrder Info: [id number] - LIPIDOrder Info: [id number] - MGOrder Info: 8 - fOLATESN Performed By: #### L 500.4050 ####[facility] [address] [place], [place], [address] Urea nitrogen [Mass/Vol] 12 mg/dL Normal 7-18 [facility] Comment on above: Order Comment: Order Date: 01/31/24Order Info: [id number] - CMPOrder Info: [id number] - LIPIDOrder Info: [id number] - MGOrder Info: [id number] - fOLATESN Performed By: #### L 500.4050 ####[facility] [address] [place], [place], [address] Eosinophil percentageOrdered By: Jesus Trujillo on 01-31-2024 Eosinophils/100 WBC (Bld) 1.7 % 0-5 [facility] Erythrocyte distribution wid th ratioOrdered By: Jesus Trujillo on 01-31-2024 Erythrocyte distribution width (RBC) [Ratio] 13.7 % 11.6-14.6 [facility] Erythrocyte distribution wid th standard deviationOrdered By: Jesus Trujillo on 01-31-2024 Erythrocyte distribution width (RBC) [Entitic vol] 50.4 fL High 35.1-43.9 [facility] Estimated glomerular filtrat ion rate (GFR) AmericanOrdered By: Jesus Trujillo on 01-31-2024 Estimated GFR (MDRD) Amer 110 mL/min >60 [facility] Comment on above: GFR Calc Folates, (Folic Acid)on FOLATES 11.90 ng/mL Normal 3.1-55.4 [facility] Comment on above: Order Comment: Order Date: 01/31/24Order Info: [id number] - CMPOrder Info: [id number] - LIPIDOrder Info: [id number] - MGOrder Info: 8 - fOLATESN Performed By: #### L 503.0105, L100.0100, L506.1000, L500.4100, L501.5200, L506.0250 ####[facility] [address] [place], [address] Folic acid measurementOrdere d By: Jesus Trujillo on 01-31-2024 Folate 11.90 ng/mL 3.1-55.4 [facility] Glomerular filtration rate ( GFR) estimationOrdered By: Jesus Trujillo on 01-31-2024 Estimated GFR (MDRD) Non-Af Amer 91 mL/min >60 [facility] Comment on above: Non- GFR Calc Glucose measurementOrdered B y: Jesus Trujillo on 01-31-2024 Glucose [Mass/Vol] 112 mg/dL High 74-106 [facility] Comment on above: Fasting Glucose resu lt from 100 to 125 mg/dL suggests IMPAIRED HOMEOSTASIS per A.D.A. criteria. Hematocrit Auto (Bld) [Volum e fraction]Ordered By: Jesus Trujillo on 01-31-2024 Hematocrit (Bld) [Volume fraction] 45.8 % 40-54 [facility] Hemoglobin A1c percentageOrd ered By: Jesus Trujillo on 01-31-2024 HbA1c (Bld) [Mass fraction] 5.8 % High 3.8-5.6 [facility] Comment on above: Normal < 5.7 % Predi abetic 5.7 - 6.4 % Diabetic >or= 6.5 % Please note range changes. Hemoglobin measurementOrdere d By: Jesus Trujillo on 01-31-2024 Hemoglobin (Bld) [Mass/Vol] 15.0 g/dL 13.0-16.5 [facility] High density lipoprotein (HD L) measurementOrdered By: Jesus Trujillo on 01-31-2024 Cholesterol in HDL [Mass/Vol] 58 mg/dL >40 [facility] Comment on above: The drugs N-Acetylcy steine and Metamizole may falsely depress this assay. Reference Range HDL <40 mg/dL Low HDL Cholesterol HDL >or= 60 mg/dL High HDL Cholesterol Immature granulocytes/100 WB C Auto (Bld)Ordered By: Jesus Trujillo on 12-04-2024 Immature granulocytes/100 WBC (Bld) 2.300 % High 0.0-0.9 [facility] Comment on above: IG% - Immature Granu locytes (promyelocytes, myelocytes and metamyelocytes) > 1% indicates that a LEFT SHIFT is Present. Laboratory - Chemistry and C hemistry - challengeOrdered By: Jesus Trujillo on 01-31-2024 AST [Catalytic activity/Vol] 34 U/L 15-37 [facility] Lipid Profileon 01-31-2024 Cholesterol [Mass/Vol] 149 mg/dL Normal 200 [facility] Comment on above: Order Comment: Order Date: 01/31/24Order Info: [id number] - CMPOrder Info: [id number] - LIPIDOrder Info: [id number] - MGOrder Info: [id number] - fOLATESN Result Comment: <200 mg/dL Desirable 200-240 mg/dL Borderline >240 mg/dL High Risk Performed By: #### L 503.0105, L100.0100, L506.1000, L500.4100, L501.5200, L506.0250 ####[facility] [address] [place], [address] Cholesterol in HDL [Mass/Vol] 58 mg/dL Normal [facility] Comment on above: Order Comment: Order Date: 01/31/24Order Info: [id number] - CMPOrder Info: [id number] - LIPIDOrder Info: [id number] - MGOrder Info: [id number] - fOLATESN Result Comment: The drugs N-Acetylcysteine and Metamizole may falsely depress this assay. Reference Range HDL <40 mg/dL Low HDL Cholesterol HDL >or= 60 mg/dL High HDL Cholesterol Performed By: #### L 503.0105, L100.0100, L506.1000, L500.4100, L501.5200, L506.0250 ####[facility] [address] [place], [address] Cholesterol in LDL [Mass/Vol] 79 mg/dL Normal 0-130 [facility] Comment on above: Order Comment: Order Date: 01/31/24Order Info: [id number] - CMPOrder Info: [id number] - LIPIDOrder Info: [id number] - MGOrder Info: [id number] - fOLATESN Performed By: #### L 503.0105, L100.0100, L506.1000, L500.4100, L501.5200, L506.0250 ####[facility] [address] [place], [place], [id number]) Cholesterol in VLDL [Mass/Vol] 12 mg/dL Normal 5-40 [facility] Comment on above: Order Comment: Order Date: 01/31/24Order Info: [id number] - CMPOrder Info: [id number] - LIPIDOrder Info: [id number] - MGOrder Info: [id number] - fOLATESN Performed By: #### L 503.0105, L100.0100, L506.1000, L500.4100, L501.5200, L506.0250 ####[facility] [address] [place], [address] Triglyceride [Mass/Vol] 58 mg/dL Normal [facility] Comment on above: Order Comment: Order Date: 01/31/24Order Info: [id number] - CMPOrder Info: [id number] - LIPIDOrder Info: [id number] - MGOrder Info: [id number] - fOLATESN Result Comment: The drugs N-Acetylcysteine and Metamizole may falsely depress this assay. Serum Triglycerides Reference Interval Normal <150 mg/dL Borderline high 150 - 199 mg/dL High 200 - 499 mg/dL Very High > or = 500 mg/dL Performed By: #### L 503.0105, L100.0100, L506.1000, L500.4100, L501.5200, L506.0250 ####[facility] [address] [place], [address] Low density lipoprotein (LDL ) cholesterol measurementOrdered By: Jesus Trujillo on 01-31-2024 Cholesterol in LDL [Mass/Vol] 79 mg/dL 0-130 [facility] Lymphocytes Auto (Unsp spec) [#/Vol]Ordered By: Jesus Trujillo on 01-31-2024 Lymphocytes (Bld) [#/Vol] 1.83 10*3/uL 0.83-4.51 [facility] Lymphocytes/100 WBC Auto (Un sp spec)Ordered By: Jesus Trujillo on 01-31-2024 Lymphocytes/100 WBC (Bld) 17.8 % Low 19-41 [facility] MCV (mean corpuscular volume ) determinationOrdered By: Jesus Trujillo on 01-31-2024 MCV (RBC) [Entitic vol] 100.0 fL High 80-94 [facility] Magnesiumon 01-31-2024 Magnesium [Mass/Vol] 2.1 mg/dL Normal 1.6-2.6 [facility] Comment on above: Order Comment: Order Date: 01/31/24Order Info: [id number] - CMPOrder Info: [id number] - LIPIDOrder Info: [id number] - MGOrder Info: [id number] - fOLATESN Performed By: #### L 503.0105, L100.0100, L506.1000, L500.4100, L501.5200, L506.0250 ####[facility] [address] [facility] [place], [place], [id number] Magnesium measurementOrdered By: Jesus Trujillo on 01-31-2024 Magnesium [Mass/Vol] 2.1 mg/dL 1.6-2.6 [facility] Mean corpuscular hemoglobin (MCH) determinationOrdered By: Jesus Trujillo on 01-31-2024 MCH (RBC) [Entitic mass] 32.8 pg High 27.0-32.0 [facility] Mean corpuscular hemoglobin concentration (MCHC) determinationOrdered By: Jesus Trujillo on 01-31-2024 MCHC (RBC) [Mass/Vol] 32.8 g/dL 32-36 [facility] Mean platelet volume determi nationOrdered By: Jesus Trujillo on 01-31-2024 Platelet mean volume (Bld) [Entitic vol] 9.7 fL 6.2-12.0 [facility] Monocyte percentageOrdered B y: Jesus Trujillo on 01-31-2024 Monocytes/100 WBC (Bld) 8.8 % 0-10 [facility] Neutrophil percentageOrdered By: Jesus Trujillo on 01-31-2024 Neutrophils/100 WBC (Bld) 68.1 % 47-70 [facility] Nucleated red blood cell per centageOrdered By: Jesus Trujillo on 01-31-2024 Nucleated RBC/100 WBC (Bld) [Ratio] 0 % 0-5 [facility] Platelet countOrdered By: Marnie Trujillo on 01-31-2024 Platelets (Bld) [#/Vol] 327 10*3/uL 150-450 [facility] Potassium measurementOrdered By: Jesus Trujillo on 01-31-2024 Potassium [Moles/Vol] 3.9 mmol/L 3.5-5.1 [facility] RBC Auto (Bld) [#/Vol]Ordere d By: Jesus Trujillo on 01-31-2024 RBC (Bld) [#/Vol] 4.58 10*6/uL Low 4.6-6.2 [facility] Serum anion gap measurementO rdered By: Jesus Trujillo on 01-31-2024 Anion gap [Moles/Vol] 6 mmol/L 5-15 [facility] Serum globulin measurementOr dered By: Jesus Trujillo on 01-31-2024 Globulin (S) [Mass/Vol] 3.7 g/dL 2.2-4.2 [facility] Serum or plasma alanine serrato otransferase (ALT) measurementOrdered By: Jesus Trujillo on 01-31-2024 ALT [Catalytic activity/Vol] 42 U/L 16-61 [facility] Serum or plasma albumin ambreen urement (mass/volume)Ordered By: Jesus Trujillo on 01-31-2024 Albumin [Mass/Vol] 3.7 g/dL 3.2-5.0 [facility] Serum or plasma alkaline ector sphatase measurementOrdered By: Jesus Trujillo on 01-31-2024 ALP [Catalytic activity/Vol] 75 U/L 45-117 [facility] Serum or plasma calcium ambreen urement (mass/volume)Ordered By: Jesus Trujlilo on 01-31-2024 Calcium [Mass/Vol] 9.3 mg/dL 8.5-10.1 [facility] Serum or plasma cholesterol measurement (mass/volume)Ordered By: Jesus Trujillo on 01-31-2024 Cholesterol [Mass/Vol] 149 mg/dL <200 [facility] Comment on above: <200 mg/dL Desirable 200-240 mg/dL Borderline >240 mg/dL High Risk Serum or plasma creatinine m easurement (mass/volume)Ordered By: Jesus Trujillo on 01-31-2024 Creatinine [Mass/Vol] 0.89 mg/dL 0.70-1.30 [facility] Comment on above: The validity of the calculated GFR & GFRAA in patients over 70 years has not been determined. Clinical correlation is essential. Serum or plasma urea nitroge n measurement (mass/volume)Ordered By: Jesus Trujillo on 01-31-2024 Urea nitrogen [Mass/Vol] 12 mg/dL 7-18 [facility] Sodium levelOrdered By: Jesus Trujillo on 01-31-2024 Sodium [Moles/Vol] 138 mmol/L 136-145 [facility] Total proteinOrdered By: Adrien Trujillo on 01-31-2024 Protein [Mass/Vol] 7.4 g/dL 6.4-8.2 [facility] Triglycerides measurementOrd ered By: Jesus Trujillo on 01-31-2024 Triglyceride [Mass/Vol] 58 mg/dL <199 [facility] Comment on above: The drugs N-Acetylcy steine and Metamizole may falsely depress this assay.Serum Triglycerides Reference Interval Normal <150 mg/dL Borderline high 150 - 199 mg/dL High 200 - 499 mg/dL Very High > or = 500 mg/dL Very low density lipoprotein (VLDL) cholesterol measurementOrdered By: Jesus Trujillo on 01-31-2024 VLDL Cholesterol 12 mg/dL 5-40 [facility] Vitamin B12on 01-31-2024 Cobalamin (Vitamin B12) [Mass/Vol] pg/mL High 211-911 [facility] Comment on above: Order Comment: Order Date: 01/31/24Order Info: [id number] - [id number] Info: [id number] - [id number] Performed By: #### L 503.0105, L100.0100, L506.1000, L500.4100, L501.5200, L506.0250 ####[facility] [address] [facility] [place], [place], [address] Vitamin B12 measurementOrder ed By: Jesus Trujillo on 01-31-2024 Vitamin B12 Level > 2000 pg/mL High 211-911 [facility] Vitamin D,25 Hydroxyon 01-30 Vitamin D 25-OH 52.3 ng/mL Normal [facility] Comment on above: Order Comment: Order Date: 01/31/24Order Info: [id number] - [id number] Info: [id number] - VITD25 Result Comment: Ashly min D 25(OH) Status Range Deficiency <20 ng/mL (50nmol/L) Insufficiency 20 - 30 ng/mL (50 - 75 nmol/L) Sufficiency 30 - 100 ng/mL (75 - 250 nmol/L) Toxicity >100 ng/mL (>250 nmol/L) Performed By: #### L 503.0105, L100.0100, L506.1000, L500.4100, L501.5200, L506.0250 ####[facility] [address] [facility] [address] [facility] [address] [facility] [place], [place], [address] White blood cell (WBC) count Ordered By: Jesus Trujillo on 01-31-2024 WBC (Bld) [#/Vol] 10.3 10*3/uL 4.4-11.0 [facility] MR/BMSHector 01-11-2024 MR/BMSMARVEL [facility] [address] [place] [address] OFFICE VISIT Date of Service: 01/11/24 MR#: [id number] Acct: [id number] Name: REGGIE COOPER Rep #: [id number] : 1955 Provider: BARON Storm Age/Sex: 68/M Location: [facility] Status: Signed Intake Vital Signs 11/08/23 13:50 12/21/23 07:22 01/11/24 11:01 Height 6 ft 1 in 6 ft 1 in BP 126/82 H Blood Pressure Location Lt brachial Position Sitting Respiration 16 Pulse 90 Pulse Source Monitor Temp 98.6 F Temp Source Temporal Pulse Oximetry (%) 95 Oxygen Delivery Method room air Intake Visit Reasons: POST ANGIOGRAM Chief Complaint: leg pain, PAD Is patient in pain?: Yes Allergies Penicillins Adverse Reaction (Verified 01/11/24 11:02) Diarrhea Have you fallen in the past year?: Yes PFSH Medical History Anxiety COPD (chronic obstructive pulmonary disease) Shortness of breath on exertion Leg cramps History of pain when walking History of heart attack History of fracture of femur Alcohol use Ambulates with cane Arthritis High cholesterol Back pain Smoker Hoarseness Cardiology follow-up encounter History of echocardiogram Essential hypertension History of left heart catheterization (LHC) ( 01/04/22) CVA (cerebral vascular accident) Hypokalemia Femur fracture, left Alcohol abuse CVA (cerebral vascular accident) Hypertension Surgical History Hx of hernia repair History of back surgery History of cardiac catheterization History of eye surgery Family History Father CAD (coronary artery disease) Brother CAD (coronary artery disease) Social History (Updated 01/11/24 @ 11:01 by Jessica Suarez) household members: none Smoking Status: Heavy Smoker (>10/day) Tobacco: How many years used: 45 alcohol intake: current substance use type: does not use caffeine: Yes Type: coffee Number of servings: 4 HPI HPI HPI: REGGIE COOPER, is a 68 M who presents to the office today for follow-up status post recent angiogram with angioplasty of distal segment of his bypass. Recall he had prior right to left fem-f em cadaver bypass for claudication and recent duplex revealed stenosis of the distal graft. He reports has been doing well since the procedure. He denies any issues at the access site. He does not have any significant lower extremity claudication or rest pain at this time. He does not have any wounds. He continues to take aspirin and Plavix as prescribed. He does continue to smoke. ROS General General: Yes fatigue and weakness; No weight change, appetite, colon cancer or breast cancer HEENT HEENT: Yes hoarseness; No difficulty swallowing, eye injury, eye surgery or swollen glands Endo Endocrine: No thyroid disease, diabetes mellitus, thyroid cancer, Hair loss, heat intolerance or cold intolerance Skin Skin: No rash or changing moles Musc Musculoskeletal: Yes back problems and joint pain; No arthritis, rheumatoid arthritis or gout Cardio Cardiovascular: Yes high blood pressure; No murmur, pacemaker, heart disease, atrial fibrillation, heart attack, heart stent, palpitations, shortness of breat with exertion or chest pain Psych Psychiatric: No depression, anxiety or hearing voices Resp Respiratory: Yes shortness of breath, No sleep apnea, Yes cough, Yes COPD, No asthma, No emphysema and Yes wheezing Gastro Gastrointestinal: No abdominal pain, No nausea or vomiting, No diarrhea, No constipation, No blood in stool, No acid reflux, No hemorrhoids, No ulcers, No gallbladder problem and No black,tarry stools Donn Hematologic: Yes blood thinners, No blood disorders, No bleeding, No anemia and No blood clots Neuro Neurologic: No system reviewed and no additional complaints, except as documented, No as per HPI, No abnormal gait, No abnormal hearing, No abnormal movements, No abnormal speech, No behavioral changes, No burning sensations, No confusion, No convulsions, Yes disequilibrium, No dizziness, No localized weakness, No frequent falls, No headache(s), No lack of coordination, No loss of vision, No memory loss, No numbness, No other visual disturbances, No radicular pain, No restless legs, No sensory deficit, No syncope, Yes tingling, No tremor(s), Yes weakness and No other Exam Const General: cooperative, comfortable and acute distress Nutritional Appearance: thin Orientation: alert, awake and oriented x3 HENRI Head: normocephalic and atraumatic Ears: hearing grossly normal bilaterally and external ears normal Nose: external nose normal Eyes General: appearance normal, both eyes and all related structures (more content not included)... Normal [facility] Basic Metabolic Profile (BMP )on 12-21-2023 BUN/CRE 13.4 RATIO Normal 12-16 [facility] Comment on above: Performed By: #### L 500.2500, L100.0500 #### [facility] [address] [place], [address] CA,Total 9.8 mg/dL Normal 8.5-10.1 [facility] Comment on above: Performed By: #### L 500.2500, L100.0500 #### [facility] [address] [place], [address] Chloride [Moles/Vol] 106 mmol/L Normal 98-107 [facility] Comment on above: Performed By: #### L 500.2500, L100.0500 #### [facility] [address] [place], [address] CO2 [Moles/Vol] 28.0 mmol/L Normal 21.0-32.0 [facility] Comment on above: Performed By: #### L 500.2500, L100.0500 #### [facility] [address] [place], [address] Creatinine [Mass/Vol] 0.97 mg/dL Normal 0.70-1.30 [facility] Comment on above: Result Comment: The validity of the calculated GFR GFRAA in patients over 70 years has not been determined. Clinical correlation is essential. Performed By: #### L 500.2500, L100.0500 #### [facility] [address] [place], [address] ECRCL 77.86 ml/min Normal [facility] Comment on above: Performed By: #### L 500.2500, L100.0500 #### [facility] [address] [place], [address] EST GFR - AA 99 mL/min Normal >60 [facility] Comment on above: Result Comment: Afri can Iraqi GFR Calc Performed By: #### L 500.2500, L100.0500 #### [facility] [address] [place], [address] GAP 4 Low 5-15 [facility] Comment on above: Performed By: #### L 500.2500, L100.0500 #### [facility] [address] [place], [address] GFR/1.73 sq M.predicted among non-blacks MDRD (S/P/Bld) [Vol rate/Area] 82 mL/min/{1.73_m2} Normal >60 [facility] Comment on above: Result Comment: Non- GFR Calc Performed By: #### L 500.2500, L100.0500 #### [facility] [address] [place], [address] Glucose [Mass/Vol] 118 mg/dL High 74-106 [facility] Comment on above: Result Comment: Fast ing Glucose result from 100 to 125 mg/dL suggests IMPAIRED HOMEOSTASIS per A.D.A. criteria. Performed By: #### L 500.2500, L100.0500 #### [facility] [address] [place], [address] Potassium [Moles/Vol] 4.6 mmol/L Normal 3.5-5.1 [facility] Comment on above: Performed By: #### L 500.2500, L100.0500 #### [facility] [address] [place], [address] Sodium [Moles/Vol] 139 mmol/L Normal 136-145 [facility] Comment on above: Performed By: #### L 500.2500, L100.0500 #### [facility] [address] [place], [address] Urea nitrogen [Mass/Vol] 13 mg/dL Normal 7-18 [facility] Comment on above: Performed By: #### L 500.2500, L100.0500 #### [facility] [address] [place], [address] CBC-Complete Blood Cnt No Di ffon 12-21-2023 Erythrocyte distribution width (RBC) [Ratio] 13.3 % Normal 11.6-14.6 [facility] Comment on above: Performed By: #### L 500.2500, L100.0500 #### [facility] [address] [place], [address] Hematocrit (Bld) [Volume fraction] 48.6 % Normal 40-54 [facility] Comment on above: Performed By: #### L 500.2500, L100.0500 #### [facility] [address] [place], [address] Hemoglobin (Bld) [Mass/Vol] 15.6 g/dL Normal 13.0-16.5 [facility] Comment on above: Performed By: #### L 500.2500, L100.0500 #### [facility] [address] [place], [address] MCH (RBC) [Entitic mass] 32.1 pg High 27.0-32.0 [facility] Comment on above: Performed By: #### L 500.2500, L100.0500 #### [facility] [address] [place], [address] MCHC (RBC) [Mass/Vol] 32.1 g/dL Normal 32-36 [facility] Comment on above: Performed By: #### L 500.2500, L100.0500 #### [facility] [address] [place], [address] MCV (RBC) [Entitic vol] 100.0 fL High [address] [facility] Comment on above: Performed By: #### L 500.2500, L100.0500 #### [facility] [address] [place], [address] Platelet mean volume (Bld) [Entitic vol] 9.1 fL Normal 6.2-12.0 [facility] Comment on above: Performed By: #### L 500.2500, L100.0500 #### [facility] [address] [place], [address] Platelets (Bld) [#/Vol] 257 10*3/uL Normal 150-450 [facility] Comment on above: Performed By: #### L 500.2500, L100.0500 #### [facility] [address] [place], [address] RBC (Bld) [#/Vol] 4.86 10*6/uL Normal 4.6-6.2 [facility] Comment on above: Performed By: #### L 500.2500, L100.0500 #### [facility] [address] [place], [address] RDW SD 49.1 fl High 35.1-43.9 [facility] Comment on above: Performed By: #### L 500.2500, L100.0500 #### [facility] [address] [place], [address] WBC (Bld) [#/Vol] 9.1 10*3/uL Normal 4.4-11.0 [facility] Comment on above: Performed By: #### L 500.2500, L100.0500 #### [facility] [address] [place], [address] Operative Reporton 4 Operative Report [facility] Medical Records Department [address] [place] [address] Operative Report 12/21/231949 MR#: [id number] Acct: [id number] Name: REGGIE COOPER Rep #: [id number] : 1955 68 From: Jass Woods MD PCP: Dr. Jesus Trujillo MD Status:[facility] Location: [facility] Operative Report (Standard) Operative Information Surgery/Procedure Performed: Left lower extremity angiogram IVUS left SFA, common femoral artery, Fem-fem bypass Angioplasty distal segment of bypass Surgeon: Jass Woods Date of Procedure: 12/21/23 Procedure Start Time: 08:00 Procedure Stop Time: 10:00 Pre-Operative Diagnosis: Stenosis of prior bypass graft Atherosclerosis with claudication Post-Operative Diagnosis: same Select all DRAINS/GRAFTS/IMPLANT S that apply: None Type of Anesthesia: Local and Sedation,Conscious Estimated Blood Loss: 5 Specimen collected: No Description of surgery: HPI: Patient has history of prior right to left fem-fem cadaver bypass for claudication. Recent duplex revealed stenosis of the distal graft. He presents to angiogram with possible intervention. Description of procedure: Upon obtaining informed consent and verification of correct patient procedure and site he was taken to the agriculture laboratory technician where he was positioned, prepped and draped in the usual fashion. Time out was performed and sedation administered with versed and fentanyl. Skin overlying the proximal bypass was anesthetized with 1% lidocaine and the vessel accessed under ultrasound guidance with a micropuncture needle and wire. This was then exchanged for a micropuncture sheath through which a hand injection angiogram was performed which confirmed satisfactory position with no extravasation or dissection. Through the micropuncture sheath a command 14 wire was advanced and navigated into the left superficial femoral artery. The micropuncture sheath was then exchanged for a 5 Fr Halo sheath. An IVUS catheter was then advanced and a recorded pullback performed of the SFA, common femoral artery, and the bypass graft. This revealed tapering size of the distal graft but with distinct stenosis just prior to the anastomosis of 70%. The patient was heparinized and allowed to circulate for 3 minutes. A 6mm x 20 Parrish Angiosculpt balloon was then advanced and centered on the lesion. It was inflated to nominal for 3 minutes, deflated and repositioned and then again inflated to nominal. This was then deflated and withdrawn and subtraction angiography performed that revealed satisfactory vessel response with no extravasation or dissection. There was no continued focal stenosis though the vessel taper remained. A [employer] [place] paxlitaxel coated balloon 6 x 40 was then advanced centering on the lesion and inflated to nominal for 3 minutes then deflated and withdrawn. IVUS probe was then re- advanced and recorded pull back performed confirming no residual stenosis and smooth taper of vessel diameter. Wires and catheters were then withdrawn and minx closure device deployed followed by 5 minutes of manual pressure with satisfactory hemostasis. The patient was then taken to the recovery area for bedrest prior to discharge home. Surgical Findings: 70% stenosis of distal bypass graft, no residual stenosis after intervention Cvicu Rn assistant health educator: No Complications Complications: No 12/21/232005 Cosigner Signature (if applicable): CC: BARON Storm; Dr. Jass Woods MD; Dr. Jesus Trujillo MD Signed Normal [facility] MR/BMSLexusBVSon 11-22-2023 MR/BMS.BVS [facility] Vascular Surgery [address] [place] [address] OFFICE VISIT Date of Service: 11/22/23 MR#: [id number] Acct: [id number] Name: REGGIE COOPER Rep #: [id number] : 1955 Provider: BARON Storm Age/Sex: 68/M Location: [facility] Status: Signed Intake Vital Signs 02/26/23 12:17 11/08/23 13:50 11/22/23 14:31 Height 6 ft 1 in 6 ft 1 in Weight: 162 lb BP 144/86 H Blood Pressure Location Lt brachial Position Sitting Respiration 16 Pulse 86 Pulse Source Monitor Temp 99.3 F H Temp Source Temporal Pulse Oximetry (%) 96 Oxygen Delivery Method room air Intake Visit Reasons: 1 Y FU Is patient in pain?: No Allergies Penicillins Adverse Reaction (Verified 11/22/23 14:32) Diarrhea Medications ???Medication ???Instructions ???Recorded ???Confirmed ???Type clopidogrel 75 mg tablet 75 mg PO DAILY HEART 10/28/18 11/22/23 History atorvastatin 40 mg tablet 40 mg PO QHS CHOLESTEROL 01/04/22 11/22/23 History cholecalciferol (vitamin D3) 100 100 mcg PO DAILY SUPPLEMENT 01/04/22 11/22/23 History mcg (4,000 unit) tablet lisinopril 10 mg tablet 10 mg PO BID BLOOD PRESSURE 01/04/22 11/22/23 History aspirin 81 mg tablet,delayed 81 mg PO BREAKFAST HEART #0 tabs 01/05/22 11/22/23 Rx release carvedilol 6.25 mg tablet 6.25 mg PO BIDCM BLOOD PRESSURE 02/11/22 11/22/23 Rx #180 tabs vitamin B complex (B 1 tab PO DAILY SUPPLEMENT 09/22/22 11/22/23 History Complex-Vitamin B12 tablet) benzonatate 100 mg capsule 100 mg PO TID PRN PRN COUGH 14 11/16/22 11/22/23 Rx days #42 caps doxycycline monohydrate 100 mg 100 mg PO BID #20 CAPSULES 02/26/23 11/22/23 Rx capsule prednisone 20 mg tablet 40 mg (2 x 20 mg) PO DAILY #8 tabs 02/26/23 11/22/23 Rx Have you fallen in the past year?: No PFSH Medical History Anxiety COPD (chronic obstructive pulmonary disease) Shortness of breath on exertion Leg cramps History of pain when walking History of heart attack History of fracture of femur Alcohol use Ambulates with cane Arthritis High cholesterol Back pain Smoker Hoarseness Cardiology follow-up encounter History of echocardiogram Essential hypertension History of left heart catheterization (LHC) ( 01/04/22) CVA (cerebral vascular accident) Hypokalemia Femur fracture, left Alcohol abuse CVA (cerebral vascular accident) Hypertension Surgical History Hx of hernia repair History of back surgery History of cardiac catheterization History of eye surgery Family History Father CAD (coronary artery disease) Brother CAD (coronary artery disease) Social History household members: none Smoking Status: Current every day smoker tobacco type: cigarettes and smokeless tobacco Tobacco: How many years used: 45 alcohol intake: current substance use type: does not use caffeine: Yes Type: coffee Number of servings: 4 HPI HPI HPI: REGGIE COOPER, is a 68 M who presents to the office today for follow-up of his PAD status post right to left femorofemoral bypass, right external iliac stent on 11/15/2022. Patient recently had routine surveillance arterial duplex which showed elevated velocities in the distal bypass graft. This was further evaluated with CTA and he is here to discuss results. He reports he does still have some pain with walking into both lower extremities though remains much improved from prior to surgery, he does also have known spine disease. He has not noticed any significant increase in his pain recently. No rest pain or wounds. He has continued to take aspirin and Plavix as prescribed. ROS General General: Yes weakness; No weight change, appetite, fatigue, colon cancer or breast cancer HEENT HEENT: Yes hoarseness; No difficulty swallowing, eye injury, eye surgery or swollen glands Endo Endocrine: Yes cold intolerance; No thyroid disease, diabetes mellitus, thyroid cancer, Hair loss or heat intolerance Skin Skin: No rash or changing moles Musc Musculoskeletal: Yes back problems and joint pain; No arthritis, rheumatoid arthritis or gout Cardio Cardiovascular: Yes high blood pressure and chest pain; No murmur, pacemaker, heart disease, atrial fibrillation, heart attack, heart stent, palpitations or shortness of breat with exertion Psych Psychiatric: No depression, anxiety or hearing voices Resp Respiratory: No shortness of breath, No sleep apnea, Yes cough, Yes COPD, No asthma, No emphysema and Yes wheezing Gastro Gastrointestinal: No abdominal pain, No nausea or vomiting, No diarrhea, No constipation, No (more content not included)... Normal [facility] Chest PA and Lateralon 11-20 Chest PA and Lateral [facility] Imaging Services [address] [place] [address] [id number] Chest PA and Lateral MR#: [id number] Acct: [id number] Name: REGGIE COOPER Rep #: [id number] : 1955 M 68 From: Karon Quintero MD PCP: Dr. Jesus Trujillo MD Status: REG CL Study: Chest PA and Lateral Date of Exam: 11/21/23 Exam# [id number] Ordering Dr: Jesus Trujillo MD [id number] EXAM: XR CHEST, 2 VIEWS CLINICAL INDICATION: copd exacerbation TECHNIQUE: Frontal and lateral views of the chest. COMPARISON: February 26 2023. CTA chest January 04, 2022. FINDINGS: LUNGS AND PLEURAL SPACES: The lungs remain hyperinflated. Small calcified granuloma again noted in the right lateral lung. Prominent retrosternal clear space again noted. Mild multifocal aortic peripheral calcification and similar contour. No pneumothorax. No effusion. HEART: Unremarkable. Cardiac silhouette not enlarged. MEDIASTINUM: Central airways and mediastinal contour are unremarkable. BONES/JOINTS: Unremarkable. No acute fracture. SOFT TISSUES: Unremarkable. RAD/Chest PA and Lateral IMPRESSION: 1. Stable findings consistent with COPD. 2. No convincing infiltrates or effusions. Electronically Signed: Karon Quintero MD at 2:11 EDT Reading Location ID and State: [facility] / [place] Tel , Service support , CC: Dr. Jesus Trujillo MD Machine Stone Polisher: Signed Normal [facility] CREATININE FINGERSTICKon CREATININE WB < 1.0 Normal 0.70-1.30 [facility] Comment on above: Performed By: #### L 9100.0200 ####[facility] [address] [place], [place], [address] EGFR WB > 60.0000 Normal >60 [facility] Comment on above: Performed By: #### L 9100.0200 ####[facility] [address] [place], [place], [address] CTA Abd w/Runoff W/WO Contra ston 11-20-2023 CTA Abd w/Runoff W/WO Contrast [facility] Imaging Services [address] [place], [place] [address] CTA Abd w/Runoff W/WO Contrast MR#: [id number] Acct: [id number] Name: REGGIE COOPER Rep #: [id number] : 1955 68 From: Rakesh ojeda MD PCP: Dr. Jesus Trujillo MD Status: REG CLI Study: CTA Abd w/Runoff W/WO Contrast Date of Exam: 0 11/20/23 Exam# [id number] Ordering Dr: Sujatha Casey [place] [id number] STUDY: CTA OF THE ABDOMINAL AORTA AND BILATERAL LOWER EXTREMITIES REASON FOR EXAM: Male, 68 years old. 1 year s/p fem-fem bypass, elevated velocities by duplex RADIATION DOSAGE (If Supplied By Facility): CTDIvol = ( 7.15 ) mGy, DLP = ( 1125.35 ) mGycm TECHNIQUE: Axial CT angiography multi-detector data acquisition was obtained from the to the following intravenous administration of IV 100mL Isovue-370. Axial images and MIP images were reconstructed from the axial data set. Post-processing of the angiographic images was performed, with multiplanar reformation and 3D reconstruction. Individualized dose optimization techniques were used for this CT. TECHNICAL QUALITY: Good COMPARISON: Comparison is made with prior study dated August 16, 2022. Descriptors of Narrowing: None (0%) Mild (< 50%) Moderate (50-70%) Severe (70-90%) Subtotal/Total Occlusion (90-100%) Non-Evaluable (technically non-diagnostic FINDINGS: Mild increased markings at the lung bases more prominent on the right side suggestive scarring. Coronary artery calcification. Abdominal aorta: Atherosclerotic calcification of the abdominal aorta and the major visceral branches. Celiac and superior mesenteric arteries: Ostial calcification at the origin of the celiac and superior mesenteric artery without significant stenosis. Inferior mesenteric artery: Ostial calcification. Right renal artery(arteries): Ostial calcification. Left renal artery(arteries): Ostial calcification. Right common iliac artery: Extensive calcific plaque. Right external iliac artery: Extensive calcific plaque. Right internal iliac artery: No demonstrated narrowing. Left common iliac artery: Scattered calcific plaques with focal stenosis. Left external iliac artery: Extensive calcific plaques. Left internal iliac artery: No demonstrated narrowing. The femoral femoral bypass graft is widely patent. RIGHT LOWER EXTREMITY Right common femoral artery: No demonstrated narrowing. Right profundus femoris: No demonstrated narrowing. Right superficial femoral: No demonstrated narrowing. Right popliteal artery: No demonstrated narrowing. Right tibioperoneal trunk: No demonstrated narrowing. Right anterior tibial artery: No demonstrated narrowing. Right posterior tibial artery: No demonstrated narrowing. Right peroneal artery: No demonstrated narrowing. LEFT LOWER EXTREMITY Left common femoral artery: Atherosclerotic plaque formation unchanged. Left profundus femoris: No demonstrated narrowing. Left superficial femoral: No demonstrated narrowing. Left popliteal artery: No demonstrated narrowing. Left tibioperoneal trunk: No demonstrated narrowing. Left anterior tibial artery: Calcific plaques at its origin. Left posterior tibial artery: Calcific plaques throughout its course although it is patent. Left peroneal artery: Patent with evidence of scattered plaques. CT/CTA Abd w/Runoff W/WO Contrast IMPRESSION: Patency of the femoral-femoral bypass graft. Electronically Signed: Rakesh Davis MD at 14:21 EDT , CC: BARON Storm; Dr. Jesus Trujillo MD Machine Stone Polisher: Signed Normal [facility] Cardiology Visit Reporton Cardiology Visit Report [facility] Heart [address] [place] [address] OFFICE VISIT Date of Service: 11/08/23 MR#: [id number] Acct: [id number] Name: REGGIE COOPER Rep #: [id number] : 1955 Provider: BILLIE flynn Age/Sex: 68/M Location: [facility] Status: Signed HPI HPI History of Present Illness Details: This is a 68-year-old white male who presents today for an outpatient cardiovascular follow-up. He was initially seen at [facility] for concerns of unstable angina, non-ST segment elevation CA, with subsequent findings of nonobstructive CAD and an underlying cardiomyopathy superimposed upon hyperlipidemia and hypertension. A transthoracic echocardiogram suggested underlying left ventricular systolic dysfunction with an estimated LVEF of 25% with no hemodynamically significant valvular heart disease. He underwent a diagnostic cardiac catheterization which also suggested severe left ventricular systolic dysfunction with an estimated LVEF of 20% with nonobstructive CAD. There were concerns as to whether or not he may have had a Takotsubo syndrome. At the same time, he admits to a history of alcohol intake and thus there would be concerns as to whether or not he may have an underlying alcoholic type cardiomyopathy. He denies chest, arm, jaw, or neck discomfort. He denies palpitations. He denies bilateral lower extremity edema. He states claudication. He continues with shortness of breath with activity. He d enies shortness of breath at rest, orthopnea, or PND. He denies chronic cough. He denies significant, sudden weight gain. He denies lightheadedness, dizziness, near-syncope, or syncope. He denies blood in urine, blood in stool, or epistaxis. He denies fever or chills. He denies myalgia. He denies fatigue. His exercise level has remained stable. Intake Vital Signs 02/26/23 12:17 11/08/23 13:49 11/08/23 13:50 Height 6 ft 1 in 6 ft 1 in 6 ft 1 in Weight: 162 lb BMI 21.3 BP 128/78 H Blood Pressure Location Lt brachial Position Sitting Respiration 18 Pulse 71 Pulse Source Monitor Pulse Oximetry (%) 96 Intake Visit Reasons: OVERDUE FOR OV/PREV PFM Delivery Lead Required: No Is patient in pain?: No Allergies Penicillins Adverse Reaction (Verified 11/08/23 13:49) Diarrhea Medications ???Medication ???Instructions ???Recorded ???Confirmed ???Type clopidogrel 75 mg tablet 75 mg PO DAILY HEART 10/28/18 11/08/23 History atorvastatin 40 mg tablet 40 mg PO QHS CHOLESTEROL 01/04/22 11/08/23 History cholecalciferol (vitamin D3) 100 100 mcg PO DAILY SUPPLEMENT 01/04/22 11/08/23 History mcg (4,000 unit) tablet lisinopril 10 mg tablet 10 mg PO BID BLOOD PRESSURE 01/04/22 11/08/23 History aspirin 81 mg tablet,delayed 81 mg PO BREAKFAST HEART #0 tabs 01/05/22 11/08/23 Rx release carvedilol 6.25 mg tablet 6.25 mg PO BIDCM BLOOD PRESSURE 02/11/22 11/08/23 Rx #180 tabs vitamin B complex (B 1 tab PO DAILY SUPPLEMENT 09/22/22 11/08/23 History Complex-Vitamin B12 tablet) benzonatate 100 mg capsule 100 mg PO TID PRN PRN COUGH 14 11/16/22 11/08/23 Rx days #42 caps doxycycline monohydrate 100 mg 100 mg PO BID #20 CAPSULES 02/26/23 11/08/23 Rx capsule prednisone 20 mg tablet 40 mg (2 x 20 mg) PO DAILY #8 tabs 02/26/23 11/08/23 Rx Have you fallen in the past year?: No PFSH Medical History (Reviewed 11/08/23 @ 13:56 by Jesus Dao AIRLINE MANAGERIAL SUPERVISOR, AIRLINE MANAGERIAL SUPERVISOR-C) Anxiety COPD (chronic obstructive pulmonary disease) Shortness of breath on exertion Leg cramps History of pain when walking History of heart attack History of fracture of femur Alcohol use Ambulates with cane Arthritis High cholesterol Back pain Smoker Hoarseness Cardiology follow-up encounter History of echocardiogram Essential hypertension History of left heart catheterization (LHC) ( 01/04/22) CVA (cerebral vascular accident) Hypokalemia Femur fracture, left Alcohol abuse CVA (cerebral vascular accident) Hypertension Surgical History (Reviewed 11/08/23 @ 13:56 by Jesus Dao AIRLINE MANAGERIAL SUPERVISOR, AIRLINE MANAGERIAL SUPERVISOR-C) Hx of hernia repair History of back surgery History of cardiac catheterization History of eye surgery Family History (Reviewed 11/08/23 @ 13:56 by Jesus Dao AIRLINE MANAGERIAL SUPERVISOR, AIRLINE MANAGERIAL SUPERVISOR-C) Father CAD (coronary artery disease) Brother CAD (coronary artery disease) Social History (Reviewed 11/08/23 @ 13:56 by Jesus Dao AIRLINE MANAGERIAL SUPERVISOR, AIRLINE MANAGERIAL SUPERVISOR-C) household members: none Smoking Status: Current every day smoker tobacco type: cigarettes and smokeless tobacco Tobacco: How many years used: 45 alcohol intake: current substance use type: does not use caffeine: Yes Type: coffee Number of servings: 4 ROS Const Const: Negative for fatigue, weakness, body ache, fever(s) or chills ENT ENT: Negative for dizziness or Nosebleed/epi (more content not included)... Normal [facility] Ankle Brachial Indexon 11-01 Ankle Brachial Index [facility] Cardiovascular Services [address] [place] [address] Ankle Brachial Index 11/02/23 1448 MR#: [id number] Acct: [id number] Name: REGGIE COOPER Rep #: [id number] : 1955 68 From: Jass Woods MD Attending Dr: BARON Storm Status: REG CLI Ordering Dr: Sujatha Casey Date: 11/02/23 Location: [facility] Sex: M C Admitted: Reason For Study: S/P Rt to Lt fem-fem bypass, Rt EIA stent Procedure A bilateral lower extremity continuous wave Doppler with analog waveform analysis and ankle brachial indexes. Left Segmental Pressures Left brachial= 119mmHg. Left posterior tibial artery = 105mmHg. Left dorsalis pedis artery = 104mmHg. The left dorsalis pedis waveforms are biphasic. The left posterior tibial artery waveforms are triphasic. Right Segmental Pressures Right brachial= 118mmHg. Right posterior tibial artery = 94mmHg. Right dorsalis pedis artery = 115mmHg. The right dorsalis pedis waveforms are triphasic. The right posterior tibial artery waveforms are biphasic. Indices The right ankle brachial index by the dorsalis pedis is 0.97. The right ankle brachial index by the posterior tibial artery is 0.79. The left ankle brachial index by the dorsalis pedis is 0.87. The left ankle brachial index by the posterior tibial artery is 0.88. VL/Ankle Brachial Index Interpretation Summary Right LYLE 0.97, mild arterial insufficiency. Doppler/PVR waveforms of the right ankle normal at rest. Left LYLE 0.88, moderate arterial insufficiency. Doppler/PVR waveforms of the left ankle normal at rest. Ordering Physician: Sujatha Casey Referring Physician: Jesus Trujillo Performed By: Mellisa Gray RVT 11/03/23 112 Date Jass Woods MD CC: BARON Storm; Dr. Jesus Trujillo MD Date Dictated: 11/02/23 1448 Date Transcribed: 11/03/231125 Machine Stone Polisher: Signed Normal [facility] US Art Duplex Bilat Lower Ex ton 11-02-2023 US Art Duplex Bilat Lower Ext [facility] Cardiovascular Services [address] [place] [address] US Art Duplex Bilat Lower Ext 11/02/23 1407 MR#: [id number] Acct: [id number] Name: REGGIE COOPER Rep #: [id number] : 1955 68 From: Jass Woods MD Attending Dr: BARON Storm Status: REG CLI Ordering Dr: Sujatha Casey Date: 11/02/23 Location: [facility] Sex: M C Admitted: Reason For Study: S/P Rt to Lt fem-fem bypass, Rt EIA stent Right Velocities Left Velocities Ext. Iliac Artery, dist = 218 cm./sec. Common Femoral Artery, mid = 190.4 cm./sec. CLOUD ENGINEER, prox to bypass, 214.2 cm/sec. Supf. Femoral Artery, prox = 52.7 cm./sec. CLOUD ENGINEER, distal to bypass, 128.6 cm/sec. SFA mid, prox to stenosis, 60 cm/sec. Supf Femoral Artery, prox = 74.8 cm./sec. SFA mid, at stenosis, 263.8 cm/sec. Supf Femoral Artery, mid = 56.4 cm./sec. SFA mid/dist, dist to stenosis, 87.9 cm/sec. Supf Femoral Artery, dist. = 48.3 cm./sec. Supf. Femoral Artery, dist = 33.6 cm./sec. Profunda Femoral Artery = 106.7 cm./sec. Profunda Femoral Artery = 148.4 cm./sec. Popliteal Artery, prox. = 40.5 cm./sec. Popliteal Artery, mid = 43.1 cm./sec. Popliteal Artery, mid = 114.9 cm./sec. Post. Tibial Artery, prox = 34.6 cm./sec. Popliteal Artery, dist = 113.6 cm./sec. Post Tibial Artery, mid = 42.1 cm./sec. Post. Tibial Artery, prox = 37.3 cm./sec. Post Tibial Artery, dist. = 35.5 cm./sec. Post. Tibial Artery, mid = 50.4 cm./sec. Peroneal Artery, prox = 43.1 cm./sec. Post. Tibial Artery, dist = 19.7 cm./sec. Peroneal Artery, mid = 35.5 cm./sec. Peroneal Artery, prox = 40.5 cm./sec. Peroneal Artery,dist. = 30.8 cm./sec. Peroneal Artery, mid = 33.9 cm./sec. Ant.Tibial Artery, prox = 31.7 cm./sec. Peroneal Artery,dist = 43.5 cm./sec. Ant Tibial Artery, mid = 38.1 cm./sec. Ant. Tibial Artery, prox = 45.3 cm./sec. Ant. Tibial Artery, distal = 35.3 cm./sec. Ant. Tibial Artery, mid = 57.5 cm./sec. Ant. Tibial Artery, dist = 41.8 cm./sec. Rt to Lt Fem-Fem Bypass Prox anastomosis, 238.9 cm/sec. Prox graft, 119 cm/sec. Mid graft, 60.1 cm/sec. Dist graft, 43.7 cm/sec. Distal anastomosis, 292 cm/sec. Procedure Exam performed in department. VL/US Art Duplex Bilat Lower Ext Interpretation Summary Patent right to left femoral-femoral bypass with elevated velocity in the distal graft. Left SFA with stenosis, no significant change Ordering Physician: Sujatha Casey Referring Physician: Jesus Trujillo Performed By: Mellisa Gray RVT 11/03/23 1132 Date Jass Woods MD CC: BARON Storm; Dr. Jesus Trujillo MD Date Dictated: 11/02/23 1407 Date Transcribed: 11/03/23 1132 Machine Stone Polisher: Signed Normal [facility] CBC W/Diff, Automatedon 08-2 Absolute Lymph 1.93 X10 3/uL Normal 0.83-4.51 [facility] Comment on above: Order Comment: Order Date: 10/17/23 Order Info: 0184-1 - CBCD Performed By: #### L 100.0100, L503.0105, L506.0250, L500.4050, L506.1000, L500.4100, L501.5200 #### [facility] [address] [place], [place], [phone] Absolute Neut 4.5 X10 3/uL Normal 2.0-7.7 [facility] Comment on above: Order Comment: Order Date: 10/17/23 Order Info: 0184- - CBCD Performed By: #### L 100.0100, L503.0105, L506.0250, L500.4050, L506.1000, L500.4100, L501.5200 #### [facility] [address] [place], [address] [phone] Basophils/100 WBC (Bld) 1.0 % Normal 0-1 [facility] Comment on above: Order Comment: Order Date: 10/17/23 Order Info: 0184- - CBCD Performed By: #### L 100.0100, L503.0105, L506.0250, L500.4050, L506.1000, L500.4100, L501.5200 #### [facility] [address] [place], [address] [phone] Eosinophils/100 WBC (Bld) 2.5 % Normal 0-5 [facility] Comment on above: Order Comment: Order Date: 10/17/23 Order Info: 0184-1 - CBCD Performed By: #### L 100.0100, L503.0105, L506.0250, L500.4050, L506.1000, L500.4100, L501.5200 #### [facility] [address] [place], [address] Erythrocyte distribution width (RBC) [Ratio] 12.6 % Normal 11.6-14.6 [facility] Comment on above: Order Comment: Order Date: 10/17/23 Order Info: 0184- - CBCD Performed By: #### L 100.0100, L503.0105, L506.0250, L500.4050, L506.1000, L500.4100, L501.5200 #### [facility] [address] [place], [address] Hematocrit (Bld) [Volume fraction] 47.3 % Normal 40-54 [facility] Comment on above: Order Comment: Order Date: 10/17/23 Order Info: 018- - CBCD Performed By: #### L 100.0100, L503.0105, L506.0250, L500.4050, L506.1000, L500.4100, L501.5200 #### [facility] [address] [place], [place], [phone] Hemoglobin (Bld) [Mass/Vol] 15.4 g/dL Normal 13.0-16.5 [facility] Comment on above: Order Comment: Order Date: 10/17/23 Order Info: 0184 - CBCD Performed By: #### L 100.0100, L503.0105, L506.0250, L500.4050, L506.1000, L500.4100, L501.5200 #### [facility] [address] [place], [address] IG% 1.400 High 0.0-0.9 [facility] Comment on above: Order Comment: Order Date: 10/17/23 Order Info: 0184- - CBCD Result Comment: IG% - Immature Granulocytes (promyelocytes, myelocytes and metamyelocytes) > 1% indicates that a LEFT SHIFT is Present. Performed By: #### L 100.0100, L503.0105, L506.0250, L500.4050, L506.1000, L500.4100, L501.5200 #### [facility] [address] [place], [address] Lymphocytes/100 WBC (Bld) 25.2 % Normal 19-41 [facility] Comment on above: Order Comment: Order Date: 10/17/23 Order Info: 183-02 - CBCD Performed By: #### L 100.0100, L503.0105, L506.0250, L500.4050, L506.1000, L500.4100, L501.5200 #### [facility] [address] [place], [address] MCH (RBC) [Entitic mass] 32.4 pg High 27.0-32.0 [facility] Comment on above: Order Comment: Order Date: 10/17/23 Order Info: 183-02 - CBCD Performed By: #### L 100.0100, L503.0105, L506.0250, L500.4050, L506.1000, L500.4100, L501.5200 #### [facility] [address] [place], [address] MCHC (RBC) [Mass/Vol] 32.6 g/dL Normal 32-36 [facility] Comment on above: Order Comment: Order Date: 10/17/23 Order Info: [id number] - CBCD Performed By: #### L 100.0100, L503.0105, L506.0250, L500.4050, L506.1000, L500.4100, L501.5200 #### [facility] [address] [place], [address] MCV (RBC) [Entitic vol] 99.4 fL High 80-94 [facility] Comment on above: Order Comment: Order Date: 10/17/23 Order Info: 183-02 - CBCD Performed By: #### L 100.0100, L503.0105, L506.0250, L500.4050, L506.1000, L500.4100, L501.5200 #### [facility] [address] [place], [address] Monocytes/100 WBC (Bld) 11.2 % High 0-10 [facility] Comment on above: Order Comment: Order Date: 10/17/23 Order Info: 01805-28 - CBCD Performed By: #### L 100.0100, L503.0105, L506.0250, L500.4050, L506.1000, L500.4100, L501.5200 #### [facility] [address] [place], [address] Neutrophils/100 WBC (Bld) 58.7 % Normal 47-70 [facility] Comment on above: Order Comment: Order Date: 10/17/23 Order Info: 01805-28 - CBCD Performed By: #### L 100.0100, L503.0105, L506.0250, L500.4050, L506.1000, L500.4100, L501.5200 #### [facility] [address] [place], [address] Nucleated RBC (Bld) [#/Vol] 0 10*3/uL Normal 0-5 [facility] Comment on above: Order Comment: Order Date: 10/17/23 Order Info: 01805-28 - CBCD Performed By: #### L 100.0100, L503.0105, L506.0250, L500.4050, L506.1000, L500.4100, L501.5200 #### [facility] [address] [place], [address] Platelet mean volume (Bld) [Entitic vol] 9.6 fL Normal 6.2-12.0 [facility] Comment on above: Order Comment: Order Date: 10/17/23 Order Info: 018- - CBCD Performed By: #### L 100.0100, L503.0105, L506.0250, L500.4050, L506.1000, L500.4100, L501.5200 #### [facility] [address] [place], [address] Platelets (Bld) [#/Vol] 325 10*3/uL Normal 150-450 [facility] Comment on above: Order Comment: Order Date: 10/17/23 Order Info: 018- - CBCD Performed By: #### L 100.0100, L503.0105, L506.0250, L500.4050, L506.1000, L500.4100, L501.5200 #### [facility] [address] [place], [address] RBC (Bld) [#/Vol] 4.76 10*6/uL Normal 4.6-6.2 [facility] Comment on above: Order Comment: Order Date: 10/17/23 Order Info: 018- - CBCD Performed By: #### L 100.0100, L503.0105, L506.0250, L500.4050, L506.1000, L500.4100, L501.5200 #### [facility] [address] [place], [address] RDW SD 46.5 fl High 35.1-43.9 [facility] Comment on above: Order Comment: Order Date: 10/17/23 Order Info: 0184- - CBCD Performed By: #### L 100.0100, L503.0105, L506.0250, L500.4050, L506.1000, L500.4100, L501.5200 #### [facility] [address] [place], [address] WBC (Bld) [#/Vol] 7.7 10*3/uL Normal 4.4-11.0 [facility] Comment on above: Order Comment: Order Date: 10/17/23 Order Info: 0184- - CBCD Performed By: #### L 100.0100, L503.0105, L506.0250, L500.4050, L506.1000, L500.4100, L501.5200 #### [facility] [address] [place], [place], [id number] Comprehensive Metabolic Prof ilon 10-17-2023 Albumin [Mass/Vol] 3.6 g/dL Normal 3.2-5.0 [facility] Comment on above: Order Comment: Order Date: 10/17/23 Order Info: 86-1 - CMP Order Info: [id number] - LIPID Order Info: [id number] - MG Order Info: 2283-8 - FOLS N Performed By: #### L 100.0100, L503.0105, L506.0250, L500.4050, L506.1000, L500.4100, L501.5200 #### [facility] [address] [place], [address] Albumin/Globulin [Mass ratio] 0.8 {ratio} Low 0.9-2.4 [facility] Comment on above: Order Comment: Order Date: 10/17/23 Order Info: 785- - CMP Order Info: [id number] - LIPID Order Info: [id number] - MG Order Info: 228-8 - FOLS N Performed By: #### L 100.0100, L503.0105, L506.0250, L500.4050, L506.1000, L500.4100, L501.5200 #### [facility] [address] [place], [place], [id number] ALK P 108 U/L Normal 45-117 [facility] Comment on above: Order Comment: Order Date: 10/17/23 Order Info: 86-1 - CMP Order Info: 79713-5 - LIPID Order Info: [id number] - MG Order Info: 2284-8 - FOLS N Performed By: #### L 100.0100, L503.0105, L506.0250, L500.4050, L506.1000, L500.4100, L501.5200 #### [facility] [address] [place], [place], [id number] ALT [Catalytic activity/Vol] 27 U/L Normal 16-61 [facility] Comment on above: Order Comment: Order Date: 10/17/23 Order Info: 0786-1 - CMP Order Info: [id number] - LIPID Order Info: [id number] - MG Order Info: 2284-8 - FOLS N Performed By: #### L 100.0100, L503.0105, L506.0250, L500.4050, L506.1000, L500.4100, L501.5200 #### [facility] [address] [place], [place], [address] AST [Catalytic activity/Vol] 19 U/L Normal 15-37 [facility] Comment on above: Order Comment: Order Date: 10/17/23 Order Info: 785-1 - CMP Order Info: 86883-6 - LIPID Order Info: [id number] - MG Order Info: 2284-8 - FOLS N Performed By: #### L 100.0100, L503.0105, L506.0250, L500.4050, L506.1000, L500.4100, L501.5200 #### [facility] [address] [place], [place], [phone] Bilirubin [Mass/Vol] 0.50 mg/dL Normal 0.20-1.00 [facility] Comment on above: Order Comment: Order Date: 10/17/23 Order Info: 0786-1 - CMP Order Info: 86060-3 - LIPID Order Info: [id number] - MG Order Info: 2284-8 - FOLS N Result Comment: For patients on eltrombopag therapy, use of Dimension [place] TBIL is not recommended. Performed By: #### L 100.0100, L503.0105, L506.0250, L500.4050, L506.1000, L500.4100, L501.5200 #### [facility] [address] [place], [address] BUN/CRE 11.3 RATIO Normal 10-20 [facility] Comment on above: Order Comment: Order Date: 10/17/23 Order Info: 785-1 - CMP Order Info: - LIPID Order Info: [id number] - MG Order Info: 2284-8 - FOLS N Performed By: #### L 100.0100, L503.0105, L506.0250, L500.4050, L506.1000, L500.4100, L501.5200 #### [facility] [address] [place], [address] CA,Total 10.1 mg/dL Normal 8.5-10.1 [facility] Comment on above: Order Comment: Order Date: 10/17/23 Order Info: 785- - CMP Order Info: - LIPID Order Info: [id number] - MG Order Info: 228-8 - FOLS N Performed By: #### L 100.0100, L503.0105, L506.0250, L500.4050, L506.1000, L500.4100, L501.5200 #### [facility] [address] [place], [address] Chloride [Moles/Vol] 103 mmol/L Normal 98-107 [facility] Comment on above: Order Comment: Order Date: 10/17/23 Order Info: 785- - CMP Order Info: - LIPID Order Info: [id number] - MG Order Info: 2284-8 - FOLS N Performed By: #### L 100.0100, L503.0105, L506.0250, L500.4050, L506.1000, L500.4100, L501.5200 #### [facility] [address] [place], [address] CO2 [Moles/Vol] 27.0 mmol/L Normal 21.0-32.0 [facility] Comment on above: Order Comment: Order Date: 10/17/23 Order Info: 785-1 - CMP Order Info: [id number] - LIPID Order Info: [id number] - MG Order Info: 8 - FOLS N Performed By: #### L 100.0100, L503.0105, L506.0250, L500.4050, L506.1000, L500.4100, L501.5200 #### [facility] [address] [place], [place], [id number] Creatinine [Mass/Vol] 0.80 mg/dL Normal 0.70-1.30 [facility] Comment on above: Order Comment: Order Date: 10/17/23 Order Info: 86-1 - CMP Order Info: 96924-2 - LIPID Order Info: [id number] - MG Order Info: 8 - FOLS N Result Comment: The validity of the calculated GFR GFRAA in patients over 70 years has not been determined. Clinical correlation is essential. Performed By: #### L 100.0100, L503.0105, L506.0250, L500.4050, L506.1000, L500.4100, L501.5200 #### [facility] [address] [place], [place], [id number] EST GFR - AA 125 mL/min Normal >60 [facility] Comment on above: Order Comment: Order Date: 10/17/23 Order Info: 785-1 - CMP Order Info: [id number] - LIPID Order Info: [id number] - MG Order Info: 2283-8 - FOLS N Result Comment: Afri can Iraqi GFR Calc Performed By: #### L 100.0100, L503.0105, L506.0250, L500.4050, L506.1000, L500.4100, L501.5200 #### [facility] [address] [place], [address] GAP 5 Normal 5-15 [facility] Comment on above: Order Comment: Order Date: 10/17/23 Order Info: 0786-1 - CMP Order Info: [id number] - LIPID Order Info: [id number] - MG Order Info: 2284-8 - FOLS N Performed By: #### L 100.0100, L503.0105, L506.0250, L500.4050, L506.1000, L500.4100, L501.5200 #### [facility] [address] [place], [address] GFR/1.73 sq M.predicted among non-blacks MDRD (S/P/Bld) [Vol rate/Area] 103 mL/min/{1.73_m2} Normal >60 [facility] Comment on above: Order Comment: Order Date: 10/17/23 Order Info: 0786-1 - CMP Order Info: [id number] - LIPID Order Info: 76473-7 - MG Order Info: 2283-8 - FOLS N Result Comment: Non- GFR Calc Performed By: #### L 100.0100, L503.0105, L506.0250, L500.4050, L506.1000, L500.4100, L501.5200 #### [facility] [address] [place], [address] Globulin (S) [Mass/Vol] 4.3 g/dL High 2.2-4.2 [facility] Comment on above: Order Comment: Order Date: 10/17/23 Order Info: 0786-1 - CMP Order Info: [id number] - LIPID Order Info: [id number] - MG Order Info: 228-8 - FOLS N Performed By: #### L 100.0100, L503.0105, L506.0250, L500.4050, L506.1000, L500.4100, L501.5200 #### [facility] [address] [place], [address] Glucose [Mass/Vol] 95 mg/dL Normal 74-106 [facility] Comment on above: Order Comment: Order Date: 10/17/23 Order Info: 0786-1 - CMP Order Info: [id number] - LIPID Order Info: [id number] - MG Order Info: 2284-8 - FOLS N Performed By: #### L 100.0100, L503.0105, L506.0250, L500.4050, L506.1000, L500.4100, L501.5200 #### [facility] [address] [place], [address] Potassium [Moles/Vol] 4.8 mmol/L Normal 3.5-5.1 [facility] Comment on above: Order Comment: Order Date: 10/17/23 Order Info: 86-1 - CMP Order Info: [id number] - LIPID Order Info: [id number] - MG Order Info: 2284-8 - FOLS N Performed By: #### L 100.0100, L503.0105, L506.0250, L500.4050, L506.1000, L500.4100, L501.5200 #### [facility] [address] [place], [address] Sodium [Moles/Vol] 135 mmol/L Low 136-145 [facility] Comment on above: Order Comment: Order Date: 10/17/23 Order Info: 785- - CMP Order Info: 62716-0 - LIPID Order Info: [id number] - MG Order Info: 2284-8 - FOLS N Performed By: #### L 100.0100, L503.0105, L506.0250, L500.4050, L506.1000, L500.4100, L501.5200 #### [facility] [address] [place], [address] T PROT 7.9 g/dL Normal 6.4-8.2 [facility] Comment on above: Order Comment: Order Date: 10/17/23 Order Info: 86-1 - CMP Order Info: [id number] - LIPID Order Info: [id number] - MG Order Info: 2284-8 - FOLS N Performed By: #### L 100.0100, L503.0105, L506.0250, L500.4050, L506.1000, L500.4100, L501.5200 #### [facility] [address] [place], [place], [id number] Urea nitrogen [Mass/Vol] 9 mg/dL Normal 7-18 [facility] Comment on above: Order Comment: Order Date: 10/17/23 Order Info: 86-1 - CMP Order Info: [id number] - LIPID Order Info: [id number] - MG Order Info: 2284-8 - FOLS N Performed By: #### L 100.0100, L503.0105, L506.0250, L500.4050, L506.1000, L500.4100, L501.5200 #### [facility] [address] [place], [place], [phone] Folates, (Folic Acid)on 09-28 FOLATES 16.30 ng/mL Normal 3.1-55.4 [facility] Comment on above: Order Comment: Order Date: 10/17/23Order Info: 785-02 - CMPOrder Info: - LIPIDOrder Info: [id number] - MGOrder Info: 2284-8 - FOLSN Performed By: #### L 100.0100, L503.0105, L506.0250, L500.4050, L506.1000, L500.4100, L501.5200 ####[facility] [address] [place], [place], [id number] Lipid Profileon 10-17-2023 Cholesterol [Mass/Vol] 121 mg/dL Normal 200 [facility] Comment on above: Order Comment: Order Date: 10/17/23 Order Info: 785-1 - CMP Order Info: [id number] - LIPID Order Info: [id number] - MG Order Info: 2284-8 - FOLS N Result Comment: <200 mg/dL Desirable 200-240 mg/dL Borderline >240 mg/dL High Risk Performed By: #### L 100.0100, L503.0105, L506.0250, L500.4050, L506.1000, L500.4100, L501.5200 #### [facility] [address] [place], [address] Cholesterol in HDL [Mass/Vol] 66 mg/dL Normal [facility] Comment on above: Order Comment: Order Date: 10/17/23 Order Info: 785-1 - CMP Order Info: [id number] - LIPID Order Info: [id number] - MG Order Info: 228-8 - FOLS N Result Comment: The drugs N-Acetylcysteine and Metamizole may falsely depress this assay. Reference Range HDL <40 mg/dL Low HDL Cholesterol HDL >or= 60 mg/dL High HDL Cholesterol Performed By: #### L 100.0100, L503.0105, L506.0250, L500.4050, L506.1000, L500.4100, L501.5200 #### [facility] [address] [place], [address] Cholesterol in LDL [Mass/Vol] 45 mg/dL Normal 0-130 [facility] Comment on above: Order Comment: Order Date: 10/17/23 Order Info: 785-02 - CMP Order Info: - LIPID Order Info: [id number] - MG Order Info: 2283-8 - FOLS N Performed By: #### L 100.0100, L503.0105, L506.0250, L500.4050, L506.1000, L500.4100, L501.5200 #### [facility] [address] [place], [address] Cholesterol in VLDL [Mass/Vol] 10 mg/dL Normal 5-40 [facility] Comment on above: Order Comment: Order Date: 10/17/23 Order Info: 785-02 - CMP Order Info: [id number] - LIPID Order Info: [id number] - MG Order Info: 228-8 - FOLS N Performed By: #### L 100.0100, L503.0105, L506.0250, L500.4050, L506.1000, L500.4100, L501.5200 #### [facility] [address] [place], [place], [address] Triglyceride [Mass/Vol] 48 mg/dL Normal [facility] Comment on above: Order Comment: Order Date: 10/17/23 Order Info: 0786-1 - CMP Order Info: [id number] - LIPID Order Info: [id number] - MG Order Info: 228-8 - FOLS N Result Comment: The drugs N-Acetylcysteine and Metamizole may falsely depress this assay. Serum Triglycerides Reference Interval Normal <150 mg/dL Borderline high 150 - 199 mg/dL High 200 - 499 mg/dL Very High > or = 500 mg/dL Performed By: #### L 100.0100, L503.0105, L506.0250, L500.4050, L506.1000, L500.4100, L501.5200 #### [facility] [address] [place], [place], [address] Magnesiumon 10-17-2023 Magnesium [Mass/Vol] 2.0 mg/dL Normal 1.6-2.6 [facility] Comment on above: Order Comment: Order Date: 10/17/23 Order Info: 0786 - CMP Order Info: [id number] - LIPID Order Info: [id number] - MG Order Info: 2284 - FOLS N Performed By: #### L 100.0100, L503.0105, L506.0250, L500.4050, L506.1000, L500.4100, L501.5200 #### [facility] [address] [place], [place], [address] [phone] Vitamin B12on 10-17-2023 Cobalamin (Vitamin B12) [Mass/Vol] 938 pg/mL High 211-911 [facility] Comment on above: Order Comment: Order Date: 10/17/23Order Info: 2132-9 - P15Mkyga Info: 10045-2 - VITD25 Performed By: #### L 100.0100, L503.0105, L506.0250, L500.4050, L506.1000, L500.4100, L501.5200 ####[facility] [address] [place], [place], [address] Vitamin D,25 Hydroxyon 10-16 Vitamin D 25-OH 57.9 ng/mL Normal [facility] Comment on above: Order Comment: Order Date: 10/17/23Order Info: 2132-9 - K53Ugwwl Info: [id number] - VITD25 Result Comment: Ashly min D 25(OH) Status Range Deficiency <20 ng/mL (50nmol/L) Insufficiency 20 - 30 ng/mL (50 - 75 nmol/L) Sufficiency 30 - 100 ng/mL (75 - 250 nmol/L) Toxicity >100 ng/mL (>250 nmol/L) Performed By: #### L 100.0100, L503.0105, L506.0250, L500.4050, L506.1000, L500.4100, L501.5200 ####[facility] [address], [address] Absolute lymphocyte countOrd ered By: Jesus Trujillo on 04-13-2023 Lymphocytes Auto (Unsp spec) [#/Vol] 1.87 10*3/uL 0.83-4.51 [facility] Automated lymphocyte count a s percentage of total leukocytesOrdered By: Jesus Trujillo on 04-13-2023 Lymphocytes/100 WBC Auto (Unsp spec) 24.2 % 19-41 [facility] Basophil percentageOrdered B y: Jesus Trujillo on 04-13-2023 Basophils/100 WBC (Bld) 1.2 % 0-1 [facility] Bilirubin [Mass/Vol] 0.60 mg/dL 0.20-1.00 [facility] Comment on above: For patients on eltr ombopag therapy, use of Dimension [place] TBIL is not recommended. Chloride [Moles/Vol] 107 mmol/L 98-107 [facility] Cholesterol [Mass/Vol] 108 mg/dL <200 [facility] Comment on above: <200 mg/dL Desirable 200-240 mg/dL Borderline >240 mg/dL High Risk Eosinophils/100 WBC (Bld) 1.2 % 0-5 [facility] Glucose [Mass/Vol] 83 mg/dL 74-106 [facility] Hemoglobin (Bld) [Mass/Vol] 14.5 g/dL 13.0-16.5 [facility] Monocytes/100 WBC (Bld) 7.6 % 0-10 [facility] Neutrophils (Bld) [#/Vol] 5.0 10*3/uL 2.0-7.7 [facility] Neutrophils/100 WBC (Bld) 65.0 % 47-70 [facility] Potassium [Moles/Vol] 4.3 mmol/L 3.5-5.1 [facility] Protein [Mass/Vol] 7.1 g/dL 6.4-8.2 [facility] Sodium [Moles/Vol] 137 mmol/L 136-145 [facility] Triglyceride [Mass/Vol] 51 mg/dL <199 [facility] Comment on above: The drugs N-Acetylcy steine and Metamizole may falsely depress this assay.Serum Triglycerides Reference Interval Normal <150 mg/dL Borderline high 150 - 199 mg/dL High 200 - 499 mg/dL Very High > or = 500 mg/dL WBC (Bld) [#/Vol] 7.7 10*3/uL 4.4-11.0 [facility] Determination of erythrocyte mean corpuscular volume (MCV)Ordered By: Jesus Trujillo on 04-13-2023 MCV (RBC) [Entitic vol] 101.3 fL 80-94 [facility] Erythrocyte distribution wid th ratioOrdered By: Jesus Trujillo on 04-13-2023 Erythrocyte distribution width (RBC) [Ratio] 13.5 % 11.6-14.6 [facility] Erythrocyte distribution wid th standard deviationOrdered By: Jesus Trujillo on 04-13-2023 Erythrocyte distribution width (RBC) [Entitic vol] 50.9 fL 35.1-43.9 [facility] Hematocrit Auto (Bld) [Volum e fraction]Ordered By: Jesus Trujillo on 04-13-2023 Hematocrit (Bld) [Volume fraction] 45.4 % 40-54 [facility] Immature granulocytes/100 WB C Auto (Bld)Ordered By: Jesus Trujillo on 04-13-2023 Immature granulocytes/100 WBC (Bld) 0.800 % 0.0-0.9 [facility] Comment on above: IG% - Immature Granu locytes (promyelocytes, myelocytes and metamyelocytes) > 1% indicates that a LEFT SHIFT is Present. Laboratory - Chemistry and C hemistry - challengeOrdered By: Jesus Trujillo on 04-13-2023 Albumin/Globulin [Mass ratio] 1.1 {ratio} 0.9-2.4 [facility] ALP [Catalytic activity/Vol] 62 U/L 45-117 [facility] ALT [Catalytic activity/Vol] 26 U/L 16-61 [facility] Cholesterol in HDL [Mass/Vol] 53 mg/dL >40 [facility] Comment on above: The drugs N-Acetylcy steine and Metamizole may falsely depress this assay. Reference Range HDL <40 mg/dL Low HDL Cholesterol HDL >or= 60 mg/dL High HDL Cholesterol Cholesterol in LDL [Mass/Vol] 45 mg/dL 0-130 [facility] CO2 [Moles/Vol] 26.0 mmol/L 21.0-32.0 [facility] Cobalamin (Vitamin B12) [Mass/Vol] 536 pg/mL 211-911 [facility] Globulin (S) [Mass/Vol] 3.4 g/dL 2.2-4.2 [facility] Urea nitrogen/Creatinine [Mass ratio] 12.9 mg/mg 10-20 [facility] Laboratory - Hematology and Cell countsOrdered By: Jesus Trujillo on 04-13-2023 MCH (RBC) [Entitic mass] 32.4 pg 27.0-32.0 [facility] MCHC (RBC) [Mass/Vol] 31.9 g/dL 32-36 [facility] Nucleated RBC/100 WBC (Bld) [Ratio] 0 % 0-5 [facility] Platelet mean volume (Bld) [Entitic vol] 9.8 fL 6.2-12.0 [facility] Platelets (Bld) [#/Vol] 310 10*3/uL 150-450 [facility] No Panel InformationOrdered By: Jesus Trujillo on 04-13-2023 Estimated GFR (MDRD) Amer 95 mL/min >60 [facility] Comment on above: GFR Calc Estimated GFR (MDRD) Non-Af Amer 79 mL/min >60 [facility] Comment on above: Non- GFR Calc Folate 6.90 ng/mL 3.1-55.4 [facility] Comment on above: Slight Hemolysis, Re sult may be falsely increased. Prostate Specific Antigen Screen 1.27 ng/mL 0.00-4.00 [facility] Comment on above: This test was perfor med using the TPSA assay method for the[employer] chemistry system. Values obtained with differentassay methods cannot be used interchangably.When changing PSA assays in the course of monitoring apatient, additional sequential testing should be carriedout to confirm baseline values. Vitamin D 25-Hydroxy 54.0 ng/mL [facility] Comment on above: Vitamin D 25(OH) Sta tus Range Deficiency <20 ng/mL (50nmol/L) Insufficiency 20 - 30 ng/mL (50 - 75 nmol/L) Sufficiency 30 - 100 ng/mL (75 - 250 nmol/L) Toxicity >100 ng/mL (>250 nmol/L) VLDL Cholesterol 10 mg/dL 5-40 [facility] RBC Auto (Bld) [#/Vol]Ordere d By: Jesus Trujillo on 04-13-2023 RBC (Bld) [#/Vol] 4.48 10*6/uL 4.6-6.2 [facility] Serum or plasma calcium ambreen urement (mass/volume)Ordered By: Jesus Trujillo on 04-13-2023 Calcium [Mass/Vol] 8.9 mg/dL 8.5-10.1 [facility] Serum or plasma creatinine m easurement (mass/volume)Ordered By: Jesus Trujillo on 04-13-2023 Creatinine [Mass/Vol] 1.01 mg/dL 0.70-1.30 [facility] Comment on above: The validity of the calculated GFR & GFRAA in patients over 70 years has not been determined. Clinical correlation is essential. Serum or plasma thyroid stim ulating hormone (TSH) measurement (units/volume)Ordered By: Jesus Trujillo on 04-13-2023 TSH Qn 1.12 uIU/mL 0.358-3.74 [facility] Serum or plasma urea nitroge n measurement (mass/volume)Ordered By: Jesus Trujillo on 04-13-2023 Urea nitrogen [Mass/Vol] 13 mg/dL 7-18 [facility] Thin prep Papanicolaou smear with manual screeningOrdered By: Jesus Trujillo on 04-13-2023 Thin prep Papanicolaou smear with manual screening 3.7 g/dL 3.2-5.0 [facility] Thin prep Papanicolaou smear with manual screening 14 U/L 15-37 [facility] Thin prep Papanicolaou smear with manual screening 4 5-15 [facility] Absolute lymphocyte countOrd ered By: Jass Woods on 11-15-2022 Lymphocytes Auto (Unsp spec) [#/Vol] 1.34 10*3/uL 0.83-4.51 [facility] Basophil percentageOrdered B y: Jass Woods on 11-15-2022 Basophil percentage 3.6 mg/dL 2.5-4.9 [facility] Basophils/100 WBC (Bld) 0.3 % 0-1 [facility] Chloride [Moles/Vol] 106 mmol/L 98-107 [facility] Eosinophils/100 WBC (Bld) 0.0 % 0-5 [facility] Glucose [Mass/Vol] 131 mg/dL 74-106 [facility] Comment on above: Fasting Glucose resu lt greater than or equal to 126 mg/dL suggests DIABETES MELLITUS per A.D.A. criteria. Neutrophils (Bld) [#/Vol] 7.8 10*3/uL 2.0-7.7 [facility] Neutrophils/100 WBC (Bld) 76.6 % 47-70 [facility] Potassium [Moles/Vol] 4.9 mmol/L 3.5-5.1 [facility] Comment on above: Moderate Hemolysis, Result may be falsely increased. Sodium [Moles/Vol] 137 mmol/L 136-145 [facility] WBC (Bld) [#/Vol] 10.1 10*3/uL 4.4-11.0 [facility] Blood erythrocytes count (nu mber/volume)Ordered By: Jass Woods on 11-15-2022 RBC (Bld) [#/Vol] 3.82 10*6/uL 4.6-6.2 [facility] Blood hemoglobin measurement (mass/volume)Ordered By: Jass Woods on 11-15-2022 Hemoglobin (Bld) [Mass/Vol] 12.9 g/dL 13.0-16.5 [facility] Blood lymphocytes/100 leukoc ytesOrdered By: Jassdonna Woods on 11-15-2022 Lymphocytes/100 WBC (Bld) 13.2 % 19-41 [facility] Blood monocytes/100 leukocyt esOrdered By: Jass Woods on 11-15-2022 Monocytes/100 WBC (Bld) 9.4 % 0-10 [facility] Blood platelet mean volumeOr dered By: Jassdonna Woods on 11-15-2022 Platelet mean volume (Bld) [Entitic vol] 10.0 fL 6.2-12.0 [facility] Determination of erythrocyte mean corpuscular volume (MCV)Ordered By: Jass Woods on 11-15-2022 MCV (RBC) [Entitic vol] 101.3 fL 80-94 [facility] Hematocrit Auto (Bld) [Volum e fraction]Ordered By: Jassdonna Woods on 11-15-2022 Hematocrit (Bld) [Volume fraction] 38.7 % 40-54 [facility] Laboratory - Chemistry and C hemistry - challengeOrdered By: Jass Woods on 11-15-2022 CO2 [Moles/Vol] 29.0 mmol/L 21.0-32.0 [facility] Magnesium [Mass/Vol] 1.6 mg/dL 1.6-2.6 [facility] Comment on above: Moderate Hemolysis, Result may be falsely increased. Urea nitrogen/Creatinine [Mass ratio] 9.4 mg/mg 10-20 [facility] Laboratory - Hematology and Cell countsOrdered By: Jass Woods on 11-15-2022 Erythrocyte distribution width (RBC) [Entitic vol] 48.5 fL 35.1-43.9 [facility] Erythrocyte distribution width (RBC) [Ratio] 13.1 % 11.6-14.6 [facility] Immature granulocytes/100 WBC (Bld) 0.500 % 0.0-0.9 [facility] Comment on above: IG% - Immature Granu locytes (promyelocytes, myelocytes and metamyelocytes) > 1% indicates that a LEFT SHIFT is Present. MCH (RBC) [Entitic mass] 33.8 pg 27.0-32.0 [facility] Nucleated RBC/100 WBC (Bld) [Ratio] 0 % 0-5 [facility] MCHC Auto (RBC) [Mass/Vol]Or dered By: Jass Woods on 11-15-2022 MCHC (RBC) [Mass/Vol] 33.3 g/dL 32-36 [facility] No Panel InformationOrdered By: Jass Woods on 11-15-2022 Estimated Creatinine Clearance Calc 77.04 ml/min [facility] Estimated GFR (MDRD) Amer 101 mL/min >60 [facility] Comment on above: GFR Calc Estimated GFR (MDRD) Non-Af Amer 83 mL/min >60 [facility] Comment on above: Non- GFR Calc Platelets bldOrdered By: Jayashree Woods on 11-15-2022 Platelets (Bld) [#/Vol] 198 10*3/uL 150-450 [facility] Serum or plasma calcium ambreen urement (mass/volume)Ordered By: Jass Woods on 11-15-2022 Calcium [Mass/Vol] 8.1 mg/dL 8.5-10.1 [facility] Serum or plasma creatinine m easurement (mass/volume)Ordered By: Jass Woods on 11-15-2022 Creatinine [Mass/Vol] 0.96 mg/dL 0.70-1.30 [facility] Comment on above: The validity of the calculated GFR & GFRAA in patients over 70 years has not been determined. Clinical correlation is essential. Serum or plasma urea nitroge n measurement (mass/volume)Ordered By: Jass Woods on 11-15-2022 Urea nitrogen [Mass/Vol] 9 mg/dL 7-18 [facility] Thin prep Papanicolaou smear with manual screeningOrdered By: Jass Woods on 11-15-2022 Thin prep Papanicolaou smear with manual screening 2 5-15 [facility] Absolute lymphocyte countOrd ered By: Jesus Trujillo on 10-19-2022 Lymphocytes Auto (Unsp spec) [#/Vol] 2.09 10*3/uL 0.83-4.51 [facility] Basophil percentageOrdered B y: Jesus Trujillo on 10-19-2022 Basophils/100 WBC (Bld) 0.8 % 0-1 [facility] Bilirubin [Mass/Vol] 0.60 mg/dL 0.20-1.00 [facility] Comment on above: For patients on eltr ombopag therapy, use of Dimension [place] TBIL is not recommended. Chloride [Moles/Vol] 104 mmol/L 98-107 [facility] Cholesterol [Mass/Vol] 104 mg/dL <200 [facility] Comment on above: <200 mg/dL Desirable 200-240 mg/dL Borderline >240 mg/dL High Risk Eosinophils/100 WBC (Bld) 1.6 % 0-5 [facility] Glucose [Mass/Vol] 109 mg/dL 74-106 [facility] Comment on above: Fasting Glucose resu lt from 100 to 125 mg/dL suggests IMPAIRED HOMEOSTASIS per A.D.A. criteria. Neutrophils (Bld) [#/Vol] 4.9 10*3/uL 2.0-7.7 [facility] Neutrophils/100 WBC (Bld) 61.5 % 47-70 [facility] Potassium [Moles/Vol] 4.5 mmol/L 3.5-5.1 [facility] Protein [Mass/Vol] 7.2 g/dL 6.4-8.2 [facility] Sodium [Moles/Vol] 136 mmol/L 136-145 [facility] Triglyceride [Mass/Vol] 52 mg/dL <199 [facility] Comment on above: The drugs N-Acetylcy steine and Metamizole may falsely depress this assay.Serum Triglycerides Reference Interval Normal <150 mg/dL Borderline high 150 - 199 mg/dL High 200 - 499 mg/dL Very High > or = 500 mg/dL WBC (Bld) [#/Vol] 7.9 10*3/uL 4.4-11.0 [facility] Blood erythrocytes count (nu mber/volume)Ordered By: Jesus Trujillo on 10-19-2022 RBC (Bld) [#/Vol] 4.67 10*6/uL 4.6-6.2 [facility] Blood hemoglobin measurement (mass/volume)Ordered By: Jesus Trujillo on 10-19-2022 Hemoglobin (Bld) [Mass/Vol] 15.6 g/dL 13.0-16.5 [facility] Blood lymphocytes/100 leukoc ytesOrdered By: Jesus Trujillo on 10-19-2022 Lymphocytes/100 WBC (Bld) 26.4 % 19-41 [facility] Blood monocytes/100 leukocyt esOrdered By: Jesus Trujillo on 10-19-2022 Monocytes/100 WBC (Bld) 8.7 % 0-10 [facility] Blood platelet mean volumeOr dered By: Jesus Trujillo on 10-19-2022 Platelet mean volume (Bld) [Entitic vol] 10.1 fL 6.2-12.0 [facility] Determination of erythrocyte mean corpuscular volume (MCV)Ordered By: Jesus Trujillo on 10-19-2022 MCV (RBC) [Entitic vol] 102.6 fL 80-94 [facility] Hematocrit Auto (Bld) [Volum e fraction]Ordered By: Jesus Trujillo on 10-19-2022 Hematocrit (Bld) [Volume fraction] 47.9 % 40-54 [facility] Laboratory - Chemistry and C hemistry - challengeOrdered By: Jesus Trujillo on 10-19-2022 ALP [Catalytic activity/Vol] 53 U/L 45-117 [facility] ALT [Catalytic activity/Vol] 32 U/L 16-61 [facility] CO2 [Moles/Vol] 25.0 mmol/L 21.0-32.0 [facility] Globulin (S) [Mass/Vol] 3.3 g/dL 2.2-4.2 [facility] Urea nitrogen/Creatinine [Mass ratio] 12.8 mg/mg 10-20 [facility] Laboratory - Hematology and Cell countsOrdered By: Jesus Trujillo on 10-19-2022 Erythrocyte distribution width (RBC) [Entitic vol] 48.8 fL 35.1-43.9 [facility] Erythrocyte distribution width (RBC) [Ratio] 12.8 % 11.6-14.6 [facility] Immature granulocytes/100 WBC (Bld) 1.000 % 0.0-0.9 [facility] Comment on above: IG% - Immature Granu locytes (promyelocytes, myelocytes and metamyelocytes) > 1% indicates that a LEFT SHIFT is Present. MCH (RBC) [Entitic mass] 33.4 pg 27.0-32.0 [facility] Nucleated RBC/100 WBC (Bld) [Ratio] 0 % 0-5 [facility] MCHC Auto (RBC) [Mass/Vol]Or dered By: Jesus Trujillo on 10-19-2022 MCHC (RBC) [Mass/Vol] 32.6 g/dL 32-36 [facility] No Panel InformationOrdered By: Jesus Trujillo on 10-19-2022 Estimated GFR (MDRD) Amer 104 mL/min >60 [facility] Comment on above: GFR Calc Estimated GFR (MDRD) Non-Af Amer 86 mL/min >60 [facility] Comment on above: Non- GFR Calc Vitamin D 25-Hydroxy 65.0 ng/mL [facility] Comment on above: Vitamin D 25(OH) Sta tus Range Deficiency <20 ng/mL (50nmol/L) Insufficiency 20 - 30 ng/mL (50 - 75 nmol/L) Sufficiency 30 - 100 ng/mL (75 - 250 nmol/L) Toxicity >100 ng/mL (>250 nmol/L) Platelets bldOrdered By: Adrien Trujillo on 10-19-2022 Platelets (Bld) [#/Vol] 249 10*3/uL 150-450 [facility] Serum or plasma albumin ambreen urement (mass/volume)Ordered By: Jesus Trujillo on 10-19-2022 Albumin [Mass/Vol] 3.9 g/dL 3.2-5.0 [facility] Serum or plasma albumin/glob ulin mass ratioOrdered By: Jesus Trujillo on 10-19-2022 Albumin/Globulin [Mass ratio] 1.2 {ratio} 0.9-2.4 [facility] Serum or plasma calcium ambreen urement (mass/volume)Ordered By: Jesus Trujillo on 10-19-2022 Calcium [Mass/Vol] 9.2 mg/dL 8.5-10.1 [facility] Serum or plasma cholesterol in HDL measurement (mass/volume)Ordered By: Jesus Trujillo on 10-19-2022 Cholesterol in HDL [Mass/Vol] 61 mg/dL >40 [facility] Comment on above: The drugs N-Acetylcy steine and Metamizole may falsely depress this assay. Reference Range HDL <40 mg/dL Low HDL Cholesterol HDL >or= 60 mg/dL High HDL Cholesterol Serum or plasma cholesterol in VLDL measurement (mass/volume)Ordered By: Jesus Trujillo on 10-19-2022 Cholesterol in VLDL [Mass/Vol] 10 mg/dL 5-40 [facility] Serum or plasma creatinine m easurement (mass/volume)Ordered By: Jesus Trujillo on 10-19-2022 Creatinine [Mass/Vol] 0.94 mg/dL 0.70-1.30 [facility] Comment on above: The validity of the calculated GFR & GFRAA in patients over 70 years has not been determined. Clinical correlation is essential. Serum or plasma low density lipoprotein (LDL) cholesterol measurement (mass/volume)Ordered By: Jesus Trujillo on 10-19-2022 Cholesterol in LDL [Mass/Vol] 33 mg/dL 0-130 [facility] Serum or plasma urea nitroge n measurement (mass/volume)Ordered By: Jesus Trujillo on 10-19-2022 Urea nitrogen [Mass/Vol] 12 mg/dL 7-18 [facility] Thin prep Papanicolaou smear with manual screeningOrdered By: Jesus Trujillo on 10-19-2022 Thin prep Papanicolaou smear with manual screening 20 U/L 15-37 [facility] Thin prep Papanicolaou smear with manual screening 7 5-15 [facility] No Panel InformationOrdered By: Sujatha Moreno on 08-10-2022 Estimated GFR (MDRD) Amer 102 mL/min >60 [facility] Comment on above: GFR Calc Estimated GFR (MDRD) Non-Af Amer 84 mL/min >60 [facility] Comment on above: Non- GFR Calc Serum or plasma creatinine m easurement (mass/volume)Ordered By: Sujatha Moreno on 08-10-2022 Creatinine [Mass/Vol] 0.95 mg/dL 0.70-1.30 [facility] Comment on above: The validity of the calculated GFR & GFRAA in patients over 70 years has not been determined. Clinical correlation is essential. Whole blood hemoglobin A1c/t otal hemoglobin ratio (mass fraction)Ordered By: Dr. Trujillo on 08-10-2022 HbA1c (Bld) [Mass fraction] 5.5 % 3.8-5.6 [facility] Comment on above: Normal < 5.7 % Predi abetic 5.7 - 6.4 % Diabetic >or= 6.5 % Please note range changes. Absolute lymphocyte countOrd ered By: Dr. Trujillo on 05-11-2022 Lymphocytes Auto (Unsp spec) [#/Vol] 1.92 10*3/uL 0.83-4.51 [facility] Basophil percentageOrdered B y: Dr. Trujillo on 05-11-2022 Basophils/100 WBC (Bld) 0.6 % 0-1 [facility] Bilirubin [Mass/Vol] 0.60 mg/dL 0.20-1.00 [facility] Comment on above: For patients on eltr ombopag therapy, use of Dimension [place] TBIL is not recommended. Chloride [Moles/Vol] 106 mmol/L 98-107 [facility] Cholesterol [Mass/Vol] 94 mg/dL <200 [facility] Comment on above: <200 mg/dL Desirable 200-240 mg/dL Borderline >240 mg/dL High Risk Eosinophils/100 WBC (Bld) 1.0 % 0-5 [facility] Glucose [Mass/Vol] 111 mg/dL 74-106 [facility] Comment on above: Fasting Glucose resu lt from 100 to 125 mg/dL suggests IMPAIRED HOMEOSTASIS per A.D.A. criteria. Neutrophils (Bld) [#/Vol] 5.6 10*3/uL 2.0-7.7 [facility] Neutrophils/100 WBC (Bld) 67.6 % 47-70 [facility] Potassium [Moles/Vol] 4.4 mmol/L 3.5-5.1 [facility] Protein [Mass/Vol] 6.9 g/dL 6.4-8.2 [facility] Sodium [Moles/Vol] 139 mmol/L 136-145 [facility] Triglyceride [Mass/Vol] 57 mg/dL <199 [facility] Comment on above: The drugs N-Acetylcy steine and Metamizole may falsely depress this assay.Serum Triglycerides Reference Interval Normal <150 mg/dL Borderline high 150 - 199 mg/dL High 200 - 499 mg/dL Very High > or = 500 mg/dL WBC (Bld) [#/Vol] 8.3 10*3/uL 4.4-11.0 [facility] Blood erythrocytes count (nu mber/volume)Ordered By: Dr. Trujillo on 05-11-2022 RBC (Bld) [#/Vol] 4.48 10*6/uL 4.6-6.2 [facility] Blood hemoglobin measurement (mass/volume)Ordered By: Dr. Trujillo on 05-11-2022 Hemoglobin (Bld) [Mass/Vol] 14.9 g/dL 13.0-16.5 [facility] Blood lymphocytes/100 leukoc ytesOrdered By: Dr. Trujillo on 05-11-2022 Lymphocytes/100 WBC (Bld) 23.2 % 19-41 [facility] Blood monocytes/100 leukocyt esOrdered By: Dr. Trujillo on 05-11-2022 Monocytes/100 WBC (Bld) 6.9 % 0-10 [facility] Blood platelet mean volumeOr dered By: Dr. Trujillo on 05-11-2022 Platelet mean volume (Bld) [Entitic vol] 10.1 fL 6.2-12.0 [facility] Determination of erythrocyte mean corpuscular volume (MCV)Ordered By: Dr. Trujillo on 05-11-2022 MCV (RBC) [Entitic vol] 102.0 fL 80-94 [facility] Hematocrit Auto (Bld) [Volum e fraction]Ordered By: Dr. Trujillo on 05-11-2022 Hematocrit (Bld) [Volume fraction] 45.7 % 40-54 [facility] Laboratory - Chemistry and C hemistry - challengeOrdered By: Dr. Trujillo on 05-11-2022 ALP [Catalytic activity/Vol] 51 U/L 45-117 [facility] ALT [Catalytic activity/Vol] 21 U/L 16-61 [facility] CO2 [Moles/Vol] 26.0 mmol/L 21.0-32.0 [facility] Cobalamin (Vitamin B12) [Mass/Vol] 209 pg/mL 211-911 [facility] Globulin (S) [Mass/Vol] 3.3 g/dL 2.2-4.2 [facility] Urea nitrogen/Creatinine [Mass ratio] 5.9 mg/mg 10-20 [facility] Laboratory - Hematology and Cell countsOrdered By: Dr. Trujillo on 05-11-2022 Erythrocyte distribution width (RBC) [Entitic vol] 48.8 fL 35.1-43.9 [facility] Erythrocyte distribution width (RBC) [Ratio] 12.9 % 11.6-14.6 [facility] Immature granulocytes/100 WBC (Bld) 0.700 % 0.0-0.9 [facility] Comment on above: IG% - Immature Granu locytes (promyelocytes, myelocytes and metamyelocytes) > 1% indicates that a LEFT SHIFT is Present. MCH (RBC) [Entitic mass] 33.3 pg 27.0-32.0 [facility] Nucleated RBC/100 WBC (Bld) [Ratio] 0 % 0-5 [facility] MCHC Auto (RBC) [Mass/Vol]Or dered By: Dr. Trujillo on 05-11-2022 MCHC (RBC) [Mass/Vol] 32.6 g/dL 32-36 [facility] No Panel InformationOrdered By: Dr. Trujillo on 05-11-2022 Estimated GFR (MDRD) Amer 95 mL/min >60 [facility] Comment on above: GFR Calc Estimated GFR (MDRD) Non-Af Amer 79 mL/min >60 [facility] Comment on above: Non- GFR Calc Thyroid Stimulating Hormone (TSH) 1.14 uIU/mL 0.358-3.74 [facility] Platelets bldOrdered By: Dr. Trujillo on 05-11-2022 Platelets (Bld) [#/Vol] 249 10*3/uL 150-450 [facility] Serum or plasma albumin ambreen urement (mass/volume)Ordered By: Dr. Trujillo on 05-11-2022 Albumin [Mass/Vol] 3.6 g/dL 3.2-5.0 [facility] Serum or plasma albumin/glob ulin mass ratioOrdered By: Dr. Trujillo on 05-11-2022 Albumin/Globulin [Mass ratio] 1.1 {ratio} 0.9-2.4 [facility] Serum or plasma calcium ambreen urement (mass/volume)Ordered By: Dr. Trujillo on 05-11-2022 Calcium [Mass/Vol] 9.4 mg/dL 8.5-10.1 [facility] Serum or plasma cholesterol in HDL measurement (mass/volume)Ordered By: Dr. Trujillo on 05-11-2022 Cholesterol in HDL [Mass/Vol] 50 mg/dL >40 [facility] Comment on above: The drugs N-Acetylcy steine and Metamizole may falsely depress this assay. Reference Range HDL <40 mg/dL Low HDL Cholesterol HDL >or= 60 mg/dL High HDL Cholesterol Serum or plasma cholesterol in VLDL measurement (mass/volume)Ordered By: Dr. Trujillo on 05-11-2022 Cholesterol in VLDL [Mass/Vol] 11 mg/dL 5-40 [facility] Serum or plasma creatinine m easurement (mass/volume)Ordered By: Dr. Trujillo on 05-11-2022 Creatinine [Mass/Vol] 1.01 mg/dL 0.70-1.30 [facility] Comment on above: The validity of the calculated GFR & GFRAA in patients over 70 years has not been determined. Clinical correlation is essential. Serum or plasma folate measu rement (mass/volume)Ordered By: Dr. Trujillo on 05-11-2022 Folate [Mass/Vol] 10.60 ng/mL 3.1-55.4 [facility] Comment on above: Slight Hemolysis, Re sult may be falsely increased. Serum or plasma low density lipoprotein (LDL) cholesterol measurement (mass/volume)Ordered By: Dr. Trujillo on 05-11-2022 Cholesterol in LDL [Mass/Vol] 33 mg/dL 0-130 [facility] Serum or plasma urea nitroge n measurement (mass/volume)Ordered By: Dr. Trujillo on 05-11-2022 Urea nitrogen [Mass/Vol] 6 mg/dL 7-18 [facility] Thin prep Papanicolaou smear with manual screeningOrdered By: Dr. Trujillo on 05-11-2022 Thin prep Papanicolaou smear with manual screening 13 U/L 15-37 [facility] Thin prep Papanicolaou smear with manual screening 7 5-15 [facility] Whole blood hemoglobin A1c/t otal hemoglobin ratio (mass fraction)Ordered By: Dr. Trujillo on 05-11-2022 HbA1c (Bld) [Mass fraction] 5.4 % 3.8-5.6 [facility] Comment on above: Normal < 5.7 % Predi abetic 5.7 - 6.4 % Diabetic >or= 6.5 % Please note range changes. Absolute lymphocyte counton 01-05-2022 Lymphocytes Auto (Unsp spec) [#/Vol] 1.42 10*3/uL 0.83-4.51 [facility] Work Phone: Basophil percentageon 2021 Basophils/100 WBC (Bld) 0.2 % 0-1 [facility] Work Phone: Chloride [Moles/Vol] 106 mmol/L 98-107 [facility] Work Phone: Cholesterol [Mass/Vol] 92 mg/dL <200 [facility] Work Phone: Comment on above: <200 mg/dL Desirable 200-240 mg/dL Borderline >240 mg/dL High Risk Eosinophils/100 WBC (Bld) 0.0 % 0-5 [facility] Work Phone: Glucose [Mass/Vol] 122 mg/dL 74-106 [facility] Work Phone: Comment on above: Fasting Glucose resu lt from 100 to 125 mg/dL suggests IMPAIRED HOMEOSTASIS per A.D.A. criteria. Neutrophils (Bld) [#/Vol] 11.1 10*3/uL 2.0-7.7 [facility] Work Phone: Neutrophils/100 WBC (Bld) 80.0 % 47-70 [facility] Work Phone: Potassium [Moles/Vol] 4.3 mmol/L 3.5-5.1 [facility] Work Phone: Sodium [Moles/Vol] 137 mmol/L 136-145 [facility] Work Phone: [phone] Triglyceride [Mass/Vol] 62 mg/dL <199 [facility] Work Phone: Comment on above: The drugs N-Acetylcy steine and Metamizole may falsely depress this assay.Serum Triglycerides Reference Interval Normal <150 mg/dL Borderline high 150 - 199 mg/dL High 200 - 499 mg/dL Very High > or = 500 mg/dL WBC (Bld) [#/Vol] 13.8 10*3/uL 4.4-11.0 [facility] Work Phone: Blood erythrocytes count (nu mber/volume)on 01-05-2022 RBC (Bld) [#/Vol] 4.48 10*6/uL 4.6-6.2 [facility] Work Phone: [phone] Blood hemoglobin measurement (mass/volume)on 01-05-2022 Hemoglobin (Bld) [Mass/Vol] 15.1 g/dL 13.0-16.5 [facility] Work Phone: Blood lymphocytes/100 leukoc yteson 01-05-2022 Lymphocytes/100 WBC (Bld) 10.3 % 19-41 [facility] Work Phone: Blood monocytes/100 leukocyt eson 01-05-2022 Monocytes/100 WBC (Bld) 8.8 % 0-10 [facility] Work Phone: [phone] Blood platelet mean volumeon 01-05-2022 Platelet mean volume (Bld) [Entitic vol] 9.7 fL 6.2-12.0 [facility] Work Phone: [phone] Determination of erythrocyte mean corpuscular volume (MCV)on 01-05-2022 MCV (RBC) [Entitic vol] 98.7 fL 80-94 [facility] Work Phone: Glucose Glucometer (BldC) [M ass/Vol]on 01-05-2022 Glucose [Mass/Vol] 123 mg/dL 74-106 [facility] [place], [place] Work Phone: Comment on above: MANAGEMENT OF PATIEN T CARE PER NURSING PROTOCOL Hematocrit Auto (Bld) [Volum e fraction]on 01-05-2022 Hematocrit (Bld) [Volume fraction] 44.2 % 40-54 [facility] Work Phone: INR in Blood by Coagulation assayon 01-05-2022 INR Coag (Bld) [Relative time] 1.0 {INR} [facility] Work Phone: Laboratory - Chemistry and C hemistry - challengeon 01-05-2022 CO2 [Moles/Vol] 22.0 mmol/L 21.0-32.0 [facility] Work Phone: Urea nitrogen/Creatinine [Mass ratio] 14.3 mg/mg 10-20 [facility] Work Phone: Laboratory - Coagulationon 1 03-07-2021 aPTT Coag (Bld) [Time] 29.2 s 24.1-36.2 [facility] [place], [place] Work Phone: PT Coag (PPP) [Time] 13.1 s 11.7-14.[address] [facility] [address] [facility] [place], [place] Work Phone: Laboratory - Hematology and Cell countson 01-05-2022 Erythrocyte distribution width (RBC) [Entitic vol] 48.8 fL 35.1-43.9 [facility] Work Phone: Erythrocyte distribution width (RBC) [Ratio] 13.4 % 11.6-14.6 [facility] Work Phone: Immature granulocytes/100 WBC (Bld) 0.700 % 0.0-0.9 [facility] Work Phone: Comment on above: IG% - Immature Granu locytes (promyelocytes, myelocytes and metamyelocytes) > 1% indicates that a LEFT SHIFT is Present. MCH (RBC) [Entitic mass] 33.7 pg 27.0-32.0 [facility] Work Phone: Nucleated RBC/100 WBC (Bld) [Ratio] 0 % 0-5 [facility] Work Phone: MCHC Auto (RBC) [Mass/Vol]on 01-05-2022 MCHC (RBC) [Mass/Vol] 34.2 g/dL 32-36 [facility] Work Phone: No Panel Informationon 01-05 Estimated Creatinine Clearance Calc 86.76 ml/min [facility] Work Phone: Estimated GFR (MDRD) Amer 108 mL/min >60 [facility] Work Phone: Comment on above: GFR Calc Estimated GFR (MDRD) Non-Af Amer 89 mL/min >60 [facility] Work Phone: Comment on above: Non- GFR Calc Thyroid Stimulating Hormone (TSH) 1.90 uIU/mL 0.358-3.74 [facility] Work Phone: Platelets bldon 01-05-2022 Platelets (Bld) [#/Vol] 206 10*3/uL 150-450 [facility] Work Phone: Serum or plasma calcium ambreen urement (mass/volume)on 01-05-2022 Calcium [Mass/Vol] 8.6 mg/dL 8.5-10.1 [facility] Work Phone: Serum or plasma cholesterol in HDL measurement (mass/volume)on 01-05-2022 Cholesterol in HDL [Mass/Vol] 68 mg/dL >40 [facility] Work Phone: Comment on above: The drugs N-Acetylcy steine and Metamizole may falsely depress this assay. Reference Range HDL <40 mg/dL Low HDL Cholesterol HDL >or= 60 mg/dL High HDL Cholesterol Serum or plasma cholesterol in VLDL measurement (mass/volume)on 01-05-2022 Cholesterol in VLDL [Mass/Vol] 12 mg/dL 5-40 [facility] Work Phone: Serum or plasma creatinine m easurement (mass/volume)on 01-05-2022 Creatinine [Mass/Vol] 0.91 mg/dL 0.70-1.30 [facility] Work Phone: Comment on above: The validity of the calculated GFR & GFRAA in patients over 70 years has not been determined. Clinical correlation is essential. Serum or plasma low density lipoprotein (LDL) cholesterol measurement (mass/volume)on 01-05-2022 Cholesterol in LDL [Mass/Vol] 12 mg/dL 0-130 [facility] Work Phone: Serum or plasma urea nitroge n measurement (mass/volume)on 01-05-2022 Urea nitrogen [Mass/Vol] 13 mg/dL 7-18 [facility] Work Phone: Thin prep Papanicolaou smear with manual screeningon 01-05-2022 Thin prep Papanicolaou smear with manual screening 9 5-15 [facility] Work Phone: Basophil percentageon 2021 Basophil percentage 3.8 mg/dL 2.5-4.9 [facility] Work Phone: Laboratory - Chemistry and C hemistry - challengeon 01-04-2022 Magnesium [Mass/Vol] 1.6 mg/dL 1.6-2.6 [facility] Work Phone: Comment on above: Moderate Hemolysis, Result may be falsely increased. No Panel Informationon 01-04 Troponin I High Sensitivity 1036 pg/mL 3.0-78.0 [facility] Work Phone: Comment on above: Critical Result(s) C gurjit at: 15:02:34 01/04/2022 by: Ami Rowe. Results read back by same. Please Note: New Test Units and Gender Specific Reference Ranges. For more information see Policy Stat Procedure [facility] High Sensitivity Troponin (TNIH) and attachments. Otheron 06-06-2008 CONVERTED CLINICAL HISTORY OPERATIVE PROCEDURE: Microdecompression vincenzo L2-S1, fusion L4-5 local graft, instrumentation CLINICAL INFORMATION: Spinal stenosis, spondylolisthesis [facility] CONVERTED ELECTRONIC SIGNATURE JASS HARRELL M.D., PATHOLOGIST (Electronic signature on file) Final Signed Out: 06/06/2008 11:53 [facility] CONVERTED FINAL DIAGNOSIS FINAL DIAGNOSIS: BONE AND SOFT TISSUE, LUMBAR SPINE AT L2-S1, EXCISION - FIBROCARTILAGE WITH DEGENERATIVE CHANGES AND FRAGMENTS OF UNREMARKABLE BONE, LIGAMENT, AND SKELETAL MUSCLE. SPECIMEN: DISC [facility] CONVERTED GROSS DESCRIPTION GROSS DESCRIPTION: Bone, ligament, soft tissue L2-S1 The specimen is received in a container labeled bone, ligament, soft tissue L2-S1. Received are portions of red-hendricks soft tissue and fragments of hendricks-red bone measuring 8 x 8 x 6 cm in aggregate. A senior outside sales representative sample is submitted in a single cassette following decal. PSB/SMS/lrs MICROSCOPIC DESCRIPTION: Slides reviewed. EDS/gpl [facility] CONVERTED ORDERING PROVIDER Ordering Provider: ECTOR MCCLURE [facility] Vital Signs Date Time Vital Sign Value Performing Clinician Joel mascorro 07-04-2024 13:38-0400 Body height 185.4 cm Oren Fuentes PA-C Work Phone: [facility] 07-04-2024 13:38-0400 Body mass index (BMI) [Ratio] 21.64 kg/m2 Oren Fuentes PA-C Work Phone: [facility] 07-04-2024 13:38-0400 Body weight 74.39 kg Oren Fuentes PA-C Work Phone: [facility] 07-04-2024 13:38-0400 Diastolic blood pressure 85 mm[Hg] Oren Fuentes PA-C Work Phone: [facility] 07-04-2024 13:38-0400 Heart rate 85 /min Oren Fuentes PA-C Work Phone: [facility] 07-04-2024 13:38-0400 SaO2% (BldA) [Mass fraction] 95 % Oren Fuentes PA-C Work Phone: [facility] 07-04-2024 13:38-0400 Systolic blood pressure 148 mm[Hg] Oren Fuentes PA-C Work Phone: [facility] 02-26-2023 13:22-0500 Heart rate 88 /min Dr. Jesus Trujillo Work Phone: [facility] 02-26-2023 13:22-0500 Respiratory rate 18 /min Dr. Jesus Trujillo Work Phone: [facility] 02-26-2023 12:28-0500 Diastolic blood pressure 93 mm[Hg] Dr. Jesus Trujillo Work Phone: [facility] 02-26-2023 12:28-0500 SaO2% (BldA) [Mass fraction] 100 % Dr. Jesus Trujillo Work Phone: [facility] 02-26-2023 12:28-0500 Systolic blood pressure 135 mm[Hg] Dr. Jesus Trujillo Work Phone: [facility] 02-26-2023 12:17-0500 Body height 185.[address] Jesus Trujillo Work Phone: [facility] 02-26-2023 12:17-0500 Body temperature 96.5 [degF] Dr. Jesus Trujillo Work Phone: [facility] 01-31-2023 13:56-0500 Body temperature 98.6 [degF] Dr. Jesus Trujillo Work Phone: [facility] 01-31-2023 13:56-0500 Diastolic blood pressure 68 mm[Hg] Dr. Jesus Trujillo Work Phone: [facility] 01-31-2023 13:56-0500 Heart rate 88 /min Dr. Jesus Trujillo Work Phone: [facility] 01-31-2023 13:56-0500 Respiratory rate 16 /min Dr. Jesus Trujillo Work Phone: [facility] 01-31-2023 13:56-0500 SaO2% (BldA) [Mass fraction] 99 % Dr. Jesus Trujillo Work Phone: [facility] 01-31-2023 13:56-0500 Systolic blood pressure 117 mm[Hg] Dr. Jesus Trujillo Work Phone: [facility] 12-07-2022 13:54-0400 Body temperature 99.1 [degF] Dr. Jesus Trujillo Work Phone: [facility] 12-07-2022 13:54-0400 Diastolic blood pressure 68 mm[Hg] Dr. Jesus Trujillo Work Phone: [facility] 12-07-2022 13:54-0400 Heart rate 88 /min Dr. Jesus Trujillo Work Phone: [facility] 12-07-2022 13:54-0400 Respiratory rate 16 /min Dr. Jesus Trujillo Work Phone: [facility] 12-07-2022 13:54-0400 SaO2% (BldA) [Mass fraction] 99 % Dr. Jesus Trujillo Work Phone: [facility] 12-07-2022 13:54-0400 Systolic blood pressure 123 mm[Hg] Dr. Jesus Trujillo Work Phone: [facility] 11-16-2022 14:00-0400 Diastolic blood pressure 61 mm[Hg] Dr. Jesus Trujillo Work Phone: [facility] 11-16-2022 14:00-0400 Heart rate 103 /min Dr. Jesus Trujillo Work Phone: [facility] 11-16-2022 14:00-0400 Respiratory rate 20 /min Dr. Jesus Trujillo Work Phone: [facility] 11-16-2022 14:00-0400 SaO2% (BldA) [Mass fraction] 95 % Dr. Jesus Trujillo Work Phone: [facility] 11-16-2022 14:00-0400 Systolic blood pressure 95 mm[Hg] Dr. Jesus Trujillo Work Phone: [facility] 11-16-2022 12:58-0400 Body height 184.[address] Jesus Trujillo Work Phone: [facility] 11-16-2022 12:00-0400 Body temperature 98.9 [degF] Dr. Jesus Trujillo Work Phone: [facility] 11-16-2022 05:20-0400 Body mass index (BMI) [Ratio] 20 kg/m2 Dr. Jesus Trujillo Work Phone: [facility] 11-16-2022 05:20-0400 Body weight 68.[address] Jesus Trujillo Work Phone: [facility] 11-15-2022 07:00-0400 Inhaled oxygen flow rate 2 L/min Dr. Jesus Trujillo Work Phone: [facility] 09-07-2022 15:37-0400 Body temperature 99.1 [degF] Dr. Jesus Trujillo Work Phone: [facility] 09-07-2022 15:37-0400 Diastolic blood pressure 79 mm[Hg] Dr. Jesus Trujillo Work Phone: [facility] 09-07-2022 15:37-0400 Heart rate 81 /min Dr. Jesus Trujillo Work Phone: [facility] 09-07-2022 15:37-0400 Respiratory rate 18 /min Dr. Jesus Trujillo Work Phone: [facility] 09-07-2022 15:37-0400 SaO2% (BldA) [Mass fraction] 96 % Dr. Jesus Trujillo Work Phone: [facility] 09-07-2022 15:37-0400 Systolic blood pressure 123 mm[Hg] Dr. Jesus Trujillo Work Phone: [facility] 08-10-2022 10:30-0400 Body temperature 100 [degF] Dr. Jesus Trujillo Work Phone: [facility] 08-10-2022 10:30-0400 Diastolic blood pressure 81 mm[Hg] Dr. Jesus Trujillo Work Phone: [facility] 08-10-2022 10:30-0400 Heart rate 85 /min Dr. Jesus Trujillo Work Phone: [facility] 08-10-2022 10:30-0400 Respiratory rate 18 /min Dr. Jesus Trujillo Work Phone: [facility] 08-10-2022 10:30-0400 SaO2% (BldA) [Mass fraction] 98 % Dr. Jesus Trujillo Work Phone: [facility] 08-10-2022 10:30-0400 Systolic blood pressure 126 mm[Hg] Dr. Jesus Trujillo Work Phone: [facility] 05-26-2022 09:04-0400 Body weight 72.[address] Jesus Trujillo Work Phone: [facility] 05-26-2022 09:04-0400 Diastolic blood pressure 75 mm[Hg] Dr. Jesus Trujillo Work Phone: [facility] 05-26-2022 09:04-0400 Heart rate 79 /min Dr. Jesus Trujillo Work Phone: [facility] 05-26-2022 09:04-0400 SaO2% (BldA) [Mass fraction] 98 % Dr. Jesus Trujillo Work Phone: [facility] 05-26-2022 09:04-0400 Systolic blood pressure 134 mm[Hg] Dr. Jesus Trujillo Work Phone: [facility] 04-28-2022 11:31-0500 Body height 185.[address] Jesus Trujillo Work Phone: [facility] 04-28-2022 11:31-0500 Body mass index (BMI) [Ratio] 20.9 kg/m2 Dr. Jesus Trujillo Work Phone: [facility] 04-28-2022 11:31-0500 Body weight 72.[address] Jesus Trujillo Work Phone: [facility] 04-28-2022 11:31-0500 Diastolic blood pressure 78 mm[Hg] Dr. Jesus Trujillo Work Phone: [facility] 04-28-2022 11:31-0500 Heart rate 65 /min Dr. Jesus Trujillo Work Phone: [facility] 04-28-2022 11:31-0500 Respiratory rate 18 /min Dr. Jesus Trujillo Work Phone: [facility] 04-28-2022 11:31-0500 SaO2% (BldA) [Mass fraction] 94 % Dr. Jesus Trujillo Work Phone: [facility] 04-28-2022 11:31-0500 Systolic blood pressure 140 mm[Hg] Dr. Jesus Trujillo Work Phone: [facility] 01-28-2022 10:56-0500 Body height 185.[address] Jesus Trujillo Work Phone: [facility] Work Phone: 01-28-2022 10:56-0500 Body mass index (BMI) [Ratio] 20.7 kg/m2 Dr. Jesus Trujillo Work Phone: [facility] 01-28-2022 10:56-0500 Body weight 71.[address] Jesus Trujillo Work Phone: [facility] 01-28-2022 10:56-0500 Diastolic blood pressure 68 mm[Hg] Dr. Jesus Trujillo Work Phone: [facility] 01-28-2022 10:56-0500 Heart rate 84 /min Dr. Jesus Trujillo Work Phone: [facility] 01-28-2022 10:56-0500 Respiratory rate 16 /min Dr. Jesus Trujillo Work Phone: [facility] 01-28-2022 10:56-0500 Systolic blood pressure 130 mm[Hg] Dr. Jesus Trujillo Work Phone: [facility] 01-05-2022 15:17-0500 Body temperature 97.2 [degF] Dr. Jesus Trujillo Work Phone: [facility] Work Phone: 01-05-2022 15:17-0500 Diastolic blood pressure 60 mm[Hg] Dr. Jesus Trujillo Work Phone: [facility] Work Phone: 01-05-2022 15:17-0500 Heart rate 97 /min Dr. Jesus Trujillo Work Phone: [facility] Work Phone: 01-05-2022 15:17-0500 Respiratory rate 18 /min Dr. Jesus Trujillo Work Phone: [facility] Work Phone: 01-05-2022 15:17-0500 SaO2% (BldA) [Mass fraction] 96 % Dr. Jesus Trujillo Work Phone: [facility] Work Phone: 01-05-2022 15:17-0500 Systolic blood pressure 102 mm[Hg] Dr. Jesus Trujillo Work Phone: [facility] Work Phone: 01-05-2022 14:36-0500 Body weight 74.[address] Jesus Trujillo Work Phone: [facility] Work Phone: 01-05-2022 08:34-0500 Inhaled oxygen flow rate 92 L/min Dr. Jesus Trujillo Work Phone: [facility] Work Phone: 01-04-2022 17:32-0500 Body mass index (BMI) [Ratio] 21.7 kg/m2 Dr. Jesus Trujillo Work Phone: [facility] Work Phone: Encounters Encounter Date Encounter Type Care Provider Facility Start: 07-04-2024 End: 07-04-2024 Patient encounter procedure Oren Fuentes PA-C Work Phone: [facility] [place] [facility] Comment on above: History of fusion of lumbar spine (Primary Dx); Leg weakness, bilateral; Mechanical low back pain; Cervical spondylosis with myelopathy; Family history of stroke Start: 07-04-2024 End: 07-04-2024 ambulatory OREN FUENTES Facility:[facility] Start: 05-30-2024 End: 05-30-2024 ambulatory Jesus Trujillo Facility:[facility] Start: 05-03-2024 End: 05-03-[address] Jesus Trujillo MD Work Phone: [facility] Work Phone: Start: 05-03-2024 End: 05-03-[address] Jesus Trujillo MD -Laboratory, [facility] Start: 05-03-2024 End: 05-03-2024 ambulatory Jesus Trujillo Facility:[facility] Start: 02-20-2024 End: 02-20-[address] Jesus Trujillo MD -Cat Scan, [facility] Work Phone: Start: 02-20-2024 End: 02-20-2024 ambulatory Jesus Trujillo Facility:[facility] Start: 01-31-2024 End: 01-31-[address] Jesus Trujillo MD -Laboratory, [facility] Start: 01-31-2024 End: 01-31-2024 ambulatory Jesus Trujillo Facility:[facility] Start: 01-11-2024 End: 01-11-2024 ambulatory Sujatha Casey Facility:[facility] Start: 12-21-2023 ambulatory Sujatha Casey Facility:[facility] Start: 12-21-2023 End: 12-21-2023 ambulatory Sujatha Casey Facility:[facility] Start: 11-22-2023 End: 11-22-2023 ambulatory Sujatha Casey Facility:[facility] Start: 11-21-2023 End: 11-21-2023 ambulatory Jesus Trujillo Facility:[facility] Start: 11-20-2023 End: 11-20-2023 ambulatory Sujatha Casey Facility:[facility] Start: 11-08-2023 End: 11-08-2023 ambulatory Jesus Dao NP Facility:[facility] Start: 11-02-2023 ambulatory Sujatha Casey Facility:[facility] Start: 11-02-2023 End: 11-02-2023 ambulatory Sujatha Casey Facility:[facility] Start: 10-17-2023 End: 10-17-2023 ambulatory Jesus Trujillo Facility:[facility] Start: 04-13-2023 End: 04-13-[address] Jesus Trujillo Work Phone: [facility] Work Phone: Start: 04-13-2023 End: 04-13-[address] Jesus Trujillo Work Phone: [facility] Start: 02-26-2023 End: 02-26-2023 Emergency department patient visit Dr. Jesus Trujillo Work Phone: [facility]-Emergency Department Work Phone: Start: 01-31-2023 End: 01-31-[address] Jesus Trujillo Work Phone: [facility] Work Phone: Start: 01-10-2023 Non-patient / Non-visit Dr. Marnie Trujillo Work Phone: [facility] Start: 01-10-2023 End: 01-10-[address] Jesus Trujillo Work Phone: [facility] Work Phone: Start: 01-10-2023 End: 01-10-[address] [facility] Work [facility]: Start: 12-07-2022 End: 12-07-[address] Jesus Trujillo Work Phone: [facility] Work Phone: Start: 11-16-2022 Non-patient / Non-visit Dr. Marnie Trujillo Work Phone: [facility] Start: 11-15-2022 Non-patient / Non-visit Dr. Marnie Trujillo Work Phone: [facility] Start: 11-14-2022 Non-patient / Non-visit Dr. Marnie Trujillo Work Phone: [facility] Start: 11-14-2022 End: 11-16-2022 Evaluation and management of inpatient Dr. Jesus Trujillo Work Phone: [facility]-Intensive Care Unit Work Phone: Start: 10-19-2022 End: 10-19-[address] Jesus Trujillo Work Phone: [facility] Work Phone: Start: 10-19-2022 End: 10-19-[address] Jesus Trujillo Work Phone: [facility] Start: 09-29-2022 End: 09-29-2022 Non-patient / Non-visit Dr. Jesus Trujillo Work Phone: [facility] Work Phone: Start: 09-07-2022 End: 09-07-[address] Jesus Trujillo Work Phone: [facility] Work Phone: Start: 08-16-2022 End: 08-16-[address] Jesus Trujillo Work Phone: [facility] Work Phone: Start: 08-16-2022 End: 08-16-[address] Jesus Trujillo Work Phone: [facility] Start: 08-10-2022 End: 08-10-[address] Jesus Trujillo Work Phone: [facility] Work Phone: Start: 08-10-2022 End: 08-10-[address] Jesus Trujillo Work Phone: [facility] Start: 06-28-2022 End: 06-28-[address] Jesus Trujillo Work Phone: [facility] Work Phone: Start: 06-28-2022 End: 06-28-[address] Jesus Trujillo Work Phone: [facility] Start: 05-26-2022 End: 05-26-[address] Jesus Trujillo Work Phone: [facility] Start: 05-20-2022 End: 05-20-[address] Jesus Trujillo Work Phone: [facility] Start: 05-11-2022 End: 05-11-[address] Jesus Trujillo Work Phone: [facility] Work Phone: Start: 05-11-2022 End: 05-11-[address] Jesus Trujillo Work Phone: [facility] Start: 04-28-2022 End: 04-28-[address] Jesus Trujillo Work Phone: [facility] Start: 02-08-2022 Non-patient / Non-visit Dr. Marnie Trujillo Work Phone: [facility] Start: 02-08-2022 End: 02-08-[address] Jesus Trujillo Work Phone: [facility] Work Phone: Start: 02-08-2022 End: 02-08-[address] Jesus Trujillo Work Phone: [facility] Start: 01-28-2022 End: 01-28-[address] Jesus Trujillo Work Phone: [facility] Start: 01-05-2022 Non-patient / Non-visit Dr. Marnie Trujillo Work Phone: [facility] Start: 01-05-2022 Non-patient / Non-visit Dr. Marnie Trujillo Work Phone: [facility] Start: 01-04-2022 End: 01-05-2022 Evaluation and management of inpatient Dr. Jesus Trujillo Work Phone: [facility]-Progressive Care Unit Start: 01-04-2022 Non-patient / Non-visit Dr. Marnie Trujillo Work Phone: [facility] Start: 06-04-2008 End: 06-07-2008 Evaluation and management of inpatient ECTOR MCCLURE Facility:[facility] Start: 06-04-2008 End: 06-04-2008 Patient encounter procedure Ector Mcclure Work Phone: [facility] Start: 06-04-2008 Results Only Ector Mcclure Work Phone: [facility] Procedures Date Procedure Procedure Detail Performing Clinician Start: 02-20-[address] Jesus puente MD Work Phone: Start: 02-20-2024 Ultrasonography of t hyroid and parathyroid Dr. Jesus Trujillo MD Work Phone: Start: 02-26-2023 Plain chest X-ray Dr. Flaco Trujillo Work Phone: Start: 11-14-2022 Femoral-femoral cros sover arteriogram Dr. Jesus Trujillo Work Phone: Start: 11-14-2022 Fluoroscopic guidance Roosevelt Trujillo Work Phone: Start: 08-16-2022 CT of abdominal aort a with contrast Dr. Jesus Trujillo Work Phone: Start: 06-28-2022 Plain chest X-ray Dr. Flaco Trujillo Work Phone: Start: 01-04-2022 CT angiography of ch est with contrast Dr. Jesus Trujillo Work Phone: Start: 01-04-2022 Plain chest X-ray Dr. Flaco Trujillo Work Phone: Start: 06-04-2008 CONVERTED SURGICAL PATHOLOGY Ector Mcclure Work Phone: Plan of Treatment Date Care Activity Detail Author Start: 02-28-2024 Advance Directive Discussion Advance Directive Discussion [facility] Start: 10-29-2023 Covid-19 Vaccine () Covid-19 Vaccine () [facility] Start: 02-26-2023 End: 02-26-2023 [facility] Start: 11-16-2022 Patient discharge [facility] Start: 11-15-2022 End: 11-15-2022 [facility] Start: 11-15-2022 Referral to service [facility] Start: 11-14-2022 Following clinical pathway protocol [facility] Start: 11-14-2022 Ambulation without limitation [facility] Start: 11-14-2022 Assessment of risk o f venous thromboembolism [facility] Start: 11-14-2022 Catheterization of vein [facility] Start: 11-14-2022 Continuous pulse oximetry [facility] Start: 11-14-2022 Deep breathing and coughing exercises [facility] Start: 11-14-2022 Elevation of head of bed [facility] Start: 11-14-2022 Insertion of cathete r into peripheral vein [facility] Start: 11-14-2022 Measuring intake and output [facility] Start: 11-14-2022 Oxygen therapy [facility] Start: 11-14-2022 Patient referral to dietitian [facility] Start: 11-14-2022 Providing care accor ding to standard [facility] Start: 11-14-2022 Provision of activit y privileges [facility] Start: 11-14-2022 Referral to occupati onal therapist [facility] Start: 11-14-2022 Referral to service [facility] Start: 11-14-2022 Removal of urinary catheter [facility] Start: 11-14-2022 Vascular disease ris k assessment [facility] Start: 11-14-2022 Vital signs measurements [facility] Start: 11-14-2022 [facility] Start: 11-14-2022 Admission procedure [facility] Start: 09-26-2022 Leukocyte reduced re d blood cells [facility] Start: 09-26-2022 [facility] Start: 01-05-2022 Patient discharge [facility] [place] [place] Work Phone: Start: 01-05-2022 Patient referral [facility] Work Phone: Start: 01-04-2022 [facility] Work Phone: Start: 01-04-2022 Following clinical pathway protocol [facility] Work Phone: Start: 01-04-2022 Notification of physician [facility] Work Phone: Start: 01-04-2022 End: 01-04-2022 Provision of activity privileges [facility] Work Phone: Start: 01-04-2022 Scheduling [facility] Work Phone: Start: 01-04-2022 Taking patient vital signs [facility] Work Phone: Start: 01-04-2022 Vascular disease ris k assessment [facility] Work Phone: Start: 01-04-2022 Assessment of risk o f venous thromboembolism [facility] Work Phone: Start: 01-04-2022 Care regimes management [facility] Work Phone: Start: 01-04-2022 Documentation procedure [facility] Work Phone: Start: 01-04-2022 Insertion of cathete r into peripheral vein [facility] Work Phone: Start: 01-04-2022 Measuring intake and output [facility] Work Phone: Start: 01-04-2022 Oxygen therapy [facility] Work Phone: Start: 01-04-2022 Providing care accor ding to standard [facility] Work Phone: Start: 01-04-2022 Referral to onsite health coach [facility] Work Phone: Start: 01-04-2022 Tobacco use cessatio n education [facility] Work Phone: Start: 01-04-2022 End: 01-04-2022 [facility] Work Phone: Start: 01-04-2022 Following clinical pathway protocol [facility] Work Phone: Start: 01-04-2022 Admission procedure [facility] Work Phone: Start: 01-04-2022 Catheterization of vein [facility] Work Phone: Start: 01-04-2022 Medication not administered [facility] Work Phone: Start: 01-04-2022 Preoperative care [facility] Work Phone: Start: 01-04-2022 End: 01-05-2022 [facility] Work Phone: Start: 10-29-2019 Influenza vaccination INFLUENZA (#1) [facility] Start: 2012 PROSTATE CANCER SCRE ENING DISCUSSION PROSTATE CANCER SCREENING DISCUSSION [facility] Start: 06-17-2007 Screening for malign ant neoplasm of lung Lung Cancer Screening [facility] Start: 06-17-2007 SHINGRIX VACCINE (1 of 2) BARRON GRIX VACCINE (1 of 2) [facility] Start: 06-17-2007 Tuberculosis screening COLOREC MAYRA CANCER SCREENING,SEE MODIFIER [facility] Start: 2002 DIABETES SCREEN DIABETES SCREEN [facility] Start: 2002 Diabetes Screening Diabetes Screenin g [facility] Start: 2002 Prostate specific an tigen measurement Prostate Cancer Screening Discussion [facility] Start: 04-20-2003 Screening for malign ant neoplasm of colon [facility] Start: 1992 Lipid panel Lipid Screening [facility] Start: 1992 LIPID SCREEN LIPID SCREEN [facility] Start: 1976 Pneumococcal Vaccine : 50+ (1 of 2 - PCV) Pneumococcal Vaccine: 50+ (1 of 2 - PCV) [facility] Start: 1976 Urine microalbumin profile [facility] Start: 06-17-1975 Anxiety Screening Anxiety Screening [facility] Start: 06-17-1975 Depression Screening Depression Scre ening [facility] Start: 06-17-1975 HEPATITIS C SCREENING [facility]PATITIS [facility] Start: 06-17-1975 Hepatitis C screening Hepatitis C [facility] Start: 06-17-1975 HIV SCREENING HIV SCREENING [facility] Start: 1957 Abdominal aortic ane urysm screening Abdominal Aortic Aneurysm Screening [facility] Ankle brachial press ure index [facility] CT of abdominal aort a with contrast [facility] Patient Education ED COPD Flare [facility] Work Phone: Patient referral [facility] Work Phone: [place] Lower extremity a rtery - bilateral [facility] End: 08-03-2025 XR CERV OTHER 4V AP/LAT/FLX/EXT XR CERV OTHER 4V AP/LAT/FLX/EXT Radiology Routine Cervical spondylosis with myelopathy 1 Occurrences starting 07/04/2024 until 08/03/2025 [facility] Comment on above: 1 Occurrences starti ng 07/04/2024 until 08/03/2025 End: 08-03-2025 XR Lumbar spine Views W flexion and W extension XR LUMBAR MOTION 4V AP/LAT/ FLEX/EXT Radiology Routine History of fusion of lumbar spine Leg weakness, bilateral Mechanical low back pain 1 Occurrences starting 07/04/2024 until 08/03/2025 [facility] Work Phone: Comment on above: 1 Occurrences starti ng 07/04/2024 until 08/03/2025 Immunizations Immunization Date Immunization Notes Care Provider Bib dejesus 01-05-2022 influenza, injectabl e, quadrivalent, preservative free Dr. Jesus Trujillo Work Phone: [facility] 01-05-2022 influenza, seasonal, injectable Dr. Jesus Trujillo Work Phone: [facility] Payers Date Payer Category Payer Medicare (Managed Care) [employer] [facility] AD[facility] HMO [id number] 2023 Self-pay [id number] 2023 Medicare [id number] 2008 Unknown [employer] C[employer] PPO [id number] 2008-Present PPO [id number] 2008 Self-pay SELF PAY SELF PAY [id number] 2008-2015 [id number] 2008 Unknown [facility] [id number] 2008-Present [facility] [id number] Medicare MEDICARE PART A B [id number] Private Health Insurance [facility] [place][note 2] [id number] Unknown [id number] Unknown [id number] 462 Unknown [id number] 462 Unknown [id number]. 462 Unknown [id number]. 462 Unknown [id number]. 462 Unknown [id number]. 462 Unknown [id number]. 462 Unknown [id number]. 462 Unknown [id number]. 462 Unknown [id number]. 462 Unknown [id number]. 462 Unknown [id number]. 462 Unknown [id number]. 462 Unknown [id number]. 462 Unknown [id number]. 462 Social History Date Type Detail Facility Start: 06-02-2008 End: 07-04-2024 Tobacco smoking status NHIS Current every day smoker [facility] History of tobacco use Cigarette Smoker C [facility] Start: 06-02-2008 End: 07-04-2024 Cigarettes smoked current (pack per day) - Reported [facility] Start: 06-02-2008 End: 07-04-2024 Alcohol intake Current drinker of alcohol (finding) [facility] Start: 1955 Sex Assigned At Not on file C [facility] Start: 01-28-2022 End: 02-26-2023 Tobacco smoking status NHIS Unknown if ever smoked [facility] Start: 1955 Sex Assigned At Male W [facility] Start: 11-09-2017 Heavy [facility] Start: 11-09-2017 None [facility] Start: 06-09-2015 Alone [facility] Start: 11-10-2017 Cigarettes;Chew [facility] Start: 01-11-2024 Tobacco smoking stat us NHIS Current Heavy tobacco smoker [facility] Start: 05-14-2024 Sex Male (finding) [facility] Start: 07-04-2024 Tobacco use and exposure User of smokeless tobacco [facility] History of tobacco use Snuff User [facility] Start: 07-04-2024 Tobacco use panel [facility] National Score (1-10 0), lower number is lower risk 71 [facility] Medical Equipment Procedure Code Equipment Code Equipment Origin al Text Equipment Identifier Dates Femoral-femoral crossover arteriogram FEM POP ARTERY FDA Start: 11-14-2022 Femoral-femoral crossover arteriogram PERIPHERAL STENT FDA Start: 11-14-2022 Femoral-femoral crossover arteriogram Plant polysaccharide haemostatic agent, bioabsorbable [id number] FDA Start: 11-14-2022 Femoral-femoral crossover arteriogram Ligation clip, metallic [id number] FDA Start: 11-14-2022 Femoral-femoral crossover arteriogram Ligation clip, metallic [id number] FDA Start: 11-14-2022 Femoral-femoral crossover arteriogram FEM POP ARTERY FDA Start: 11-14-2022 Femoral-femoral crossover arteriogram PERIPHERAL STENT FDA Start: 11-14-2022 Femoral-femoral crossover arteriogram FEM POP ARTERY FDA Start: 11-14-2022 Femoral-femoral crossover arteriogram PERIPHERAL STENT FDA Start: 09-18-2023 Femoral-femoral crossover arteriogram FEM POP ARTERY FDA Start: 11-14-2022 Femoral-femoral crossover arteriogram PERIPHERAL STENT FDA Start: 11-14-2022 Femoral-femoral crossover arteriogram FEM POP ARTERY FDA Start: 11-14-2022 Femoral-femoral crossover arteriogram PERIPHERAL STENT FDA Start: 11-14-2022 10.5MM GAMMA LAG SCREW FDA St art: 11-09-2017 5.0MM FULLY THR LOCKING SCREW FDA Start: 11-09-2017 TROCHANTRIC NAIL KIT FDA Star t: 11-09-2017 10.5MM GAMMA LAG SCREW FDA St art: 11-09-2017 5.0MM FULLY THR LOCKING SCREW FDA Start: 11-09-2017 TROCHANTRIC NAIL KIT FDA Star t: 11-09-2017 10.5MM GAMMA LAG SCREW FDA St art: 11-09-2017 5.0MM FULLY THR LOCKING SCREW FDA Start: 11-09-2017 TROCHANTRIC NAIL KIT FDA Star t: 11-09-2017 10.5MM GAMMA LAG SCREW FDA St art: 11-09-2017 5.0MM FULLY THR LOCKING SCREW FDA Start: 11-09-2017 TROCHANTRIC NAIL KIT FDA Star t: 11-09-2017 10.5MM GAMMA LAG SCREW FDA St art: 11-09-2017 5.0MM FULLY THR LOCKING SCREW FDA Start: 11-09-2017 TROCHANTRIC NAIL KIT FDA Star t: 11-09-2017 10.5MM GAMMA LAG SCREW FDA St art: 11-09-2017 5.0MM FULLY THR LOCKING SCREW FDA Start: 11-09-2017 TROCHANTRIC NAIL KIT FDA Star t: 11-09-2017 10.5MM GAMMA LAG SCREW FDA St art: 11-09-2017 5.0MM FULLY THR LOCKING SCREW FDA Start: 11-09-2017 TROCHANTRIC NAIL KIT FDA Star t: 11-09-2017 10.5MM GAMMA LAG SCREW FDA St art: 11-09-2017 5.0MM FULLY THR LOCKING SCREW FDA Start: 11-09-2017 TROCHANTRIC NAIL KIT FDA Star t: 11-09-2017 10.5MM GAMMA LAG SCREW FDA St art: 11-09-2017 5.0MM FULLY THR LOCKING SCREW FDA Start: 11-09-2017 TROCHANTRIC NAIL KIT FDA Star t: 11-09-2017 10.5MM GAMMA LAG SCREW FDA St art: 11-09-2017 5.0MM FULLY THR LOCKING SCREW FDA Start: 11-09-2017 TROCHANTRIC NAIL KIT FDA Star t: 11-09-2017 10.5MM GAMMA LAG SCREW FDA St art: 11-09-2017 5.0MM FULLY THR LOCKING SCREW FDA Start: 11-09-2017 TROCHANTRIC NAIL KIT FDA Star t: 11-09-2017 Goals Date Patient Goal Desired Activity /State Functional Status Date Assessment Result Facility 11-16-2022 Functional status Ambulates;Chair [facility] Work Phone: 01-05-2022 Functional status Ambulates [facility] Work Phone: Mental Status Date Assessment Result Facility 11-16-2022 Cognitive function Voice/Name [facility] Work Phone: 01-05-2022 Cognitive function Voice/Name [facility] Work Phone: Clinical Notes 11-14-2022 to 07-04-2024 Oren Fuentes PA-C - 07/04/2024 1:24 PM EDT Note Date & Type Note Facility 07-04-2024 Note HNO ID: [id number] Author: OREN FUENTES PA-C Service: ? Author Type: Physician [employer] Architect Type: Progress Notes Filed: 07/04/2024 14:34 Note Text: [facility] [address] [place] [address] 07/04/2024 ASSESSMENT AND PLAN: Assessment : Encounter Diagnosis ICD-10-CM 1. History of fusion of lumbar spine Z98.1 XR LUMBAR MOTION 4V AP/LAT/ FLEX/EXT CONSULT TO PHYSICAL THERAPY L4-5 at [facility], Dr. Ector Mcclure 2008 2. Leg weakness, bilateral R29.898 XR LUMBAR MOTION 4V AP/LAT/ FLEX/EXT CONSULT TO PHYSICAL THERAPY 3. Mechanical low back pain M54.59 XR LUMBAR MOTION 4V AP/LAT/ FLEX/EXT CONSULT TO PHYSICAL THERAPY 4. Cervical spondylosis with myelopathy M47.12 CONSULT TO PHYSICAL THERAPY XR CERV OTHER 4V AP/LAT/FLX/EXT 5. Family history of stroke Z82.3 Discussion: Mr. Cooper is a 69-year-old man here for evaluation of very gradually worsening low back pain over a number of years. He describes difficulties walking and balance problems and finger dexterity problems as well. His main complaint is actually low back pain and leg weakness. 2009 lumbar surgery at [facility] (Ector Mcclure DO) patient describes as L4-5 instrumented fusion Surgery helped a great deal at that time Patient is a smoker (ongoing) Takes meds that other people have given him. Cannot stand for long--has weakness in BLE Has only LBP without LE pain, N/T Fell and broke his femur about 8 years ago and has been using a custom crutch in the RIGHT hand Patient has a PCP but has not listed that in his [facility] chart yet. He was encouraged to do so. EXAM Highlights: Struggles to get out of his wheelchair and uses both arms to help him elevate. He uses primarily his LEFT leg to stand up and seems to favor the RIGHT leg when he is standing although he describes the main weakness in his LEFT leg and uses the custom cane in his RIGHT arm. He declines ambulation and lumbar motion due to lack of safety, slipping, balance problems He has central lumbosacral pain that is fairly generalized without specific point tenderness. Lower extremity reflexes are hyperreflexic and he has some pathologic reflexes as noted below suggesting myelopathy He has negative voluntary seated SLRs bilaterally. 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 IMAGING: There is no imaging visible in [facility] to review regarding his spine SUMMARY/PLAN: Patient wants to start out with full evaluation of the lumbar spine, but I think he could possibly have cervical myelopathy so I will do evaluation of that concurrently. He will start with x-rays and PT and when he is finished with those, we will probably order MRI studies of both cervical and lumbar spine. The lumbar spine MRI scan will need contrast enhancement due to prior surgery. Plan : DIAGNOSTIC TESTING: -X-ray views will be obtained to better evaluate bony structures. -Dynamic plain radiographs of the Cervical and Lumbar spine are ordered. REFERAL FOR SERVICES: -Physical therapy will be instituted. ACTIVITY RECOMMENDATIONS: -The patient advised to avoid prolonged sitting. TOBACCO RECOMMENDATIONS: -Tobacco cessation discussed and encouraged. FOLLOW-UP: -The patient is instructed to follow up after studies are complete. -The patient is instructed to return after six weeks of therapy. This document has been created with the use of voice recognition technology. It may contain inaccuracies: (e.g. misspellings, inaccurate syntax or word sense) that have escaped review. Time spent: 45 minutes today with this patient visit. This includes [id number] time, review of chart records regarding conservative care history, spine-pertinent imaging, and communication/care coordination with referring provider, problem-specific history-taking and counseling/education regarding treatment options. cc: No referring provider defined for this encounter. Phone: N/A Fax: Results of consultation to be transmitted via electronic medical record for those providers who practice within [facility] or with access to [employer] via [employer], or via letter. ################################ ################################ ######## CHIEF COMPLAINT: Patient is here for the lower back pain. Has this pain for years and getting worse. Level of the pain is at 7/10. Cannot stand for too long. Has weakness in his legs. HPI: see Discussion above History of bowel or bladder dysfunction (not IBS or constipation): No History of previous spinal surgery: Yes, performed [place] [address]ctor Mcclure at [facility]. The procedure was a L4- L5 lumbar Fusion. History of spinal fracture: No Work Status: retired, disabled NON-OPERATIVE CARE: Medication(s): He has tried the following for relief of his symptoms: O (more content not included)... [facility] 07-04-2024 History of Present illness Narrative Images from the original note were not included. Oren Fuentes PA-C [facility] [address] [address] 07/04/2024 ASSESSMENT AND PLAN: Assessment : Encounter Diagnosis ICD-10-CM 1. History of fusion of lumbar spine Z98.1 XR LUMBAR MOTION 4V AP/LAT/ FLEX/EXT CONSULT TO PHYSICAL THERAPY L4-5 at [facility], Dr. Ector Mcclure 2008 2. Leg weakness, bilateral R29.898 XR LUMBAR MOTION 4V AP/LAT/ FLEX/EXT CONSULT TO PHYSICAL THERAPY 3. Mechanical low back pain M54.59 XR LUMBAR MOTION 4V AP/LAT/ FLEX/EXT CONSULT TO PHYSICAL THERAPY 4. Cervical spondylosis with myelopathy M47.12 CONSULT TO PHYSICAL THERAPY XR CERV OTHER 4V AP/LAT/FLX/EXT 5. Family history of stroke Z82.3 Discussion: Mr. Cooper is a 69-year-old man here for evaluation of very gradually worsening low back pain over a number of years. He describes difficulties walking and balance problems and finger dexterity problems as well. His main complaint is actually low back pain and leg weakness. 2009 lumbar surgery at [facility] (Ector Mcclure, DO) patient describes as L4-5 instrumented fusion Surgery helped a great deal at that time Patient is a smoker (ongoing) Takes meds that other people have given him. Cannot stand for long--has weakness in BLE Has only LBP without LE pain, N/T Fell and broke his femur about 8 years ago and has been using a custom crutch in the RIGHT hand Patient has a PCP but has not listed that in his [facility] chart yet. He was encouraged to do so. EXAM Highlights: Struggles to get out of his wheelchair and uses both arms to help him elevate. He uses primarily his LEFT leg to stand up and seems to favor the RIGHT leg when he is standing although he describes the main weakness in his LEFT leg and uses the custom cane in his RIGHT arm. He declines ambulation and lumbar motion due to lack of safety, slipping, balance problems He has central lumbosacral pain that is fairly generalized without specific point tenderness. Lower extremity reflexes are hyperreflexic and he has some pathologic reflexes as noted below suggesting myelopathy He has negative voluntary seated SLRs bilaterally. 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 IMAGING: There is no imaging visible in [facility] to review regarding his spine SUMMARY/PLAN: Patient wants to start out with full evaluation of the lumbar spine, but I think he could possibly have cervical myelopathy so I will do evaluation of that concurrently. He will start with x-rays and PT and when he is finished with those, we will probably order MRI studies of both cervical and lumbar spine. The lumbar spine MRI scan will need contrast enhancement due to prior surgery. Plan : DIAGNOSTIC TESTING: -X-ray views will be obtained to better evaluate bony structures. -Dynamic plain radiographs of the Cervical and Lumbar spine are ordered. REFERAL FOR SERVICES: -Physical therapy will be instituted. ACTIVITY RECOMMENDATIONS: -The patient advised to avoid prolonged sitting. TOBACCO RECOMMENDATIONS: -Tobacco cessation discussed and encouraged. FOLLOW-UP: -The patient is instructed to follow up after studies are complete. -The patient is instructed to return after six weeks of therapy. This document has been created with the use of voice recognition technology. It may contain inaccuracies: (e.g. misspellings, inaccurate syntax or word sense) that have escaped review. Time spent: 45 minutes today with this patient visit. This includes [id number] time, review of chart records regarding conservative care history, spine-pertinent imaging, and communication/care coordination with referring provider, problem-specific history-taking and counseling/education regarding treatment options. cc: No referring provider defined for this encounter. Phone: N/A Fax: Results of consultation to be transmitted via electronic medical record for those providers who practice within [facility] [place] or with access to [employer] via [employer], or via letter. ################################ ################################ ######## CHIEF COMPLAINT: Patient is here for the lower back pain. Has this pain for years and getting worse. Level of the pain is at 7/10. Cannot stand for too long. Has weakness in his legs. HPI: see Discussion above History of bowel or bladder dysfunction (not IBS or constipation): No History of previous spinal surgery: Yes, performed [place] [address]ctor Mcclure at [facility]. The procedure was a L4- L5 lumbar Fusion. History of spinal fracture: No Work Status: retired, disabled NON-OPERATIVE CARE: Medication(s): He has tried the following for relief of his symptoms: OTC Tylenol OTC NSAIDs (Aleve or Ibuprofen/Advil/Motrin) Physical Therapy: He has not had physical therapy for his current symptoms. Spinal Injections: He has gotten prior spinal injections. He cannot recall what injections he had in the past Other: None Current Outpatient Medications Medication Sig Dispense Refill carvedilol (COREG) 6.25 mg tablet Take 6.25 mg by mouth two times a day with meals. lisinopril (ZESTRIL) 10 mg tablet Take 10 mg by mouth two times a day. clopidogrel (PLAVIX) 75 mg tablet Take 75 mg by mouth once daily. atorvastatin (LIPITOR) 40 mg tablet Take 40 mg by mouth daily at bedtime. ALBUTEROL INHALATION Inhale as instructed as needed. Aspirin 81 mg tab Take 81 mg by mouth once daily. metoprolol tartrate(LOPRESSOR 50 MG TAB) Take one(1) tablet twice daily. 0 oxycodone hcl/acetaminophen(PERCOCET 5 MG-325 MG TAB) Take one(1) tablet every four(4) to six(6) hours as needed for pain. (Patient not taking: Reported on 07/04/2024) 0 cyclobenzaprine hcl(FLEXERIL 10 MG TAB) Take one(1) tablet every eight(8) to twelve(12) hours as needed for pain or spasms. (Patient not taking: Reported on 07/04/2024) 0 NAPROXEN 500 MG TAB Take one(1) tablet twice daily as needed for pain, with food. (Patient not taking: Reported on 07/04/2024) 0 No current facility-administered medications for this visit. Allergies: Patient has no known allergies. PAST MEDICAL HISTORY Diagnosis Date Inguinal hernia without mention of obstruction or gangrene, unilateral or unspecified, (not specified as recurrent) LEFT Sciatica Unspecified essential hypertension PAST SURGICAL HISTORY Procedure Laterality Date LAPAROSCOPY SURG RPR INITIAL INGUINAL HERNIA 06/27/08 LEFT PAST SURGICAL HISTORY OF 1988 lleft eye surgery PAST SURGICAL HISTORY OF 1999 left eye surgery RPR 1ST INGUN HRNA AGE 7 YRS/> REDUCIBLE 1985 Hernia repair, inguinal,right Social History Tobacco Use Smoking status: Every Day Current packs/day: 1.50 Average packs/day: 1.5 packs/day for 30.0 years (45.0 ttl pk-yrs) Types: Cigarettes Smokeless tobacco: Current Types: Snuff Substance Use Topics Alcohol use: Yes Comment: 2 cases weekly Drug use: No No family history on file. REVIEW OF SYSTEMS: Constitutional: (-) Fever/Chills (+) Night Sweats (-) Weight Gain (-) Weight Loss Gastrointestinal: (+) Abdominal Pain (+) Diarrhea (-) Constipation (-) Heart Burn Cardiovascular: (-) Chest Pain (-) Palpitations (-) Lightheadedness (-) Hx Heart Surgery/ Stent Respiratory: (+) Short of Breath (+) Cough (-) Snoring Neurologic: (-) Headache (+) Blurry Vision (-) Fainting Skin: (-) Rashes (-) Itching (-) Other Lesions Psychiatric: (-) Depression (-) Anxiety (-) Suicidal Thoughts Genitourinary: (-) Frequency (+) Urgency Endocrine: (-) Thyroid Disorder (-) Diabetes Hematologic: (-) Prolonged Bleeding (+) Easy Bruising ################################ ################################ ################################ ################################ # PHYSICAL EXAM: Blood pressure 148/85, pulse 85, height 185.4 cm (6' 1), weight 74.4 kg (164 lb), SpO2 95%. Body mass index is 21.64 kg/m . General: Patient is a(n) average historian. The patient appears older than the recorded age and is sitting comfortably in the examining room. The patient is tall in stature and is slender in appearance. This individual has great difficulty arising from a sitting position and does have difficulty acquiring a full, upright position when standing. Station and Gait: Not assessed-patient refused because he does not feel safe attempting to walk even in the exam room The patient is unable to walk in a tandem gait. MENTAL STATUS EXAMINATION: The patient was casually attired and had poor hygiene. The patient had fair eye contact and rapport was slow to develop during the visit. The patient appeared to be alert and oriented in all spheres. The patient's overall medical judgment appeared to be fair.The patient's motivation for treatment was judged based on today's encounter to be fair. SPINE: Lumbar Lordosis: Decreased/flattened Thoracic Kyphosis: Increased PALPATION TENDERNESS: Moderate tenderness at: lumbar region Hyperesthesia present: No Regional symptoms present: No Increased pain with axial loading: No Distraction: Normal Pain responses: appropriate NEUROLOGIC EXAM: MOTOR: Walk on Toes: Right: No Left: No Walk on Heels: Right: No Left: No Requires verbal cues to minimize cog-wheel or give-way resistance: No Hip Flexor R: 5/5 L: 5/5 Hip Abductor R: 5/5 L: 5/5 Hip Adductor R: 5/5 L: 5/5 Knee Extension R: +4/5 L: 4/5 Foot Dorsiflexion R: 5/5 L: 5/5 Foot Plantar Flexion R: 5/5 L: 5/5 Ext Hallicus Longus R: 5/5 L: 5/5 Toe Extensors R: 5/5 L: 5/5 SENSATION to Light Touch: Lumbar: L2-S1 symmetrically normal. REFLEXES: Lower Extremity: Patella tendon: R: 4+ L: 4+ Achilles tendon: R: 3+ L: 3+ Clonus: R: 1-2 beats L: 1-2 beats Babinski Sign: Positive bilaterally. Upper Extremity: Brachioradialis: R: 3+ inverted? No L: 3+ inverted? No Biceps: R: 3+ L: 3+ Triceps: R: 3+ L: 3+ Chavez's Sign: Positive bilaterally. VASCULAR: Skin appearance: Right: Warm/pink Left: Warm/pink Capillary refill: Right: brisk Left: brisk ADDITIONAL MUSCULOSKELETAL EXAM: HIP/PELVIS EXAM: Tenderness over the PSIS: Right: Yes Left: Yes SPECIAL TESTS: Straight Leg Raise: negative bilaterally Contralateral Straight Leg Raise: negative bilaterally IMAGING STUDIES: See discussion above documented in this encounter [facility] 12-21-2023 Note [facility] Medical Records Department [address] [place] [address] History Physical Exam 12/21/23 0758 MR#: [id number] Acct: [id number] Name: REGGIE COOPER Rep #: [id number] : 1955 68 From: Jass Woods MD PCP: Dr. Jesus Trujillo MD Status:REG [facility] Location: [facility] HPI - General HPI Narrative REGGIE COOPER, is a 68 M who presents with history of prior right iliac stent and right to left fem-fem for claudication. Serial duplex revealed increased velocities in the distal bypass graft and a CTA showed >50% stenosis of the cadaver graft just prior to the anastomosis. He presents for angiogram with possible intervention. REPLACED BY [facility] Medical History Anxiety COPD (chronic obstructive pulmonary disease) Shortness of breath on exertion Leg cramps History of pain when walking History of heart attack History of fracture of femur Alcohol use Ambulates with cane Arthritis High cholesterol Back pain Smoker Hoarseness Cardiology follow-up encounter History of echocardiogram Essential hypertension History of left heart catheterization (LHC) ( 01/04/22) CVA (cerebral vascular accident) Hypokalemia Femur fracture, left Alcohol abuse CVA (cerebral vascular accident) Hypertension Home Medications ???Medication ???Instructions ???Recorded ???Last Taken ???Type clopidogrel 75 mg tablet 75 mg PO DAILY HEART 10/28/18 12/21/23 History atorvastatin 40 mg tablet 40 mg PO QHS CHOLESTEROL 01/04/22 11/13/22 History cholecalciferol (vitamin D3) 100 100 mcg PO DAILY SUPPLEMENT 01/04/22 11/13/22 History mcg (4,000 unit) tablet lisinopril 10 mg tablet 10 mg PO BID BLOOD PRESSURE 01/04/22 12/21/23 History aspirin 81 mg tablet,delayed 81 mg PO BREAKFAST HEART #0 tabs 11/09/22 10/24/24 Rx release carvedilol 6.25 mg tablet 6.25 mg PO BIDCM BLOOD PRESSURE 02/11/22 12/21/23 Rx #180 tabs vitamin B complex (B 1 tab PO DAILY SUPPLEMENT 09/22/22 11/13/22 History Complex-Vitamin B12 tablet) benzonatate 100 mg capsule 100 mg PO TID PRN PRN COUGH 14 11/16/22 Unknown Rx days #42 caps Allergy/AdvReac Type Severity Reaction Status Date / Time Penicillins AdvReac Diarrhea Verified 11/22/23 14:32 Family History Father CAD (coronary artery disease) Brother CAD (coronary artery disease) Surgical History Hx of hernia repair History of back surgery History of cardiac catheterization History of eye surgery Social History household members: none Smoking Status: Current every day smoker tobacco type: cigarettes and smokeless tobacco Tobacco: How many years used: 45 alcohol intake: current substance use type: does not use caffeine: Yes Type: coffee Number of servings: 4 ROS Constitutional Constitutional: Denies chills, fever(s), frequent falls, lethargy or weakness Eyes Eyes: Denies blind spots, change in vision or loss of vision ENT HEENT: Denies bleeding gums, hoarseness or sore throat Cardiovascular Cardiovascular: Denies abdominal pain, bluish discoloration of hand/feet, chest pain with activity, claudication, cold extremities, cyanosis, dyspnea on exertion, erythema on extremities, irregular heart rhythm, leg edema, leg ulcers, numbness in extremities or weakness in extremities Respiratory/Chest Respiratory/Chest: Denies cough, excessive phlegm production, shortness of breath at rest, shortness of breath with exertion or wheezing Gastrointestinal Gastrointestinal: Denies anorexia, change in stool character, constipation, diarrhea, melena or rectal bleeding Genitourinary Genitourinary: Denies dysuria or hematuria Musculoskeletal Musculoskeletal: Denies abnormal gait Integumentary Integumentary: Reports other Details: ; Denies erythema, non-healing lesions or wounds Neurologic Neurologic: Denies abnormal speech, focal weakness, headache(s), loss of vision, numbness, paresthesias or sensory deficit Hematologic/Lymphatic Hematologic/Lymphatic: Denies easy bleeding, easy bruising or lymphadenopathy Vital Signs Vital Signs Vital Signs: Weight Weight: 162 lb Body Mass Index (BMI) 21.3 Physical Exam Const alert, oriented x3, no apparent distress and healthy appearing General Appearance: cooperative; Negative for combative or lethargic Orientation / Consciousness: awake Exam Limitations: no limitations HEENT Head and Scalp: normocephalic and atraumatic Eyes EOMs intact bilaterally General Eye: normal appearance of both eyes Neck full ROM, no lymphadenopathy and thyroid normal General: trachea midline; Negative for tenderness Thyroid: thyroid normal Resp norm (more content not included)... [facility] 11-15-2022 Progress note Note Date/Time November 15, 2022 5:29pm [facility] Medical Records Department [address] [place] [address] Progress Note - Surgery 11/15/22 1726 MR#: [id number] Acct: [id number] Name: REGGIE COOPER Rep #:[id number] : 1955 67 From: Sujatha DRAPER PCP: Dr. Jesus Trujillo MD Status:AD M IN Location: ICU CVICU20 3-1 Subjective Subjective Patient is doing well today. Throughout the course of the day, has progressed tofull diet and tolerated well. Martin catheter was removed this morning and he hasbeen urinating without difficulty since. He reports expected pain at the groin incision sites but pain is well-controlled. He reports his legs and feet alreadyfeel better, warmer. He has not ambulated yet to know if his claudication symptoms have improved. He has been hemodynamically stable. He has been scoring 0 on CIWA. Objective Data Objective Data A&Ox3, NAD RRR Nonlabored respirations Palpable DP/PT pulses bilaterally, good color and warmth Bilateral groin incision sites with vacuum dressings C/D/I and maintaining good seal. No significant swelling, ecchymosis, erythema, drainage. Vital Signs: Vital Signs Temp Pulse Resp BP Pulse Ox O2 Del Method O2 Flow Rate 98.1 F 99 16 140/91 H 99 Room Air 2 11/15/22 15:48 11/15/22 17:00 11/15/22 17:00 11/15/22 17:00 11/15/22 17:00 11/15/22 17:00 11/15/22 07:00 Oxygen Flow Rate (L/min) 2 Oxygen Delivery Method Room Air Weight: 156 lb 8.451 oz Body Mass Index (BMI) 20.7 Intake & Output: Intake and Output for Last 24 Hours 11/13/22 11/14/22 11/15/22 23:59 23:59 23:59 Intake Total 4113.25 / 4293.25 980 / 980 Output Total 1360 / 1775 2415 / 2415 Balance 2753.25 / 2518.25 -1435 / -1435 Lab / Micro Data 11/15/22 04:24 11/15/22 04:24 Labs: Laboratory Results - last 24 hr 11/15/22 04:24: WBC 10.1, RBC 3.82 L, Hgb 12.9 L, Hct 38.7 L, MCV 101.3 H, MCH 33.8 H, MCHC 33.3, RDW Std Deviation 48.5 H, RDW Coeff of [place] 13.1, Plt Count 198, MPV 10.0, Immature Gran % (Auto) 0.500, Neut % (Auto) 76.6 H, Lymph % (Auto) 13.2 L, [place] % (Auto) 9.4, Eos % (Auto) 0.0, Baso % (Auto) 0.3, Absolute Neuts (auto) 7.8 H, Absolute Lymphs (auto) 1.34, Nucleated RBC % 0, Sodium 137, Potassium 4.9, Chloride 106, Carbon Dioxide 29.0, Anion Gap 2 L, BUN 9, Creatinine 0.96, Estim Creat Clear Calc 77.04, Est GFR (MDRD) Af Amer 101, Est GFR (MDRD) Non-Af 83, BUN/Creatinine Ratio 9.4 L, Glucose 131 H, Calcium 8.1 L, Phosphorus 3.6, Magnesium 1.6 Assessment & Plan Assessment/Plan (1) Claudication of both lower extremities: (2) PAD (peripheral artery disease): PLAN: Plan Goal is to ambulate with nursing/therapy this afternoon and tomorrow morning. Shauna live alone and has 2 stairs to get in and out of his house so discharge will be pending his safety and comfort with ambulation. Incision sites with satisfactory appearance. Vacuum dressings will remain in place for 1 week as long as maintaining steal. Continue ASA and Plavix. 11/15/221736 <Electronically signed by Sujatha DRAPER> Cosigner Signature (if applicable): 11/15/221738 <Electronically signed by Jass Woods MD> CC: ~ Signed [facility] Work Phone: [phone] 926-869309-19-2023 Procedure [facility] 11-14-2022 History and physical note Author Jass Woods [facility] November 14, 2022 7:31am Note Date/Time November 14, 2022 7:31am [facility] Medical Records Department [address] [place] [address] History & Physical Exam 11/14/22727 MR#: [id number] Acct: [id number] Name: REGGIE COOPER Rep #:[id number] : 1955 67 From: Jass Woods MD PCP: Dr. Jesus Trujillo MD Status:AD M IN Location: [facility] AC-TB A-1 HPI - General General Date of Admission: 11/14/22 HPI Narrative REGGIE COOPER, is a 67 M who presents with long standing bilateral lower extremity claudication refractory to medical/exercise tx. He has a right iliac stenosis, left iliac occlusion as well as infra-inguinal disease. [facility] Medical History Alcohol abuse Alcohol use Ambulates with cane Anxiety Arthritis Back pain Cardiology follow-up encounter COPD (chronic obstructive pulmonary disease) CVA (cerebral vascular accident) CVA (cerebral vascular accident) Essential hypertension Femur fracture, left High cholesterol History of echocardiogram History of fracture of femur History of heart attack History of left heart catheterization (LHC) (~01/04/22) History of pain when walking Hoarseness Hypertension Hypokalemia Leg cramps Shortness of breath on exertion Smoker Home Medications clopidogrel 75 mg tablet 75 mg PO DAILY HEART 10/28/18 [History Last Taken 11/14/22 03:30] atorvastatin 40 mg tablet 40 mg PO QHS CHOLESTEROL 01/04/22 [History Last Taken 11/13/22] cholecalciferol (vitamin D3) 100 mcg (4,000 unit) tablet 100 mcg PO DAILY SUPPLEMENT 01/04/22 [History Last Taken 11/13/22] lisinopril 10 mg tablet 10 mg PO BID BLOOD PRESSURE 01/04/22 [History Last Taken 11/14/22 03:30] aspirin 81 mg tablet,delayed release 81 mg PO BREAKFAST HEART #0 tabs 01/05/22 [Rx Last Taken 11/14/22 03:30] carvedilol 6.25 mg tablet 6.25 mg PO BIDCM BLOOD PRESSURE #180 tabs 02/11/22 [Rx Last Taken 11/14/22 03:30] albuterol 90 mcg/actuation aerosol inhaler 90 mcg inhalation .Q4HR PRN [id number]/27/23 [History Last Taken 10/24/22] vitamin B complex (B Complex-Vitamin B12 tablet) 1 tab PO DAILY SUPPLEMENT 09/22/22 [History Last Taken 11/13/22] Allergy/AdvReac Type Severity Reaction Status Date / Time Penicillins AdvReac Diarrhea Verified 11/14/22 05:47 Family History Father CAD (coronary artery disease) Brother CAD (coronary artery disease) Surgical History History of back surgery History of cardiac catheterization History of eye surgery Hx of hernia repair Social History household members: none Smoking Status: Current every day smoker tobacco type: cigarettes and smokelesstobacco Tobacco: How many years used: 45 alcohol intake: current substance use type: does not use caffeine: Yes Type: coffee Number of servings: 4 Vital Signs Vital Signs Vital Signs: 11/14/22 05:46 11/14/22 05:55 11/14/22 05:55 Temperature 99.1 F Temperature Source Temporal Pulse Rate 81 80 Respiratory Rate 18 Respiratory Pattern Normal Blood Pressure 136/69 H 115/85 H Blood Pressure Mean 91 Blood Pressure Source Monitor Blood Pressure Position Semi-Fowlers Blood Pressure Location Left Arm Pulse Ox 100 Oxygen Delivery Method Room Air Weight Weight: 155 lb 12.8 oz Body Mass Index (BMI) 20.5 Physical Exam Const alert, oriented x3, no apparent distress and healthy appearing General Appearance: cooperative; Negative for combative or lethargic Orientation / Consciousness: awake Exam Limitations: no limitations HEENT Head and Scalp: normocephalic and atraumatic Eyes EOMs intact bilaterally General Eye: normal appearance of both eyes Neck full ROM, no lymphadenopathy and thyroid normal General: trachea midline; Negative for lymphadenopathy or tenderness Thyroid: thyroid normal Lymph Lymphatic: Negative for no lymphadenopathy noted Resp normal respiratory effort and no use of accessory muscles Effort and Inspection: Negative for labored, stridor or audible wheezes Cardio regular rate and regular rhythm Peripheral Pulses: brachial pulses present and radial pulses present; Negative for femoral pulses present, posterior tibial pulses present or dorsalis pedis pulses present Back/Spine Cervical Spine: cervical ROM normal Extremity full ROM, normal capillary refill and no clubbing, cyanosis or edema Skin no rashes or lesions noted and no wounds Neuro oriented x3, CN's II-XII intact bilaterally, no focal motor deficits and no sensory deficits noted Psych thought process normal, cooperative, affect normal, speech normal and activity/motor behavior normal Results Lab / Micro Data 11/11/22 10:30 11/11/22 10:30 Assessment & Plan Assessment/Plan (1) Claudication of both lower extremities: PLAN: -right iliac stent, fem-fem, sartorius flaps 11/14/22 0731 <Electronically signed by Jass Woods MD> Cosigner Signature (if applicable): CC: Dr. Jass Woods MD; Dr. Jesus Trujillo MD~ Signed [facility] Work Phone: evaluation note* Diagnosis Onset Date Resolution Status Cardiomyopathy acute Hypercholesterolemia acute Non-ST elevation (NSTEMI) myocardial infarction acute Non-ST elevation myocardial infarction (NSTEMI), initial care episode acute Sinus tachycardia resolved Unstable angina resolved CAD (coronary artery disease) acute Cardiomyopathy acute Essential hypertension acute Hypercholesterolemia acute [facility] Work Phone: Evaluation note* Diagnosis Onset Date Resolution Status Cardiomyopathy acute CAD (coronary artery disease) chronic Essential hypertension chron ic Hypercholesterolemia chronic Cardiomyopathy acute CAD (coronary artery disease) chronic Essential hypertension chron ic Hypercholesterolemia [facility] Work Phone: Evaluation note* Diagnosis Onset Date Resolution Status Cardiomyopathy acute CAD (coronary artery disease) chronic Essential hypertension chron ic Hypercholesterolemia chronic PAD (peripheral artery disease) acute [facility] Work Phone: Evaluation note* Diagnosis Onset Date Resolution Status Cardiomyopathy acute CAD (coronary artery disease) chronic Essential hypertension chron ic Hypercholesterolemia chronic PAD (peripheral artery disease) acute Claudication of both lower extremities acute PAD (peripheral artery disease) acute [facility] Work Phone: Evaluation note* Diagnosis Onset Date Resolution Status PAD (peripheral artery disease) acute Claudication of both lower extremities chronic Claudication of both lower extremities chronic [facility] Work Phone: Evaluation note* Diagnosis Onset Date Resolution Status PAD (peripheral artery disease) acute Claudication of both lower extremities chronic Claudication of both lower extremities chronic PAD (peripheral artery disease) acute Claudication of both lower extremities chronic [facility] Work Phone: Evaluation note* Diagnosis Onset Date Resolution Status PAD (peripheral artery disease) acute Claudication of both lower extremities resolved Aftercare following surgery of the circulatory system acute PAD (peripheral artery disease) acute [facility] Work Phone: Evaluation note* Diagnosis Onset Date Resolution Status PAD (peripheral artery disease) acute Claudication of both lower extremities resolved Aftercare following surgery of the circulatory system acute PAD (peripheral artery disease) acute Aftercare following surgery of the circulatory system acute PAD (peripheral artery disease) acute [facility] Work Phone: Evaluation note* Diagnosis Onset Date Resolution Status Aftercare following surgery of the circulatory system acute PAD (peripheral artery disease) acute [facility] Work Phone: Evaluation noteNo assessment information available [facility] Work Phone: Evaluation note* Diagnosis History of fusion of lumbar spine- Primary Leg weakness, bilateral Other musculoskeletal symptoms referable to limbs Mechanical low back pain Lumbago Cervical spondylosis with myelopathy Family history of stroke Family history of stroke (cerebrovascular) documented in this encounter [facility] for [facility] (narrative)No reason for referral information [facility] Work Phone: Summary Purpose Family History No Family History Records Found Relationship Condition Age at Onset Recorded Date/T janeen father Coronary artery disease Unknown brother Coronary artery disease Unknown Advance Directives No Advanced Directives Records Found Advance Directive Response Recorded Date/ Time Name of Medical Power of Ironing Machine Operator Silvio Cooper January 04, 2022 5:32pm Advance Directives No June 07 3:35pm Living Will No January 04 5:32pm Power of Ironing Machine Operator Yes January 04, 2022 5:32pm Advance Directive Response Recorded Date/ Time Advance Directives No June 07 4:35pm Living Will No January 04 6:32pm Power of Ironing Machine Operator Yes January 04, 2022 6:32pm Advance Directive Response Recorded Date/ Time Advance Directives No June 07 4:35pm Living Will No September 22, 2022 8:25am Power of Ironing Machine Operator No September 22 8:25am Advance Directive Response Recorded Date/ Time Advance Directives No October 12:58pm Living Will No November 16, 2022 12:58pm Power of Ironing Machine Operator No October 12:58pm Advance Directive Response Recorded Date/ Time Advance Directives No October 11:58am Living Will No November 16, 2022 11:58am Power of Ironing Machine Operator No October 11:58am Advance Directive Response Recorded Date/ Time Advance Directives No October 11:58am Living Will No February 26 12:29pm Power of Ironing Machine Operator No February 26, 2023 12:29pm Advance Directive Response Recorded Date/ Time Advance Directives No December 21, 2023 7:22am Chief Complaint and Reason for Visit Chief Complaint chest pain NSTEMI chest pain NSTEMI NSTEMI NSTEMI CARDDIOMYOPATHY Reason for Visit Cardiomyopathy Hypercholesterolemia Non-ST elevation (NSTEMI) myocardial infarction Non-ST elevation myocardial infarction (NSTEMI), initial care episode Sinus tachycardia Unstable angina CAD (coronary artery disease) Cardiomyopathy Essential hypertension Hypercholesterolemia Chief Complaint NSTEMI CARDDIOMYOPATHY 3 m fu Reason for Visit Cardiomyopathy CAD (coronary artery disease) Essential hypertension Hypercholesterolemia Cardiomyopathy CAD (coronary artery disease) Essential hypertension Hypercholesterolemia Chief Complaint 3 m fu CLAUDICATION Consult Acute bronchitis Reason for Visit Cardiomyopathy CAD (coronary artery disease) Essential hypertension Hypercholesterolemia PAD (peripheral artery disease) Chief Complaint 3 m fu CLAUDICATION Consult Acute bronchitis 3 M FU E ORDER Reason for Visit Cardiomyopathy CAD (coronary artery disease) Essential hypertension Hypercholesterolemia PAD (peripheral artery disease) Claudication of both lower extremities PAD (peripheral artery disease) Chief Complaint 3 m fu CLAUDICATION Consult Acute bronchitis 3 M FU E ORDER CLAUDICATION Reason for Visit Cardiomyopathy CAD (coronary artery disease) Essential hypertension Hypercholesterolemia PAD (peripheral artery disease) Claudication of both lower extremities PAD (peripheral artery disease) Chief Complaint Acute bronchitis 3 M FU E ORDER CLAUDICATION DISCUSS RESULTS PREOP Reason for Visit PAD (peripheral favian ry disease) Claudication of both lower extremities Claudication of both lower extremities Chief Complaint 3 M FU E ORDER CLAUDICATION DISCUSS RESULTS PREOP Femoral - Femoral Artery Crossover rt to lft Fem-f Femoral - Femoral Artery Crossover rt to lft Fem-f Femoral - Femoral Artery Crossover rt to lft Fem-f Reason for Visit PAD (peripheral favian ry disease) Claudication of both lower extremities Claudication of both lower extremities PAD (peripheral artery disease) Claudication of both lower extremities Chief Complaint PREOP Femoral - Femoral Artery Crossover rt to lft Fem-f Femoral - Femoral Artery Crossover rt to lft Fem-f Femoral - Femoral Artery Crossover rt to lft Fem-f Femoral - Femoral Artery Crossover rt to lft Fem-f 3 W POST-OP Peripheral vascular disease, unspecified Reason for Visit PAD (peripheral favian ry disease) Claudication of both lower extremities Aftercare following surgery of the circulatory system PAD (peripheral artery disease) Chief Complaint Femoral - Femoral Ar moises Crossover rt to lft Fem-f Femoral - Femoral Artery Crossover rt to lft Fem-f Femoral - Femoral Artery Crossover rt to lft Fem-f Femoral - Femoral Artery Crossover rt to lft Fem-f 3 W POST-OP Peripheral vascular disease, unspecified INCISION F/U-DISCUSS RESULTS SOB, COUGH Reason for Visit PAD (peripheral favian ry disease) Claudication of both lower extremities Aftercare following surgery of the circulatory system PAD (peripheral artery disease) Aftercare following surgery of the circulatory system PAD (peripheral artery disease) Chief Complaint Peripheral vascular disease, unspecified INCISION F/U-DISCUSS RESULTS SOB, COUGH Reason for Visit Aftercare following surgery of the circulatory system PAD (peripheral artery disease) Chief Complaint Admit Date NICOTINE DEPENDENCE February 20, 2024 2:42pm Additional Source Comments (unrecognized sect ion and content) No Status Records FoundNo Status Records FoundNo Status Records Found INFORMATION SOURCE (unrecogn ized section and content) DATE CREATED AUTHOR 08/23/2017 [facility] DATE CREATED AUTHOR AUTHOR'S ORGANIZ ATION 06/01/2024 [facility] DATE CREATED AUTHOR AUTHOR'S ORGANTEOFILO ATION 07/06/2024 [facility] Source Comments (unrecognize d section and content) In the event this informatio n is protected by the Federal Confidentiality of Alcohol and Drug Abuse Patient Records regulations: The Federal rules restrict any use of the information to criminally investigate or prosecute any alcohol or drug abuse patient[facility] this information is protected by the Federal Confidentiality of Alcohol and Drug Abuse Patient Records regulations: The Federal rules restrict any use of the information to criminally investigate or prosecute any alcohol or drug abuse patient.[facility] Care Teams (unrecognized sec tion and content) Team Status: Active Member Role Status Dates Dr. Jesus Trujillo MD Family Provider Active Dr. Jesus Trujillo MD Primary Care Provider Active Team Status: Inactive Member Role Status Dates Dr. Jesus Trujillo MD Primary Care Provider, Referr ing Provider Active Dr. Koby Ojeda MD Attending Provider Active Team Status: Inactive Member Role Status Dates Dr. Jesus Trujillo MD Primary Care Provider, Referr ing Provider Active Jesus Dao NP, AIRLINE MANAGERIAL SUPERVISOR-C Attending Provider Active Team Status: Active Member Role Status Dates Dr. Jesus Trujillo MD Primary Care Provider Active Dr. Koby Ojeda MD Attending Provider Active Team Status: Inactive Member Role Status Dates Dr. Jesus Trujillo MD Primary Care Provider Active Dr. Koby Ojeda MD Attending Provider Active Team Status: Inactive Member Role Status Dates Dr. Jesus Trujillo MD Primary Care Pr ovider, Attending Provider, Referring Provider Active Team Status: Inactive Member Role Status Dates Dr. Jesus Trujillo MD Primary Care Provider, Referr ing Provider Active BARON Mendoza Attending Provider Active Team Status: Inactive Member Role Status Dates Dr. Jesus Trujillo MD Primary Care Provider Active BARON Mendoza Attending Provider, Referring Provider Active Team Status: Inactive Member Role Status Dates Dr. Jesus Trujillo MD Primary Care Provider, Referr ing Provider Active Dr. Jass Woods MD Attending Provider Active Team Status: Active Member Role Status Dates Dr. Jesus Trujillo MD Primary Care Provider Active Dr. John Banda MD Attending Provider Activ e Dr. Jass Woods MD Referring Provider Active Team Status: Inactive Member Role Status Dates Dr. Jesus Trujillo MD Primary Care Provider, Attend ing Provider Active Team Status: Inactive Member Role Status Dates Dr. Jesus Trujillo MD Primary Care Provider, Referr ing Provider Active BARON Storm Attending Provider Active Team Status: Active Member Role Status Dates Dr. Jesus Trujillo MD Primary Care Provider Active Dr. Jass Woods MD Admit Provider, Att ending Provider, Referring Provider, Other Provider Active Team Status: Active Member Role Status Dates Dr. Jesus Trujillo MD Primary Care Provider Active Dr. Jass Woods MD Admit Provider, Ref erring Provider, Other Provider Active BARON Storm Attending Provider Active Team Status: Inactive Member Role Status Dates Dr. Jesus Trujillo MD Primary Care Provider Active BARON Storm Attending Provider, Referring Provid er Active Team Status: Inactive Member Role Status Dates Dr. Jesus Trujillo MD Primary Care Provider Active Dr. Jass Woods MD Admit Provider, Att ending Provider, Referring Provider Active Team Status: Active Member Role Status Dates Dr. Jesus Trujillo MD Primary Care Provider Active Dr. Jass Woods MD Attending Provider Active Team Status: Active Member Role Status Dates Dr. Jesus Trujillo MD Primary Care Provider Active Dr. Jass Woods MD Attending Provider Active BARON Storm Referring Provider Active Team Status: Inactive Member Role Status Dates Dr. Jesus Trujillo MD Primary Care Provider Active Dr. Maryam Song MD Emergency Provider Active Team Status: Inactive Member Role Status Dates Dr. Jesus Trujillo MD Primary Care Provider Active Dr. Maryam Song MD Attending Provider, Emergency Provider Active Team Status: Inactive Member Role Status Dates Dr. Jesus Trujillo MD Primary Care Provider Active Start: January 31, 2024 End: January 31, 2024 Dr. Jesus Trujillo MD Attending Provider Active Start: January 31, 2024 End: January 31, 2024 Dr. Jesus Trujillo MD Referring Provider Active Start: January 31, 2024 End: January 31, 2024 Team Status: Inactive Member Role Status Dates Dr. Jesus Trujillo MD Primary Care Provider Active Start: February 20, 2024 End: February 20, 2024 Dr. Jesus Trujillo MD Attending Provider Active Start: February 20, 2024 End: February 20, 2024 Dr. Jesus Trujillo MD Referring Provider Active Start: February 20, 2024 End: February 20, 2024 Team Status: Inactive Member Role Status Dates Dr. Jesus Trujillo MD Primary Care Provider Active Start: May 03, 2024 End: May 03, 2024 Dr. Jesus Trujillo MD Attending Provider Active Start: May 03, 2024 End: May 03, 2024 Dr. Jesus Trujillo MD Referring Provider Active Start: May 03, 2024 End: May 03, 2024 Goals (unrecognized section and content) Goals may be documented in a n alternate sectionGoals may be documented in an alternate sectionGoals may be documented in an alternate sectionGoals may be documented in an alternate sectionGoals may be documented in an alternate sectionGoals may be documented in an alternate sectionGoals may be documented in an alternate section Reason for Visit (unrecogniz ed section and content) Reason Comments New Patient Low Back Pain FOR RECORDS PERTAINING TO PATIENTS WHO ARE [...] BE BASED ON THE PRIMARY CLINICAL RECORDS. [employer] provides no warranty or guarantee of the accuracy or completeness of information in this document.
[2024-08-21 11:22] LABS: ALB/GLOB Ratio 1.3 RATIO (0.9-2.4); AST(SGOT) 26 U/L (<=37); Alanine Aminotransfer ALT/SGPT 15 U/L (<=46); Albumin, Serum 3.9 g/dL (3.4-4.8); Alkaline Phosphatase 129 U/L (40-129); Anion Gap 15 (5-15); BUN 9 mg/dL (4-19); BUN/Creat Ratio 11.6 RATIO (10-20); Calcium,Total 9.3 mg/dL (7.6-11.0); Carbon Dioxide 22.3 mmol/L (21.0-32.0); Chloride 101 mmol/L (98-108); Cholesterol 160 mg/dL (<=200); EST Glomerular Filtration Rate 97 (>60); Globulin 3.1 g/dL (2.2-4.2); Glucose 104 mg/dL (70-99); High Density Lipoprotein 55 mg/dL; Low Density Lipoprotein Calc. 96 mg/dL; Potassium 4.6 mmol/L (3.3-5.1); Protein, Total 7.1 g/dL (5.9-8.4); Sodium Level 138 mmol/L (133-145); Total Bilirubin 0.44 mg/dL (0.00-1.30); Triglycerides 48 mg/dL; Very Low Density Lipoprotein 10 mg/dL (5-40); cholesterol:hdl ratio screen 2.93
[2024-08-21 11:29] LABS: Vitamin D,25 Hydroxy 49.6 ng/mL (30-100)
== END | disposition home or self-care (01) ==
LOC: MFPLAB 12:05
PROVIDERS: PCP Family Medicine; Referring Provider Family Medicine; Visit Provider Family Medicine
DX: I10 Essential (primary) hypertension (principal); R73.02 Impaired glucose tolerance (oral); E55.9 Vitamin D deficiency, unspecified; Z12.5 Encounter for screening for malignant neoplasm of prostate
CPT/HCPCS: 36415; 80053; 80061; 82306; 84153; G0103

== ENCOUNTER → 2024-10-29 | Outpatient (CLI) | payer MEDICARE, SELFPAY ==
[2024-10-29 15:26] LABS: Hematocrit 32.1 % (40-54); Hemoglobin 10.5 g/dL (13.0-16.5); Immature Granulocytes Count 0.210 X10^3/uL (0.0-0.0); Mean Corp Hgb Conc 32.7 g/dL (32-36); Mean Corpuscular Volume 91.7 fL (80-94); Mean Platelet Vol. 9.8 fl (6.2-12.0); NRBC Flagged by Analyzer 0 % (0-5); POSITIVE DIFFERENTIAL YES; Platelet Count 432 K/mm3 (150-450); RBC Distribution Width CV 13.7 % (11.6-14.6); RBC Distribution Width SD 45.6 fl (35.1-43.9); Red Blood Count 3.50 M/mm3 (4.6-6.2); White Blood Count 14.2 K/mm3 (4.4-11.0)
[2024-10-29 15:54] LABS: AST(SGOT) 116 U/L (<=37); Alanine Aminotransfer ALT/SGPT 46 U/L (<=46); Albumin, Serum 3.2 g/dL (3.4-4.8); Alkaline Phosphatase 373 U/L (40-129); Anion Gap 16 (5-15); BUN 12 mg/dL (4-19); BUN/Creat Ratio 20.8 RATIO (10-20); Calcium,Total 9.0 mg/dL (7.6-11.0); Carbon Dioxide 20.6 mmol/L (21.0-32.0); Chloride 97 mmol/L (98-108); Cholesterol 102 mg/dL (<=200); Globulin 3.3 g/dL (2.2-4.2); Glucose 112 mg/dL (70-99); Low Density Lipoprotein Calc. 56 mg/dL; Potassium 4.0 mmol/L (3.3-5.1); Triglycerides 57 mg/dL; Very Low Density Lipoprotein 11 mg/dL (5-40); cholesterol:hdl ratio screen 2.96
[2024-10-29 16:17] LABS: Differential Indicated SCAN CRITERIA MET
[2024-10-29 19:13] LABS: Differential Comment SCANNED
[2024-10-31 15:13] LABS: Iron 14 ug/dL (65-175); Iron Binding Capacity,Unsat 190 ug/dL (228-428)
[2024-10-31 15:42] LABS: Ferritin 1247 ng/mL (37-417); Vitamin B12 > 4000 pg/mL (180-914)
[2024-10-31 15:55] LABS: Iron Binding Capacity,Total 204 ug/dL (250-450)
[2024-11-02 04:07] LABS: GGTP 342 IU/L (0-65)
== END | disposition home or self-care (01) ==
LOC: MFPLAB 11:46
PROVIDERS: PCP Family Medicine; Referring Provider Family Medicine; Visit Provider Family Medicine
DX: D64.9 Anemia, unspecified (principal); R74.8 Abnormal levels of other serum enzymes; I25.10 Atherosclerotic heart disease of native coronary artery without angina pectoris
CPT/HCPCS: 36415; 80053; 80061; 82607; 82728; 82977; 83540; 83550; 85025

== ENCOUNTER 2024-11-20 10:04 | Inpatient (IN) | payer MEDICARE, SELFPAY ==
[2024-11-20] VITALS (15 sets, daily range): BP systolic 75–123; BP diastolic 53–105; PULSE 70–92; RESP 11–20; TEMP 36.3–36.7; O2SAT 95–100; BMI 16.9; BMI 17.0
--- NOTE | 2024-11-20 10:50 | EKG12_ITS ---
Test Reason : GENERAL Blood Pressure : */* mmHG Vent. Rate : 66 BPM Atrial Rate : 66 BPM P-R Int : 130 ms QRS Dur : 82 ms QT Int : 454 ms P-R-T Axes : 75 85 81 degrees QTcB Int : 475 ms Normal sinus rhythm Low voltage QRS Septal infarct , age undetermined Abnormal ECG Confirmed by Roger Scott ([id number]), script editor YOLANDE JC ([id number]) on 11/22/2024 5:44:32 AM Referred By: Confirmed By: Roger Scott
--- NOTE | 2024-11-20 10:50 | RAD_ITS ---
PROCEDURE: CHEST 1 VIEW (PORTABLE) 11/20/2024 REASON FOR EXAM: HYPOTENSION TECHNIQUE: Frontal view of the chest. COMPARISON: Prior study dated February 26, 2023. FINDINGS: Hardware: EKG electrodes are seen. Heart: Cardiac and mediastinal contours are stable. Lungs: Hyperinflation. Stable examination. Bones: The bones are unremarkable. Other: RAD/Chest 1 View (Portable) IMPRESSION: No Acute Findings. Reading Location: [place] [id number]
--- NOTE | 2024-11-20 10:53 | CT_ITS ---
PROCEDURE: BRAIN/HEAD WITHOUT CONTRAST 11/20/2024 REASON FOR EXAM: FALLS, WORSENING DYSARTHRIA TECHNIQUE: Procedure Code: CTBR Modality: CT Procedure: BRAIN/HEAD WITHOUT CONTRAST Coronal and Sagittal reconstruction series were provided. One or more dose reduction techniques were used (e.g., Automated exposure control, adjustment of the mA and/or kV according to patient size, use of iterative reconstruction technique. RADIATION DOSE SUMMARY: CTDlvol: 44.99 mGy DLP: 366 mGycm COMPARISON: Prior study dated October 28, 2018. FINDINGS: Brain: Low density in the periventricular white matter suggests mild chronic small vessel ischemic changes. Old lacune in the right basal ganglion. Cerebellar atrophy. Old lacune in the left basal ganglion. CSF Spaces: Moderate generalized cerebral atrophy Sinuses/Mastoids: Clear at visualized levels Bones: No skull fracture CT/Brain/Head without Contrast IMPRESSION: CHRONIC CHANGES. NO ACUTE FINDINGS. Reading Location: [place] [id number]
--- NOTE | 2024-11-20 11:02 | CT_ITS ---
PROCEDURE: ABDOMEN/PELVIS W IV CONT ONLY 11/20/2024 REASON FOR EXAM: ABDOMINAL PAIN, GI BLEED TECHNIQUE: Procedure Code: [id number] Modality: CT Procedure: ABDOMEN/PELVIS W IV CONT ONLY Coronal and Sagittal reconstruction series were provided. CONTRAST: Isovue 370 VOLUME: 75 mL One or more dose reduction techniques were used (e.g., Automated exposure control, adjustment of the mA and/or kV according to patient size, use of iterative reconstruction technique. RADIATION DOSE SUMMARY: CTDlvol: 55 mGy DLP: 1392 mGycm COMPARISON: None. FINDINGS: Lung bases: Numerous pulmonary nodules. ABDOMEN Liver: There is extensive metastatic disease throughout the liver replacing at least 50% of the volume of the liver. Additionally there is hepatic portal masses that extend to the level of the head of the pancreas measures at least 3.3 x 2.3 cm with component adjacent to if not involving the pancreas measuring 2.8 by 2.3 cm. Biliary system: . Negative for intrahepatic or extrahepatic ductal dilatation. Gallbladder: negative for cholecystitis. Spleen: Numerous splenic metastases. Pancreas: As described above there is hepatic portal adenopathy with a confluent mass adjacent to if not arising from the pancreas. This component measures 2.8 x 2.3 cm. No evidence of pancreatic ductal dilatation. Negative. Adrenals: Negative. Kidneys: Negative. Negative for kidney stones, cysts or masses. Bowel: Scattered diverticula. Negative for small or large-bowel obstruction. Appendix: The appendix is not identified. There is no inflammatory process identified in the right lower quadrant to suggest appendicitis. Vasculature: Likely occluded left common iliac artery. Severe atherosclerotic vascular calcifications of the abdominal aorta and its branches. Peritoneum / Retroperitoneum: Negative. PELVIS Lymph nodes: Negative for inguinal or iliac adenopathy. Bladder: Urinary bladder negative. Reproductive Organs: Prostate calcifications Bones and Soft Tissues: Surgical and degenerative changes of the mid to lower lumbar spine. No evidence of bony metastatic disease. CT/Abdomen/Pelvis W IV Cont ONLY IMPRESSION: Pulmonary metastatic disease. Extensive hepatic metastatic disease. Hepatic hilar adenopathy. Hilar adenopathy extends to level of pancreas. Favor pancreatic neoplasm as pr imary neoplasm. Reading Location: [place] [address]
[2024-11-20 11:03] LABS: Hematocrit 33.2 % (40-54); Hemoglobin 11.1 g/dL (13.0-16.5); Immature Granulocytes Count 0.480 X10^3/uL (0.0-0.0); Mean Corp Hgb Conc 33.4 g/dL (32-36); Mean Corpuscular Volume 90.7 fL (80-94); Mean Platelet Vol. 9.8 fl (6.2-12.0); NRBC Flagged by Analyzer 0 % (0-5); Platelet Count 457 K/mm3 (150-450); RBC Distribution Width CV 15.8 % (11.6-14.6); RBC Distribution Width SD 51.0 fl (35.1-43.9); Red Blood Count 3.66 M/mm3 (4.6-6.2); White Blood Count 11.6 K/mm3 (4.4-11.0)
[2024-11-20] MEDS: 0.9% Normal Saline (1000mL) 1,000 ML 999 ML IV ×2 (11:05→12:42)
[2024-11-20 11:13] LABS: Prothrombin Time (Protime)PT. 14.7 SECONDS (11.7-14.9)
[2024-11-20 11:14] LABS: Partial Thromboplast Time 29.5 Seconds (24.1-36.2)
--- NOTE | 2024-11-20 11:17 | EX.ED.DYSGE1 ---
HPI History of Present Illness Chief Complaint: General Illness Narrative Narrative: Chief complaint and HPI: 69-year-old gentleman with past medical history of COPD, CVA, alcohol abuse, HTN, CAD who presents for multiple complaints. Patient states for the past several weeks he has been having weakness, frequent falls, dark stools, bilateral feet edema, decreased p.o. intake, abdominal pain. States he stopped drinking alcohol approximately 3 weeks ago. Saw his PCP today who referred him to the emergency department. Patient as well as family member state that patient ambulates with crutches at baseline. He has chronic dysarthria but that it has seem to be worsening over the past several days. He denies any fever, chills, shortness of breath, URI symptoms, nausea, vomiting, diarrhea, dysuria. Not on blood thinners but on Plavix. Review of systems: See HPI Medications: As listed on the chart Allergies: As listed on the chart PFSH: Per chart Vital signs: As listed on the chart. Reviewed. Physical exam: Gen: A&O x3, cachectic and ill-appearing Head: Normocephalic, atraumatic Eyes: No sclera icterus, conjunctiva clear, PERRL, EOMI ENT: TMs clear BL, dry mucous membranes, posterior oropharynx unremarkable, uvula midline, tonsils not enlarged Neck: Trachea midline, Full ROM, No meningismus CV: RRR, no murmurs, bilateral peripheral edema in the feet bilaterally Resp: Lungs CTA BL, no w/r/c GI: Cachectic, abd soft, non-distended, tender to palpation diffusely, no rebound or rigidity Rectal: Normal external examination. No evidence of hemorrhoids or fissures. Normal tone and sensation. No masses, fluctuance, or tenderness. No pain out of proportion. Stool brown on gloved finger Musc: Moves all extremities, generalized weakness, no deformity Skin: Warm, dry, sacral irritation with small abrasion Neuro: Alert, oriented, grossly intact, sensation intact Psych: Cooperative [facility] Medical History Anxiety COPD (chronic obstructive pulmonary disease) Shortness of breath on exertion Leg cramps History of pain when walking History of heart attack History of fracture of femur Alcohol use Ambulates with cane Arthritis High cholesterol Back pain Smoker Hoarseness Cardiology follow-up encounter History of echocardiogram Essential hypertension History of left heart catheterization (LHC) (~01/04/22) CVA (cerebral vascular accident) Hypokalemia Femur fracture, left Alcohol abuse CVA (cerebral vascular accident) Hypertension Home Medications ?Medication ?Instructions ?Recorded ?Last Taken ?Type clopidogrel 75 mg tablet 75 mg PO DAILY HEART 10/28/18 12/21/23 History atorvastatin 40 mg tablet 40 mg PO QHS CHOLESTEROL 01/04/22 11/13/22 History cholecalciferol (vitamin D3) 100 100 mcg PO DAILY SUPPLEMENT 01/04/22 11/13/22 History mcg (4,000 unit) tablet aspirin 81 mg tablet,delayed 81 mg PO BREAKFAST HEART #0 tabs 01/05/22 12/21/23 Rx release carvedilol 6.25 mg tablet 6.25 mg PO BIDCM BLOOD PRESSURE 02/11/22 12/21/23 Rx #180 tabs vitamin B complex (B 1 tab PO DAILY SUPPLEMENT 09/22/22 11/13/22 History Complex-Vitamin B12 tablet) lisinopril 20 mg tablet 20 mg PO DAILY 11/20/24 Unknown History Allergy/AdvReac Type Severity Reaction Status Date / Time Penicillins AdvReac Diarrhea Verified 11/20/24 10:07 Family History Father CAD (coronary artery disease) Brother CAD (coronary artery disease) Surgical History Hx of hernia repair History of back surgery History of cardiac catheterization History of eye surgery Social History household members: none Smoking Status: Heavy Smoker (>10/day) Tobacco: How many years used: 45 alcohol intake: current substance use type: does not use caffeine: Yes Type: coffee Number of servings: 4 EXAM Physical Exam Const Vital Signs: 11/20/24 10:05 11/20/24 10:16 11/20/24 10:38 Temperature 97.4 F L Temperature Source Oral Pulse Rate 92 79 Respiratory Rate 18 Respiratory Effort Normal Non-Labored Respiratory Pattern Tachypnea Blood Pressure 85/69 L 78/53 L Blood Pressure Mean 74 61 Pulse Ox 96 Oxygen Delivery Method Room Air 11/20/24 11:00 11/20/24 12:00 11/20/24 13:00 Temperature 97.4 F L 98 F Temperature Source Core Core Pulse Rate 71 77 75 Respiratory Rate 20 H 18 12 Respiratory Effort Respiratory Pattern Blood Pressure 75/61 L 123/105 H 85/63 L Blood Pressure Mean 67 111 70 Pulse Ox 96 100 95 Oxygen Delivery Method Room Air Room Air 11/20/24 13:31 11/20/24 13:39 11/20/24 14:00 Temperature 98 F 97.6 F L Temperature Source Core Pulse Rate 78 70 Respiratory Rate 11 L 13 Respiratory Effort Respiratory Pattern Blood Pressure 100/60 100/60 102/60 Blood Pressure Mean 73 73 74 Pulse Ox 95 100 Oxygen Delivery Method Room Air 11/20/24 14:59 11/20/24 15:00 Temperature 98 F Temperature Source Core Pulse Rate 73 Respiratory Rate 12 Respiratory Effort Respiratory Pattern Blood Pressure 101/76 101/76 Blood Pressure Mean 84 84 Pulse Ox 98 Oxygen Delivery Method Room Air MDM MDM MDM Narrative Medical decision making narrative: 69-year-old gentleman with past medical history of COPD, CVA, alcohol abuse, HTN, CAD who presents for multiple complaints. Patient states for the past several weeks he has been having weakness, frequent falls, dark stools, bilateral feet edema, decreased p.o. intake, abdominal pain. States he stopped drinking alcohol approximately 3 weeks ago. Saw his PCP today who referred him to the emergency department. He has chronic dysarthria but that it has seem to be worsening over the past several days. On presentation, patient has dry mucous membranes, ill-appearing, cachectic. He is hypotensive otherwise vitals are stable. Differential diagnosis includes but is not limited to dehydration, anemia, GI bleed, electrolyte abnormality, intracranial abnormality, UTI, pneumonia, intra-abdominal process such as diverticulitis, cholecystitis, pancreatitis, cancer. 30 cc/kg bolus ordered. Zosyn ordered for prophylactic antibiotics. Sepsis/broad workup ordered. CBC with leukocytosis 11.6. Patient has baseline anemia of 11.1. Mild thrombocytosis of 475. Coagulation panel unremarkable. CMP consistent with dehydration without MARTHA. Has AST transaminitis at 141 which is consistent with his previous alcohol abuse. Alkaline phosphatase 335. Lactic 3.6. Patient receiving fluids. Magnesium level unremarkable. Troponin unremarkable x 2. UA positive for ketones but negative for UTI. CT of the brain shows no acute intracranial abnormality. Chronic changes seen. CT abdomen pelvis shows pulmonary metastatic disease, extensive hepatic metastatic disease, hepatic hilar adenopathy, hilar adenopathy extends to the level pancreas, favoring pancreatic neoplasm as primary neoplasm. Patient's symptoms are likely secondary to his metastatic presumed pancreatic cancer. On reevaluation, patient's blood pressure has improved to the low 100s/90s. Patient will warrant admission for further hydration and likely hospice/palliative consult. Patient was updated on all the results and confirmed understanding. I spoke with Dr. Forrest who spoke with oncology and given patient's functional/nutritional status patient not a candidate for treatment and likely has 3 months to live. She spoke with the patient and will admit the patient for continued hydration and hospice consult. EKG: Interpreted by me/EM physician: EKG shows normal sinus rhythm without any acute ischemic changes. Heart rate 66. Diagnostic: Interpreted by me/EM physician: Chest x-ray without pneumonia, effusion, cardiomegaly, pneumothorax Impression: 1. Metastatic cancer, likely pancreatic source 2. Failure to thrive 3. Dehydration resulting in hypotension 4. AST transaminitis likely secondary to alcohol abuse 5. Chronic anemia 6. Thrombocytosis Lab Data Labs: Laboratory Results - last 24 hr 11/20/24 11/20/24 11/20/24 10:29 11:54 13:10 WBC 11.6 H RBC 3.66 L Hgb 11.1 L Hct 33.2 L MCV 90.7 MCH 30.3 MCHC 33.4 RDW Std Deviation 51.0 H RDW Coeff of [place] 15.8 H Plt Count 457 H MPV 9.8 Immature Gran % (Auto) 4.100 H Neut % (Auto) 77.9 H Lymph % (Auto) 6.5 L Schley % (Auto) 9.1 Eos % (Auto) 0.9 Baso % (Auto) 1.5 H Absolute Neuts (auto) 9.1 H Absolute Lymphs (auto) 0.76 L Nucleated RBC % 0 PT 14.7 INR 1.1 APTT 29.5 Sodium 134 Potassium 4.5 Chloride 99 Carbon Dioxide 18.7 L Anion Gap 17 H BUN 30 H Creatinine 0.97 Estim Creat Clear Calc 60.94 Est GFR (MDRD) Non-Af 86 BUN/Creatinine Ratio 31.0 H Glucose 118 H Lactic Acid 3.6 H* Calcium 8.9 Magnesium 2.0 Total Bilirubin 0.48 AST 141 H ALT 40 Alkaline Phosphatase 335 H Troponin T High Sens 10 Troponin T Hi Sens 2 Hr 8 Total Protein 6.2 Albumin 3.1 L Globulin 3.1 Albumin/Globulin Ratio 1.0 Urine Color Yellow Urine Clarity Sl. Cloudy Urine pH 5.0 Ur Specific Velpen 1.015 Urine Protein 30 H Urine Glucose (UA) Normal Urine Ketones 5 H Urine Occult Blood 10 H Urine Nitrite Negative Urine Bilirubin Negative Urine Urobilinogen Normal Ur Leukocyte Esterase 25 H Urine RBC 0 SEEN Urine WBC 0-5 SEEN Ur Squamous Epith Cells 0-5 SEEN Urine Bacteria 1+ Hyaline Casts 0-5 SEEN Urine Mucus 0 SEEN Radiography Diagnostic Testing: Clinical Impression(s) from Imaging Studies Chest X-Ray 11/20/24 10:50 IMPRESSION: No Acute Findings. Reading Location: [place] [address] 11/20/24 10:53 IMPRESSION: CHRONIC CHANGES. NO ACUTE FINDINGS. Reading Location: [place] [address] Abdomen/Pelvis CT 11/20/24 11:02 IMPRESSION: Pulmonary metastatic disease. Extensive hepatic metastatic disease. Hepatic hilar adenopathy. Hilar adenopathy extends to level of pancreas. Favor pancreatic neoplasm as primary neoplasm. Reading Location: [place] [address] Discharge Plan Triage Chief Complaint: General Illness ED Provider: Armond Perales Dx/Rx/DC Orders Prescriptions: No Action clopidogrel 75 MG tablet 75 mg PO DAILY atorvastatin 40 mg tablet 40 mg PO QHS Patient Comments: TAKE 1 TABLET BY MOUTH AT BEDTIME cholecalciferol (vitamin D3) 100 mcg (4,000 unit) Tablet 100 mcg PO DAILY aspirin 81 mg Tablet,Delayed Release (Dr/Ec) 81 mg PO BREAKFAST Qty: 0 0RF vitamin B complex [B Complex-Vitamin B12] Tablet 1 tab PO DAILY lisinopril 20 mg tablet 20 mg PO DAILY carvedilol 6.25 mg tablet 6.25 mg PO BIDCM Qty: 180 4RF Primary Care Provider: Jesus Trujillo Referrals: Jesus Trujillo MD [Primary Care Provider, Family Practice] Print Language: Telugu
[2024-11-20 11:57] LABS: AST(SGOT) 141 U/L (<=37); Alanine Aminotransfer ALT/SGPT 40 U/L (<=46); Albumin, Serum 3.1 g/dL (3.4-4.8); Alkaline Phosphatase 335 U/L (40-129); Anion Gap 17 (5-15); BUN 30 mg/dL (4-19); BUN/Creat Ratio 31.0 RATIO (10-20); Calcium,Total 8.9 mg/dL (7.6-11.0); Carbon Dioxide 18.7 mmol/L (21.0-32.0); Chloride 99 mmol/L (98-108); Estimated Creatinine Clearance 60.94 ml/min (50-250); Globulin 3.1 g/dL (2.2-4.2); Glucose 118 mg/dL (70-99); Potassium 4.5 mmol/L (3.3-5.1); Troponin T High Sensitivity 10 ng/L (<=22)
[2024-11-20 12:02] LABS: Mucous, Urine 0 SEEN /hpf (<or=2+); Red Blood Cells-Urine 0 SEEN /hpf (0-5)
[2024-11-20 12:04] LABS: Color, Urine Yellow (Yellow); Glucose, Dipstick Normal (Normal); Ketone-Dipstick 5 mg/dl (Negative); Leukocyte Esterase-Dipstick 25 /ul (Negative); Nitrite-Dipstick Negative (Negative); Occult Blood-Urine 10 /ul (Negative); Protein-Dipstick 30 mg/dl (Negative); Specific Gravity, Urine 1.015 (1.002-1.030); Urine Bilirubin Dipstick Negative (Negative)
[2024-11-20 12:13] LABS: Squamous Epithelial Cells - UA 0-5 SEEN /hpf (0-5)
[2024-11-20 12:32] LABS: Magnesium 2.0 mg/dL (1.5-2.2)
[2024-11-20] MEDS: Piperacil/Tazobactam 4.5 GM in 0.9% Normal Saline (100mL MB+) 100 ML IV (12:46)
[2024-11-20 13:49] LABS: Troponin T High Sens 2 HR 8 ng/L (<=22)
[2024-11-20 14:59] LABS: Reflex Lactate? Y
--- NOTE | 2024-11-20 15:24 | PCM.HP.STD ---
HPI - General General Date of Admission: 11/20/24 Date of Service: 11/20/24 Chief Complaint: Abdominal pain HPI Narrative BENY AGARWAL, is [id number] male history of COPD, CVA, alcohol use, coronary artery disease, hypertension presented [facility] ED 11/16/2024 for multiple complaints. For the past several weeks he has had weakness, falls, dark stools, swelling in his feet, decreased p.o. intake and abdominal pain. Reportedly stopped drinking alcohol around 3 weeks ago. Saw PCP today who referred him to the ED. Reportedly patient ambulates with crutches at baseline. Does have chronic dysarthria that has possibly been worsening over the past several days. In the ED temp 97.4, heart rate 92 and blood pressure initially 85/69, respiratory 18 pulse ox 96% on room air. CBC with white count 11.6, hemoglobin 11.1, CMP with a bicarb of 18.7 and a gap of 17, BUN of 30 and a creatinine of 0.97. Trop 10. Lactic acid 3.6. Fecal occult negative, UA not overtly suggestive of infection, CT head with chronic changes but no acute process, chest x-ray no acute findings, CT abdomen with extensive metastatic disease through liver placing at least 50% of volume of liver with hepatic portal masses that extend to the level of the head of the pancreas and measure at least 3.3 x 2.3 cm with component adjacent to if not involving pancreas measuring 2.8 x 2.5 cm, numerous splenic metastasis also noted. And also noted likely occluded left common iliac artery and severe atherosclerosis vascular calcifications abdominal aorta and its branches. Given all of the above hospitalist contacted for admission. Did discuss with oncology prior to seeing patient, patient has significant metastatic cancer suspected to be stage IV pancreatic cancer which is incurable, if he had very good functional status could consider a CT-guided biopsy of the liver and oncology follow-up to discuss if there would be any options for any form of additional treatment. Patient evaluated at bedside. He reports over the past few weeks he?s had very poor appetite, not eating and drinking well, has had an achy feeling intermittently in his chest and a dry cough, has had significant abdominal pain with lots of diarrhea, denies any swelling in his extremities for me, no fevers or chills, intermittently gets some headaches, no changes in vision today, denies any aching or stress today, no shortness of breath. No changes in urination. Does have dysarthria from previous CVA and reports that this has been slowly worsening over the past few months with no acute change. [facility] Medical History Anxiety COPD (chronic obstructive pulmonary disease) Shortness of breath on exertion Leg cramps History of pain when walking History of heart attack History of fracture of femur Alcohol use Ambulates with cane Arthritis High cholesterol Back pain Smoker Hoarseness Cardiology follow-up encounter History of echocardiogram Essential hypertension History of left heart catheterization (LHC) (~01/04/22) CVA (cerebral vascular accident) Hypokalemia Femur fracture, left Alcohol abuse CVA (cerebral vascular accident) Hypertension Home Medications ?Medication ?Instructions ?Recorded ?Last Taken ?Type clopidogrel 75 mg tablet 75 mg PO DAILY HEART 10/28/18 12/21/23 History atorvastatin 40 mg tablet 40 mg PO QHS CHOLESTEROL 01/04/22 11/13/22 History cholecalciferol (vitamin D3) 100 100 mcg PO DAILY SUPPLEMENT 01/04/22 11/13/22 History mcg (4,000 unit) tablet aspirin 81 mg tablet,delayed 81 mg PO BREAKFAST HEART #0 tabs 01/05/22 12/21/23 Rx release carvedilol 6.25 mg tablet 6.25 mg PO BIDCM BLOOD PRESSURE 02/11/22 12/21/23 Rx #180 tabs vitamin B complex (B 1 tab PO DAILY SUPPLEMENT 09/22/22 11/13/22 History Complex-Vitamin B12 tablet) lisinopril 20 mg tablet 20 mg PO DAILY 11/20/24 Unknown History Allergy/AdvReac Type Severity Reaction Status Date / Time Penicillins AdvReac Diarrhea Verified 11/20/24 10:07 Family History Father CAD (coronary artery disease) Brother CAD (coronary artery disease) Surgical History Hx of hernia repair History of back surgery History of cardiac catheterization History of eye surgery Social History household members: none Smoking Status: Heavy Smoker (>10/day) Tobacco: How many years used: 45 alcohol intake: current substance use type: does not use caffeine: Yes Type: coffee Number of servings: 4 ROS ROS Narrative General: Denies fever/chills, has had weight loss HENT: Occasional, denies stuffy nose, denies sore throat EYES: Denies changes in vision today Resp: Some dry cough, denies shortness of breath Cardiac: Denies chest pain GI: Generalized abdominal pain, frequent diarrhea, denies any nausea or vomiting : Denies changes in urination Extremity: Denies swelling MSK: Possibly some generalized weakness, no pain in lower extremities reported Neuro: Some chronic tingling in his fingers which is not new Heme: Denies any bleeding or bruising Skin: Denies rashes Psychiatric: No complaints voiced Vital Signs Vital Signs Vital Signs: 11/20/24 10:05 11/20/24 10:16 11/20/24 10:38 Temperature 97.4 F L Temperature Source Oral Pulse Rate 92 79 Respiratory Rate 18 Respiratory Effort Normal Non-Labored Respiratory Pattern Tachypnea Blood Pressure 85/69 L 78/53 L Blood Pressure Mean 74 61 Pulse Ox 96 Oxygen Delivery Method Room Air 11/20/24 11:00 11/20/24 12:00 11/20/24 13:00 Temperature 97.4 F L 98 F Temperature Source Core Core Pulse Rate 71 77 75 Respiratory Rate 20 H 18 12 Respiratory Effort Respiratory Pattern Blood Pressure 75/61 L 123/105 H 85/63 L Blood Pressure Mean 67 111 70 Pulse Ox 96 100 95 Oxygen Delivery Method Room Air Room Air 11/20/24 13:31 11/20/24 13:39 11/20/24 14:00 Temperature 98 F 97.6 F L Temperature Source Core Pulse Rate 78 70 Respiratory Rate 11 L 13 Respiratory Effort Respiratory Pattern Blood Pressure 100/60 100/60 102/60 Blood Pressure Mean 73 73 74 Pulse Ox 95 100 Oxygen Delivery Method Room Air 11/20/24 14:59 11/20/24 15:00 Temperature 98 F Temperature Source Core Pulse Rate 73 Respiratory Rate 12 Respiratory Effort Respiratory Pattern Blood Pressure 101/76 101/76 Blood Pressure Mean 84 84 Pulse Ox 98 Oxygen Delivery Method Room Air Weight Weight: 58.3 kg Body Mass Index (BMI) 16.9 Physical Exam Narrative General: Alert, somewhat difficult to understand but ultimately answers questions appropriately, appears cachectic HEENT: Atraumatic, normocephalic Eyes: Anicteric, normal conjunctiva, extraocular movements grossly intact Neck: Supple Respiratory: Clear to auscultation bilaterally, normal respiratory effort Cardiovascular: Regular rate and rhythm GI: somewhat diffusely tender without any rebound, guarding, rigidity Extremities: No edema Musculoskeletal: Moving all extremities Neuro: Has some dysarthria which is baseline Skin: Some scattered bruising Psych: Cooperative Results Lab / Micro Data 11/20/24 10:29 11/20/24 10:29 Labs: Laboratory Results - last 24 hr 11/20/24 10:29: WBC 11.6 H, RBC 3.66 L, Hgb 11.1 L, Hct 33.2 L, MCV 90.7, MCH 30.3, MCHC 33.4, RDW Std Deviation 51.0 H, RDW Coeff of [place] 15.8 H, Plt Count 457 H, MPV 9.8, Immature Gran % (Auto) 4.100 H, Neut % (Auto) 77.9 H, Lymph % (Auto) 6.5 L, [place] % (Auto) 9.1, Eos % (Auto) 0.9, Baso % (Auto) 1.5 H, Absolute Neuts (auto) 9.1 H, Absolute Lymphs (auto) 0.76 L, Nucleated RBC % 0, PT 14.7, INR 1.1, APTT 29.5, Sodium 134, Potassium 4.5, Chloride 99, Carbon Dioxide 18.7 L, Anion Gap 17 H, BUN 30 H, Creatinine 0.97, Estim Creat Clear Calc 60.94, Est GFR (MDRD) Non-Af 86, BUN/Creatinine Ratio 31.0 H, Glucose 118 H, Lactic Acid 3.6 H*, Calcium 8.9, Magnesium 2.0, Total Bilirubin 0.48, AST 141 H, ALT 40, Alkaline Phosphatase 335 H, Troponin T High Sens 10, Total Protein 6.2, Albumin 3.1 L, Globulin 3.1, Albumin/Globulin Ratio 1.0 11/20/24 11:54: Urine Color Yellow, Urine Clarity Sl. Cloudy, Urine pH 5.0, Ur Specific [place] 1.015, Urine Protein 30 H, Urine Glucose (UA) Normal, Urine Ketones 5 H, Urine Occult Blood 10 H, Urine Nitrite Negative, Urine Bilirubin Negative, Urine Urobilinogen Normal, Ur Leukocyte Esterase 25 H, Urine RBC 0 SEEN, Urine WBC 0-5 SEEN, Ur Squamous Epith Cells 0-5 SEEN, Urine Bacteria 1+, Hyaline Casts 0-5 SEEN, Urine Mucus 0 SEEN 11/20/24 13:10: Troponin T Hi Sens 2 Hr 8 Micro: Microbiology 11/20/24 10:58 Stool Stool Occult Blood (RAMIRO) - Final Imaging Radiology Impression Chest X-Ray 11/20/24 10:50 IMPRESSION: No Acute Findings. Reading Location: [facility] 11/20/24 10:53 IMPRESSION: CHRONIC CHANGES. NO ACUTE FINDINGS. Reading Location: [facility]-1 Abdomen/Pelvis CT 11/20/24 11:02 IMPRESSION: Pulmonary metastatic disease. Extensive hepatic metastatic disease. Hepatic hilar adenopathy. Hilar adenopathy extends to level of pancreas. Favor pancreatic neoplasm as primary neoplasm. Reading Location: [place] [id number] Assessment & Plan Assessment/Plan (1) Metastatic cancer: PLAN: Plan # Hypotension and elevated lactic acid suspect secondary to dehydration -Patient has had diarrhea with significantly poor p.o. intake for several weeks -Appears dry on exam -Lactic and blood pressure improving with IV fluids -Will continue IV fluids -Liberalize diet -Supportive care -No signs or symptoms of infection identified that would suggest sepsis or acute etiology # Metastatic cancer, suspected to be stage IV pancreatic cancer -Patient cachectic and appears unwell -Poor prognosis given advanced nature of cancer -He likely has stage IV pancreatic cancer, discussed this with patient and family member at bedside -Discussed the option of CT-guided biopsy and considering further treatment like chemo if that would even be offered with patient's functional status and biopsy results and if patient would be interested in that, patient denies desire to pursue further treatment with chemo/aggressive measures -Discussed not doing CT-guided biopsy if we will not be pursuing further treatment and patient agreeable -Supportive care -Liberalize diet -Patient wants IV fluids and to continue with current measures but is open to hospice consult to decide if he would like to pursue that given diagnosis and prognosis, hospice consult placed #Hx CAD/CVA - Will continue aspirin, statin, Plavix at this time as patient is not comfort care -Given patient presented hypotensive holding beta-triston and lisinopril -Will give patient regular diet given all the above #PVD - CT scan of abdomen noted possible occlusion of left common iliac artery and severe atherosclerotic vascular calcifications, patient not complaining of any pain in that leg, no new or acute lower extremity complaints for me, suspect this is all chronic in nature, giving patient IV fluids and consulting hospice - Will continue patient on aspirin, statin, Plavix at this time # History of alcohol abuse -Has not drank in several weeks #DVT ppx: SCDs Priscilla Forrest MD Time spent in the patient's overall evaluation, decision-making process, review of diagnostic data, adjustment of management, discussion with other providers, nursing and ancillary staff involved in patient's care documentation, 80 Minutes Charges/Coding Visit Charges Inpatient E&M: 00574 Init Hosp L2
[2024-11-20] MEDS: 0.9% Normal Saline (1000mL) 1,000 ML 75 ML IV (17:49)
--- NOTE | 2024-11-20 19:24 | CASEMGMT ---
Social Work SW received a call from Hospice stating they had reached out to patients brother to set up a time to sign paperwork to admit patient to Hospice, however patients brother stated they were estranged and he was not willing to sign the paperwork. SW met with patient who stated he did want to be signed up for hospice and was willing and able to sign consent forms. Patient was alert and oriented during meeting with SW. Hospice was contacted and updated that patient wanted to and was able to sign paperwork. No further needs identified at this time. Chelsea Shafer, ADMINISTRATIVE SERVICES DIRECTOR, LOAD BUILDER
[2024-11-20] MEDS: 0.9% Saline Lock 10 ML Syringe IV (21:24)
[2024-11-21 03:00] VITALS: PULSE 78
[2024-11-21 03:27] VITALS: BP 86/56; PULSE 81; RESP 15; TEMP 36.5; O2SAT 94
[2024-11-21 05:51] LABS: Hematocrit 28.0 % (40-54); Hemoglobin 9.1 g/dL (13.0-16.5); Immature Granulocytes Count 0.300 X10^3/uL (0.0-0.0); Mean Corp Hgb Conc 32.5 g/dL (32-36); Mean Corpuscular Volume 91.2 fL (80-94); Mean Platelet Vol. 9.5 fl (6.2-12.0); NRBC Flagged by Analyzer 0 % (0-5); Platelet Count 346 K/mm3 (150-450); RBC Distribution Width CV 16.3 % (11.6-14.6); RBC Distribution Width SD 51.8 fl (35.1-43.9); Red Blood Count 3.07 M/mm3 (4.6-6.2); White Blood Count 11.4 K/mm3 (4.4-11.0)
[2024-11-21 06:20] LABS: AST(SGOT) 138 U/L (<=37); Alanine Aminotransfer ALT/SGPT 37 U/L (<=46); Albumin, Serum 2.3 g/dL (3.4-4.8); Alkaline Phosphatase 285 U/L (40-129); Anion Gap 17 (5-15); BUN 21 mg/dL (4-19); BUN/Creat Ratio 30.4 RATIO (10-20); Calcium,Total 8.1 mg/dL (7.6-11.0); Carbon Dioxide 15.0 mmol/L (21.0-32.0); Chloride 107 mmol/L (98-108); Estimated Creatinine Clearance 74.27 ml/min (50-250); Globulin 2.1 g/dL (2.2-4.2); Glucose 95 mg/dL (70-99); Potassium 3.9 mmol/L (3.3-5.1)
[2024-11-21] MEDS: 0.9% Normal Saline (1000mL) 1,000 ML 75 ML IV (06:51)
[2024-11-21] MEDS: Aspirin E.C. 81 MG Tablet PO (08:45)
--- NOTE | 2024-11-21 08:45 | CASEMGMT ---
Social Work SW called [facility]. [facility] reported they called the patient last night and the patient did not answer. [facility] plans on calling the patient today to schedule an appt. RAYRAY Franco
[2024-11-21 09:00] VITALS: BP 93/71; PULSE 82; RESP 16; TEMP 36.7; O2SAT 99
--- NOTE | 2024-11-21 10:22 | PCM.PN.HOSP ---
Subjective Subjective Significant disease burden from cancer unknown primary at this time however he does not want any investigation and would just like to go hospice which he will meet with today. He does not have the functional status to undergo chemotherapy or radiation of any kind Objective Data Objective Data Vital Signs: Vital Signs Temp Pulse Resp BP Pulse Ox O2 Del Method 97.7 F L 81 15 86/56 L 94 Room Air 11/21/24 03:27 11/21/24 03:27 11/21/24 03:27 11/21/24 03:27 11/21/24 03:27 11/21/24 03:27 Oxygen Delivery Method Room Air Weight: 129 lb 3.054 oz Body Mass Index (BMI) 17.0 Intake & Output: Intake and Output for Last 24 Hours 11/20/24 11/21/24 11/22/24 03:59 03:59 03:59 Intake Total 2300 / 2300 977.5 / 977.5 Output Total 276 / 276 150 / 150 Balance 2023 / 2023 827.5 / 827.5 Lab / Micro Data 11/21/24 05:11 11/21/24 05:11 Labs: Laboratory Results - last 24 hr 11/20/24 10:29: WBC 11.6 H, RBC 3.66 L, Hgb 11.1 L, Hct 33.2 L, MCV 90.7, MCH 30.3, MCHC 33.4, RDW Std Deviation 51.0 H, RDW Coeff of [place] 15.8 H, Plt Count 457 H, MPV 9.8, Immature Gran % (Auto) 4.100 H, Neut % (Auto) 77.9 H, Lymph % (Auto) 6.5 L, [place] % (Auto) 9.1, Eos % (Auto) 0.9, Baso % (Auto) 1.5 H, Absolute Neuts (auto) 9.1 H, Absolute Lymphs (auto) 0.76 L, Nucleated RBC % 0, PT 14.7, INR 1.1, APTT 29.5, Sodium 134, Potassium 4.5, Chloride 99, Carbon Dioxide 18.7 L, Anion Gap 17 H, BUN 30 H, Creatinine 0.97, Estim Creat Clear Calc 60.94, Est GFR (MDRD) Non-Af 86, BUN/Creatinine Ratio 31.0 H, Glucose 118 H, Lactic Acid 3.6 H*, Calcium 8.9, Magnesium 2.0, Total Bilirubin 0.48, AST 141 H, ALT 40, Alkaline Phosphatase 335 H, Troponin T High Sens 10, Total Protein 6.2, Albumin 3.1 L, Globulin 3.1, Albumin/Globulin Ratio 1.0 11/20/24 11:54: Urine Color Yellow, Urine Clarity Sl. Cloudy, Urine pH 5.0, Ur Specific [place] 1.015, Urine Protein 30 H, Urine Glucose (UA) Normal, Urine Ketones 5 H, Urine Occult Blood 10 H, Urine Nitrite Negative, Urine Bilirubin Negative, Urine Urobilinogen Normal, Ur Leukocyte Esterase 25 H, Urine RBC 0 SEEN, Urine WBC 0-5 SEEN, Ur Squamous Epith Cells 0-5 SEEN, Urine Bacteria 1+, Hyaline Casts 0-5 SEEN, Urine Mucus 0 SEEN 11/20/24 13:10: Troponin T Hi Sens 2 Hr 8 11/20/24 15:14: Lactic Acid 2.7 H* 11/21/24 05:11: WBC 11.4 H, RBC 3.07 L, Hgb 9.1 L, Hct 28.0 L, MCV 91.2, MCH 29.6, MCHC 32.5, RDW Std Deviation 51.8 H, RDW Coeff of [place] 16.3 H, Plt Count 346, MPV 9.5, Immature Gran % (Auto) 2.600 H, Neut % (Auto) 75.0 H, Lymph % (Auto) 7.6 L, [place] % (Auto) 11.6 H, Eos % (Auto) 2.3, Baso % (Auto) 0.9, Absolute Neuts (auto) 8.6 H, Absolute Lymphs (auto) 0.87, Nucleated RBC % 0, Sodium 139, Potassium 3.9, Chloride 107, Carbon Dioxide 15.0 L, Anion Gap 17 H, BUN 21 H, Creatinine 0.69 L, Estim Creat Clear Calc 74.27, Est GFR (MDRD) Non-Af 102, BUN/Creatinine Ratio 30.4 H, Glucose 95, Calcium 8.1, Total Bilirubin 0.25, AST 138 H, ALT 37, Alkaline Phosphatase 285 H, Total Protein 4.5 L, Albumin 2.3 L, Globulin 2.1 L, Albumin/Globulin Ratio 1.1 Micro: Microbiology 11/20/24 10:58 Stool Stool Occult Blood (RAMIRO) - Final Radiography Diagnostic Testing: Radiology Impression Chest X-Ray 11/20/24 10:50 IMPRESSION: No Acute Findings. Reading Location: [facility]-[address] 11/20/24 10:53 IMPRESSION: CHRONIC CHANGES. NO ACUTE FINDINGS. Reading Location: [facility] Abdomen/Pelvis CT 11/20/24 11:02 IMPRESSION: Pulmonary metastatic disease. Extensive hepatic metastatic disease. Hepatic hilar adenopathy. Hilar adenopathy extends to level of pancreas. Favor pancreatic neoplasm as primary neoplasm. Reading Location: [place] [address] Physical Exam Narrative General: Alert, Oriented x3, Cooperative, No apparent distress, severe protein calorie malnutrition temporal wasting HEENT: Atraumatic, PERRLA, EOMI, Normocephalic Oral: Moist Mucosa Neck: Supple, No JVD Lungs: Diminished, Normal air movement, No rhonchi, No wheeze, No rales Cardiovascular: Regular rate, Regular Rhythm, Normal S1, Normal S2, No murmurs Abdomen: Soft, Non Tender, Non-Distended, No Hepato-splenomegaly Extremities: No edema, Capillary Refill Less than 3 Seconds Skin: No rashes, No breakdown Musculoskeletal: No Tenderness to Palpation of Joints or Extremities Neurological: No focal neurological deficits, Motor Exam 5/5 strength throughout, Sensory exam intact to light touch and pain Psych/Mental Status: Normal Affect, Appropriate Assessment & Plan Assessment/Plan (1) Metastatic cancer: PLAN: Plan 1. Metastatic cancer of unknown primary concerning for stage IV pancreatic with severe protein calorie malnutrition and hypotension ? He has significant tumor burden in his liver ? He is dehydrated will continue with IV fluids ? Will have him meet with hospice ? He is not a candidate for chemotherapy and type of treatment at this time-palliative given how poor his functional status is therefore he would like to hold off on doing any type of testing ? 25-minute conversation advance care planning he would like to meet with hospice ? Will continue with pain management ? Continue with midodrine 2. Essential HTN/HLD/PVD with history of CAD/history of CVA ? Given his hypotension on admission we will hold his blood pressure medications and he is currently on midodrine ? Continue with his home cholesterol medications ? Continue with Plavix and aspirin 3. History of alcohol abuse ? He has not had an alcoholic beverage in a couple weeks DVT: SCDs Charges/Coding Multi Select Codes Visit Charges Visit Charges: 93008 Subs Hosp L2 Hospitalists' Procedures Procedures: 78896 Advncd Care Plan 30 Min
--- NOTE | 2024-11-21 11:26 | CASEMGMT ---
Social Work SW spoke the patient and assisted him with calling [facility]. Patient called [facility] but tired on holding and hung up the phone. RAYRAY Franco
--- NOTE | 2024-11-21 11:31 | CASEMGMT ---
Social Work [facility] called SW and reported the meeting is schedule for 530pm today. She reported the patient did not want to meet this morning and she did not have availability this afternoon. SW notified the nurse and physician of the 530pm meeting time. RAYRAY Franco
--- NOTE | 2024-11-21 13:00 | CASEMGMT ---
Social Work Pt's family requesting to meet with SW. SW met with pt, pt's son Jonah and dgt in law Odalys. Pt's family with questions regarding hospice. Pt is agreeable for SW to answer family questions. Pt explaining that he had a feeling that something was wrong but was just told in the ED yesterday that he has metastatic cancer and that there are not treatments. Pt states that he knows he is dying. Pt is requesting to return home with hospice services. PT confirms that he lives alone. SW offered support to pt and family. SW educated pt to options of returning home but that hospice does not provide 24 hour care and pt will need to be able to care for himself. SW also educated pt to option of SNF with hospice and that this would be private pay. SW answered family questions regarding hospice program and encouraged family to attend the hospice meeting at 5:30 tonight and to ask questions and obtain information from hospice nurse. Pt's dgt in law states they will ensure pt will have meals at home and family can check on pt, however pt will be at home alone if pt chooses to go home. Pt dgt in law followed SW out of room asking additional questions. DORIAN explained the [facility] and that pt does have to qualify to go to [facility] and if pt does not qualify now, he may be able to return home and as disease progresses, pt may then be able to go to [facility]. SW encouraged pt and family to meet with hospice at 5:30 and make decision on disposition goingn forward. SW will follow up with pt in the morning for discharge planning. Pt and family agreeable. DORCAS Wall
[2024-11-21 15:00] VITALS: BP 95/70; PULSE 98; RESP 16; TEMP 36.8; O2SAT 99
--- NOTE | 2024-11-21 16:05 | CHAPLAIN ---
Type of Pastoral Visit _x__ Initial Visit ___ Follow-up Visit ___ On-call Visit ___ General Patient Visit ___ Spiritual Assessment ___ Family Conference ___ Bereavement ___ Rapid Response ___ Code Blue ___ Other (describe below) Pastoral Care Referral From _x__ Patient ___ Family ___ Nurse ___ Physician ___ Media Intern ___ Cuff Slitter ___ Other (describe below) Sacrament/Intervention _x__ Active listening ___ Anointing ___ Mandaen ___ Bereavement ___ Communion ___ Sara exploration ___ ___ Life review _x__ Prayer ___ Reconciliation ___ Sacrament of Sick _x__ Supportive presence ___ Wedding ___ Other (describe below) Pastoral Comments patient was resting quietly but awake; pt welcomes this material hauler to sit with him; pt is tearful as he says I knew that something was wrong but this hit me like a brick and I know that I don't have much time; asked about how he was feeling and how he is coping, the patient admits to some regrets on how I lived my life, but frankly not everything; asked him how this material hauler can be supportive and if he wanted to talk about his thoughts and feelings; pt was asked about his spiritual concerns and he said that he was a somewhat Temple and that he was okay in that; pt affirms that he has some family and friends that are helpful that he can lean on; pt welcomes a prayer
[2024-11-21 21:42] VITALS: BP 105/65; PULSE 87; RESP 16; TEMP 36.4; O2SAT 97
[2024-11-22 03:35] VITALS: BP 96/72; PULSE 93; RESP 18; TEMP 36.8; O2SAT 96
[2024-11-22 08:05] VITALS: BP 108/64; PULSE 93; RESP 18; TEMP 36.9; O2SAT 94
[2024-11-22] MEDS: Aspirin E.C. 81 MG Tablet PO (08:07)
--- NOTE | 2024-11-22 08:44 | CASEMGMT ---
Social Work SW called [facility]. [facility] reported the patient wants hospice when he discharges. RAYRAY Franco
--- NOTE | 2024-11-22 09:01 | CASEMGMT ---
Social Work DORIAN spoke with the patient. Patient wants to discharge home with hospice. Patient asked DORIAN to call his Azalia [phone] to coordinate his discharge. He reported Azalia will call his son and DIL. He reported Azalia was at the meeting with hospice yesterday. He reported Azalia will be at his house. SW called [facility]. Hospice reported they ordered a bed, air mattress, walker, WC and BSC. She reported equipment will be delivered after 1000am this morning. Hospice wants to be updated on discharge time. SW called Azalia and left a message. Plan: SW will follow up with Azalia and hospice to confirm delivery of equipment and discharge time. RAYRAY Franco
--- NOTE | 2024-11-22 10:00 | CASEMGMT ---
Social Work SW called the friend Azalia. Azalia reported she was told the equipment will be delivered before 1200pm today and she plans on being at the house for delivery. She reported she will call SW once equipment is delivered. She reported the patients friend Todd will transport the patient home. RAYRAY Franco
--- NOTE | 2024-11-22 10:49 | PCM.DC ---
Discharge Instructions DC O2, CPAP, BIPAP needs Home O2 Discharge instructions: No Dressing / Incision Discharge Activity: Return to Normal Activity Dressing / Incision Call your doctor if you observe: Fever of 101 or Higher, Shortness of breath, Dizziness, Fainting spells, Swelling in the ankles, Chest pain and Increased palpitations (irregular heartbeat) Follow Up Care Test Results: Test results from this visit will be discussed in further detail at your follow-up appointment, if applicable. Discharge Plan Admission Admit Date/Time: 11/20/24 15:24 Attending Provider: Neal Acuna Primary Care Provider: Jesus Trujillo Consulting Providers: Tate Neal; Agnes Graham; Maryam Song; Jessie Miles; Kisha Jacob ASSEMBLER [employer]LE; Alem Latham; Priscilla Forrest Discharge Orders/Prescriptions Prescriptions: New oxycodone 5 mg Tablet 5 mg PO Q4H PRN PRN (Reason: Pain Score 4-10) 3 Days Qty: 10 0RF Continued clopidogrel 75 MG tablet 75 mg PO DAILY atorvastatin 40 mg tablet 40 mg PO QHS Patient Comments: TAKE 1 TABLET BY MOUTH AT BEDTIME cholecalciferol (vitamin D3) 100 mcg (4,000 unit) Tablet 100 mcg PO DAILY aspirin 81 mg Tablet,Delayed Release (Dr/Ec) 81 mg PO BREAKFAST Qty: 0 0RF vitamin B complex [B Complex-Vitamin B12] Tablet 1 tab PO DAILY lisinopril 20 mg tablet 20 mg PO DAILY carvedilol 6.25 mg tablet 6.25 mg PO BIDCM Qty: 180 4RF Referrals / Follow Up: Jesus Trujillo MD [Primary Care Provider, Family Practice] Disposition Disposition (needs filled in before D/C Order can be placed): Hospice in Home
--- NOTE | 2024-11-22 10:51 | CASEMGMT ---
Social Work SW spoke with son and DIL. They reported they want the patient to DC as soon as possible. They reported the patient will have help at home from son, DIL, Azalia and Todd. SW informed them SW will ask the physician to DC and call [place] [facility] to set up visit at home. The DIL reported Todd is transporting patient home. RAYRAY Franco
[2024-11-22 11:03] VITALS: BP 108/64; PULSE 93; RESP 18; TEMP 36.9; O2SAT 94
--- NOTE | 2024-11-22 11:05 | PHA.DC.MR.R ---
Pharmacy [place] Med Reconciliation Pharmacy Service has performed discharge medication reconciliation for this patient. The patient's discharge medication list was reviewed for discrepancies and discrepancies were resolved. Medications at Discharge Home Medications clopidogrel 75 mg tablet 75 mg PO DAILY HEART 10/28/18 atorvastatin 40 mg tablet 40 mg PO QHS CHOLESTEROL 01/04/22 cholecalciferol (vitamin D3) 100 mcg (4,000 unit) tablet 100 mcg PO DAILY SUPPLEMENT 01/04/22 aspirin 81 mg tablet,delayed release 81 mg PO BREAKFAST HEART #0 tabs 01/05/22 carvedilol 6.25 mg tablet 6.25 mg PO BIDCM BLOOD PRESSURE #180 tabs 02/11/22 vitamin B complex (B Complex-Vitamin B12 tablet) 1 tab PO DAILY SUPPLEMENT 09/22/22 lisinopril 20 mg tablet 20 mg PO DAILY 11/20/24 oxycodone 5 mg tablet 5 mg PO Q4H PRN PRN Pain Score 4-10 3 days #10 tabs 11/22/24
--- NOTE | 2024-11-22 11:12 | CASEMGMT ---
Social Work Physician completed the DC orders. DORIAN called [facility] and notified them that the patient is discharging. DORIAN also emailed [facility] the DC orders. DORIAN asked hospice to call SW with the time they are meeting the patient at his home to enroll him. DORIAN notified the nurse that the patient is ready for discharge. DORIAN called the son Jonah and notified him that the patient is ready for discharge. Jonah reported he will call Todd and have him come to hospital and pick and shovel worker the patient for DC. RAYRAY Franco
[2024-11-22 11:39] VITALS: BP 124/68
--- NOTE | 2024-11-22 12:34 | CASEMGMT ---
Social Work SW spoke with the son Jonah as the patient was discharging. Jonah reported the equipment was being delivered now at the home. The admission meeting at the home is scheduled for 130pmtoday. RAYRAY Franco
--- NOTE | 2024-11-22 12:40 | DS.PCM_ITS ---
Providers Date of Admission: 11/20/24 Primary Care Physician: Dr. Jesus Trujillo MD Consultations 11/20/24 17:19 Consult: Hospice / Outpatient Palliative Care Routine Consulting Provider: [facility] Reason for Consult: stage IV metastatic pancreatic cancer EMERGENT Consult: No MD Notified: Yes Date Notified: 11/20/24 Time Notified: 16:28 Method of Notification: ED Physician Initiated Reason For Visit: HYPOTENSION, HYPOVOLEMIA, ELEVATED LACTIC ACID Diagnosis Discharge Diagnosis (1) Metastatic cancer: Status: Acute Code(s): C79.9 - Secondary malignant neoplasm of unspecified site Medications at Discharge Home Medications clopidogrel 75 mg tablet 75 mg PO DAILY HEART 10/28/18 atorvastatin 40 mg tablet 40 mg PO QHS CHOLESTEROL 01/04/22 cholecalciferol (vitamin D3) 100 mcg (4,000 unit) tablet 100 mcg PO DAILY SUPPLEMENT 01/04/22 aspirin 81 mg tablet,delayed release 81 mg PO BREAKFAST HEART #0 tabs 01/05/22 carvedilol 6.25 mg tablet 6.25 mg PO BIDCM BLOOD PRESSURE #180 tabs 02/11/22 vitamin B complex (B Complex-Vitamin B12 tablet) 1 tab PO DAILY SUPPLEMENT 09/22/22 lisinopril 20 mg tablet 20 mg PO DAILY 11/20/24 oxycodone 5 mg tablet 5 mg PO Q4H PRN PRN Pain Score 4-10 3 days #10 tabs 11/22/24 Hospital Course Operations None Procedures None Summary of Care Provided Minutes Spent on Discharge: 34 Hospital Course: Per HPI: BENY AGARWAL, is [id number] male history of COPD, CVA, alcohol use, coronary artery disease, hypertension presented [facility] ED 11/16/2024 for multiple complaints. For the past several weeks he has had weakness, falls, dark stools, swelling in his feet, decreased p.o. intake and abdominal pain. Reportedly stopped drinking alcohol around 3 weeks ago. Saw PCP today who referred him to the ED. Reportedly patient ambulates with crutches at baseline. Does have chronic dysarthria that has possibly been worsening over the past several days. In the ED temp 97.4, heart rate 92 and blood pressure initially 85/69, respiratory 18 pulse ox 96% on room air. CBC with white count 11.6, hemoglobin 11.1, CMP with a bicarb of 18.7 and a gap of 17, BUN of 30 and a creatinine of 0.97. Trop 10. Lactic acid 3.6. Fecal occult negative, UA not overtly suggestive of infection, CT head with chronic changes but no acute process, chest x-ray no acute findings, CT abdomen with extensive metastatic disease through liver placing at least 50% of volume of liver with hepatic portal masses that extend to the level of the head of the pancreas and measure at least 3.3 x 2.3 cm with component adjacent to if not involving pancreas measuring 2.8 x 2.5 cm, numerous splenic metastasis also noted. And also noted likely occluded left common iliac artery and severe atherosclerosis vascular calcifications abdominal aorta and its branches. Given all of the above hospitalist contacted for admission. Did discuss with oncology prior to seeing patient, patient has significant metastatic cancer suspected to be stage IV pancreatic cancer which is incurable, if he had very good functional status could consider a CT-guided biopsy of the liver and oncology follow-up to discuss if there would be any options for any form of additional treatment. Patient evaluated at bedside. He reports over the past few weeks he?s had very poor appetite, not eating and drinking well, has had an achy feeling intermittently in his chest and a dry cough, has had significant abdominal pain with lots of diarrhea, denies any swelling in his extremities for me, no fevers or chills, intermittently gets some headaches, no changes in vision today, denies any aching or stress today, no shortness of breath. No changes in urination. Does have dysarthria from previous CVA and reports that this has been slowly worsening over the past few months with no acute change. Hospital Course: 1. Metastatic cancer of unknown primary concerning for stage IV pancreatic with severe protein calorie malnutrition and hypotension ? He has significant tumor burden in his liver ? He is dehydrated will continue with IV fluids ? Will have him meet with hospice ? He is not a candidate for chemotherapy and type of treatment at this time- palliative given how poor his functional status is therefore he would like to hold off on doing any type of testing ? Will continue with pain management ? Continue with midodrine ? He was able to meet with hospice on 11/22/2019 5 in the evening and would like to proceed with hospice at home. Family is in agreement. They requested discharge home today and he expressed understanding of the risks and benefits of going home on hospice and would like to go today. Can resume all of his home medications and allow hospice to decide with him which wants to continue taking. Will provide him with 3 days of oxycodone as this seems to have controlled his pain while here in the hospital with further adjustments to be made on the outpatient basis by hospice. 2. Essential HTN/HLD/PVD with history of CAD/history of CVA ? Given his hypotension on admission we will hold his blood pressure medications and he is currently on midodrine ? Continue with his home cholesterol medications ? Continue with Plavix and aspirin 3. History of alcohol abuse ? He has not had an alcoholic beverage in a couple weeks Physical Exam Narrative General: Alert, Oriented x3, Cooperative, No apparent distress, severe protein calorie malnutrition temporal wasting HEENT: Atraumatic, PERRLA, EOMI, Normocephalic Oral: Moist Mucosa Neck: Supple, No JVD Lungs: Diminished, Normal air movement, No rhonchi, No wheeze, No rales Cardiovascular: Regular rate, Regular Rhythm, Normal S1, Normal S2, No murmurs Abdomen: Soft, Non Tender, Non-Distended, No Hepato-splenomegaly Extremities: No edema, Capillary Refill Less than 3 Seconds Skin: No rashes, No breakdown Musculoskeletal: No Tenderness to Palpation of Joints or Extremities Neurological: No focal neurological deficits, moves all extremities Psych/Mental Status: Normal Affect, Appropriate Weight / BMI Weight Weight: 129 lb 3.054 oz Body Mass Index (BMI) 17.0 ABG / Lab / Microbiology Data 11/21/24 05:11 11/21/24 05:11 Microbiology: Microbiology 11/20/24 11:54 Urine, Catheterized Urine Culture - Preliminary GNR 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 11/20/24 10:58 Stool Stool Occult Blood (RAMIRO) - Final D/C Instructions Call your doctor if you observe: Fever of 101 or Higher, Shortness of breath, Dizziness, Fainting spells, Swelling in the ankles, Chest pain and Increased palpitations (irregular heartbeat) DC O2, CPAP, BIPAP Needs Home O2 Discharge instructions: No Meaningful Use Info Meaningful Use Meaningful Use Diagnoses (Choose all that apply): None applicable Discharge Plan Admission Admit Date/Time: 11/20/24 15:24 Attending Provider: Neal Acuna Primary Care Provider: Schinner,Jesus E Consulting Providers: Tate Neal Agnes Graham; Maryam Song; Jessie Miles; Kisha Jacob NP; Alem Latham; Priscilla Forrest Discharge Orders/Prescriptions Prescriptions: New oxycodone 5 mg Tablet 5 mg PO Q4H PRN PRN (Reason: Pain Score 4-10) 3 Days Qty: 10 0RF Continued clopidogrel 75 MG tablet 75 mg PO DAILY atorvastatin 40 mg tablet 40 mg PO QHS Patient Comments: TAKE 1 TABLET BY MOUTH AT BEDTIME cholecalciferol (vitamin D3) 100 mcg (4,000 unit) Tablet 100 mcg PO DAILY aspirin 81 mg Tablet,Delayed Release (Dr/Ec) 81 mg PO BREAKFAST Qty: 0 0RF vitamin B complex [B Complex-Vitamin B12] Tablet 1 tab PO DAILY lisinopril 20 mg tablet 20 mg PO DAILY carvedilol 6.25 mg tablet 6.25 mg PO BIDCM Qty: 180 4RF Referrals / Follow Up: Jesus Trujillo MD [Primary Care Provider, Family Practice] Disposition Disposition (needs filled in before D/C Order can be placed): Hospice in Home Charges/Coding Visit Charges Inpatient E&M: 75712 Disch Hosp >30min
== END 2024-11-22 12:05 | disposition hospice, home (50) | DRG 435 ==
LOC: ED 10:54 → PCU 16:52
PROVIDERS: Admitting Provider Internal Medicine; Emergency Provider Surgery; PCP Family Medicine; Visit Provider Family Medicine
DX: C25.9 Malignant neoplasm of pancreas, unspecified (principal); E43 Unspecified severe protein-calorie malnutrition; C78.89 Secondary malignant neoplasm of other digestive organs; C78.7 Secondary malignant neoplasm of liver and intrahepatic bile duct; Z68.1 Body mass index [BMI] 19.9 or less, adult; I69.322 Dysarthria following cerebral infarction; E86.0 Dehydration; I73.9 Peripheral vascular disease, unspecified; I10 Essential (primary) hypertension; F10.10 Alcohol abuse, uncomplicated; F17.200 Nicotine dependence, unspecified, uncomplicated; I25.10 Atherosclerotic heart disease of native coronary artery without angina pectoris; E78.5 Hyperlipidemia, unspecified; R62.7 Adult failure to thrive; Y90.9 Presence of alcohol in blood, level not specified; R29.6 Repeated falls; Z79.02 Long term (current) use of antithrombotics/antiplatelets; Z79.82 Long term (current) use of aspirin; Z79.899 Other long term (current) drug therapy
CPT/HCPCS: 36415; 51702; 70450; 71045; 74177; 80053; 81001; 82274; 83605; 83735; 84484; 85025; 85610; 85730; 87040; 87077; 87086; 87088; 87186; 93005; 97162; 97166; 99285; Q9967; A4216